=== PATIENT | female | born 1995 | race Caucasian/White ===

== ENCOUNTER 2017-04-08 12:44 | Emergency (ER) | payer MEDICAID, SELFPAY ==
[2017-04-08 12:45] VITALS: BP 135/71; PULSE 103; RESP 14; TEMP 37.6; O2SAT 97; BMI 29.9
--- NOTE | 2017-04-08 13:21 | ED.VISSUMM ---
- ER Visit Summary Date of Service: 04/08/17 Chief Complaint: [Vaginal lesion] History of Present Illness: The patient is a 21 F [who presents the emergency department with a vaginal lesion. She has a history of genital herpes. She started having tingling sensation and discomfort about 5 days ago. Yesterday she noticed a small vesicular lesion on her clitoral harding. Today it scabbed and painful. It is only one lesion but it is similar to her herpes breakout. No other vaginal discharge no pelvic pain no dysuria frequency or hematuria she denies the possibility of and states that she is on control.] Physical Examination: [] The rate 103 other vitals within acceptable limits Soft and nontender Exam reveals a small scabbed shallow based ulcer on the clitoral harding with no surrounding erythema or mass Test Results: [] Emergency Department Course and Treatment: [Patient's exam consistent with recurrent herpes. She was given infection precautions for which she should return. She was given a referral to OB and will be started on acyclovir] Treatment Plan: [] Disposition: [Discharge] Impression: [Genital herpes] This note was generated with [employer] dictation software. It may contain incorrect words, spelling, and punctuation that were not noted in review of the chart prior to signing ED Disposition - Plan for ED Patient: Chief Complaint: Female C/O Referrals: Care Physician,No Primary [Primary Care Provider] -
--- NOTE | 2017-04-08 13:24 | ED.DEP ---
ED Disposition - Plan for ED Patient: Chief Complaint: Female C/O Instructions: ED Herpes Simplex Virus Type 2 Prescriptions: Acyclovir [Zovirax] 400 mg PO TID #15 capsule Referrals: Amy Smallwood MD [STAFF PHYSICIAN] - 1 Week
== END 2017-04-08 13:32 | disposition home or self-care (01) ==
LOC: ED 13:15
PROVIDERS: Emergency Provider Emergency Medicine
DX: A60.04 Herpesviral vulvovaginitis (principal); Z72.0 Tobacco use
CPT/HCPCS: 99282

== ENCOUNTER 2017-06-14 18:12 | Emergency (ER) | payer MEDICAID, SELFPAY ==
[2017-06-14 18:13] VITALS: BP 143/89; PULSE 109; RESP 16; TEMP 36.4; O2SAT 98; BMI 26.8
--- NOTE | 2017-06-14 18:34 | CT_ITS ---
STUDY: CT ABDOMEN WITH CONTRAST REASON FOR EXAM: Female, 21 years old. Nausea vomiting and diarrhea for one day. RADIATION DOSAGE (If Supplied By Facility): CTDIvol = ( 8.55 ) mGy, DLP = ( 692.39 ) mGycm TECHNIQUE: Transaxial images were obtained post I.V. administration of 100 ml of Isovue 300 contrast, and without oral contrast. Sagittal and coronal images were reconstructed. Individualized dose optimization techniques were used for this CT. COMPARISON: Prior abdomen and pelvic CT exam of January 26, 2016 FINDINGS: Minimal linear atelectasis or scarring of the anterior right lung base. The visualized portions of the heart are within normal limits. Normal liver. Contracted gallbladder. Normal spleen. Normal pancreas. Normal bilateral adrenal glands. Normal right kidney. Normal left kidney. Food filled distended stomach. Food filled nondistended small bowel. Nondistended colon. The distal colon is collapsed with a mild prominence of the mucosa. Negative for pericolonic edema. The appendix is visualized and appears normal. Normal abdominal aorta. Normal inferior vena cava. Normal retroperitoneum. Nondistended urinary bladder. Normal uterus and ovaries. Negative for free fluid. Normal abdominal wall. Normal osseous structures. CT/Abdomen/Pelvis W IV Cont ONLY IMPRESSION: Negative for evidence of bowel obstruction or perforation. A normal appendix is identified. Although completely collapsed, there appears to be a mild prominence of the mucosa of the distal colon occurring without other evidence of pericolonic inflammatory changes, diverticulosis or diverticulitis. Mild colitis not excludable. Food distended stomach. Food filled but not distended small bowel. No additional acute solid organ abnormality. Electronically Signed: Jessica Gomez MD at 20:02 EDT , Service support ,
--- NOTE | 2017-06-14 18:35 | ED.RN ---
Pt requested opioids be placed on allergy list due to history of IV drug use
[2017-06-14] MEDS: 0.9% Normal Saline 1,000 ML 1000 ML IV (18:43)
[2017-06-14] MEDS: Ketorolac 30 MG/ML Syringe 15 MG IV (18:43)
[2017-06-14] MEDS: Ondansetron 4 MG/2 ML Vial IV (18:43)
--- NOTE | 2017-06-14 18:43 | ED.DCSUM_ITS ---
- ER Visit Summary Date of Service: 06/14/17 Chief Complaint: Nausea, vomiting, diarrhea and abdominal pain History of Present Illness: The patient is a 21 F with history of IV drug use, hepatitis C and goiter presents for 1 day of abdominal pain, nausea, vomiting and diarrhea. Patient has been having severe crampy abdominal pain since this morning. She had 3 episodes of vomiting and continues to be nauseated. She has had 4 episodes of loose watery stool but now is having no bowel movements or flatus, despite feeling like she needs to. She denies fever, chest pain, shortness of breath, cough or congestion. She states she has been belching burps that smell like sulfur. She denies urinary symptoms. No menstrual periods due to being on Depo-Provera. Physical Examination: Vital signs: afebrile, hemodynamically stable, no hypoxia on room air General: well nourished, well developed, in no distress appears uncomfortable and tearful Skin: warm, dry, no rash, no pallor no [place]ay lesions or Osler nodes or splinter hemorrhages appreciated through partially painted nails HEENT: normocephalic and atraumatic; PERRL, EOMI, moist mucous membranes Cardiovascular: Tachycardic rate and regular rhythm without murmurs, no peripheral edema, 2+ pulses all distal extremities Respiratory: No increased work of breathing, lungs are clear to auscultation bilaterally, no rales, rhonchi or wheezing Abdominal: Abdomen is soft, diffusely tender with normoactive bowel sounds, no guarding or rebound, no masses MSK: Moves all extremities, no deformities, normal strength Neuro: Awake and alert, oriented ?4. No facial droop, sensation and motor function intact and symmetric Test Results: Abnormal Lab Results 06/14/17 06/14/17 06/14/17 18:30 18:30 18:30 WBC 12.6 H RBC 5.12 Hgb 14.0 Hct 43.4 MCV 84.8 MCH 27.3 MCHC 32.3 RDW 13.1 RDW Differential 40.6 Plt Count 291 MPV 9.6 Immature Gran % (Auto) 0.100 Neut % (Auto) 58.0 Lymph % (Auto) 32.2 [place] % (Auto) 8.0 Eos % (Auto) 1.6 Baso % (Auto) 0.1 Absolute Neuts (auto) 7.3 Absolute Lymphs (auto) 4.05 Total Counted Not Reportable Sodium 147 H Potassium 3.4 L Chloride 111 H Carbon Dioxide 25.0 Anion Gap 11 BUN 9 Creatinine 0.78 Estim Creat Clear Calc 92.79 Est GFR (MDRD) Af Amer 117 Est GFR (MDRD) Non-Af 97 BUN/Creatinine Ratio 11.6 Glucose 75 Calcium 8.9 Total Bilirubin 0.20 AST 39 H ALT 168 H Alkaline Phosphatase 139 H Total Protein 7.8 Albumin 3.4 Globulin 4.4 H Albumin/Globulin Ratio 0.8 L Lipase 180 Serum , Qual NEGATIVE Urine Test 06/14/17 18:49 WBC RBC Hgb Hct MCV MCH MCHC RDW RDW Differential Plt Count MPV Immature Gran % (Auto) Neut % (Auto) Lymph % (Auto) [place] % (Auto) Eos % (Auto) Baso % (Auto) Absolute Neuts (auto) Absolute Lymphs (auto) Total Counted Sodium Potassium Chloride Carbon Dioxide Anion Gap BUN Creatinine Estim Creat Clear Calc Est GFR (MDRD) Af Amer Est GFR (MDRD) Non-Af BUN/Creatinine Ratio Glucose Calcium Total Bilirubin AST ALT Alkaline Phosphatase Total Protein Albumin Globulin Albumin/Globulin Ratio Lipase Serum , Qual Urine Test Negative Clinical Impression(s) from Imaging Studies Abdomen/Pelvis CT 06/14/17 18:34 IMPRESSION: Negative for evidence of bowel obstruction or perforation. A normal appendix is identified. Although completely collapsed, there appears to be a mild prominence of the mucosa of the distal colon occurring without other evidence of pericolonic inflammatory changes, diverticulosis or diverticulitis. Mild colitis not excludable. Food distended stomach. Food filled but not distended small bowel. No additional acute solid organ abnormality. Electronically Signed: Jessica Gomez MD at 20:02 EDT , Service support , Emergency Department Course and Treatment: Given patient's complaints and examination combined with her history of IV drug use, workup was performed to look for acute abdominal pathology. Patient had no findings on her exam concerning for endocarditis. Differential includes bowel obstruction, gastroenteritis, diverticulitis, among other pathology. negative. Labs showed mild leukocytosis of 12.6 which may be related to infection versus demargination from vomiting. Labs showed no electrolyte derangements. Hepatic function consistent with history of hepatitis C. CT of the abdomen and pelvis showed a large amount of food content in the stomach in the small bowel with collapse of the distal colon. No inflammatory changes. Results discussed with patient, and she did at that time admits that she has been binge eating and her symptoms started after an episode of binge eating, which explains the large amount of stomach contents. Patient was given a prescription for Zofran and a GI cocktail prior to discharge. No indication for admission at this time. Patient was discharged home with her mother. Treatment Plan: [] Disposition: [] Impression: Abdominal pain, gastroenteritis This note was generated with [employer] dictation software. It may contain incorrect words, spelling, and punctuation that were not noted in review of the chart prior to signing ED Disposition - Plan for ED Patient: Disposition: Home or Assisted Living Chief Complaint: Abd Pain Instructions: ED Diet Vomiting Diarrhea Prescriptions: Ondansetron [Zofran Odt] 4 mg PO Q8H PRN PRN #15 tab PRN Reason: Nausea Referrals: Cuca Shah MD [STAFF PHYSICIAN] - 3-5 Days if not improving Care Physician,No Primary [Primary Care Provider] - Additional Instructions: Your workup showed a large amount of food in your stomach and small intestine, consistent with your history of binge eating. There was no sign of bowel obstruction or any other issues that require admission or surgery. Please eat a bland liquid diet until your bowels start moving again and you stopped having abdominal pain, nausea, vomiting and diarrhea. Make sure you drink plenty of fluids to stay hydrated. If you have any worsening of your condition or any new concerning symptoms, return to the emergency department for another evaluation. Please follow-up with the doctor on this paperwork or with the primary care doctor of your choice to establish care with a primary care doctor.
[2017-06-14 18:46] LABS: Absolute Lymphocyte Count 4.05 X10^3/ul (0.83-4.51); Absolute Neutrophil Count 7.3 X10^3/uL (2.0-7.7); Basophil# 0.01 X10^3/uL; Basophil% 0.1 % (0-1); Eosinophils% 1.6 % (0-5); Hematocrit 43.4 % (37-47); Lymphocyte # 4.05 X10^3/ul (4.0); Lymphocyte % 32.2 % (19-41); Mean Corp Hgb Conc 32.3 g/gl (32-36); Mean Corpuscular Hgb 27.3 pg (27.0-32.0); Mean Corpuscular Volume 84.8 fL (81-99); Mean Platelet Vol. 9.6 fl (6.2-12.0); Monocyte# 1.01 X10^3/uL; Neutrophil # 7.28 X10^3/uL (2.7-7.7); Platelet Count 291 K/mm3 (150-450); RBC Distribution Width CV 13.1 % (11.6-14.6); RBC Distribution Width SD 40.6 fl (35.1-43.9); Red Blood Count 5.12 M/mm3 (4.2-5.4); White Blood Count 12.6 K/mm3 (4.4-11.0)
[2017-06-14 18:48] LABS: POSITIVE COUNT NO; POSITIVE DIFFERENTIAL NO; POSITIVE MORPHOLOGY NO
[2017-06-14 18:59] LABS: ALB/GLOB Ratio 0.8 RATIO (0.9-2.4); AST(SGOT) 39 U/L (15-37); Alanine Aminotransfer ALT/SGPT 168 U/L (13-56); Albumin, Serum 3.4 g/dL (3.2-5.0); Alkaline Phosphatase 139 U/L (45-117); Anion Gap 11 (5-15); BUN 9 mg/dL (7-18); BUN/Creat Ratio 11.6 RATIO (10-20); Calcium,Total 8.9 mg/dL (8.5-10.1); Chloride 111 mmol/L (98-107); Creatinine, Serum 0.78 mg/dL (0.55-1.02); EST Glomerular Filtration Rate 97 mL/min (>60); Est Glom Filt Rate - Afr Amer 117 mL/min (>60); Estimated Creatinine Clearance 92.79 ml/min; Globulin 4.4 g/dL (2.2-4.2); Glucose 75 mg/dL (74-106); Lipase 180 U/L (73-393); Potassium 3.4 mmol/L (3.5-5.1); Protein, Total 7.8 g/dL (6.4-8.2); Sodium Level 147 mmol/L (136-145)
[2017-06-14 19:01] LABS: Internal QC Validated? YES +Cl - CLEAR BKGD; Pregnancy, Urine Negative Negative
[2017-06-14 19:11] LABS: Pregnancy, Serum, hCG Quali. NEGATIVE Negative (0-9 Nonpreg)
[2017-06-14 20:13] VITALS: BP 135/88; PULSE 93; RESP 14; O2SAT 100
--- NOTE | 2017-06-14 20:17 | ED.DEP ---
ED Disposition - Plan for ED Patient: Disposition: Home or Assisted Living Chief Complaint: Abd Pain Instructions: ED Diet Vomiting Diarrhea Prescriptions: Ondansetron [Zofran Odt] 4 mg PO Q8H PRN PRN #15 tab PRN Reason: Nausea Referrals: Care Physician,No Primary [Primary Care Provider] - Cuca Shah MD [STAFF PHYSICIAN] - 3-5 Days if not improving Additional Instructions: Your workup showed a large amount of food in your stomach and small intestine, consistent with your history of binge eating. There was no sign of bowel obstruction or any other issues that require admission or surgery. Please eat a bland liquid diet until your bowels start moving again and you stopped having abdominal pain, nausea, vomiting and diarrhea. Make sure you drink plenty of fluids to stay hydrated. If you have any worsening of your condition or any new concerning symptoms, return to the emergency department for another evaluation. Please follow-up with the doctor on this paperwork or with the primary care doctor of your choice to establish care with a primary care doctor.
== END 2017-06-14 20:32 | disposition home or self-care (01) ==
PROVIDERS: Emergency Provider Emergency Medicine
DX: K52.9 Noninfective gastroenteritis and colitis, unspecified (principal); E04.9 Nontoxic goiter, unspecified; Z72.0 Tobacco use; Z86.19 Personal history of other infectious and parasitic diseases
CPT/HCPCS: 74177; 80053; 81025; 83690; 84703; 85025; 87086; 87088; 96361; 96374; 96375; 99285; J7030; Q9967; A4216; J2405

== ENCOUNTER 2017-08-11 19:32 | Emergency (ER) | payer MEDICAID, SELFPAY ==
[2017-08-11 19:33] VITALS: BP 153/87; PULSE 113; RESP 22; TEMP 37; O2SAT 98; BMI 24.7
[2017-08-11] MEDS: Ketorolac 60 MG/2 ML Vial IM (21:52)
--- NOTE | 2017-08-11 21:53 | NURSING ---
CALLED [facility] FOR A RIDE HOME.
[2017-08-11 22:54] LABS: Mucous, Urine 0 SEEN /hpf (<or=2+)
[2017-08-11 22:58] LABS: Color, Urine Yellow (Yellow); Glucose, Dipstick Normal (Normal); Ketone-Dipstick Negative (Negative); Leukocyte Esterase-Dipstick 500 /ul (Negative); Nitrite-Dipstick Positive (Negative); Occult Blood-Urine 25 /ul (Negative); Protein-Dipstick 100 mg/dl (Negative); Urine Bilirubin Dipstick Negative (Negative); Urine Clarity Sl. Cloudy (Clear); Urine Urobilinogen 4 mg/dl (Normal); Urine pH 6.5 (5.0 - 8.0)
[2017-08-11 23:00] LABS: Internal QC Validated? YES +Cl - CLEAR BKGD
[2017-08-11 23:01] LABS: Pregnancy, Urine Negative Negative
[2017-08-11 23:21] LABS: Red Blood Cells-Urine 0-5 SEEN /hpf (0-5); White Blood Cells >100 SEEN /hpf (0-5)
[2017-08-11 23:22] LABS: Bacteria 2+ /hpf (None Seen); Squamous Epithelial Cells - UA 10-25 SEEN /hpf (5-10)
--- NOTE | 2017-08-11 23:30 | ED.VISSUMM ---
- ER Visit Summary Date of Service: 08/11/17 Chief Complaint: Bilateral flank pain History of Present Illness: The patient is a 22 F presenting with bilateral flank pain. She states this started yesterday. She states this feels similar to her previous kidney infections. She has had one episode of vomiting. She denies abdominal pain. Denies fever. Denies other complaints. She does have a history of methamphetamine use. Physical Examination: Vitals are stable. Patient is afebrile. Alert no acute distress. HEENT exam is unremarkable. Neck is supple. Lungs are clear and equal bilaterally. Heart is regular rate and rhythm. Abdomen is soft nontender nondistended. No rebound or guarding. Back: Bilateral CVA tenderness Extremities are unremarkable. Skin is warm and dry. No focal neurologic deficit. Remainder of exam is unremarkable. Emergency Department Course and Treatment: Patient is given Toradol IM with improvement. She has no further nausea or pain. She is resting comfortably. Urinalysis shows over 100 white cells, 2+ bacteria. HCG negative. Patient is given Cipro. She is advised to follow-up with Dr. Collado steel division supervisor for no doc. Advised return ED if worsening complaints. Disposition: Discharge home Impression: Pyelonephritis This note was generated with [employer] dictation software. It may contain incorrect words, spelling, and punctuation that were not noted in review of the chart prior to signing ED Disposition - Plan for ED Patient: Chief Complaint: Flank Pain Referrals: Care Physician,No Primary [Primary Care Provider] -
--- NOTE | 2017-08-11 23:33 | ED.DCSUM_ITS ---
- ER Visit Summary Date of Service: 08/11/17 Chief Complaint: Bilateral flank pain History of Present Illness: The patient is a 22 F presenting with bilateral flank pain. She states this started yesterday. She states this feels similar to her previous kidney infections. She has had one episode of vomiting. She denies abdominal pain. Denies fever. Denies other complaints. She does have a history of methamphetamine use. Physical Examination: Vitals are stable. Patient is afebrile. Alert no acute distress. HEENT exam is unremarkable. Neck is supple. Lungs are clear and equal bilaterally. Heart is regular rate and rhythm. Abdomen is soft nontender nondistended. No rebound or guarding. Back: Bilateral CVA tenderness Extremities are unremarkable. Skin is warm and dry. No focal neurologic deficit. Remainder of exam is unremarkable. Emergency Department Course and Treatment: Patient is given Toradol IM with improvement. She has no further nausea or pain. She is resting comfortably. Urinalysis shows over 100 white cells, 2+ bacteria. HCG negative. Patient is given Cipro. She is advised to follow-up with Dr. Collado flight operations specialist for no doc. Advised return ED if worsening complaints. Disposition: Discharge home Impression: Pyelonephritis This note was generated with [employer] dictation software. It may contain incorrect words, spelling, and punctuation that were not noted in review of the chart prior to signing ED Disposition - Plan for ED Patient: Chief Complaint: Flank Pain Referrals: Care Physician,No Primary [Primary Care Provider] -
--- NOTE | 2017-08-11 23:34 | ED.DEP ---
ED Disposition - Plan for ED Patient: Chief Complaint: Flank Pain Instructions: ED Kidney Infec Female Prescriptions: Ciprofloxacin [Cipro] 500 mg PO BID #14 tablet Referrals: Care Physician,No Primary [Primary Care Provider] - Aramis Collado MD [STAFF PHYSICIAN] -
[2017-08-11] MEDS: Ciprofloxacin 500 MG Tablet PO (23:38)
[2017-08-11 23:39] VITALS: BP 112/66; PULSE 84; RESP 18; O2SAT 100
== END 2017-08-11 23:43 | disposition home or self-care (01) ==
PROVIDERS: Emergency Provider Emergency Medicine
DX: N12 Tubulo-interstitial nephritis, not specified as acute or chronic (principal); R11.10 Vomiting, unspecified; Z72.0 Tobacco use; Z87.440 Personal history of urinary (tract) infections
CPT/HCPCS: 81001; 81025; 96361; 96365; 96366; 96372; 96375; 99284

== ENCOUNTER 2018-09-08 03:07 | Emergency (ER) | payer MEDICAID, SELFPAY ==
[2018-09-08 03:09] VITALS: BP 121/52; PULSE 77; RESP 18; TEMP 36.1; O2SAT 100; BMI 24.0
[2018-09-08] MEDS: Ondansetron ODT 4 MG Tablet PO (03:58)
[2018-09-08] MEDS: Dicyclomine 20 MG/2 ML Vial IM (05:00)
[2018-09-08] MEDS: Loperamide 2 MG Capsule 4 MG PO (05:00)
--- NOTE | 2018-09-08 05:03 | ED.RN ---
PT REQUESTED MORE NAUSEA MEDICINE. DR. IPNTO MADE AWARE, NO FURTHER ORDERS AT THIS TIME, WILL CONTINUE TO MONITOR THE PT.
[2018-09-08 05:04] LABS: Internal QC Validated? YES +Cl - CLEAR BKGD; Pregnancy, Serum, hCG Quali. NEGATIVE Negative
[2018-09-08 05:07] VITALS: BP 122/76; PULSE 86; RESP 17; O2SAT 98
--- NOTE | 2018-09-08 05:50 | ED.DCSUM_ITS ---
- ER Visit Summary Date of Service: 09/08/18 Chief Complaint: Nausea vomiting and diarrhea History of Present Illness: The patient is a 23 F who presents with nausea vomiting diarrhea. This all began today before presentation. She actually was just nauseated until she got here her first episode of emesis was here in the emergency department. She also complains of diarrhea. She denies abdominal pain but does complain of diffuse abdominal cramping. No fevers. No recent illness. Physical Examination: Afebrile vitals unremarkable Resting comfortably Moist mucous membranes Heart regular rate and rhythm Lungs are clear Abdomen soft she does have some diffuse nonfocal tenderness without guarding without rebound she is nondistended Alert Test Results: negative Emergency Department Course and Treatment: Nursing tyron blood but the patient did not want an IV. She was given a Zofran ODT. I evaluated her after this and her nausea was improved but she was still concerned about abdominal cramping and diarrhea so she was given Bentyl and Imodium. Her presentation is most consistent with a gastroenteritis. She was advised this is likely a self- limiting illness. She was given prescriptions for Zofran and Bentyl. She understands to return for new or worsening symptoms and was instructed on specific signs and symptoms to monitor for. Patient discharged. Treatment Plan: [] Disposition: Discharge Impression: Gastroenteritis This note was generated with [employer] dictation software. It may contain incorrect words, spelling, and punctuation that were not noted in review of the chart prior to signing ED Disposition - Plan for ED Patient: Referrals: Care Physician,No Primary [Primary Care Provider] -
--- NOTE | 2018-09-08 05:54 | ED.DEP ---
ED Disposition - Plan for ED Patient: Instructions: GASTROENTERITIS, Viral (4y-Adult) Prescriptions: Dicyclomine HCl [Bentyl] 20 mg PO TIDAC #20 cap Prescription Printed Ondansetron [Zofran Odt] 4 mg PO Q8H PRN PRN #10 tab PRN Reason: Nausea Prescription Printed Referrals: Care Physician,No Primary [Primary Care Provider] -
[2018-09-08 06:12] VITALS: BP 129/85; PULSE 84; RESP 17; O2SAT 97
== END 2018-09-08 06:15 | disposition home or self-care (01) ==
LOC: ED 05:50
PROVIDERS: Emergency Provider Emergency Medicine
DX: K52.9 Noninfective gastroenteritis and colitis, unspecified (principal); Z72.0 Tobacco use
CPT/HCPCS: 84703; 99283; A4216

== ENCOUNTER 2018-12-03 16:33 | Emergency (ER) | payer MEDICAID, SELFPAY ==
[2018-12-03 16:34] VITALS: BP 131/74; PULSE 119; RESP 17; TEMP 36.6; O2SAT 97; BMI 24.2
--- NOTE | 2018-12-03 16:52 | CT_ITS ---
STUDY: CT BRAIN WITHOUT CONTRAST REASON FOR EXAM: Female, 23 years old. Syncope. Frontal views. Head injury. RADIATION DOSAGE (If Supplied By Facility): CTDIvol = ( 60.81 ) mGy, DLP = ( 998.67 ) mGycm TECHNIQUE: Transaxial CT imaging of the brain was performed without administration of intravenous contrast material. Individualized dose optimization techniques were used for this CT. COMPARISON: No relevant priors. FINDINGS: Normal soft tissue structures. Normal calvarium. Normal size ventricles and extra-axial spaces for the patient's age. Normal white matter tracts of the cerebral hemispheres. Normal basal ganglia and thalami. Normal brainstem. Normal cerebellum. There is no intracranial hemorrhage. There are no findings of an acute ischemic infarction. Normal visualized paranasal sinuses. CT/Brain/Head without Contrast IMPRESSION: Normal unenhanced CT scan of the brain. Electronically Signed: Sixto Kumar MD at 18:41 EDT , Service support ,
--- NOTE | 2018-12-03 16:52 | RAD_ITS ---
STUDY: X-RAY CHEST REASON FOR EXAM: Female, 23 years old. Cough. TECHNIQUE: Single AP portable view of the chest. COMPARISON: 09/13/2015. FINDINGS: The lungs are clear and expanded. There is no demonstrated pleural abnormality. Normal size heart. Normal mediastinum and puja. Normal visualized pulmonary arteries. Normal visualized aortic arch and descending thoracic aorta. There is mild levoscoliosis of the thoracic spine. Normal visualized ribs, clavicles, and shoulders. There is no demonstrated abnormality of the visualized soft tissue structures of the upper abdomen. RAD/Chest 1 View (Portable) IMPRESSION: Normal x-ray examination of the chest. Electronically Signed: Sixto Kumar MD at 17:14 EDT , Service support ,
--- NOTE | 2018-12-03 16:53 | EKG12_ITS ---
Test Reason : SYNCOPE Blood Pressure : / mmHG Vent. Rate : 096 BPM Atrial Rate : 096 BPM P-R Int : 118 ms QRS Dur : 082 ms QT Int : 340 ms P-R-T Axes : 013 059 029 degrees QTc Int : 429 ms Normal sinus rhythm Normal ECG Confirmed by LINDA WRIGHT, BETHANIE ([id number]), publication editor JAZMINE LEE ([id number]) on 12/09/2018 9:39:24 AM Referred By: JACK Confirmed By:ANA MCKEON MD
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
[2018-12-03 17:16] LABS: Absolute Lymphocyte Count 5.19 X10^3/uL (0.83-4.51); Basophil# 0.09 X10^3/uL; Basophil% 0.6 % (0-1); Eosinophil# 0.38 X10^3/uL; Eosinophils% 2.4 % (0-5); Hemoglobin 12.7 g/dL (12.0-15.0); Lymphocyte # 5.19 X10^3/ul (4.0); Lymphocyte % 33.1 % (19-41); Mean Corp Hgb Conc 32.6 g/dL (32-36); Mean Corpuscular Hgb 27.2 pg (27.0-32.0); Mean Corpuscular Volume 83.5 fL (81-99); Monocyte# 1.01 X10^3/uL; Monocyte% 6.4 % (0-10); NRBC Flagged by Analyzer 0 % (0-5); Neutrophil # 8.98 X10^3/uL (2.7-7.7); Neutrophil % 57.2 % (47-70); POSITIVE DIFFERENTIAL YES; Platelet Count 322 K/mm3 (150-450); RBC Distribution Width CV 13.2 % (11.6-14.6); RBC Distribution Width SD 40.2 fl (35.1-43.9); Red Blood Count 4.67 M/mm3 (4.2-5.4); White Blood Count 15.7 K/mm3 (4.4-11.0)
[2018-12-03 17:21] LABS: Differential Indicated SCAN CRITERIA MET
[2018-12-03 17:21] LABS: Bacteria 0 SEEN /hpf (None Seen); Red Blood Cells-Urine 0 SEEN /hpf (0-5); Squamous Epithelial Cells - UA 0 SEEN /hpf (5-10)
[2018-12-03 17:25] LABS: Color, Urine Yellow (Yellow); Glucose, Dipstick Normal (Normal); Ketone-Dipstick 5 mg/dl (Negative); Leukocyte Esterase-Dipstick 25 /ul (Negative); Nitrite-Dipstick Negative (Negative); Occult Blood-Urine Negative /ul (Negative); Protein-Dipstick 30 mg/dl (Negative); Specific Gravity, Urine 1.025 (1.002-1.030); Urine Bilirubin Dipstick Negative (Negative); Urine Clarity Sl. Cloudy (Clear); Urine Urobilinogen Normal (Normal)
[2018-12-03 17:36] LABS: Internal QC Validated? YES +Cl - CLEAR BKGD; Pregnancy, Serum, hCG Quali. NEGATIVE Negative
[2018-12-03 17:39] LABS: Amphetamine Urine VISTA POSITIVE (<1000 ng/mL); Barbiturate Urine VISTA NEGATIVE (< 200 ng/mL); Benzodiazepine Urine VISTA NEGATIVE (< 200 ng/mL); Cocaine Urine VISTA NEGATIVE (< 300 ng/mL); Ecstacy Urine VISTA POSITIVE (< 500 ng/mL); Methadone Urine VISTA NEGATIVE (< 300 ng/mL); PCP Urine VISTA NEGATIVE (< 25 ng/mL); THC Urine VISTA NEGATIVE (< 50 ng/mL); Vista UDS pH Range 7
[2018-12-03 17:40] LABS: ALB/GLOB Ratio 0.9 RATIO (0.9-2.4); AST(SGOT) 83 U/L (15-37); Alanine Aminotransfer ALT/SGPT 156 U/L (13-56); Alkaline Phosphatase 112 U/L (45-117); Anion Gap 8 (5-15); BUN 17 mg/dL (7-18); BUN/Creat Ratio 21.8 RATIO (10-20); Calcium,Total 9.2 mg/dL (8.5-10.1); Chloride 105 mmol/L (98-107); Creatinine, Serum 0.78 mg/dL (0.55-1.02); EST Glomerular Filtration Rate 96 mL/min (>60); Est Glom Filt Rate - Afr Amer 116 mL/min (>60); Estimated Creatinine Clearance 91.21 ml/min; Globulin 4.3 g/dL (2.2-4.2); Glucose 82 mg/dL (74-106); Potassium 3.5 mmol/L (3.5-5.1); Protein, Total 8.3 g/dL (6.4-8.2); Sodium Level 139 mmol/L (136-145); Thyroid Stim Hormone (TSH) 2.88 uIU/mL (0.358-3.74)
[2018-12-03 17:45] LABS: Mucous, Urine 3+ /hpf (<or=2+); White Blood Cells 0-5 SEEN /hpf (0-5)
[2018-12-03 17:54] LABS: Platelet Estimate ADEQUATE (ADEQ); Red Cell Morphology NORM C+C NORMAL (NORM C&C)
--- NOTE | 2018-12-03 19:57 | ED.RN ---
RN called into room, PTs ride is here and needs to leave now. Took IV out, gave emotional support and encouraged PT to get PCP to f/u with. PT left prior to discharge vital signs. She ambulated to lobby with a steady and independent gait without signs of dizziness or near syncope.
[2018-12-04 10:14] LABS: Pathologist Review Reviewed
== END 2018-12-03 19:58 | disposition home or self-care (01) ==
PROVIDERS: Emergency Provider Emergency Medicine
DX: R55 Syncope and collapse (principal); F11.10 Opioid abuse, uncomplicated; F17.210 Nicotine dependence, cigarettes, uncomplicated
CPT/HCPCS: 70450; 71045; 80053; 80307; 80320; 81001; 84443; 84703; 85025; 93005; 99284; A4216; G0480

== ENCOUNTER 2019-01-18 03:14 | Emergency (ER) | payer MEDICAID, SELFPAY ==
[2019-01-18 03:15] VITALS: BP 177/109; PULSE 128; RESP 20; TEMP 37.1; O2SAT 99; BMI 26.5
--- NOTE | 2019-01-18 03:26 | ED.VIS.GEN ---
History of Present Illness Chief Complaint: Abscess Informant: Patient Narrative: Stated that she picked her face and got an early abscess a few days ago. It has been draining. She is tried to squeeze it. It is gotten smaller in areas. She does have redness and induration and thinks it turned into a cellulitis. No fevers or chills. No other home treatment. She states she picks her face a lot. Current severity is mild to moderate. She says she is very anxious because she feels like she is can have to have facial surgery and is getting herself worked up. Past Medical History - Allergies and Home Meds Allergies/Adverse Reactions: Allergies adhesive Allergy (Verified 12/03/18 16:34) Rash Latex, Natural Rubber Allergy (Verified 12/03/18 16:34) Rash sulfamethoxazole [From Bactrim] Allergy (Verified 12/03/18 16:34) Itching trimethoprim [From Bactrim] Allergy (Verified 12/03/18 16:34) Itching Primary Care Physician: Care Physician,No Primary [Primary Care Provider] - Prior records reviewed: Yes Past Medical History: - - Skin abscess Surgical History: noncontributory Lives: With Family Smoking Status: Current every day smoker Alcohol: None Drugs: None Review of Systems General: Denies: Chills, Fever, Sweats Eyes: Denies: Visual changes - bilaterally, Diplopia ENT: Denies: Rhinorrhea, Sore throat Cardiovascular: Denies: Chest pain, Palpitations Respiratory: Denies: Dyspnea, Cough, Dyspnea on exertion Gastrointestinal: Denies: Abdominal pain, Nausea, Vomiting, Diarrhea, Melena, Hematochezia Genitourinary: Denies: Dysuria, Hematuria, Frequency Musculoskeletal: Denies: Back pain, Extremity Pain Skin: Reports: Abscess. Denies: Rash, Wounds Neurological: Denies: Headache, Weakness, Numbness Physical Exam Vital Signs/Narrative: Vital Signs Temp Pulse Resp BP Pulse Ox 01/18/19 03:15 98.7 F 128 H 20 H 177/109 H 99 General: Well nourished, Well developed, No Acute Distress Head: Normocephalic, Atraumatic Eyes: Perrl, EOMI ENT: Moist mucous membranes, No rhinorrhea Neck: Supple, Nontender Cardiovascular: Regular rate, Regular rhythm, No murmurs Respiratory: No distress, CTA bilaterally, Chest nontender Abdomen: Soft, Nontender, Nondistended, Normal bowel sounds Back: Nontender, Normal Inspection Extremities: Nontender, No edema Skin: - - Has an area of indurated cellulitis with no abscess to her left cheek. It measures 5 x 4 cm. There is dried drainage on her cheek. I feel this is likely from previous abscess that broke open and drained.. Negative for: Normal color, No rash Neurological: Alert, Oriented x3, Cranial nerves II-XII grossly intact, Normal Strength, Normal Sensation Psychological: Normal affect, Normal Mood Diagnostic/Tx/Re-eval - Medical Decision Making Patient has a left cheek remnant of abscess that is open and drained and as of my opinion progressed to cellulitis. I do not feel any lymph node involvement elsewhere. Her neck exam and shoulder exam are normal. There is no submental fullness. No evidence of Jc's angina. Patient nontoxic. At this time I feel this can be treated with oral antibiotics. Given clindamycin and Keflex. She is allergic to Bactrim. We will continue these at home. Will also be given clindamycin lotion to put on any new wounds to prevent spread ED Disposition - Plan for ED Patient: Disposition: Home or Assisted Living Diagnosis: Cellulitis Instructions: CELLULITIS, Facial Prescriptions: Clindamycin HCl [Cleocin] 300 mg PO Q6H #40 cap Prescription Printed Clindamycin Phosphate [Cleocin T] 60 ml TP TID #1 lotion Prescription Printed Cephalexin [Keflex] 500 mg PO Q6 #40 cap Prescription Printed Referrals: Sherman aGrcía DO [NON CLINICAL AFFILIATE] -
[2019-01-18] MEDS: Clindamycin HCl 150 MG Capsule 300 MG PO (03:40)
[2019-01-18] MEDS: Cephalexin 250 MG Capsule 500 MG PO (03:40)
[2019-01-18] MEDS: Ondansetron ODT 4 MG Tablet 8 MG PO (03:40)
== END 2019-01-18 03:51 | disposition home or self-care (01) ==
PROVIDERS: Emergency Provider Emergency Medicine
DX: L03.211 Cellulitis of face (principal); F17.200 Nicotine dependence, unspecified, uncomplicated; Z88.2 Allergy status to sulfonamides; Z88.1 Allergy status to other antibiotic agents; Z88.3 Allergy status to other anti-infective agents; Z91.040 Latex allergy status

== ENCOUNTER 2019-01-18 17:39 | Emergency (ER) | payer MEDICAID, SELFPAY ==
[2019-01-18 03:15] VITALS: BMI 26.5
[2019-01-18 17:40] VITALS: BP 147/85; PULSE 130; RESP 18; TEMP 37.2; O2SAT 96; BMI 25.4
--- NOTE | 2019-01-18 17:53 | CT_ITS ---
STUDY: CT CHEST WITH CONTRAST REASON FOR EXAM: Female, 23 years old. Trauma RADIATION DOSAGE (If Supplied By Facility): CTDIvol = ( 8.67 ) mGy, DLP = ( 951.43 ) mGycm TECHNIQUE: Transaxial imaging was performed following intravenous administration of IV 100mL Isovue-300 100. Individualized dose optimization techniques were used for this CT. COMPARISON: None. FINDINGS: Lungs are clear. Pleural surfaces are intact. Central airways are patent. Mediastinal contents are normal. Cardiac changes are normal in size and shape. Aorta and pulmonary artery are unremarkable. Osseous structures are unremarkable. CT/Chest WITH Contrast IMPRESSION: Normal enhanced CT Chest examination. Electronically Signed: Anupama Mireles, at 19:35 EST Tel , Service support ,
--- NOTE | 2019-01-18 17:53 | CT_ITS ---
STUDY: CT ABDOMEN AND PELVIS WITH CONTRAST REASON FOR EXAM: Female, 23 years old. Trauma RADIATION DOSAGE (If Supplied By Facility): CTDIvol = ( 8.67 ) mGy, DLP = ( 951.43 ) mGycm TECHNIQUE: CT images were obtained from the dome of the diaphragm to the symphysis pubis without oral contrast. IV Isovue 300 100 was administered. Sagittal and coronal images were reconstructed. Individualized dose optimization techniques were used for this CT. COMPARISON: None. FINDINGS: The visualized lung bases are unremarkable. The visualized portions of the heart are within normal limits. Normal liver. Normal gallbladder and extrahepatic biliary system. Normal spleen. Normal pancreas. Normal bilateral adrenal glands. Normal right kidney. Normal left kidney. Normal visualized stomach. Normal small intestine. Normal colon. The appendix is visualized and appears normal. Normal abdominal aorta. Normal inferior vena cava. Normal retroperitoneum. Normal urinary bladder. Normal abdominal wall. Normal osseous structures. There is minor scoliosis without acute osseous trauma. CT/Abdomen/Pelvis W IV Cont ONLY IMPRESSION: Normal enhanced CT of the abdomen and pelvis. Electronically Signed: Anupama Mireles, at 19:35 EST Tel , Service support ,
--- NOTE | 2019-01-18 17:53 | CT_ITS ---
STUDY: CT BRAIN WITHOUT CONTRAST REASON FOR EXAM: Female, 23 years old. Trauma RADIATION DOSAGE (If Supplied By Facility): CTDIvol = ( 44.99 ) mGy, DLP = ( 745.49 ) mGycm TECHNIQUE: Transaxial CT imaging of the brain was performed without administration of intravenous contrast material. Individualized dose optimization techniques were used for this CT. COMPARISON: No relevant priors. FINDINGS: Brain parenchyma is without focal lesions, mass effect, acute intracranial hemorrhage, extra parenchymal fluid collections, hydrocephalus or herniation. The skull is intact. CT/Brain/Head without Contrast IMPRESSION: 1. Normal CT brain. Electronically Signed: Anupama Mireles, at 19:32 EST Tel , Service support ,
[2019-01-18 18:28] LABS: Absolute Neutrophil Count 4.5 X10^3/uL (2.0-7.7); Basophil# 0.04 X10^3/uL; Basophil% 0.4 % (0-1); Eosinophil# 0.11 X10^3/uL; Eosinophils% 1.2 % (0-5); Hematocrit 35.5 % (37-47); Hemoglobin 11.7 g/dL (12.0-15.0); Lymphocyte % 36.7 % (19-41); Mean Corpuscular Hgb 28.1 pg (27.0-32.0); Mean Corpuscular Volume 85.1 fL (81-99); Monocyte# 1.15 X10^3/uL; Monocyte% 12.4 % (0-10); NRBC Flagged by Analyzer 0 % (0-5); Neutrophil # 4.54 X10^3/uL (2.7-7.7); Neutrophil % 49.1 % (47-70); Platelet Count 227 K/mm3 (150-450); RBC Distribution Width CV 14.2 % (11.6-14.6); RBC Distribution Width SD 44.7 fl (35.1-43.9); Red Blood Count 4.17 M/mm3 (4.2-5.4); White Blood Count 9.3 K/mm3 (4.4-11.0)
[2019-01-18 18:53] LABS: Internal QC Validated? YES +Cl - CLEAR BKGD; Pregnancy, Serum, hCG Quali. NEGATIVE Negative
[2019-01-18 18:54] LABS: AST(SGOT) 120 U/L (15-37); Alanine Aminotransfer ALT/SGPT 253 U/L (13-56); Alkaline Phosphatase 84 U/L (45-117); Anion Gap 7 (5-15); BUN 15 mg/dL (7-18); BUN/Creat Ratio 17.5 RATIO (10-20); Calcium,Total 9.2 mg/dL (8.5-10.1); Chloride 113 mmol/L (98-107); Creatinine, Serum 0.86 mg/dL (0.55-1.02); EST Glomerular Filtration Rate 86 mL/min (>60); Est Glom Filt Rate - Afr Amer 103 mL/min (>60); Estimated Creatinine Clearance 82.72 ml/min; Globulin 3.9 g/dL (2.2-4.2); Glucose 83 mg/dL (74-106); Potassium 4.3 mmol/L (3.5-5.1); Protein, Total 7.9 g/dL (6.4-8.2); Sodium Level 143 mmol/L (136-145)
[2019-01-18] MEDS: 0.9% Normal Saline 1,000 ML 150 ML IV (19:30)
[2019-01-18 20:55] LABS: Bacteria 0 SEEN /hpf (None Seen); Red Blood Cells-Urine 0 SEEN /hpf (0-5)
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
--- NOTE | 2019-01-18 21:04 | ED.DEP ---
ED Disposition - Plan for ED Patient: Instructions: HEAD INJURY, No Wake-Up (Adult), FALL, Mechanical, Chest Wall Contusion Prescriptions: Ondansetron [Zofran Odt] 4 mg PO Q8H PRN PRN #10 tab PRN Reason: Nausea Prescription Printed Referrals: Care Physician,No Primary [Primary Care Provider] - Joe Frederick MD [STAFF PHYSICIAN] - 5-7 Days
[2019-01-18 21:09] LABS: Color, Urine Yellow (Yellow); Glucose, Dipstick Normal (Normal); Ketone-Dipstick 50 mg/dl (Negative); Leukocyte Esterase-Dipstick Negative /ul (Negative); Nitrite-Dipstick Negative (Negative); Occult Blood-Urine 10 /ul (Negative); Protein-Dipstick 30 mg/dl (Negative); Specific Gravity, Urine 1.015 (1.002-1.030); Urine Bilirubin Dipstick Negative (Negative); Urine Clarity Clear (Clear); Urine Urobilinogen Normal (Normal)
[2019-01-18 21:24] LABS: Hyaline Cast 0-5 SEEN /lpf (0-5); Mucous, Urine 1+ /hpf (<or=2+); Squamous Epithelial Cells - UA 0-5 SEEN /hpf (5-10); White Blood Cells 0-5 SEEN /hpf (0-5)
[2019-01-18 21:26] VITALS: PULSE 101; RESP 16; O2SAT 98
== END 2019-01-18 21:27 | disposition home or self-care (01) ==
LOC: ED 18:15
PROVIDERS: Emergency Provider Emergency Medicine
DX: S06.0X0A Concussion without loss of consciousness, initial encounter (principal); S20.219A Contusion of unspecified front wall of thorax, initial encounter; S30.1XXA Contusion of abdominal wall, initial encounter; V19.3XXA Pedal cyclist (driver) (passenger) injured in unspecified nontraffic accident, initial encounter; Y93.55 Activity, bike riding; Y92.9 Unspecified place or not applicable; Y99.9 Unspecified external cause status; L03.211 Cellulitis of face; F17.200 Nicotine dependence, unspecified, uncomplicated; Z88.2 Allergy status to sulfonamides; Z88.1 Allergy status to other antibiotic agents; Z88.3 Allergy status to other anti-infective agents; Z91.040 Latex allergy status; Z72.0 Tobacco use
CPT/HCPCS: 70450; 71260; 74177; 80053; 81001; 84703; 85025; 96360; 96361; 99283; 99285; J7030; Q9967; A4216

== ENCOUNTER 2019-06-17 17:52 | Emergency (ER) | payer MEDICAID, SELFPAY ==
[2019-06-17 17:54] VITALS: BP 133/87; PULSE 110; PULSE 113; RESP 18; TEMP 36.7; O2SAT 97; O2SAT 98; BMI 26.3
--- NOTE | 2019-06-17 18:04 | ED.VIS.GEN ---
History of Present Illness Chief Complaint: Abscess Informant: Patient Onset: Days Context: Gradual Onset Timing: Continuous Current Severity: Moderate Maximum Severity: Moderate Narrative: The patient is a 23-year-old female with medical history significant for prior MRSA, along with IV drug abuse, the presents with an abscess to her right forearm. Patient states that she injected about 3 or 4 days ago. She noticed some redness and swelling of the area. Over the past 48 hours it increased in size. She denies any fevers or chills. She denies any pain up the arm. She denies any pain in the joint. She states she is otherwise been in her normal state of health. Prior similar symptoms: Yes Recent Illness/Hospitalization: No Past Medical History - Allergies and Home Meds Allergies/Adverse Reactions: Allergies adhesive Allergy (Verified 06/17/19 17:53) Rash Latex, Natural Rubber Allergy (Verified 06/17/19 17:53) Rash sulfamethoxazole [From Bactrim] Allergy (Verified 06/17/19 17:53) Itching trimethoprim [From Bactrim] Allergy (Verified 06/17/19 17:53) Itching Primary Care Physician: Care Physician,No Primary [Primary Care Provider] - Prior records reviewed: Yes Past Medical History: - - History of IV drug abuse Surgical History: noncontributory Smoking Status: Current every day smoker Review of Systems General: Denies: Chills, Fever, Sweats Eyes: Denies: Visual changes - bilaterally, Diplopia ENT: Denies: Rhinorrhea, Sore throat Cardiovascular: Denies: Chest pain, Palpitations Respiratory: Denies: Dyspnea, Cough, Dyspnea on exertion Gastrointestinal: Denies: Abdominal pain, Nausea, Vomiting, Diarrhea, Melena, Hematochezia Genitourinary: Denies: Dysuria, Hematuria, Frequency Musculoskeletal: Denies: Back pain, Extremity Pain Skin: Reports: Rash, Abscess. Denies: Wounds Neurological: Denies: Headache, Weakness, Numbness Physical Exam Vital Signs/Narrative: Vital Signs Temp Pulse Resp BP Pulse Ox 06/17/19 17:54 98.1 F 110 H 18 133/87 H 98 Inital Vital Signs reviewed: Yes General: Well nourished, Well developed, No Acute Distress Head: Normocephalic, Atraumatic Eyes: Perrl, EOMI ENT: Moist mucous membranes, No rhinorrhea Neck: Supple, Nontender Cardiovascular: Regular rate, Regular rhythm, No murmurs Respiratory: No distress, CTA bilaterally, Chest nontender Abdomen: Soft, Nontender, Nondistended, Normal bowel sounds Back: Nontender, Normal Inspection Extremities: Tenderness - Patient has a large abscess of the dorsal lateral right forearm with surrounding cellulitis. No lymphangitic streak. No pain in the elbow. Normal pulses. Compartments soft. Skin: Normal color, No rash Neurological: Alert, Oriented x3, Cranial nerves II-XII grossly intact, Normal Strength, Normal Sensation Psychological: Normal affect, Normal Mood Diagnostic/Tx/Re-eval - Medical Decision Making The patient presents with abscess of the forearm with some surrounding cellulitis. There is no lymphangitic streak. She has had no fever. The area was cleansed with chlorhexidine. 6 cc of 1% lidocaine with epinephrine was injected in a wheal type pattern around the abscess. It was incised with an 11 blade. Loculations were broken up with hemostats and purulence was expressed. There was a very shallow pocket that would not tolerate packing. The patient has tolerated clindamycin in the past. She will be started on this. She was counseled on wound care. I also want her to be reevaluated within the next 24 to 48 hours to make sure that the redness is improving. She will return here. She is comfortable with this plan of care. Impression 1. Right forearm abscess with incision and drainage ED Disposition - Plan for ED Patient: Instructions: ED Abscess Incision And Drainage Prescriptions: Clindamycin [Cleocin] 300 mg PO 4X/DAY #80 cap Prescription Printed Referrals: Care Physician,No Primary [Primary Care Provider] -
[2019-06-17] MEDS: Bupivacaine Mpf 0.5% 30 ML VIAL INFILT (18:30)
== END 2019-06-17 18:43 | disposition home or self-care (01) ==
PROVIDERS: Emergency Provider Emergency Medicine
DX: L02.413 Cutaneous abscess of right upper limb (principal); Z86.14 Personal history of Methicillin resistant Staphylococcus aureus infection; F17.200 Nicotine dependence, unspecified, uncomplicated
CPT/HCPCS: 10060; 99283

== ENCOUNTER 2019-06-29 16:14 | Emergency (ER) | payer MEDICAID, SELFPAY ==
[2019-06-29 16:15] VITALS: BP 138/90; PULSE 113; RESP 16; TEMP 35.9; BMI 25.7
--- NOTE | 2019-06-29 17:24 | ED.VIS.GEN ---
History of Present Illness Chief Complaint: Abscess Informant: Patient Onset: Days Context: Gradual Onset Timing: Continuous Narrative: Patient is a 23-year-old female with history of MRSA as well as IV drug use, heroin and methamphetamines, presenting with right hand swelling and abscess. Patient states for the past week she has had redness and swelling of her right hand. Today it seemed to develop head at the base of her thumb on the dorsal aspect. There was a small amount of white drainage. She came back to the emergency room. Patient had an abscess requiring incision and drainage as well as cellulitis on 06/18 of her right elbow. Patient states she has not injected into her hand in some time. She is right-hand dominant. She denies any systemic symptom such as fever or chills. She last used heroin earlier today. She states she is not interested in detox at this time. Patient later admits that she lost her prescription for her antibiotics last week and never took them. Past Medical History - Allergies and Home Meds Allergies/Adverse Reactions: Allergies adhesive Allergy (Verified 06/29/19 16:29) Rash Latex, Natural Rubber Allergy (Verified 06/29/19 16:29) Rash sulfamethoxazole [From Bactrim] Allergy (Verified 06/29/19 16:29) Itching trimethoprim [From Bactrim] Allergy (Verified 06/29/19 16:29) Itching Primary Care Physician: Sayra Meyer MD [STAFF PHYSICIAN] - Past Medical History: - - IV drug use, MRSA Surgical History: noncontributory Lives: Friends Smoking Status: Current every day smoker Drugs: Heroin, - - Methamphetamines Review of Systems General: Denies: Chills, Fever, Malaise, Sweats Eyes: Denies: Visual changes - bilaterally, Diplopia ENT: Denies: Rhinorrhea, Sore throat Cardiovascular: Denies: Chest pain, Palpitations Respiratory: Denies: Dyspnea, Cough, Dyspnea on exertion Gastrointestinal: Denies: Abdominal pain, Nausea, Vomiting, Diarrhea, Melena, Hematochezia Genitourinary: Denies: Dysuria, Hematuria, Frequency Musculoskeletal: Reports: Swelling - Right hand, Extremity Pain - Right hand. Denies: Back pain Skin: Reports: Rash - Right hand, Abscess - Right hand. Denies: Wounds Neurological: Denies: Headache, Weakness, Numbness Physical Exam Vital Signs/Narrative: Vital Signs Temp Pulse Resp BP 05/05/20 16:15 96.7 F L 113 H 16 138/90 H Inital Vital Signs reviewed: Yes General: Well nourished, Well developed, No Acute Distress, - - Anxious Head: Normocephalic, Atraumatic Eyes: Perrl, EOMI ENT: Moist mucous membranes, No rhinorrhea Neck: Supple, Nontender Cardiovascular: Regular rate, Regular rhythm, No murmurs Respiratory: No distress, CTA bilaterally, Chest nontender Abdomen: Soft, Nontender, Nondistended, Normal bowel sounds Back: Nontender, Normal Inspection Extremities: Tenderness, Edema, - - Diffuse edema of the right hand, negative Knievel signs Skin: No rash, Rash - Erythema and warmth of the dorsal aspect of the right hand diffusely, no lymphangitic streaking present, - - 2 cm x 2 cm area of fluctuance over the dorsal aspect of the right hand at the base of the thumb Neurological: Alert, Oriented x3, Cranial nerves II-XII grossly intact, Normal Strength, Normal Sensation Psychological: Normal affect, Normal Mood Diagnostic/Tx/Re-eval - Medical Decision Making Patient is evaluated for worsening pain and swelling of her right hand. She seems to have developed an abscess over the past few days. Her physical exam is consistent with cellulitis and abscess. She requires incision and drainage. See I&D procedure note. Given patient's involvement of the hand and this is her second visit for cellulitis with abscess in 1 week I did initially order blood work and a dose of IV antibiotics. Due to patient's IV drug use she is very difficult IV access. Despite multiple attempts we were not able to obtain an IV. Patient declined an EJ or femme stick. She is given first dose of oral antibiotics here. She is not having any systemic symptoms and is counseled that should her symptoms worsen at all in the next 24 to 48 hours she needs to return the emergency room for IV antibiotics at that time. Patient is offered inpatient detox multiple times but she declines it. She is given resources for addiction however. I did obtain a wound culture. She is given first dose of oral clindamycin in the emergency room. Patient is counseled on signs and symptoms requiring return to the emergency room. Patient verbalizes agreement and understand this plan. Patient discharged home in stable and improved condition. Procedures Procedure(s): And and. 1 cc of 1% lidocaine with epinephrine injected subcutaneously into a wheal over the point of maximal fluctuance. A #10 blade is used to make a 2 cm linear incision. An extensive amount of purulent drainage is expressed. Wound cultures are obtained. Loculations were opened up with hemostats and wound is irrigated with normal saline. Packing is placed to encourage further drainage and prevent premature closure of the wound. Patient tolerated procedure relatively well. No significant blood loss. No immediate complications. ED Disposition - Plan for ED Patient: Disposition: Home or Assisted Living Diagnosis: Abscess of right hand, Cellulitis of right hand, IV drug abuse Instructions: ED Abscess Incision And Drainage, ED Cellulitis Prescriptions: Clindamycin [Cleocin] 450 mg PO 4X/DAY #84 cap Prescription Printed Ibuprofen [Motrin] 600 mg PO Q6H PRN PRN #20 tab PRN Reason: Pain Score 1-10/10 Prescription Printed Referrals: Sayra Meyer MD [STAFF PHYSICIAN] - Additional Instructions: Remove packing after 3 days. If it falls out before that it is okay. Avoid IV drug use. The emergency room if you have worsening symptoms or you would like to be admitted for detox.
[2019-06-29 19:14] VITALS: BP 132/87; PULSE 101; RESP 18; TEMP 37.3; O2SAT 100
[2019-06-29] MEDS: Clindamycin HCl 150 MG Capsule 450 MG PO (20:02)
--- NOTE | 2019-07-01 12:25 | ED.RN ---
DR SOFIA REVIEWED WOUND CULTURE RESULTS. PER DR SOFIA NO FURTHER TREATMENT NEEDED
== END 2019-06-29 20:17 | disposition home or self-care (01) ==
PROVIDERS: Emergency Provider Emergency Medicine
DX: L02.511 Cutaneous abscess of right hand (principal); L03.113 Cellulitis of right upper limb; F11.10 Opioid abuse, uncomplicated; F15.10 Other stimulant abuse, uncomplicated; F17.200 Nicotine dependence, unspecified, uncomplicated; Z86.14 Personal history of Methicillin resistant Staphylococcus aureus infection
CPT/HCPCS: 10061; 87070; 87077; 87205; 99283; J0295

== ENCOUNTER → 2020-07-28 15:45 | Outpatient (CLI) | payer MEDICAID, SELFPAY ==
[2020-07-28 17:27] LABS: Absolute Lymphocyte Count 4.83 X10^3/uL (0.83-4.51); Absolute Neutrophil Count 6.4 X10^3/uL (2.0-7.7); Basophil# 0.05 X10^3/uL; Basophil% 0.4 % (0-1); Eosinophil# 0.14 X10^3/uL; Eosinophils% 1.2 % (0-5); Hematocrit 43.7 % (37-47); Hemoglobin 14.1 g/dL (12.0-15.0); Lymphocyte # 4.83 X10^3/ul (0.83-4.51); Mean Corp Hgb Conc 32.3 g/dL (32-36); Mean Corpuscular Hgb 27.3 pg (27.0-32.0); Mean Corpuscular Volume 84.7 fL (81-99); Mean Platelet Vol. 11.4 fl (6.2-12.0); Monocyte# 0.66 X10^3/uL; Monocyte% 5.5 % (0-10); NRBC Flagged by Analyzer 0 % (0-5); Neutrophil # 6.36 X10^3/uL (2.7-7.7); Neutrophil % 52.5 % (47-70); Platelet Count 263 K/mm3 (150-450); RBC Distribution Width CV 12.8 % (11.6-14.6); RBC Distribution Width SD 39.4 fl (35.1-43.9); Red Blood Count 5.16 M/mm3 (4.2-5.4); White Blood Count 12.1 K/mm3 (4.4-11.0)
[2020-07-28 17:56] LABS: ALB/GLOB Ratio 0.9 RATIO (0.9-2.4); AST(SGOT) 29 U/L (15-37); Alanine Aminotransfer ALT/SGPT 81 U/L (13-56); Albumin, Serum 4.3 g/dL (3.2-5.0); Alkaline Phosphatase 121 U/L (45-117); Anion Gap 7 (5-15); BUN 14 mg/dL (7-18); BUN/Creat Ratio 19.1 RATIO (10-20); Calcium,Total 9.8 mg/dL (8.5-10.1); Chloride 109 mmol/L (98-107); Cholesterol 212 mg/dL (200); Creatinine, Serum 0.73 mg/dL (0.55-1.02); EST Glomerular Filtration Rate 101 mL/min (>60); Est Glom Filt Rate - Afr Amer 122 mL/min (>60); Globulin 4.6 g/dL (2.2-4.2); Glucose 79 mg/dL (74-106); High Density Lipoprotein 57 mg/dL; Lipase 165 U/L (73-393); Protein, Total 8.9 g/dL (6.4-8.2); Sodium Level 137 mmol/L (136-145); T4 Free Direct 1.09 ng/dL (0.76-1.46); Thyroid Stim Hormone (TSH) 0.75 uIU/mL (0.358-3.74); Triglycerides 87 mg/dL; Very Low Density Lipoprotein 17 mg/dL (5-40)
[2020-07-30 08:41] LABS: H. Pylori Antibody (IgG) 0.67 (0.00-0.79); Thyroid Peroxidase AB 106 IU/mL (0-34)
[2020-07-31 14:48] LABS: Vitamin D 1,25-Dihydroxy 39.3 pg/mL (19.9-79.3)
== END ==
PROVIDERS: PCP Nurse Practitioner Adult Health; Referring Provider Nurse Practitioner Adult Health; Visit Provider Nurse Practitioner Adult Health
DX: R12 Heartburn (principal)
CPT/HCPCS: 36415; 80053; 80061; 82652; 83690; 84439; 84443; 84481; 85025; 86376; 86677

== ENCOUNTER → 2020-08-03 13:58 | Outpatient (CLI) | payer MEDICAID, SELFPAY ==
--- NOTE | 2020-08-03 14:01 | US_ITS ---
STUDY: THYROID ULTRASOUND REASON FOR EXAM: Female, 25 years old. HYPOTHYROIDISM TECHNIQUE: Ultrasound evaluation of the thyroid was performed with real-time and static cage-scale imaging. COMPARISON: None. FINDINGS: RIGHT LOBE: The right lobe of the thyroid gland is enlarged and measures 5.1 cm x 1.5 cm x 1.3 cm. There is a there is a 1.2 cm x 0.8 cm x 0.6 cm hypoechoic solid nodule in the upper pole.. There are no demonstrated solid, cystic or complex lesions. LEFT LOBE: The left lobe of the thyroid gland measures 4.7 cm x 1.6 cm x 1 cm. There is a homogeneous echotexture. There are no demonstrated solid, cystic or complex lesions. ISTHMUS: The isthmus measures 2 mm. The regional lymph nodes are normal. US/Thyroid IMPRESSION: Mild enlargement of the right lobe of the thyroid with a 1.2 cm x 0.8 cm x 0.6 cm hypoechoic solid nodule. Correlation with a nuclear medicine uptake and thyroid scan is recommended. Electronically Signed: Abel Stauffer MD at 15:39 EDT , Service support ,
== END ==
PROVIDERS: Referring Provider Nurse Practitioner Adult Health; Visit Provider Nurse Practitioner Adult Health
DX: E03.9 Hypothyroidism, unspecified (principal)
CPT/HCPCS: 76536

== ENCOUNTER → 2020-09-20 07:31 | Outpatient (CLI) | payer MEDICAID, SELFPAY ==
--- NOTE | 2020-09-20 07:34 | US_ITS ---
STUDY: ABDOMINAL ULTRASOUND - RIGHT UPPER QUADRANT REASON FOR VISIT: Female, 25 years old ABNORMAL LEVELS OF SERUM ENZYMES TECHNIQUE: Ultrasound evaluation of the right upper quadrant was performed with real-time and static cage-scale imaging. TECHNICAL QUALITY: Adequate. COMPARISON: None. FINDINGS: Liver: The liver measures 14.7 cm. There is increased echogenicity consistent with fatty infiltration. The bile ducts are within normal limits. There is hepatic color flow. The direction of portal flow is hepatopetal. There is no demonstrated mass lesion. Gallbladder: Normal distended gallbladder. The gallbladder wall measures 3.1 mm. There is a negative sonographic Engle''s sign. There is no pericholecystic fluid. There are no gallstones. Common Bile Duct (C.B.D.): The common bile duct measures 4.5 mm. Pancreas: Normal size of the head, body and tail of the pancreas. There is increased echogenicity of the pancreas. There is no demonstrated pancreatic mass or cyst. Right Kidney: Normal size of the right kidney. The right kidney measures 10.6 cm x 5.7 cm x 4.8 cm. Normal renal cortex. The right cortex measures 2 cm. There is no demonstrated renal mass or cyst. There is no right hydronephrosis. US/Abdomen Limited IMPRESSION: Fatty infiltration of the liver. Electronically Signed: Abel Stauffer MD at 9:41 EDT , Service support ,
--- NOTE | 2020-09-20 08:01 | NM_ITS ---
CLINICAL: 25-year-old female with reported history of thyroid nodularity. I-123 THYROID UPTAKE and SCAN COMPARISON: Thyroid ultrasound report 08/03/2020 FINDINGS: The patient was administered a 331 uCi I-123 capsule by mouth. The 4-hour I-123 radioactive iodine thyroidal uptake was calculated to be 15.5 % (normal 5 to 25 %). The 24-hour I-123 radioactive iodine thyroidal uptake was calculated to be 38.6 % (normal 5 to 40 %). The I-123 thyroid scan demonstrates homogeneous radiopharmaceutical concentration throughout both lobes of a U -shaped thyroid gland. There are no colloidal parenchymal hypofunctioning cold nodules noted in either lobe of the thyroid gland. NM/Thyroid Uptake Single or Mult IMPRESSION: 1. NORMAL 4- and upper limits of 24-hour I-123 radioactive iodine thyroidal uptakes. Correlation with in vitro thyroid function studies is recommended if not previously obtained. 2. 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 (Gissell et al, J Nucl Med 32: 1455, 1991). 3. No hypofunctioning-cold nodules are identified. Electronically Signed: Evan Grady DO at 23:44 EDT Tel , Service support ,
== END ==
PROVIDERS: PCP Nurse Practitioner Adult Health; Referring Provider Nurse Practitioner Adult Health; Visit Provider Nurse Practitioner Adult Health
DX: E04.1 Nontoxic single thyroid nodule (principal)
CPT/HCPCS: 76705; 78012; A9516

== ENCOUNTER 2020-10-21 15:47 | Emergency (ER) | payer MEDICAID, SELFPAY ==
[2020-10-21 15:48] VITALS: BP 127/78; PULSE 90; RESP 18; TEMP 36.3; O2SAT 97; BMI 35.4
--- NOTE | 2020-10-21 16:07 | RAD_ITS ---
STUDY: X-RAY - RIGHT FOOT CLINICAL: Female, 25 years old. Fall going up steps, right foot pain TECHNIQUE: 3 view(s) of the foot. COMPARISON: None. FINDINGS: Normal talus, calcaneus, and tarsal bones. Normal visualized subtalar, talonavicular, calcaneocuboid, tarsal and tarsometatarsal articulations. Normal metatarsi. Normal metatarsophalangeal joint of the great toe. Normal tibial and fibular sesamoid bones. Normal interphalangeal joint of the great toe. Sclerosis of the first distal phalanx just sequela of old fracture. Normal second through fifth metatarsophalangeal joints. Normal interphalangeal joints and phalanges of the lesser toes. The soft tissue structures are unremarkable. RAD/Foot min 3 Views IMPRESSION: No acute fracture or malalignment. Electronically Signed: Trell Willson MD ([place]) at 16:34 EDT , Service support ,
--- NOTE | 2020-10-21 16:55 | ED.VIS.LOWEX ---
HPI History of Present Illness Chief Complaint: Lower Extremity Injury Informant: patient Onset/Context/Timing Onset: Hours Context: Sudden Onset Timing: Continuous Quality of Pain: Dull, Aching and Throbbing Current Severity: Mild Maximum Severity: Moderate Worsened by: Movement and weightbearing Relieved by: Rest and elevation Associated Symptoms Associated Symptoms: Negative for Parasthesia, Weakness and Loss of Funtion Narrative Narrative: Patient is 25-year-old female who presents because of blunt injury to the dorsal side of her right foot. This occurred prior to arrival. She complains of pain with walking and movement. She denies prior injury. She denies ankle pain. She is not on an anticoagulant. She denies any allergies. Tetanus Immunization: 5-10 years Prior similar symptoms: No Recent Illness/Hospitalization: No PFSH PFSH Medical History Anxiety Depression Home Medications hydroxyzine HCl 10 mg tablet 10 mg PO TID tab 10/06/20 [History Last Taken Unknown] naltrexone microspheres 380 mg intramuscular suspension,extended release 380 mg IM QMONTH 10/06/20 [History Last Taken Unknown] mirtazapine [Remeron] 15 mg PO QHS 10/21/20 [History Last Taken Unknown] Allergy/AdvReac Type Severity Reaction Status Date / Time adhesive Allergy Rash Verified 10/06/20 17:05 Latex, Natural Rubber Allergy Rash Verified 10/06/20 17:05 sulfamethoxazole Allergy Itching Verified 10/06/20 17:05 [From Bactrim] trimethoprim [From Bactrim] Allergy Itching Verified 10/06/20 17:05 Social History Smoking Status: Current every day smoker tobacco type: cigarettes ROS ROS ED Constitutional Constitutional ED: Denies chills, fever(s) or subjective Musculoskeletal Musculoskeletal: Denies arthralgias, back pain, myalgias or neck pain Integumentary Denies Abrasions or rash Neurologic Neurologic: Denies headache(s), paresthesias or weakness Hematologic/Lymphatic Hematologic/Lymphatic: Denies easy bleeding or easy bruising EXAM Physical Exam Const Vital Signs: 10/21/20 15:48 Temperature 97.3 F L Temperature Source Temporal Pulse Rate 90 Respiratory Rate 18 Blood Pressure 127/78 H Blood Pressure Mean 94 Pulse Ox 97 Oxygen Delivery Method Room Air Positive well nourished, well developed and obese General Appearance ED: well developed Nutritional Appearance: obese HEENT normocephalic and atraumatic Eyes PERRL Neck full ROM Resp normal respiratory effort Cardio regular rate and regular rhythm Extremity normal to inspection and full ROM Extremity Narrative: There is slight discoloration dorsal surface of the mid right foot. There is pain palpation over the tarsal bones. There is no pain the patient over the lateral medial malleolus. There is no pain the patient over the metatarsal bones or phalanges. DP and PT pulse are palpable. General Extremety ED: Yes weight-bearing difficulty; Negative for cyanosis or edema General Extremity: weight-bearing difficulty; Negative for cyanosis or edema Psych mental status grossly normal Skin No no wounds Skin Narrative: Slight bruising dorsal surface of right foot Lesions: no lesions Rashes: no rashes MDM MDM MDM Narrative Medical decision making narrative: Nurse protocol for x-ray. Differential is contusion versus fracture. The x-rays were reviewed by me and there is no evidence of fracture. There is no foreign body. There is no malalignment of the joints. Radiography Diagnostic Testing: Radiology Impression Foot X-Ray 10/21/20 16:07 IMPRESSION: No acute fracture or malalignment. Electronically Signed: Trell Willson MD ([place]) at 16:34 EDT , Service support , Discharge Plan Triage Chief Complaint: Lower Extremity Injury ED Provider: Darrius Angulo Dx/Rx/DC Orders Clinical Impression: Contusion of right foot, initial encounter Instructions: ED Contusion, Lower Extremity Prescriptions: No Action hydroxyzine HCl 10 mg tablet 10 mg PO TID RF: 0 Vivitrol 380 mg suspension,extended rel recon 380 mg IM QMONTH RF: 0 mirtazapine [Remeron] 15 mg Tablet 15 mg PO QHS RF: 0 Primary Care Provider: Madeline Pappas Referrals: Madeline Pappas, BEATER OPERATOR-C [Primary Care Provider] - As Needed Activity Restrictions/Additional Instructions: 1. Apply ice 8 times a day 2. Avoid activity that causes discomfort 3. Elevate as much as possible 4. Walking on your foot will not cause any harm Disposition Disposition: Home, Self Care
[2020-10-21 17:22] VITALS: PULSE 74; RESP 16; O2SAT 99
--- NOTE | 2020-10-21 17:22 | ED.RN ---
THIS NURSE REVIEWED D/C INSTRUCTIONS WITH PT. PT VERBALIZED UNDERSTANDING OF INSTRUCTIONS. PT DENIES FURTHER NEEDS OR QUESTIONS AT THIS TIME.
== END 2020-10-21 17:23 | disposition home or self-care (01) ==
LOC: ED 17:13
PROVIDERS: Emergency Provider Emergency Medicine; PCP Nurse Practitioner Family
DX: S90.31XA Contusion of right foot, initial encounter (principal); W10.9XXA Fall (on) (from) unspecified stairs and steps, initial encounter; Y93.89 Activity, other specified; Y92.9 Unspecified place or not applicable; Y99.9 Unspecified external cause status; F17.210 Nicotine dependence, cigarettes, uncomplicated
CPT/HCPCS: 73630; 99282

== ENCOUNTER 2021-01-10 12:34 | Emergency (ER) | payer MEDICAID, SELFPAY ==
[2021-01-10 12:35] VITALS: BP 150/87; PULSE 86; RESP 18; TEMP 36.1; O2SAT 97; BMI 34.0
--- NOTE | 2021-01-10 12:38 | EKG12_ITS ---
Test Reason : CP Blood Pressure : / mmHG Vent. Rate : 076 BPM Atrial Rate : 076 BPM P-R Int : 130 ms QRS Dur : 070 ms QT Int : 330 ms P-R-T Axes : 066 058 007 degrees QTc Int : 371 ms Normal sinus rhythm with sinus arrhythmia Nonspecific T wave abnormality Abnormal ECG Confirmed by LINDA WRIGHT, BETHANIE ([id number]), crane chaser AINSLEY LINDA ([id number]) on 01/11/2021 2:28:49 P M Referred By: SONNY/MICHELLE Confirmed By:ANA MCKEON MD
[2021-01-10 13:12] LABS: Absolute Lymphocyte Count 4.43 X10^3/uL (0.83-4.51); Absolute Neutrophil Count 5.4 X10^3/uL (2.0-7.7); Basophil# 0.05 X10^3/uL; Basophil% 0.5 % (0-1); Eosinophil# 0.18 X10^3/uL; Eosinophils% 1.7 % (0-5); Hematocrit 42.1 % (37-47); Hemoglobin 13.9 g/dL (12.0-15.0); Lymphocyte # 4.43 X10^3/ul (0.83-4.51); Mean Corpuscular Volume 84.7 fL (81-99); Mean Platelet Vol. 10.3 fl (6.2-12.0); Monocyte# 0.69 X10^3/uL; Monocyte% 6.4 % (0-10); NRBC Flagged by Analyzer 0 % (0-5); Neutrophil # 5.43 X10^3/uL (2.7-7.7); Neutrophil % 50.1 % (47-70); Platelet Count 283 K/mm3 (150-450); RBC Distribution Width CV 12.8 % (11.6-14.6); RBC Distribution Width SD 39.3 fl (35.1-43.9); Red Blood Count 4.97 M/mm3 (4.2-5.4); White Blood Count 10.8 K/mm3 (4.4-11.0)
[2021-01-10 13:30] LABS: BUN 11 mg/dL (7-18); Creatinine, Serum 0.75 mg/dL (0.55-1.02); EST Glomerular Filtration Rate 98 mL/min (>60); Glucose 100 mg/dL (74-106)
[2021-01-10 13:31] LABS: Anion Gap 6 (5-15); BUN/Creat Ratio 14.6 RATIO (10-20); Calcium,Total 9.6 mg/dL (8.5-10.1); Chloride 115 mmol/L (98-107); Est Glom Filt Rate - Afr Amer 118 mL/min (>60); Potassium 3.9 mmol/L (3.5-5.1); Sodium Level 142 mmol/L (136-145); Troponin-I HS 4 pg/mL (3.0-54.0)
--- NOTE | 2021-01-10 13:36 | RAD_ITS ---
STUDY: X-RAY CHEST REASON FOR EXAM: Female, 25 years old. chest pain TECHNIQUE: Single AP portable view of the chest. COMPARISON: 12/03/2018 FINDINGS: The lungs are clear and expanded. There is no demonstrated pleural abnormality. Normal size heart. Normal mediastinum and puja. Normal visualized pulmonary arteries. Normal visualized aortic arch and descending thoracic aorta. Normal visualized thoracic spine. Normal visualized ribs, clavicles, and shoulders. There is no demonstrated abnormality of the visualized soft tissue structures of the upper abdomen. RAD/Chest 1 View (Portable) IMPRESSION: Normal x-ray examination of the chest. Electronically Signed: Evan Dickinson MD at 13:58 EST Tel , Service support ,
[2021-01-10 14:02] VITALS: BP 112/73; PULSE 62; RESP 15; O2SAT 99
--- NOTE | 2021-01-10 14:14 | EDS_ITS ---
HPI History of Present Illness Chief Complaint: Chest Pain Informant: patient Onset/Context/Timing Onset: Days Timing: Waxes and wanes Current Severity: Mild Maximum Severity: Moderate Narrative Narrative: Patient presents with intermittent pain in the left chest under the left breast. She thinks it is related to reflux. She has tried Tums and drinking baking soda with water. She states this will help her symptoms for short time, then they return. She denies shortness of breath but states when the pain gets bad she will tend to hold her breath. Symptoms are worse when lying down. She does note she recently had some dental work done and has been taking ibuprofen 800 mg 4 times a day. PFSH PFSH Medical History Anxiety Depression Smoker Home Medications naltrexone microspheres 380 mg intramuscular suspension,extended release 380 mg IM QMONTH 10/06/20 [History Last Taken Unknown] buspirone 10 mg PO TID 01/10/21 [History Last Taken Unknown] omeprazole magnesium [Prilosec] 10 mg PO DAILY #30 ea 01/10/21 [Rx Last Taken Unknown] Allergy/AdvReac Type Severity Reaction Status Date / Time adhesive Allergy Rash Verified 01/10/21 12:37 Latex, Natural Rubber Allergy Rash Verified 01/10/21 12:37 sulfamethoxazole Allergy Itching Verified 01/10/21 12:37 [From Bactrim] trimethoprim [From Bactrim] Allergy Itching Verified 01/10/21 12:37 Social History Smoking Status: Current every day smoker tobacco type: cigarettes ROS ROS ED Constitutional Constitutional ED: Denies chills or fever(s) Eyes Eyes: Denies change in vision ENT ENT ED: Denies sore throat Cardiovascular Cardiovascular: Reports chest pain Respiratory/Chest Respiratory/Chest: Denies cough or dyspnea Gastrointestinal Gastrointestinal: Reports abdominal pain; Denies diarrhea, nausea or vomiting Genitourinary Genitourinary ED: Denies dysuria Musculoskeletal Musculoskeletal: Denies back pain Integumentary Denies rash Neurologic Neurologic: Denies headache(s) Allergic/Immunologic Allergic/Immunologic ED: Denies urticaria EXAM Physical Exam Const Vital Signs: 01/10/21 12:35 01/10/21 14:02 Temperature 97.0 F L Temperature Source Temporal Pulse Rate 86 62 Respiratory Rate 18 15 Respiratory Effort Normal Blood Pressure 150/87 H 112/73 Blood Pressure Mean 108 86 Pulse Ox 97 99 Oxygen Delivery Method Room Air Room Air Positive well nourished and well developed General Appearance ED: well developed HEENT Reports normocephalic and head/scalp atraumatic Eyes PERRL and EOMs intact bilaterally Neck supple Chest Wall inspection of chest normal and palpation of chest normal Resp normal respiratory effort and clear to auscultation bilaterally Cardio regular rate and regular rhythm GI Palpation: soft and tender epigastric Extremity normal to inspection Neuro oriented x3 and no sensory deficits noted Sensorium / Orientation: alert Motor Exam: strength 5/5 throughout Psych mental status grossly normal Skin no rashes or lesions noted MDM MDM MDM Narrative Medical decision making narrative: Lab work, EKG, chest x-ray obtained. Lab Data Attestation: I reviewed the patient's lab results. Labs: Laboratory Results - last 24 hr 01/10/21 01/10/21 13:05 13:05 WBC 10.8 RBC 4.97 Hgb 13.9 Hct 42.1 MCV 84.7 MCH 28.0 MCHC 33.0 RDW Std Deviation 39.3 RDW Coeff of William 12.8 Plt Count 283 MPV 10.3 Immature Gran % (Auto) 0.300 Neut % (Auto) 50.1 Lymph % (Auto) 41.0 [place] % (Auto) 6.4 Eos % (Auto) 1.7 Baso % (Auto) 0.5 Absolute Neuts (auto) 5.4 Absolute Lymphs (auto) 4.43 Nucleated RBC % 0 Sodium 142 Potassium 3.9 Chloride 115 H Carbon Dioxide 21.0 Anion Gap 6 BUN 11 Creatinine 0.75 Estim Creat Clear Calc 93.20 Est GFR (MDRD) Af Amer 118 Est GFR (MDRD) Non-Af 98 BUN/Creatinine Ratio 14.6 Glucose 100 Calcium 9.6 Troponin I High Sens 4 Radiography Chest X-Ray - ED: 1 View, Read by ED Physician, Normal, Heart, Lungs and Mediastinum Diagnostic Testing: Clinical Impression(s) from Imaging Studies Chest X-Ray 01/10/21 13:36 IMPRESSION: Normal x-ray examination of the chest. Electronically Signed: Evan Dickinson MD at 13:58 EST Tel , Service support , EKG Initial EKG: Attestation: I personally reviewed and interpreted this EKG as follows: Interpretation: Sinus Rhythm (Sinus at [address] change. Nonspecific T wave changes noted in lead III and aVF.) Treatment and Re-Evaluation Comments:: Test results discussed with the patient. EKG with no ischemia and normal troponin with several days of pain. Symptoms consistent with reflux and patient be treated with a prescription for Prilosec. Discharge Plan Triage Chief Complaint: Chest Pain ED Provider: Lisa Lilly Dx/Rx/DC Orders Clinical Impression: Chest pain due to GERD Instructions: ED GERD (Adult) Prescriptions: New Prilosec 10 mg susp,delayed release for recon 10 mg PO DAILY Qty: 30 RF: 0 No Action Vivitrol 380 mg suspension,extended rel recon 380 mg IM QMONTH RF: 0 buspirone 5 mg tablet 10 mg PO TID RF: 0 Primary Care Provider: Zahira Beck Referrals: Zahira Beck, CHEMICAL DEPENDENCY NURSE-C [Primary Care Provider] - 10-14 Days if not better Disposition Disposition: Home, Self Care
[2021-01-10 14:34] VITALS: BP 119/80; PULSE 67; RESP 15; O2SAT 99
== END 2021-01-10 14:36 | disposition home or self-care (01) ==
PROVIDERS: Emergency Provider Emergency Medicine; PCP Nurse Practitioner Family
DX: K21.9 Gastro-esophageal reflux disease without esophagitis (principal); F32.A Depression, unspecified; F41.9 Anxiety disorder, unspecified; F17.210 Nicotine dependence, cigarettes, uncomplicated; Z79.899 Other long term (current) drug therapy
CPT/HCPCS: 36415; 71045; 80048; 84484; 85025; 93005; 99284; A4216

== ENCOUNTER 2021-06-20 07:41 | Emergency (ER) | payer MEDICAID, SELFPAY ==
[2021-06-20 07:42] VITALS: BP 130/89; PULSE 81; RESP 14; TEMP 36.4; O2SAT 99; BMI 34.6
--- NOTE | 2021-06-20 08:05 | EDS_ITS ---
HPI History of Present Illness Chief Complaint: Lower Extremity Injury Informant: patient Onset/Context/Timing Onset: Today Current Severity: Mild Maximum Severity: Moderate Narrative Narrative: Patient presents secondary to pain in the right great toe. She states she felt well when she went to bed last evening. She woke around 4 AM this morning with pain in her right great toe and difficulty moving it. She took ibuprofen at that time. She denies any recent injury. No history of gout. PFSH PFSH Medical History Anxiety Depression Smoker Home Medications naltrexone microspheres 380 mg intramuscular suspension,extended release 380 mg IM QMONTH 10/06/20 [History Last Taken Unknown] buspirone 10 mg PO TID 01/10/21 [History Last Taken Unknown] omeprazole magnesium [Prilosec] 10 mg PO DAILY #30 ea 01/10/21 [Rx Last Taken Unknown] omeprazole magnesium [Prilosec] 10 mg PO DAILY #30 ea 01/10/21 [Rx Last Taken Unknown] prednisone 40 mg PO DAILY #10 tab 06/20/21 [Rx Last Taken Unknown] Allergy/AdvReac Type Severity Reaction Status Date / Time adhesive Allergy Rash Verified 06/20/21 07:44 Latex, Natural Rubber Allergy Rash Verified 06/20/21 07:44 sulfamethoxazole Allergy Itching Verified 06/20/21 07:44 [From Bactrim] trimethoprim [From Bactrim] Allergy Itching Verified 06/20/21 07:44 Social History Smoking Status: Current every day smoker tobacco type: cigarettes ROS ROS ED Constitutional Constitutional ED: Denies chills or fever(s) Eyes Eyes: Denies change in vision ENT ENT ED: Denies sore throat Cardiovascular Cardiovascular: Denies chest pain Respiratory/Chest Respiratory/Chest: Denies cough or dyspnea Gastrointestinal Gastrointestinal: Denies abdominal pain, nausea or vomiting Musculoskeletal Musculoskeletal: Reports arthralgias; Denies back pain or neck pain Integumentary Denies rash Neurologic Neurologic: Denies headache(s) or paresthesias Allergic/Immunologic Allergic/Immunologic ED: Denies urticaria EXAM Physical Exam Const Vital Signs: 06/20/21 07:42 Temperature 97.5 F L Temperature Source Temporal Pulse Rate 81 Respiratory Rate 14 Blood Pressure 130/89 H Blood Pressure Mean 102 Pulse Ox 99 Oxygen Delivery Method Room Air Positive well nourished and well developed General Appearance ED: well developed HEENT normocephalic and atraumatic Eyes PERRL Neck full ROM Chest Wall inspection of chest normal and palpation of chest normal Resp normal respiratory effort and clear to auscultation bilaterally Cardio regular rate and regular rhythm GI non-tender Palpation: soft Extremity Extremity Narrative: Tenderness location right great toe at the MTP joint. Very minimal erythema and edema. Good cap refill distally. No tenderness over the midfoot or calcaneus. Neuro oriented x3 Sensorium / Orientation: alert Psych mental status grossly normal Discharge Plan Triage Chief Complaint: Lower Extremity Injury ED Provider: Lisa Lilly Dx/Rx/DC Orders Clinical Impression: Gout Instructions: ED Gout Prescriptions: New prednisone 20 mg tablet 40 mg PO DAILY Qty: 10 RF: 0 No Action Vivitrol 380 mg suspension,extended rel recon 380 mg IM QMONTH RF: 0 buspirone 5 mg tablet 10 mg PO TID RF: 0 Prilosec 10 mg susp,delayed release for recon 10 mg PO DAILY Qty: 30 RF: 0 Prilosec 10 mg susp,delayed release for recon 10 mg PO DAILY Qty: 30 RF: 0 Stand Alone Forms: ED Work / School Excuse Primary Care Provider: Zahira Beck Referrals: Zahira Beck, QUALITY CONTROL OPERATOR-C [Primary Care Provider] - 3-5 Days if not improving Disposition Disposition: Home, Self Care
--- NOTE | 2021-06-20 08:05 | RAD_ITS ---
STUDY: X-RAY - RIGHT FOOT CLINICAL: Female, 25 years old. Swelling of the big toe. No history of trauma. TECHNIQUE: 3 view(s) of the foot. COMPARISON: Comparison is made with prior examination dated 10/21/2020. FINDINGS: Normal talus, calcaneus, and tarsal bones. Normal visualized subtalar, talonavicular, calcaneocuboid, tarsal and tarsometatarsal articulations. Normal metatarsi. Normal metatarsophalangeal joint of the great toe. Normal tibial and fibular sesamoid bones. Normal interphalangeal joint of the great toe. There is a 5.5 mm x 5.1 mm cyst at the base of the distal phalanx of the great toe. Correlation with a CT scan is recommended for further evaluation. Normal second through fifth metatarsophalangeal joints. Normal interphalangeal joints and phalanges of the lesser toes. Soft tissue swelling. RAD/Foot min 3 Views IMPRESSION: 5.1 mm x 5.5 mm cyst at the base of the distal phalanx of the great toe with overlying soft tissue swelling. Correlation with a CT scan is recommended for further evaluation. Electronically Signed: Abel Stauffer MD at 8:47 EDT ,
== END 2021-06-20 08:44 | disposition home or self-care (01) ==
PROVIDERS: Emergency Provider Emergency Medicine; PCP Nurse Practitioner Family; Visit Provider Emergency Medicine
DX: M10.9 Gout, unspecified (principal); F17.210 Nicotine dependence, cigarettes, uncomplicated
CPT/HCPCS: 73630; 99282

== ENCOUNTER 2021-07-06 22:09 | Emergency (ER) | payer MEDICAID, SELFPAY ==
[2021-07-06 22:10] VITALS: BP 137/75; PULSE 77; RESP 16; TEMP 37; O2SAT 97; BMI 34.3
--- NOTE | 2021-07-06 22:37 | EX.ED.DYSGE1 ---
HPI History of Present Illness Chief Complaint: Head Injury Narrative Narrative: 25-year-old female presenting after head injury. Patient states she was pushing a car and it started to come back slightly and she fell over hitting her head. She denies LOC. She does not have any laceration or abrasion. She describes a 4 out of 10 headache. This feels pressure-like. No dizziness, lightheadedness, nausea, vomiting. She denies other injury. She is not on anticoagulation. PFSH PFSH Medical History Anxiety Depression Smoker Home Medications naltrexone microspheres 380 mg intramuscular suspension,extended release 380 mg IM QMONTH 10/06/20 [History Last Taken Unknown] buspirone 10 mg PO TID 01/10/21 [History Last Taken Unknown] omeprazole magnesium [Prilosec] 10 mg PO DAILY #30 ea 01/10/21 [Rx Last Taken Unknown] omeprazole magnesium [Prilosec] 10 mg PO DAILY #30 ea 01/10/21 [Rx Last Taken Unknown] Allergy/AdvReac Type Severity Reaction Status Date / Time adhesive Allergy Rash Verified 07/06/21 22:12 Latex, Natural Rubber Allergy Rash Verified 07/06/21 22:12 sulfamethoxazole Allergy Itching Verified 07/06/21 22:12 [From Bactrim] trimethoprim [From Bactrim] Allergy Itching Verified 07/06/21 22:12 Social History Smoking Status: Current every day smoker tobacco type: cigarettes ROS ROS ED Constitutional Constitutional ED: Denies chills, fever(s) or sweats Eyes Eyes: Denies blurry vision or change in vision ENT ENT ED: Denies ear pain or sore throat Cardiovascular Cardiovascular: Denies chest pain, palpitations or racing heartbeat Respiratory/Chest Respiratory/Chest: Denies cough, dyspnea or sputum Gastrointestinal Gastrointestinal: Denies abdominal pain, constipation, diarrhea, nausea or vomiting Genitourinary Genitourinary ED: Denies dysuria, hematuria or urinary frequency Musculoskeletal Musculoskeletal: Denies arthralgias, myalgias or neck pain Integumentary Denies abscess, Abrasions or rash Neurologic Neurologic: Reports headache(s); Denies paresthesias or weakness Psychiatric Psychiatric: Denies anxiety, depression, suicidal ideation or suicidal thoughts Endocrine Endocrinology: Denies polydipsia or polyuria EXAM Physical Exam Const Vital Signs: 07/06/21 22:10 Temperature 98.6 F Temperature Source Temporal Pulse Rate 77 Respiratory Rate 16 Blood Pressure 137/75 H Blood Pressure Mean 95 Pulse Ox 97 Oxygen Delivery Method Room Air Positive well nourished General Appearance ED: NAD HEENT Reports moist mucous membranes and other normocephalic; Negative for trauma Nose: external nose normal, nares normal and nasal mucous membranes and turbinates normal External Ear: external ears normal Tympanic Membrane ED: Yes TM's normal bilaterally Mouth ED: Yes oral and palatal mucosa normal, Yes lips normal, Yes tongue normal and Yes moist mucous membranes normal Mouth: oral and palatal mucosa normal, lips normal and tongue normal Throat: posterior oropharynx normal and tonsils normal Eyes PERRL and EOMs intact bilaterally Neck no lymphadenopathy and supple Cardio regular rate and regular rhythm Neuro oriented x3 and CN's II-XII intact bilaterally Sensorium / Orientation: alert Psych mental status grossly normal Skin no rashes or lesions noted and no wounds MDM MDM MDM Narrative Medical decision making narrative: Patient presenting with mild head injury. She has no signs of concussion. She describes her headache as 4 of 10 in the back of her head. There is no external signs of trauma. Neurologically intact. I do not believe patient needs CT scan. She not have any pain elsewhere. Patient will given a dose of Tylenol. I did discuss with her return precautions. Patient acknowledged understanding. Impression: 1. Closed head injury 2. Mechanical fall Lab Data Attestation: I reviewed the patient's lab results. Discharge Plan Triage Chief Complaint: Head Injury ED Provider: Jose Piper Dx/Rx/DC Orders Instructions: ED Head Injury (Adult) Prescriptions: No Action Vivitrol 380 mg suspension,extended rel recon 380 mg IM QMONTH RF: 0 buspirone 5 mg tablet 10 mg PO TID RF: 0 Prilosec 10 mg susp,delayed release for recon 10 mg PO DAILY Qty: 30 RF: 0 Prilosec 10 mg susp,delayed release for recon 10 mg PO DAILY Qty: 30 RF: 0 Primary Care Provider: Zahira Beck Referrals: Zahira Beck, SQUIRT MACHINE OPERATOR-C [Primary Care Provider] - Disposition Disposition: Home, Self Care
[2021-07-06 22:50] VITALS: BP 118/77; PULSE 79; RESP 16; O2SAT 99
[2021-07-06] MEDS: Acetaminophen 500 MG Tablet 1000 MG PO (22:51)
== END 2021-07-06 22:52 | disposition home or self-care (01) ==
PROVIDERS: Emergency Provider Student in an Organized Health Care Education/Training Program; PCP Nurse Practitioner Family; Visit Provider Student in an Organized Health Care Education/Training Program
DX: S09.90XA Unspecified injury of head, initial encounter (principal); F17.210 Nicotine dependence, cigarettes, uncomplicated; Y93.89 Activity, other specified; Y99.9 Unspecified external cause status; W19.XXXA Unspecified fall, initial encounter; Y92.9 Unspecified place or not applicable; F41.9 Anxiety disorder, unspecified; F32.A Depression, unspecified; Z79.899 Other long term (current) drug therapy
CPT/HCPCS: 99283

== ENCOUNTER → 2021-07-19 | Outpatient (CLI) | payer MEDICAID, SELFPAY ==
[2021-07-19] MEDS: Methacholine Chloride 18 ml neb kit INHALATION (07:12)
--- NOTE | 2021-07-19 10:39 | BRONCHALL ---
Bronchoprovocation Challenge Bronchoprovocation Challenge Bronchoprovocation Challenge: BRONCHOPROVOCATION STUDY INTERPRETATION Brief HPI: Patient is a 26 year old female, currently under the care of Lisa Costello, who presents to [facility] for a bronchoprovocation study secondary to diagnosis of chronic cough. Respiratory therapist reports good effort and reproducible results. Interpretation: Initial spirometry showed no large airways obstructive ventilatory defect. The patient was then given increasingly concentrated doses of methacholine in a stepwise/standardized fashion, using a modified ATS protocol. The patient had a significant reduction in FEV1 by 25% and a calculated PD20 of 0.118. Impression: Positive bronchial reactivity in a range consistent with a diagnosis of asthma
== END | disposition home or self-care (01) ==
LOC: PSN 07:00
PROVIDERS: PCP Nurse Practitioner Family; Referring Provider Physician Assistant; Visit Provider Physician Assistant
DX: R06.00 Dyspnea, unspecified (principal); R05.9 Cough, unspecified
CPT/HCPCS: 94070; 95070

== ENCOUNTER 2021-11-27 19:06 | Emergency (ER) | payer MEDICAID, SELFPAY ==
[2021-11-27 19:08] VITALS: BP 149/99; PULSE 107; RESP 15; TEMP 36.1; O2SAT 98; BMI 35.7
--- NOTE | 2021-11-27 19:41 | EDS_ITS ---
HPI History of Present Illness Chief Complaint: Shortness of Breath Informant: patient Onset/Context/Timing Onset: Days (2 to 3 days) Context: Gradual Onset Current Severity: Mild Maximum Severity: Moderate Narrative Narrative: Patient presents secondary to increased shortness of breath and cough. No fevers been noted. She went to urgent care. They sent a COVID test but she does not have the result yet. Due to continued shortness of breath she presented to emergency room. Advised by nursing staff that she was wheezing on arrival. ED physician had approved DuoNeb treatment and she received that prior to my initial evaluation. PFSH PFSH Medical History Anxiety Asthma Depression Hx of gastroesophageal reflux (GERD) Hypothyroidism Smoker Home Medications naltrexone microspheres 380 mg intramuscular suspension,extended release (Vivitrol) 380 mg IM QMONTH 10/06/20 [History Last Taken Unknown] buspirone 5 mg tablet 10 mg PO TID 01/10/21 [History Last Taken Unknown] omeprazole magnesium 10 mg oral suspension,delayed release (Prilosec) 10 mg PO DAILY #30 ea 01/10/21 [Rx Last Taken Unknown] omeprazole magnesium 10 mg oral suspension,delayed release (Prilosec) 10 mg PO DAILY #30 ea 01/10/21 [Rx Last Taken Unknown] albuterol sulfate 2.5 mg/3 mL (0.083 %) solution for nebulization 2.5 mg (3 mL) inhalation Q4H PRN #25 vials 11/27/21 [Rx Last Taken Unknown] albuterol sulfate 90 mcg/actuation aerosol inhaler (Ventolin HFA) 2 puff inhalation Q4H PRN PRN Wheezing ##1 11/27/21 [Rx Last Taken Unknown] nebulizer and compressor #1 ea 11/27/21 [Rx Last Taken Unknown] Allergy/AdvReac Type Severity Reaction Status Date / Time adhesive Allergy Rash Verified 11/27/21 19:12 Latex, Natural Rubber Allergy Rash Verified 11/27/21 19:12 sulfamethoxazole Allergy Itching Verified 11/27/21 19:12 [From Bactrim] trimethoprim [From Bactrim] Allergy Itching Verified 11/27/21 19:12 Social History Smoking Status: Current every day smoker tobacco type: cigarettes ROS ROS ED Constitutional Constitutional ED: Denies chills or fever(s) Eyes Eyes: Denies change in vision or discharge from eye(s) ENT ENT ED: Denies discharge from eye(s), rhinorrhea or sore throat Cardiovascular Cardiovascular: Reports chest pain; Denies palpitations Respiratory/Chest Respiratory/Chest: Reports cough and dyspnea Gastrointestinal Gastrointestinal: Denies abdominal pain, diarrhea, nausea or vomiting Genitourinary Genitourinary ED: Denies difficulty urinating or dysuria Musculoskeletal Musculoskeletal: Denies back pain or extremity pain Integumentary Denies Abrasions or rash Neurologic Neurologic: Denies headache(s) or weakness Allergic/Immunologic Allergic/Immunologic ED: Denies lip swelling or urticaria EXAM Physical Exam Const Vital Signs: 11/27/21 19:08 11/27/21 19:30 11/27/21 19:45 Temperature 96.9 F L Temperature Source Temporal Pulse Rate 107 H 127 H Respiratory Rate 15 18 Respiratory Effort Normal Non-Labored Respiratory Depth Normal Respiratory Pattern Normal Normal Blood Pressure 149/99 H Blood Pressure Mean 115 Pulse Ox 98 Oxygen Delivery Method Room Air Room Air 11/27/21 19:45 Temperature Temperature Source Pulse Rate Respiratory Rate 20 H Respiratory Effort Normal Short of Breath Respiratory Depth Normal Respiratory Pattern Normal Blood Pressure Blood Pressure Mean Pulse Ox 97 Oxygen Delivery Method Room Air Positive well nourished and well developed General Appearance ED: well developed HEENT Reports normocephalic and head/scalp atraumatic Eyes PERRL and EOMs intact bilaterally Neck supple Chest Wall inspection of chest normal Chest Narrative: Reproducible chest wall tenderness along the anterior lower chest wall. No crepitus. Resp normal respiratory effort and clear to auscultation bilaterally Cardio regular rate and regular rhythm GI normal to inspection, nondistended, normoactive bowel sounds Palpation: soft Extremity normal to inspection Neuro oriented x3 and no sensory deficits noted Sensorium / Orientation: alert Motor Exam: strength 5/5 throughout Psych mental status grossly normal Skin no rashes or lesions noted MDM MDM MDM Narrative Medical decision making narrative: Patient given DuoNeb treatment here along with EKG. Chest x-ray ordered along with rapid COVID test. Lab Data Attestation: I reviewed the patient's lab results. Radiography Chest X-Ray - ED: 1 View, Read by ED Physician, Normal, Heart, Lungs, Mediastinum and No Infiltrates Diagnostic Testing: Clinical Impression(s) from Imaging Studies Chest X-Ray 11/27/21 19:52 IMPRESSION: No acute cardiopulmonary disease or major interval change. Electronically Signed: Dane Lee DO at 20:43 EDT Reading Location ID and State: [address] [place] [address] Tel [phone], Service support , EKG Initial EKG: Attestation: I personally reviewed and interpreted this EKG as follows: Interpretation: Sinus Rhythm (Sinus at 94 with PVC. No acute ischemia.) Treatment and Re-Evaluation Narrative: Repeat evaluation patient resting comfortably. Lung sounds are clear. Chest x- ray per my interpretation reveals no focal infiltrate. Radiology interpretation is reviewed and agrees. COVID test is negative. Patient has prednisone at home, 40 mg a day for 5 days. She has an albuterol inhaler but is not sure how much medicine she has left. She will begin a prescription for new inhaler. She will be given a work note for tomorrow. Discharge Plan Triage Chief Complaint: Shortness of Breath ED Provider: Lisa Lilly Dx/Rx/DC Orders Clinical Impression: Viral URI, Asthma exacerbation Instructions: ED Asthma, Acute (Adult), ED URI, Viral W/ Wheezing (Adult) Prescriptions: New albuterol sulfate [Ventolin HFA] 90 mcg/actuation HFA aerosol inhaler 2 puff inhalation Q4H PRN PRN (Reason: Wheezing) Qty: 1 0RF (DME) nebulizer and compressor Device See Rx Instructions .Route Qty: 1 0RF Rx Instructions: As directed albuterol sulfate 2.5 mg /3 mL (0.083 %) solution for nebulization 2.5 mg inhalation Q4H PRN Qty: 25 0RF Rx Instructions: Use q4 hours and PRN for wheezing No Action Vivitrol 380 mg suspension,extended rel recon 380 mg IM QMONTH buspirone 5 mg tablet 10 mg PO TID Prilosec 10 mg susp,delayed release for recon 10 mg PO DAILY Qty: 30 0RF Prilosec 10 mg susp,delayed release for recon 10 mg PO DAILY Qty: 30 0RF Stand Alone Forms: ED Work / School Excuse Primary Care Provider: Yadira Nielson Referrals: Yadira Nielson [Primary Care Provider] - 1 Week Disposition Disposition: Home, Self Care
[2021-11-27 19:45] VITALS: PULSE 127; RESP 18; RESP 20; O2SAT 97
[2021-11-27] MEDS: Ipratropium/Albuterol Sulfate 3 ML AMPUL.NEB INHALATION (19:45)
--- NOTE | 2021-11-27 19:52 | RAD_ITS ---
STUDY: X-RAY CHEST REASON FOR EXAM: Female, 26 years old. Cough. Shortness of breath and chest pain with breathing beginning yesterday. Upper abdominal bloating. TECHNIQUE: Single AP portable view of the chest. COMPARISON: 01/10/2021. FINDINGS: The lungs are clear and expanded. There is no demonstrated pleural abnormality. Normal size heart. Normal mediastinum and puja. Normal visualized pulmonary arteries. Normal visualized aortic arch and descending thoracic aorta. Normal visualized thoracic spine. Normal visualized ribs, clavicles, and shoulders. There is no demonstrated abnormality of the visualized soft tissue structures of the upper abdomen. RAD/Chest 1 View (Portable) IMPRESSION: No acute cardiopulmonary disease or major interval change. Electronically Signed: Dane Lee DO at 20:43 EDT ,
--- NOTE | 2021-11-27 19:57 | EKG12_ITS ---
Test Reason : DYSRHYTHMIA Blood Pressure : / mmHG Vent. Rate : 094 BPM Atrial Rate : 094 BPM P-R Int : 132 ms QRS Dur : 078 ms QT Int : 348 ms P-R-T Axes : 031 049 021 degrees QTc Int : 435 ms Sinus rhythm with occasional Premature ventricular complexes Nonspecific T wave abnormality Abnormal ECG Confirmed by DONY WRIGHT, BAYRON ([id number]), editor index AINSLEY LINDA ([id number]) on 11/29/2021 8:02:10 AM Referred By: ZOILA Confirmed By:BAYRON NAPOLES MD
[2021-11-27 22:31] VITALS: PULSE 86; RESP 16; O2SAT 99
== END 2021-11-27 22:32 | disposition home or self-care (01) ==
PROVIDERS: Emergency Provider Emergency Medicine; Visit Provider Emergency Medicine
DX: J06.9 Acute upper respiratory infection, unspecified (principal); J45.901 Unspecified asthma with (acute) exacerbation; F17.210 Nicotine dependence, cigarettes, uncomplicated
CPT/HCPCS: G0463; 71045; 87811; 93005; 94640; 99251; 99282

== ENCOUNTER 2022-01-15 17:30 | Emergency (ER) | payer MEDICAID, SELFPAY ==
[2022-01-15 17:33] VITALS: BP 133/80; PULSE 97; RESP 16; TEMP 36.6; O2SAT 97; BMI 38.2
--- NOTE | 2022-01-15 17:47 | ED.RN ---
my dr just called me and said she doesnt think it is neurological and she called something in for me, so im just going to leave.
== END 2022-01-15 17:46 | disposition left against medical advice (07) ==
LOC: ED 17:57
DX: Z53.21 Procedure and treatment not carried out due to patient leaving prior to being seen by health care provider (principal)

== ENCOUNTER 2022-01-22 15:06 | Emergency (ER) | payer MEDICAID, SELFPAY ==
[2022-01-22 15:07] VITALS: BP 144/93; PULSE 99; RESP 16; TEMP 35.7; O2SAT 99; BMI 37.5
--- NOTE | 2022-01-22 16:20 | VDLE_ITS ---
Reason For Study: Pain RIGHT GSV is normal. CFV is compressible, spontaneous, phasic, competent and demonstrates normal augmentation. FV is compressible, spontaneous, phasic, competent and demonstrates normal augmentation. POP V is compressible, spontaneous, phasic, competent and demonstrates normal augmentation. T/P Trunk is compressible. PTV is compressible. RT PerV is compressible. Procedure This is a venous duplex using B-mode, color flow and spectral Doppler. Exam performed portable in ED. A preliminary report was called and/or faxed to ED. VL/Venous Duplex US, Unilateral Interpretation Summary There is no evidence of right lower extremity deep vein thrombosis. Right great saphenous vein appears patent and compressible segmentally. Ordering Physician: Kianna Alexander Referring Physician: [facility] Performed By: Ally Dillard RVT
--- NOTE | 2022-01-22 16:23 | EDS_ITS ---
HPI History of Present Illness Chief Complaint: Lower Extremity Injury Informant: patient Narrative Narrative: Patient is a 26-year-old female with history of asthma presenting with 1 month of right thigh pain. She states is a burning sensation. It used to be in termittent but now she feels like she is constantly being dragged on a carpet. She was previously seen in the [facility] clinic and diagnosed with meralgia paresthetica. She was placed on carbamazepine. She was told she should come to the ER if her symptoms worsen. She does not feel like anything is helping including ibuprofen, Tylenol and carbamazepine. She is not tried any Lidoderm. She notes some bruising at the site over the past few days. She denies any falls or injury. Her grandmother thought maybe she could have a blood clot. Does have a family history of blood clots but no personal history. Patient is on Depo-Provera for control. Denies any swelling of her legs. Denies any chest pain, shortness of breath or other symptoms. No report of any fever or night sweats. No other complaints at this time. PFSH PFSH Medical History Anxiety Asthma Depression Hx of gastroesophageal reflux (GERD) Hypothyroidism Smoker Home Medications naltrexone microspheres 380 mg intramuscular suspension,extended release (Vivitrol) 380 mg IM QMONTH 10/06/20 [History Last Taken Unknown] buspirone 5 mg tablet 10 mg PO TID 01/10/21 [History Last Taken Unknown] carbamazepine 1 cap BID 01/22/22 [History Last Taken Unknown] naproxen 500 mg tablet 500 mg PO BID PRN pain #20 tabs 01/22/22 [Rx Last Taken Unknown] Allergy/AdvReac Type Severity Reaction Status Date / Time adhesive Allergy Rash Verified 01/15/22 17:32 Latex, Natural Rubber Allergy Rash Verified 01/15/22 17:32 sulfamethoxazole Allergy Itching Verified 01/15/22 17:32 [From Bactrim] trimethoprim [From Bactrim] Allergy Itching Verified 01/15/22 17:32 albuterol AdvReac Other Verified 01/22/22 15:09 Social History Smoking Status: Current every day smoker tobacco type: cigarettes ROS ROS ED Constitutional Constitutional ED: Denies chills, fever(s) or sweats Eyes Eyes: Denies change in vision ENT ENT ED: Denies rhinorrhea or sore throat Cardiovascular Cardiovascular: Denies chest pain or palpitations Respiratory/Chest Respiratory/Chest: Denies cough or dyspnea Gastrointestinal Gastrointestinal: Denies abdominal pain, nausea or vomiting Genitourinary Genitourinary ED: Denies dysuria or hematuria Musculoskeletal Musculoskeletal: Reports other Details: right leg pain, burning ; Denies arthralgias or back pain Integumentary Denies Abrasions or rash Neurologic Neurologic: Reports paresthesias; Denies headache(s) or weakness Psychiatric Psychiatric: Denies anxiety or depression Hematologic/Lymphatic Hematologic/Lymphatic: Denies easy bleeding or easy bruising EXAM Physical Exam Const Vital Signs: 01/22/22 15:07 Temperature 96.3 F L Temperature Source Temporal Pulse Rate 99 Respiratory Rate 16 Blood Pressure 144/93 H Blood Pressure Mean 110 Pulse Ox 99 Oxygen Delivery Method Room Air Positive well nourished and well developed General Appearance ED: well developed HEENT Reports moist mucous membranes Eyes PERRL Neck full ROM and supple Chest Wall inspection of chest normal Resp normal respiratory effort Cardio regular rate and regular rhythm Back/Spine no CVA tenderness Back/Spine Narrative: Tenderness to palpation of the right left back around the level of L4. No associated midline tenderness. Lumbar Spine / Lower Back: Negative for lumbar spinal tenderness Neuro oriented x3, CN's II-XII intact bilaterally, moves all extremities and no sensory deficits noted Neuro Narrative: Sensation is intact to light touch however patient has paresthesias of the right distal thigh most pronounced on the lateral aspect but also extending to the anterior and posterior thigh. 5/5 strength with plantar dorsiflexion. 5/5 strength with hip flexion. No mild clonus appreciated. Deep Tendon Reflexes: Rt Patellar (L4): 1+ and Lt Patellar (L4): 1+ Deep Tendon Reflexes Back: Rt Patellar (L4): 1+ and Lt Patellar (L4): 1+ Psych mental status grossly normal Skin no wounds Skin Narrative: Scattered subtle ecchymosis of the right lateral thigh that are circumferential. No petechia. MDM MDM MDM Narrative Medical decision making narrative: Patient is evaluated for 1 month of worsening pain in her right lateral thigh. It seems like neuropathic pain. She otherwise has a normal neurologic exam. No focal neurologic deficits. Intact strength. Was previously diagnosed with meralgia paresthetica. Is on carbamazepine. Patient is given naproxen and a Lidoderm patch. She does seem to have improvement with this. Will be discharged home with referral to spine surgery. Given a prescription for naproxen. Counseled on return precautions. Venous duplex is negative for DVT. No midline tenderness. I do not think back imaging is indicated at this time. She not have any red flag symptoms. Patient discharged home in stable condition. Discharge Plan Triage Chief Complaint: Lower Extremity Injury ED Provider: Kianna Alexander Dx/Rx/DC Orders Clinical Impression: Paresthesia of right leg, Leg pain, right Instructions: ED Paraesthesias Prescriptions: New naproxen 500 mg tablet 500 mg PO BID PRN (Reason: pain) Qty: 20 0RF No Action Vivitrol 380 mg suspension,extended rel recon 380 mg IM QMONTH buspirone 5 mg tablet 10 mg PO TID carbamazepine 1 cap BID Primary Care Provider: Yadira Abarca Referrals: Dong Daily DO [Med Staff - Active Staff] - As soon as possible Yadira Nielson [Non-Staff] - Activity Restrictions/Additional Instructions: Use [id number] 4% Lidoderm patches to help with pain. You been given a referral for spine orthopedics.
[2022-01-22] MEDS: Lidocaine 5% Patch 1 PATCH TOPICAL (16:41)
[2022-01-22 17:22] VITALS: BP 127/85; PULSE 74; RESP 16; TEMP 36.9; O2SAT 99
== END 2022-01-22 17:39 | disposition home or self-care (01) ==
PROVIDERS: Emergency Provider Emergency Medicine; Visit Provider Emergency Medicine
DX: R20.2 Paresthesia of skin (principal); M79.651 Pain in right thigh; G57.10 Meralgia paresthetica, unspecified lower limb; J45.909 Unspecified asthma, uncomplicated; E03.9 Hypothyroidism, unspecified; F17.210 Nicotine dependence, cigarettes, uncomplicated; Z79.899 Other long term (current) drug therapy
CPT/HCPCS: 93971; 99283

== ENCOUNTER 2022-02-13 00:39 | Emergency (ER) | payer MEDICAID, SELFPAY ==
[2022-02-13 00:41] VITALS: BP 147/88; PULSE 94; RESP 18; TEMP 36.5; O2SAT 98; BMI 39.0
[2022-02-13] MEDS: DiphenhydrAMINE 25 MG Capsule 50 MG PO (01:07)
--- NOTE | 2022-02-13 01:32 | EX.ED.DYSGE1 ---
HPI History of Present Illness Chief Complaint: Itching Informant: patient Onset/Context/Timing Onset: Yesterday Context: Gradual Onset Timing: Continuous Quality: Pruritic Location: Abdomen and neck Worsened by: Nothing Relieved by: Nothing Narrative Narrative: Patient presents with itching that began yesterday. Patient states it is getting progressively worse. Patient states it is worse at nighttime. Patient states the itching does not wake her up but it just keeps her from getting to sleep. Patient states it is mainly across her abdomen but also in her shoulders. Patient admits to a rash across her abdomen. Patient states that she got a new laundry detergent recently. Patient states that she washed all of her clothes in her old laundry detergent. Patient states that she went to the urgent care yesterday and was told she had scabies. Patient states she used the permethrin cream and washed it off after 12 hours. Patient states her rash and itching has not improved with this. Patient stated she wanted a second opinion on whether this was scabies. PFSH PFSH Medical History Anxiety Asthma Depression Hx of gastroesophageal reflux (GERD) Hypothyroidism Scabies Smoker Home Medications naltrexone microspheres 380 mg intramuscular suspension,extended release (Vivitrol) 380 mg IM QMONTH 10/06/20 [History Last Taken Unknown] buspirone 5 mg tablet 10 mg PO TID 01/10/21 [History Last Taken Unknown] carbamazepine 1 cap BID 01/22/22 [History Last Taken Unknown] naproxen 500 mg tablet 500 mg PO BID PRN pain #20 tabs 01/22/22 [Rx Last Taken Unknown] permethrin 5 % topical cream (Elimite) 1 applic topical Q14D 2 doses #60 grams 02/11/22 [Rx Last Taken Unknown] prednisone 20 mg tablet 60 mg PO DAILY #15 TABLETS 02/13/22 [Rx Last Taken Unknown] Allergy/AdvReac Type Severity Reaction Status Date / Time adhesive Allergy Rash Verified 02/13/22 00:41 Latex, Natural Rubber Allergy Rash Verified 02/13/22 00:41 sulfamethoxazole Allergy Itching Verified 02/13/22 00:41 [From Bactrim] trimethoprim [From Bactrim] Allergy Itching Verified 02/13/22 00:41 albuterol AdvReac Other Verified 02/13/22 00:41 Surgical History no surgical history no surgical history Social History Smoking Status: Current every day smoker tobacco type: cigarettes ROS ROS ED Constitutional Constitutional ED: Denies chills or fever(s) Eyes Eyes: Denies blurry vision or change in vision ENT ENT ED: Denies rhinorrhea or sore throat Cardiovascular Cardiovascular: Denies chest pain or palpitations Respiratory/Chest Respiratory/Chest: Reports cough; Denies dyspnea Gastrointestinal Gastrointestinal: Denies nausea or vomiting Genitourinary Genitourinary ED: Denies dysuria or hematuria Musculoskeletal Musculoskeletal: Denies back pain or neck pain Integumentary Reports rash; Denies abscess Neurologic Neurologic: Denies headache(s) or weakness Allergic/Immunologic Allergic/Immunologic ED: Denies mouth swelling or urticaria EXAM Physical Exam Const Vital Signs: 02/13/22 00:41 Temperature 97.7 F L Temperature Source Oral Pulse Rate 94 Respiratory Rate 18 Blood Pressure 147/88 H Blood Pressure Mean 107 Pulse Ox 98 Oxygen Delivery Method Room Air Positive well nourished, well developed and obese General Appearance ED: well developed and NAD Nutritional Appearance: obese HEENT Reports moist mucous membranes Neck supple and no JVD GI non-tender and non-distended Palpation: soft Neuro oriented x3, CN's II-XII intact bilaterally and no sensory deficits noted Sensorium / Orientation: alert Motor Exam: strength 5/5 throughout Psych mental status grossly normal Skin Skin Narrative: There is an erythematous papular rash across the abdomen. There are no vesicles or pustules noted. There is no discharge or drainage. There are no petechia noted. There is no involvement of the mucous membranes. MDM MDM MDM Narrative Medical decision making narrative: I do not feel that this is scabies. There is no involvement of the webspaces. Patient was treated for scabies however. Patient was given a dose of Benadryl here. Patient was instructed to use Benadryl as needed for itching at home. Patient was given a prescription for prednisone. Patient was instructed to follow-up with her primary care physician in 5 to 7 days for reevaluation. Patient understood and was agreeable with the plan. All questions were answered. Discharge Plan Triage Chief Complaint: Itching ED Provider: Joe Mir Dx/Rx/DC Orders Clinical Impression: Contact dermatitis Instructions: ED Contact Dermatitis Prescriptions: New prednisone 20 mg tablet 60 mg PO DAILY Qty: 15 0RF No Action Vivitrol 380 mg suspension,extended rel recon 380 mg IM QMONTH permethrin [Elimite] 5 % cream 1 applic topical Q14D Qty: 60 0RF Rx Instructions: apply second treatment 10-14 days after first treatment should symptoms persist buspirone 5 mg tablet 10 mg PO TID carbamazepine 1 cap BID naproxen 500 mg tablet 500 mg PO BID PRN (Reason: pain) Qty: 20 0RF Primary Care Provider: Madeline Pappas Referrals: Madeline Pappas, BUSINESS ACCOUNT SPECIALIST-C [Primary Care Provider] - 5-7 Days Disposition Disposition: Home, Self Care
[2022-02-13] MEDS: predniSONE 20 MG Tablet 60 MG PO (01:44)
== END 2022-02-13 01:46 | disposition home or self-care (01) ==
PROVIDERS: Emergency Provider Emergency Medicine; PCP Nurse Practitioner Adult Health; Visit Provider Emergency Medicine
DX: L25.9 Unspecified contact dermatitis, unspecified cause (principal); F17.210 Nicotine dependence, cigarettes, uncomplicated; F32.A Depression, unspecified; E66.9 Obesity, unspecified; Z79.899 Other long term (current) drug therapy
CPT/HCPCS: 99283

== ENCOUNTER 2022-03-11 13:11 | Emergency (ER) | payer MEDICAID, SELFPAY ==
[2022-03-11 13:12] VITALS: BP 130/92; PULSE 89; RESP 16; TEMP 36.6; O2SAT 99; BMI 38.0
--- NOTE | 2022-03-11 15:06 | EDS_ITS ---
HPI History of Present Illness Chief Complaint: Lower Extremity Injury Detail of Chief Complaint: Numbness right ankle region Informant: patient Occured/Mechanism Comment: History of fracture. Based on description concern patient may have a pull off fracture of the navicular bone. She is in a short leg fiberglass cast. She states she elevated her foot for 30 minutes and the numbness did not improve. She was instructed by her doctor to come to the emergency department. [facility] care is through the [facility]. Records are not available for review. Onset/Context/Timing Timing: Intermittent Quality of Pain: - (Feels like my ankle is asleep) Location: Right ankle region Current Severity: Mild Maximum Severity: Mild Worsened by: Patient presumes cast Relieved by: None thing Associated Symptoms Associated Symptoms: Positive for Parasthesia; Negative for Weakness or Loss of Funtion Narrative Narrative: Patient is a 26-year-old female who has been seen several times in the emergency room for skin complaints and pain. She now presents because of her right ankle feeling asleep. She states she elevate her ankle/foot for 30 minutes with no improvement. She denies paresthesia of her toes. Denies swelling of her toes. She denies discoloration of her toes. Tetanus Immunization: <5 years Prior similar symptoms: No Recent Illness/Hospitalization: No PFSH PFSH Medical History Anxiety Asthma Depression Hx of gastroesophageal reflux (GERD) Hypothyroidism Scabies Smoker Home Medications naltrexone microspheres 380 mg intramuscular suspension,extended release (Vivitrol) 380 mg IM QMONTH 10/06/20 [History Last Taken Unknown] naproxen 500 mg tablet 500 mg PO BID PRN pain #20 tabs 01/22/22 [Rx Last Taken Unknown] permethrin 5 % topical cream (Elimite) 1 applic topical Q14D 2 doses #60 grams 02/11/22 [Rx Last Taken Unknown] buspirone 15 mg tablet 15 mg PO 02/28/22 [History Last Taken Unknown] escitalopram oxalate 5 mg tablet (Lexapro) 5 mg PO DAILY 02/28/22 [History Last Taken Unknown] Allergy/AdvReac Type Severity Reaction Status Date / Time adhesive Allergy Rash Verified 02/28/22 13:09 Latex, Natural Rubber Allergy Rash Verified 02/28/22 13:09 sulfamethoxazole Allergy Itching Verified 02/28/22 13:09 [From Bactrim] trimethoprim [From Bactrim] Allergy Itching Verified 02/28/22 13:09 albuterol AdvReac Other Verified 02/28/22 13:09 Family History Other Hypertension Social History (Updated 03/11/22 @ 15:[address] Darrius Angulo MD) Smoking Status: Current every day smoker tobacco type: cigarettes substance use type: does not use ROS ROS ED Constitutional Constitutional ED: Denies chills, fever(s), subjective, sweats or weight loss Musculoskeletal Musculoskeletal: Denies arthralgias, back pain, myalgias or neck pain Integumentary Denies rash Neurologic Neurologic: Reports paresthesias; Denies headache(s) or weakness Psychiatric Psychiatric: Reports anxiety and other Details: She states if I do not remove her cast she will. ; Denies depression Hematologic/Lymphatic Hematologic/Lymphatic: Denies easy bleeding or easy bruising EXAM Physical Exam Const Vital Signs: 03/11/22 13:12 Temperature 97.8 F Temperature Source Temporal Pulse Rate 89 Respiratory Rate 16 Blood Pressure 130/92 H Blood Pressure Mean 104 Pulse Ox 99 Oxygen Delivery Method Room Air Positive well nourished, well developed and obese General Appearance ED: well developed and NAD Nutritional Appearance: obese HEENT Reports moist mucous membranes normocephalic and atraumatic Eyes Eyes Narrative: Physical round reactive. Extract muscle intact. Neck full ROM Resp normal respiratory effort Cardio regular rate and regular rhythm Extremity normal to inspection Extremity Narrative: There is significant room in the cast. I am able to stick my index finger and touch the anterior portion of the ankle. The cast is well symmetrically padded. Cap refill is normal. Sensation of the toes is normal. Neuro oriented x3, CN's II-XII intact bilaterally and no sensory deficits noted Psych Psych Narrative: Anxious Skin no wounds Lesions: no lesions Rashes: no rashes MDM MDM MDM Narrative Medical decision making narrative: There was no call from physician presumed sent in to rule out tight cast and concerns for neurovascular compromise. Records from outside facility not available for review. Patient was in instructed that I would not remove her cast. Based on her description it is not in her best interest to remove the cast. She made the comment that she remove the cast. She was instructed not to do this this would cause more problems. Recommended elevation for longer durations and apply ice. Patient was told as long as her toes have normal color there is no swelling and sensation is normal there is nothing that needs to be done. Recommended using foreign languages department chair on cool setting if and that may give her some increased relief if she has itching etc. Review of prior records available at [facility] from outside source indicates the patient has history of anxiety. Suspect this is con tributing to her symptoms and wanting to remove her cast. Discharge Plan Triage Chief Complaint: Lower Extremity Injury ED Provider: Darrius Angulo Dx/Rx/DC Orders Clinical Impression: Paresthesia of right lower extremity, History of anxiety disorder Instructions: ED Paraesthesias Prescriptions: No Action Vivitrol 380 mg suspension,extended rel recon 380 mg IM QMONTH permethrin [Elimite] 5 % cream 1 applic topical Q14D Qty: 60 0RF Rx Instructions: apply second treatment 10-14 days after first treatment should symptoms persist escitalopram oxalate [Lexapro] 5 mg tablet 5 mg PO DAILY buspirone 15 mg tablet 15 mg PO naproxen 500 mg tablet 500 mg PO BID PRN (Reason: pain) Qty: 20 0RF Primary Care Provider: Madeline Pappas Referrals: Madeline Pappas, CRUDE OIL DRIVER-C [Primary Care Provider] - 3-5 Days if not improving Activity Restrictions/Additional Instructions: Return if you have swelling, discoloration or pallor to your toes. Disposition Disposition: Home, Self Care
[2022-03-11 15:14] VITALS: BP 134/78; PULSE 88; RESP 16; TEMP 36.6; O2SAT 99
== END 2022-03-11 15:22 | disposition home or self-care (01) ==
PROVIDERS: Emergency Provider Emergency Medicine; PCP Nurse Practitioner Adult Health; Visit Provider Emergency Medicine
DX: R20.2 Paresthesia of skin (principal); F17.210 Nicotine dependence, cigarettes, uncomplicated; E66.9 Obesity, unspecified
CPT/HCPCS: 99282

== ENCOUNTER 2022-06-06 15:52 | Emergency (ER) | payer MEDICAID, SELFPAY ==
[2022-06-06 15:53] VITALS: BP 121/89; PULSE 99; RESP 18; TEMP 36; O2SAT 99; BMI 40.4
--- NOTE | 2022-06-06 16:11 | EKG12_ITS ---
Test Reason : DIZZINESS Blood Pressure : / mmHG Vent. Rate : 088 BPM Atrial Rate : 088 BPM P-R Int : 146 ms QRS Dur : 076 ms QT Int : 350 ms P-R-T Axes : 039 027 021 degrees QTc Int : 423 ms Normal sinus rhythm Nonspecific T wave abnormality Abnormal ECG Confirmed by CHRIS LARSEN ([id number]), proposal editor AINSLEY LINDA ([id number]) on 06/11/2022 7:43:27 AM Referred By: MERRICK Confirmed By:CHRIS LARSEN
--- NOTE | 2022-06-06 16:21 | EDS_ITS ---
HPI History of Present Illness Chief Complaint: Chest Pain Informant: patient Narrative Narrative: Patient presents with palpitations intermittent throughout the day. Had anxiety attack this morning. History of anxiety. No specific triggers. Lightheaded symptoms. Denies any chest pains. No history of dysrhythmias. Denies recent vomiting or diarrhea. She does drink coffee in the mornings however none today. No urinary symptoms, no current menstrual periods due to tubal removals. Denies bloody stools. She is on buspirone for her anxiety. Denies suicidal homicidal ideations. PFSH PFSH Medical History Anxiety Asthma Depression Hx of gastroesophageal reflux (GERD) Hypothyroidism Scabies Smoker Home Medications naltrexone microspheres 380 mg intramuscular suspension,extended release (Vivitrol) 380 mg IM QMONTH 10/06/20 [History Last Taken Unknown] naproxen 500 mg tablet 500 mg PO BID PRN pain #20 tabs 01/22/22 [Rx Last Taken Unknown] permethrin 5 % topical cream (Elimite) 1 applic topical Q14D 2 doses #60 grams 02/11/22 [Rx Last Taken Unknown] buspirone 15 mg tablet 15 mg PO 02/28/22 [History Last Taken Unknown] escitalopram oxalate 5 mg tablet (Lexapro) 5 mg PO DAILY 02/28/22 [History Last Taken Unknown] Allergy/AdvReac Type Severity Reaction Status Date / Time adhesive Allergy Rash Verified 06/06/22 15:53 Latex, Natural Rubber Allergy Rash Verified 06/06/22 15:53 sulfamethoxazole Allergy Itching Verified 06/06/22 15:53 [From Bactrim] trimethoprim [From Bactrim] Allergy Itching Verified 06/06/22 15:53 albuterol AdvReac Other Verified 06/06/22 15:53 Family History Other Hypertension Social History Smoking Status: Current every day smoker tobacco type: cigarettes substance use type: does not use ROS ROS ED Constitutional Constitutional ED: Denies chills, fever(s) or sweats Eyes Eyes: Denies change in vision ENT ENT ED: Denies dysphagia or sore throat Cardiovascular Cardiovascular: Reports palpitations; Denies chest pain, leg edema or racing heartbeat Respiratory/Chest Respiratory/Chest: Denies cough, dyspnea or dyspnea on exertion Gastrointestinal Gastrointestinal: Denies abdominal pain, diarrhea, nausea or vomiting Genitourinary Genitourinary ED: Denies dysuria, hematuria or urinary frequency Musculoskeletal Musculoskeletal: Denies back pain, extremity pain or neck pain Integumentary Denies rash or wounds Neurologic Neurologic: Denies headache(s), paresthesias or weakness EXAM Physical Exam Const Vital Signs: 06/06/22 15:53 Temperature 96.8 F L Temperature Source Temporal Pulse Rate 99 Respiratory Rate 18 Blood Pressure 121/89 H Blood Pressure Mean 99 Pulse Ox 99 Oxygen Delivery Method Room Air Positive well nourished and well developed General Appearance ED: well developed and NAD HEENT Reports moist mucous membranes normocephalic and atraumatic Eyes PERRL, EOMs intact bilaterally and conjunctivae normal General Eye ED: Yes normal appearance of both eyes Neck no lymphadenopathy and supple General: Negative for tenderness Chest Wall Chest: Negative for tenderness Resp normal respiratory effort and normal air movement Effort and Inspection: symmetric chest movement; Negative for respiratory distress Cardio regular rate, regular rhythm and no murmurs Peripheral Pulses: pulses 2+ throughout GI normal to inspection, nondistended, normoactive bowel sounds and non-tender Palpation: Negative for guarding or rebound tenderness present Back/Spine no CVA tenderness and no thoracic nor lumbar tenderness Extremity normal to inspection General Extremety ED: Negative for edema or tenderness General Extremity: Negative for edema Neuro oriented x3 and no sensory deficits noted Sensorium / Orientation: awake and alert Skin no rashes or lesions noted and no wounds MDM MDM MDM Narrative Medical decision making narrative: Interventions / MDM: Differential diagnosis: Palpitations, dysrhythmia Diagnosis considered but do not suspect: ACS however no ischemia with EKG no clinical symptoms My EKG interpretation: Sinus rate of 88, no ST or T wave changes QTc 423. Imaging independently reviewed and interpreted by myself: N/A External documents reviewed: N/A Test considered but not ordered:N/A ED course: Patient palpitations no other complaints. Anxiety history with panic attack. EKG sinus rhythm. Denies any recent vomiting diarrhea denies any rectal bleeding or menstrual periods. Do not feel laboratory studies are necessary. Discussed patient monitoring symptoms avoiding caffeine products at this time. Return precautions. All questions were answered. Re-evaluation: stable Disposition discussed with patient/family/significant other: Patient Case discussed with consulting clinician: N/A Discharge Plan Triage Chief Complaint: Chest Pain Other Complaint: Anxiety Palpitations ED Provider: David Ritter Dx/Rx/DC Orders Clinical Impression: Palpitations, Anxiety Instructions: ED Palpitations, ED Panic Attack Prescriptions: No Action Vivitrol 380 mg suspension,extended rel recon 380 mg IM QMONTH permethrin [Elimite] 5 % cream 1 applic topical Q14D Qty: 60 0RF Rx Instructions: apply second treatment 10-14 days after first treatment should symptoms persist escitalopram oxalate [Lexapro] 5 mg tablet 5 mg PO DAILY buspirone 15 mg tablet 15 mg PO naproxen 500 mg tablet 500 mg PO BID PRN (Reason: pain) Qty: 20 0RF Stand Alone Forms: ED Work / School Excuse Primary Care Provider: Madeline Pappas Referrals: Madeline Pappas, BILLET BED OPERATOR-C [Primary Care Provider] - 3-5 Days Activity Restrictions/Additional Instructions: EKG normal sinus rhythm. Try to avoid caffeine products as it can make palpitations worse. Follow-up with doctor. Return if worsening symptoms. Disposition Disposition: Home, Self Care Discharge Date/Time: 06/06/22 16:37
== END 2022-06-06 16:37 | disposition home or self-care (01) ==
PROVIDERS: Emergency Provider Emergency Medicine; PCP Nurse Practitioner Adult Health; Visit Provider Emergency Medicine
DX: F41.9 Anxiety disorder, unspecified (principal); F17.210 Nicotine dependence, cigarettes, uncomplicated; Z79.899 Other long term (current) drug therapy
CPT/HCPCS: 93005; 99282

== ENCOUNTER 2022-07-19 15:57 | Emergency (ER) | payer MEDICAID, SELFPAY ==
[2022-07-19 15:58] VITALS: BP 126/90; PULSE 92; RESP 16; TEMP 35.5; O2SAT 98
--- NOTE | 2022-07-19 18:40 | EDS_ITS ---
HPI <DAVIAN Stevens - Last Filed: 07/19/22 20:54> History of Present Illness Chief Complaint: Abd Pain Narrative Narrative: Patient presenting today due to nausea and vomiting that she has had since yesterday. She reports that she feels full but she does not have any abdominal pain. She has had green stools since yesterday but she has not had any diarrhea. She went to urgent care this afternoon and they encouraged her to come to the emergency department for laboratory work. She denies any urinary symptoms, blood in the stool, hematemesis, prior abdominal surgery. PFSH <DAVIAN Stevens - Last Filed: 07/19/22 20:54> PFSH Medical History Anxiety Asthma Depression Hx of gastroesophageal reflux (GERD) Hypothyroidism Scabies Smoker Home Medications naltrexone microspheres 380 mg intramuscular suspension,extended release (Vivitrol) 380 mg IM QMONTH 10/06/20 [History Last Taken Unknown] naproxen 500 mg tablet 500 mg PO BID PRN pain #20 tabs 01/22/22 [Rx Last Taken Unknown] permethrin 5 % topical cream (Elimite) 1 applic topical Q14D 2 doses #60 grams 02/11/22 [Rx Last Taken Unknown] buspirone 15 mg tablet 15 mg PO 02/28/22 [History Last Taken Unknown] escitalopram oxalate 5 mg tablet (Lexapro) 5 mg PO DAILY 02/28/22 [History Last Taken Unknown] promethazine 12.5 mg tablet 12.5 mg PO TID PRN nausea and vomiting 3 days #10 tabs 07/19/22 [Rx Last Taken Unknown] Allergy/AdvReac Type Severity Reaction Status Date / Time adhesive Allergy Rash Verified 07/19/22 19:17 Latex, Natural Rubber Allergy Rash Verified 07/19/22 19:17 sulfamethoxazole Allergy Itching Verified 07/19/22 19:17 [From Bactrim] trimethoprim [From Bactrim] Allergy Itching Verified 07/19/22 19:17 albuterol AdvReac Other Verified 07/19/22 19:17 Family History Other Hypertension Social History Smoking Status: Current every day smoker tobacco type: cigarettes substance use type: does not use ROS <DAVIAN Stevens - Last Filed: 07/19/22 20:54> ROS ED Constitutional Constitutional ED: Denies chills, fever(s) or sweats Cardiovascular Cardiovascular: Denies chest pain Respiratory/Chest Respiratory/Chest: Denies cough or dyspnea Gastrointestinal Gastrointestinal: Reports nausea and vomiting; Denies abdominal pain, constipation or diarrhea Genitourinary Genitourinary ED: Denies dysuria, hematuria or urinary urgency Musculoskeletal Musculoskeletal: Denies arthralgias or myalgias Integumentary Denies abscess, Abrasions or rash Neurologic Neurologic: Denies weakness EXAM <DAVIAN Stevens - Last Filed: 07/19/22 20:54> Physical Exam Const Vital Signs: 07/19/22 15:58 Temperature 96 F L Temperature Source Temporal Pulse Rate 92 Respiratory Rate 16 Blood Pressure 126/90 H Blood Pressure Mean 102 Pulse Ox 98 Oxygen Delivery Method Room Air Positive well nourished, well developed and no apparent distress General Appearance ED: well developed HEENT Reports normocephalic and head/scalp atraumatic Mouth ED: Yes moist mucous membranes normal Eyes PERRL and EOMs intact bilaterally Neck full ROM and supple Chest Wall inspection of chest normal Resp normal respiratory effort and clear to auscultation bilaterally Cardio regular rate and regular rhythm GI soft to palpation, non-distended and no masses GI Narrative: Left lower quadrant abdominal pain to palpation, right lower quadrant abdominal pain to palpation, no rigidity or guarding, no peritoneal signs, no rebound tenderness. Back/Spine normal ROM and normal to inspection Extremity normal to inspection and full ROM Neuro oriented x3, CN's II-XII intact bilaterally, moves all extremities, no focal motor deficits and no sensory deficits noted Sensorium / Orientation: awake and alert Psych mental status grossly normal and thought process normal Skin no rashes or lesions noted and no wounds <Dr. Marvin Costello MD - Last Filed: 07/20/22 01:36> Physical Exam Const Vital Signs: 07/19/22 15:58 Temperature 96 F L Temperature Source Temporal Pulse Rate 92 Respiratory Rate 16 Blood Pressure 126/90 H Blood Pressure Mean 102 Pulse Ox 98 Oxygen Delivery Method Room Air MDM <DAVIAN Stevens - Last Filed: 07/19/22 20:54> MDM MDM Narrative Medical decision making narrative: Patient presenting today due to nausea and vomiting that she has had since yesterday, she reports having green stools as well that are soft. She is not complaining of any abdominal pain but she does have left lower quadrant abdominal tenderness to palpation and mild right lower quadrant tenderness. She will be given IV fluids and Zofran. Because of her tenderness on exam, CT scan of the abdomen pelvis with contrast will be obtained to rule out diverticulitis, appendicitis, SBO, and other abdominal etiology. Labs to be obtained to rule out leukocytosis, anemia, electrolyte abnormality, assess liver enzymes. Patient does have a WBC of 14.8, AST 57, ALT 138, alk phos 141. She does have a history of elevated liver enzymes, this is a chronic issue. Lipase WNL, UA does show 25 leuks and 2+ bacteria, however it is a contaminated specimen. She is not having any urinary symptoms to suggest a UTI. Patient's symptoms are likely viral in nature. On reexamination she reports she feels much better. She has been given a prescription for nausea control will be discharged home in stable condition. She is to follow-up with her PCP and is comfortable with plan. She has been given return instructions. Lab Data Attestation: I reviewed the patient's lab results. Labs: Laboratory Results - last 24 hr 07/19/22 07/19/22 07/19/22 18:55 19:04 19:04 WBC 14.8 H RBC 5.19 Hgb 14.5 Hct 43.4 MCV 83.6 MCH 27.9 MCHC 33.4 RDW Std Deviation 38.0 RDW Coeff of William 12.6 Plt Count 295 MPV 9.7 Immature Gran % (Auto) 0.400 Neut % (Auto) 52.5 Lymph % (Auto) 36.0 [place] % (Auto) 8.2 Eos % (Auto) 2.4 Baso % (Auto) 0.5 Absolute Neuts (auto) 7.8 H Absolute Lymphs (auto) 5.31 H Nucleated RBC % 0 Differential Comment SCANNED Reactive Lymphocytes 2+ Sodium 139 Potassium 4.2 Chloride 108 H Carbon Dioxide 20.0 L Anion Gap 11 BUN 10 Creatinine 0.67 Estim Creat Clear Calc 102.49 Est GFR (MDRD) Af Amer 135 Est GFR (MDRD) Non-Af 111 BUN/Creatinine Ratio 15.0 Glucose 90 Calcium 9.9 Total Bilirubin 0.30 AST 57 H ALT 138 H Alkaline Phosphatase 141 H Total Protein 8.1 Albumin 3.8 Globulin 4.3 H Albumin/Globulin Ratio 0.9 Lipase Serum , Qual Urine Color Yellow Urine Clarity Sl. Cloudy Urine pH 6.5 Ur Specific [place] 1.010 Urine Protein Negative Urine Glucose (UA) Normal Urine Ketones Negative Urine Occult Blood Negative Urine Nitrite Negative Urine Bilirubin Negative Urine Urobilinogen Normal Ur Leukocyte Esterase 25 H Urine RBC 0 SEEN Urine WBC 0-5 SEEN Ur Squamous Epith Cells 10-25 SEEN Urine Bacteria 2+ Urine Mucus 0 SEEN 07/19/22 07/19/22 19:04 19:04 WBC RBC Hgb Hct MCV MCH MCHC RDW Std Deviation RDW Coeff of William Plt Count MPV Immature Gran % (Auto) Neut % (Auto) Lymph % (Auto) [place] % (Auto) Eos % (Auto) Baso % (Auto) Absolute Neuts (auto) Absolute Lymphs (auto) Nucleated RBC % Differential Comment Reactive Lymphocytes Sodium Potassium Chloride Carbon Dioxide Anion Gap BUN Creatinine Estim Creat Clear Calc Est GFR (MDRD) Af Amer Est GFR (MDRD) Non-Af BUN/Creatinine Ratio Glucose Calcium Total Bilirubin AST ALT Alkaline Phosphatase Total Protein Albumin Globulin Albumin/Globulin Ratio Lipase 46 Serum , Qual NEGATIVE Urine Color Urine Clarity Urine pH Ur Specific [place] Urine Protein Urine Glucose (UA) Urine Ketones Urine Occult Blood Urine Nitrite Urine Bilirubin Urine Urobilinogen Ur Leukocyte Esterase Urine RBC Urine WBC Ur Squamous Epith Cells Urine Bacteria Urine Mucus Radiography Diagnostic Testing: Clinical Impression(s) from Imaging Studies Abdomen/Pelvis CT 07/19/22 19:29 IMPRESSION: Normal enhanced CT of the abdomen and pelvis. Electronically Signed: Dg Darden DO at 20:19 EDT Reading Location ID and State: [facility] / [place] Tel [phone], Service support , <Dr. Marvin Costello MD - Last Filed: 07/20/22 01:36> [facility] Lab Data Labs: Laboratory Results - last 24 hr 07/19/22 07/19/22 07/19/22 18:55 19:04 19:04 WBC 14.8 H RBC 5.19 Hgb 14.5 Hct 43.4 MCV 83.6 MCH 27.9 MCHC 33.4 RDW Std Deviation 38.0 RDW Coeff of William 12.6 Plt Count 295 MPV 9.7 Immature Gran % (Auto) 0.400 Neut % (Auto) 52.5 Lymph % (Auto) 36.0 [place] % (Auto) 8.2 Eos % (Auto) 2.4 Baso % (Auto) 0.5 Absolute Neuts (auto) 7.8 H Absolute Lymphs (auto) 5.31 H Nucleated RBC % 0 Differential Comment SCANNED Reactive Lymphocytes 2+ Sodium 139 Potassium 4.2 Chloride 108 H Carbon Dioxide 20.0 L Anion Gap 11 BUN 10 Creatinine 0.67 Estim Creat Clear Calc 102.49 Est GFR (MDRD) Af Amer 135 Est GFR (MDRD) Non-Af 111 BUN/Creatinine Ratio 15.0 Glucose 90 Calcium 9.9 Total Bilirubin 0.30 AST 57 H ALT 138 H Alkaline Phosphatase 141 H Total Protein 8.1 Albumin 3.8 Globulin 4.3 H Albumin/Globulin Ratio 0.9 Lipase Serum , Qual Urine Color Yellow Urine Clarity Sl. Cloudy Urine pH 6.5 Ur Specific [place] 1.010 Urine Protein Negative Urine Glucose (UA) Normal Urine Ketones Negative Urine Occult Blood Negative Urine Nitrite Negative Urine Bilirubin Negative Urine Urobilinogen Normal Ur Leukocyte Esterase 25 H Urine RBC 0 SEEN Urine WBC 0-5 SEEN Ur Squamous Epith Cells 10-25 SEEN Urine Bacteria 2+ Urine Mucus 0 SEEN 07/19/22 07/19/22 19:04 19:04 WBC RBC Hgb Hct MCV MCH MCHC RDW Std Deviation RDW Coeff of William Plt Count MPV Immature Gran % (Auto) Neut % (Auto) Lymph % (Auto) [place] % (Auto) Eos % (Auto) Baso % (Auto) Absolute Neuts (auto) Absolute Lymphs (auto) Nucleated RBC % Differential Comment Reactive Lymphocytes Sodium Potassium Chloride Carbon Dioxide Anion Gap BUN Creatinine Estim Creat Clear Calc Est GFR (MDRD) Af Amer Est GFR (MDRD) Non-Af BUN/Creatinine Ratio Glucose Calcium Total Bilirubin AST ALT Alkaline Phosphatase Total Protein Albumin Globulin Albumin/Globulin Ratio Lipase 46 Serum , Qual NEGATIVE Urine Color Urine Clarity Urine pH Ur Specific [place] Urine Protein Urine Glucose (UA) Urine Ketones Urine Occult Blood Urine Nitrite Urine Bilirubin Urine Urobilinogen Ur Leukocyte Esterase Urine RBC Urine WBC Ur Squamous Epith Cells Urine Bacteria Urine Mucus Radiography Diagnostic Testing: Clinical Impression(s) from Imaging Studies Abdomen/Pelvis CT 07/19/22 19:29 IMPRESSION: Normal enhanced CT of the abdomen and pelvis. Electronically Signed: Dg Darden DO at 20:19 EDT Reading Location ID and State: [facility] / [place] Tel [phone], Service support , Treatment and Re-Evaluation Comments:: Seen and evaluated independently and in conjunction with physician medical clerical assistant. Agree with notes above unless documented otherwise. Patient with some mild lower abdominal discomfort and change in stool coloration. No history of abdominal surgeries. Exam: Soft, minimal tenderness distal right lower quadrant, moderate tenderness in the left lower quadrant. No guarding or rebound. Well-appearing no distress. Given the patient has a leukocytosis, CT of the abdomen and pelvis indicated and appropriate given her left lower quadrant pain and possible diverticulitis which is high on the differential. CT is negative for that, patient reassured, likely functional abdominal discomfort will be offered medications to use as needed and follow-up advised. Discharge Plan Triage Chief Complaint: Abd Pain ED Midlevel Provider: Miguelina Marcum ED Provider: Marvin Costello Dx/Rx/DC Orders Clinical Impression: Nausea & vomiting, Abdominal pain, left lower quadrant Instructions: ED Vomiting (Adult) Prescriptions: New promethazine 12.5 mg tablet 12.5 mg PO TID PRN (Reason: nausea and vomiting) 3 Days Qty: 10 0RF Rx Instructions: 3 doses during day; last dose no later than 4 hr before bedtime No Action Vivitrol 380 mg suspension,extended rel recon 380 mg IM QMONTH permethrin [Elimite] 5 % cream 1 applic topical Q14D Qty: 60 0RF Rx Instructions: apply second treatment 10-14 days after first treatment should symptoms persist escitalopram oxalate [Lexapro] 5 mg tablet 5 mg PO DAILY buspirone 15 mg tablet 15 mg PO naproxen 500 mg tablet 500 mg PO BID PRN (Reason: pain) Qty: 20 0RF Primary Care Provider: Madeline Pappas Referrals: Madeline Pappas, [employer] [Primary Care Provider] - 3-5 Days Activity Restrictions/Additional Instructions: Follow-up with your PCP and return for any worsening of symptoms. Disposition Disposition: Home, Self Care Discharge Date/Time: 07/19/22 20:49
[2022-07-19 18:56] LABS: Mucous, Urine 0 SEEN /hpf (<or=2+); Red Blood Cells-Urine 0 SEEN /hpf (0-5)
[2022-07-19 18:57] LABS: Color, Urine Yellow (Yellow); Glucose, Dipstick Normal (Normal); Ketone-Dipstick Negative (Negative); Leukocyte Esterase-Dipstick 25 /ul (Negative); Nitrite-Dipstick Negative (Negative); Occult Blood-Urine Negative /ul (Negative); Protein-Dipstick Negative (Negative); Urine Bilirubin Dipstick Negative (Negative); Urine Clarity Sl. Cloudy (Clear); Urine Urobilinogen Normal (Normal); Urine pH 6.5 (5.0 - 8.0)
[2022-07-19 19:04] LABS: White Blood Cells 0-5 SEEN /hpf (0-5)
[2022-07-19 19:05] LABS: Bacteria 2+ /hpf (None Seen); Squamous Epithelial Cells - UA 10-25 SEEN /hpf (5-10)
[2022-07-19 19:11] LABS: Absolute Lymphocyte Count 5.31 X10^3/uL (0.83-4.51); Absolute Neutrophil Count 7.8 X10^3/uL (2.0-7.7); Basophil# 0.08 X10^3/uL; Basophil% 0.5 % (0-1); Eosinophil# 0.36 X10^3/uL; Eosinophils% 2.4 % (0-5); Hematocrit 43.4 % (37-47); Hemoglobin 14.5 g/dL (12.0-15.0); Lymphocyte # 5.31 X10^3/ul (0.83-4.51); Mean Corp Hgb Conc 33.4 g/dL (32-36); Mean Corpuscular Hgb 27.9 pg (27.0-32.0); Mean Corpuscular Volume 83.6 fL (81-99); Mean Platelet Vol. 9.7 fl (6.2-12.0); Monocyte# 1.21 X10^3/uL; Monocyte% 8.2 % (0-10); NRBC Flagged by Analyzer 0 % (0-5); Neutrophil # 7.75 X10^3/uL (2.7-7.7); Neutrophil % 52.5 % (47-70); POSITIVE DIFFERENTIAL YES; Platelet Count 295 K/mm3 (150-450); RBC Distribution Width CV 12.6 % (11.6-14.6); Red Blood Count 5.19 M/mm3 (4.2-5.4); White Blood Count 14.8 K/mm3 (4.4-11.0)
[2022-07-19 19:13] LABS: Differential Indicated SCAN CRITERIA MET
[2022-07-19 19:16] VITALS: BMI 41.5
[2022-07-19] MEDS: 0.9% Normal Saline 1,000 ML 999 ML IV (19:19)
[2022-07-19] MEDS: Ondansetron 4 MG/2 ML Vial IV (19:20)
[2022-07-19 19:26] LABS: Internal QC Validated? YES +Cl - CLEAR BKGD; Pregnancy, Serum, hCG Quali. NEGATIVE Negative
[2022-07-19 19:29] LABS: Differential Comment SCANNED; Reactive Lymphocyte 2+
--- NOTE | 2022-07-19 19:29 | CT_ITS ---
STUDY: CT ABDOMEN AND PELVIS WITH CONTRAST REASON FOR EXAM: Female, 27 years old. abdominal tenderness, LLQ RADIATION DOSAGE (If Supplied By Facility): CTDIvol = ( 19.88 ) mGy, DLP = ( 1236.96 ) mGycm TECHNIQUE: Transaxial images were obtained from the dome of the diaphragm to the symphysis pubis without oral contrast. IV 100mL Isovue-370 was administered. Sagittal and coronal images were reconstructed. The Individualized dose optimization techniques were used for this CT. COMPARISON: None. FINDINGS: The visualized lung bases are unremarkable. The visualized portions of the heart are within normal limits. Normal liver. Normal gallbladder and extrahepatic biliary system. Normal spleen. Normal pancreas. Normal bilateral adrenal glands. Normal right kidney. Normal left kidney. Normal visualized stomach. Normal small intestine. Normal colon. The appendix is visualized and appears normal. Normal abdominal aorta. Normal inferior vena cava. Normal retroperitoneum. Normal urinary bladder. Normal abdominal wall. Normal osseous structures. CT/Abdomen/Pelvis W IV Cont ONLY IMPRESSION: Normal enhanced CT of the abdomen and pelvis. Electronically Signed: Dg Darden DO at 20:19 EDT Reading Location ID and State: [facility] / [place] Tel [phone], Service support ,
[2022-07-19 19:34] LABS: Lipase 46 U/L (13-75)
[2022-07-19 19:42] LABS: ALB/GLOB Ratio 0.9 RATIO (0.9-2.4); AST(SGOT) 57 U/L (15-37); Alanine Aminotransfer ALT/SGPT 138 U/L (13-56); Albumin, Serum 3.8 g/dL (3.2-5.0); Alkaline Phosphatase 141 U/L (45-117); Anion Gap 11 (5-15); BUN 10 mg/dL (7-18); Calcium,Total 9.9 mg/dL (8.5-10.1); Chloride 108 mmol/L (98-107); Creatinine, Serum 0.67 mg/dL (0.55-1.02); EST Glomerular Filtration Rate 111 mL/min (>60); Est Glom Filt Rate - Afr Amer 135 mL/min (>60); Estimated Creatinine Clearance 102.49 ml/min; Globulin 4.3 g/dL (2.2-4.2); Glucose 90 mg/dL (74-106); Potassium 4.2 mmol/L (3.5-5.1); Protein, Total 8.1 g/dL (6.4-8.2); Sodium Level 139 mmol/L (136-145)
== END 2022-07-19 20:49 | disposition home or self-care (01) ==
PROVIDERS: Physician Assistant; Emergency Provider Emergency Medicine; PCP Nurse Practitioner Adult Health; Visit Provider Emergency Medicine
DX: R11.2 Nausea with vomiting, unspecified (principal); R10.32 Left lower quadrant pain; F17.210 Nicotine dependence, cigarettes, uncomplicated
CPT/HCPCS: 74177; 80053; 81001; 83690; 84703; 85025; 96361; 96374; 99282; J7030; Q9967; A4216; J2405

== ENCOUNTER → 2022-08-13 | Outpatient (CLI) | payer MEDICAID, SELFPAY ==
--- NOTE | 2022-08-13 09:33 | US_ITS ---
EXAM: Diagnostic bilateral breast mammogram and diagnostic bilateral breast ultrasound REASON FOR EXAM: Female, 27 years old. Bilateral breast pain of 3 weeks'' duration PERTINENT HISTORY: Non-contributory. TECHNIQUE: Digital bilateral breast kurt (3D mammographic acquisition) in the CC and MLO projections. 2-D mediolateral oblique (MLO) and craniocaudad (CC) views of both breasts were obtained. CAD: Full Field Digital Mammography with Computer Added Detection was performed. Real-time cage scale and color sonographic images were obtained of the right upper outer breast from the 9:00 to 12:00 position. Real-time grayscale and color sonographic images were also obtained of the left breast from the 12:00 to 6:00 position. COMPARISON: None. FINDINGS: Mammogram findings: Breast Composition: There are scattered areas of fibroglandular density. Finding 1: There is a 0.7 cm nodular density in the right upper outer breast, middle depth, approximately 5 cm posterior to the nipple. Finding 2: There is an asymmetry in the left lower breast near the axillary tail that is incompletely visualized and seen only on MLO views. No suspicious calcifications. Ultrasound was obtained for further assessment of both findings. Ultrasound findings: Right breast: The right upper outer breast was assessed from the 9:00 to 12:00 position. There is a 0.7 x 0.8 x 0.5 cm lobular hypoechoic mass at the 9:00 position, 6 cm posterior to the nipple, and which appears to correspond to the findings seen on mammogram. This lesion may have a echogenic hilum but is difficult to completely characterize. Left breast: The left outer breast was assessed from the 12:00 to 6:00 position. There is normal fibroglandular tissue with no suspicious masses or abnormal fluid collections to correlate with the findings seen on mammogram. IMPRESSION: Lobular hypoechoic mass in the right upper outer breast seen on ultrasound and mammogram may have an echogenic hilum but is difficult to completely characterize. Findings favor appearance of lymph node or small cluster of cysts. Follow-up examination is recommended in 6 months to assess stability. No findings to suggest malignancy in the left breast. ASSESSMENT CATEGORY: BIRADS Category 3: Probably Benign - Short-Interval Follow-up Suggested. A letter regarding these results will be sent to the patient by the facility within 30 days. RECOMMENDATION: Follow-up of the right breast findings are recommended in 6 months with ultrasound. No further follow up with the left breast findings are recommended. If clinical concerns for enlarging mass or nipple discharge, repeat diagnostic ultrasound and mammogram is recommended. Approximately 10% of breast cancers are not detected by mammography. A normal mammogram should not delay biopsy of a clinically suspicious abnormality. Electronically Signed: Nam Benson DO at 13:44 EDT Reading Location ID and State: [id number] [facility] Tel , Service support , EXAM: Diagnostic bilateral breast mammogram and diagnostic bilateral breast ultrasound REASON FOR EXAM: Female, 27 years old. Bilateral breast pain of 3 weeks'' duration PERTINENT HISTORY: Non-contributory. TECHNIQUE: Digital bilateral breast kurt (3D mammographic acquisition) in the CC and MLO projections. 2-D mediolateral oblique (MLO) and craniocaudad (CC) views of both breasts were obtained. CAD: Full Field Digital Mammography with Computer Added Detection was performed. Real-time cage scale and color sonographic images were obtained of the right upper outer breast from the 9:00 to 12:00 position. Real-time grayscale and color sonographic images were also obtained of the left breast from the 12:00 to 6:00 position. COMPARISON: None. FINDINGS: Mammogram findings: Breast Composition: There are scattered areas of fibroglandular density. Finding 1: There is a 0.7 cm nodular density in the right upper outer breast, middle depth, approximately 5 cm posterior to the nipple. Finding 2: There is an asymmetry in the left lower breast near the axillary tail that is incompletely visualized and seen only on MLO views. No suspicious calcifications. Ultrasound was obtained for further assessment of both findings. Ultrasound findings: Right breast: The right upper outer breast was assessed from the 9:00 to 12:00 position. There is a 0.7 x 0.8 x 0.5 cm lobular hypoechoic mass at the 9:00 position, 6 cm posterior to the nipple, and which appears to correspond to the findings seen on mammogram. This lesion may have a echogenic hilum but is difficult to completely characterize. Left breast: The left outer breast was assessed from the 12:00 to 6:00 position. There is normal fibroglandular tissue with no suspicious masses or abnormal fluid collections to correlate with the findings seen on mammogram. US/Breast Limited Unilateral IMPRESSION: Lobular hypoechoic mass in the right upper outer breast seen on ultrasound and mammogram may have an echogenic hilum but is difficult to completely characterize. Findings favor appearance of lymph node or small cluster of cysts. Follow-up examination is recommended in 6 months to assess stability. No findings to suggest malignancy in the left breast. ASSESSMENT CATEGORY: BIRADS Category 3: Probably Benign - Short-Interval Follow-up Suggested. A letter regarding these results will be sent to the patient by the facility within 30 days. RECOMMENDATION: Follow-up of the right breast findings are recommended in 6 months with ultrasound. No further follow up with the left breast findings are recommended. If clinical concerns for enlarging mass or nipple discharge, repeat diagnostic ultrasound and mammogram is recommended. Approximately 10% of breast cancers are not detected by mammography. A normal mammogram should not delay biopsy of a clinically suspicious abnormality. Electronically Signed: Nam Benson DO at 13:45 EDT ,
== END | disposition home or self-care (01) ==
LOC: OPBI 09:30
PROVIDERS: Referring Provider Nurse Practitioner Women's Health; Visit Provider Nurse Practitioner Women's Health
DX: N64.4 Mastodynia (principal)
CPT/HCPCS: 77062; 76642; 77066; G0279

== ENCOUNTER → 2022-08-28 | Outpatient (CLI) | payer MEDICAID, SELFPAY ==
[2022-08-28 15:52] LABS: Absolute Lymphocyte Count 3.38 X10^3/uL (0.83-4.51); Absolute Neutrophil Count 7.2 X10^3/uL (2.0-7.7); Basophil# 0.08 X10^3/uL; Basophil% 0.7 % (0-1); Eosinophil# 0.33 X10^3/uL; Eosinophils% 2.8 % (0-5); Hematocrit 45.5 % (37-47); Hemoglobin 14.8 g/dL (12.0-15.0); Lymphocyte # 3.38 X10^3/ul (0.83-4.51); Lymphocyte % 28.3 % (19-41); Mean Corp Hgb Conc 32.5 g/dL (32-36); Mean Corpuscular Hgb 27.5 pg (27.0-32.0); Mean Corpuscular Volume 84.6 fL (81-99); Mean Platelet Vol. 10.1 fl (6.2-12.0); Monocyte# 0.96 X10^3/uL; NRBC Flagged by Analyzer 0 % (0-5); Neutrophil # 7.15 X10^3/uL (2.7-7.7); Neutrophil % 59.8 % (47-70); Platelet Count 315 K/mm3 (150-450); RBC Distribution Width CV 12.8 % (11.6-14.6); RBC Distribution Width SD 39.4 fl (35.1-43.9); Red Blood Count 5.38 M/mm3 (4.2-5.4)
[2022-08-28 16:01] LABS: Prothrombin Time (Protime)PT. 13.6 SECONDS (11.7-14.9)
[2022-08-28 16:19] LABS: ALB/GLOB Ratio 0.8 RATIO (0.9-2.4); AST(SGOT) 55 U/L (15-37); Alanine Aminotransfer ALT/SGPT 116 U/L (13-56); Albumin, Serum 3.6 g/dL (3.2-5.0); Alkaline Phosphatase 159 U/L (45-117); Anion Gap 6 (5-15); BUN 8 mg/dL (7-18); BUN/Creat Ratio 11.8 RATIO (10-20); Calcium,Total 9.5 mg/dL (8.5-10.1); Chloride 110 mmol/L (98-107); Creatinine, Serum 0.68 mg/dL (0.55-1.02); EST Glomerular Filtration Rate 109 mL/min (>60); Est Glom Filt Rate - Afr Amer 132 mL/min (>60); Globulin 4.3 g/dL (2.2-4.2); Glucose 88 mg/dL (74-106); Potassium 3.7 mmol/L (3.5-5.1); Protein, Total 7.9 g/dL (6.4-8.2); Sodium Level 138 mmol/L (136-145)
[2022-08-28 16:48] LABS: HIV - WCH Non-Reactive (Nonreactive); Hepatitis B Surface Antibody Non-Reactive; Hepatitis B Surface Antigen Non-Reactive (Nonreactive)
[2022-08-30 05:07] LABS: Hepatitis A AB, Total Positive (Negative)
== END | disposition home or self-care (01) ==
PROVIDERS: Referring Provider Family Medicine; Visit Provider Family Medicine
DX: B18.2 Chronic viral hepatitis C (principal)
CPT/HCPCS: 36415; 80053; 85025; 85610; 86703; 86706; 86708; 87340

== ENCOUNTER → 2022-09-23 | Outpatient (CLI) | payer MEDICAID, SELFPAY | END | disposition home or self-care (01) | DX: B18.2 Chronic viral hepatitis C (principal) ==

== ENCOUNTER 2022-11-01 18:22 | Emergency (ER) | payer MEDICAID, SELFPAY ==
[2022-11-01 18:23] VITALS: BP 131/85; PULSE 90; RESP 18; TEMP 35.9; O2SAT 96; BMI 40.5
--- NOTE | 2022-11-01 18:40 | RAD_ITS ---
INDICATION: fall out of bed EXAMINATION/TECHNIQUE: X-RAY - LEFT XR Shoulder Min 2 Views 4 VIEWS COMPARISON: FINDINGS: No acute fracture or dislocation. No destructive bone changes. Joint spaces are well-maintained. Normal alignment. Soft tissues are unremarkable. No radiopaque foreign body or soft tissue gas. RAD/Shoulder min 2 Views IMPRESSION: Negative. Electronically Signed: Karla Canseco MD at 19:20 EDT Reading Location ID and State: [id number] / Tel , Service support ,
--- NOTE | 2022-11-01 22:10 | EDS_ITS ---
HPI History of Present Illness Chief Complaint: Upper Extremity Injury Narrative Narrative: 27-year-old female presenting with left shoulder pain. She states she fell out of her bed onto her left shoulder is having pain and now. She points to the AC joint. She states it hurts when she tries to AB duct her left shoulder. She can flex and extend the shoulder without much difficulty. No numbness or tingling. PFSH PFSH Medical History Anxiety Asthma Depression Hx of gastroesophageal reflux (GERD) Hypothyroidism Scabies Smoker Home Medications naltrexone microspheres 380 mg intramuscular suspension,extended release (Vivitrol) 380 mg IM QMONTH 10/06/20 [History Last Taken Unknown] naproxen 500 mg tablet 500 mg PO BID PRN pain #20 tabs 01/22/22 [Rx Last Taken U nknown] permethrin 5 % topical cream (Elimite) 1 applic topical Q14D 2 doses #60 grams 02/11/22 [Rx Last Taken Unknown] buspirone 15 mg tablet 15 mg PO 02/28/22 [History Last Taken Unknown] escitalopram oxalate 5 mg tablet (Lexapro) 5 mg PO DAILY 02/28/22 [History Last Taken Unknown] promethazine 12.5 mg tablet 12.5 mg PO TID PRN nausea and vomiting 3 days #10 tabs 07/19/22 [Rx Last Taken Unknown] Allergy/AdvReac Type Severity Reaction Status Date / Time adhesive Allergy Rash Verified 11/01/22 18:23 Latex, Natural Rubber Allergy Rash Verified 11/01/22 18:23 sulfamethoxazole Allergy Itching Verified 11/01/22 18:23 [From Bactrim] trimethoprim [From Bactrim] Allergy Itching Verified 11/01/22 18:23 albuterol AdvReac Other Verified 11/01/22 18:23 Family History Other Hypertension Social History Smoking Status: Current every day smoker tobacco type: cigarettes substance use type: does not use ROS ROS ED Constitutional Constitutional ED: Denies chills, fever(s) or sweats Eyes Eyes: Denies blurry vision or change in vision ENT ENT ED: Denies ear pain or sore throat Cardiovascular Cardiovascular: Denies chest pain, palpitations or racing heartbeat Respiratory/Chest Respiratory/Chest: Denies cough, dyspnea or sputum Gastrointestinal Gastrointestinal: Denies abdominal pain, constipation, diarrhea, nausea or vomiting Genitourinary Genitourinary ED: Denies dysuria, hematuria or urinary frequency Musculoskeletal Musculoskeletal: Reports other Details: Left shoulder pain ; Denies arthralgias, myalgias or neck pain Integumentary Denies abscess, Abrasions or rash Neurologic Neurologic: Denies headache(s), paresthesias or weakness Psychiatric Psychiatric: Denies anxiety, depression, suicidal ideation or suicidal thoughts Endocrine Endocrinology: Denies polydipsia or polyuria EXAM Physical Exam Const Vital Signs: 11/01/22 18:23 Temperature 96.6 F L Temperature Source Temporal Pulse Rate 90 Respiratory Rate 18 Blood Pressure 131/85 H Blood Pressure Mean 100 Pulse Ox 96 Oxygen Delivery Method Room Air Positive well nourished HEENT Reports moist mucous membranes normocephalic and atraumatic Eyes PERRL Chest Wall inspection of chest normal Resp normal respiratory effort Cardio regular rate and regular rhythm GI non-tender Extremity Extremity Narrative: Tenderness to palpation of the left AC joint. Does not appear bruised or elevated. Patient able to range shoulder in flexion extension on the left but is unable to AB duct past shoulder height. There is tenderness in the left trapezius. Neuro oriented x3 Sensorium / Orientation: alert Motor Exam: strength 5/5 throughout Psych mental status grossly normal MDM MDM MDM Narrative Medical decision making narrative: Patient presenting after falling out of bed. She is a left shoulder contusion. I do not believe she has a torn rotator cuff. X-ray of the left shoulder my interpretation shows no acute fracture. Patient counseled on ice, rest, NSAIDs. Return precautions were discussed. Impression: 1. Left shoulder contusion Radiography Diagnostic Testing: Clinical Impression(s) from Imaging Studies Shoulder X-Ray 11/01/22 18:40 IMPRESSION: Negative. Electronically Signed: Karla Canseco MD at 19:20 EDT Reading Location ID and State: [id number] / Tel , Service support , Discharge Plan Triage Chief Complaint: Upper Extremity Injury ED Provider: Jose Piper Dx/Rx/DC Orders Instructions: ED Sprain AC Joint Prescriptions: No Action Vivitrol 380 mg suspension,extended rel recon 380 mg IM QMONTH permethrin [Elimite] 5 % cream 1 applic topical Q14D Qty: 60 0RF Rx Instructions: apply second treatment 10-14 days after first treatment should symptoms persist escitalopram oxalate [Lexapro] 5 mg tablet 5 mg PO DAILY buspirone 15 mg tablet 15 mg PO naproxen 500 mg tablet 500 mg PO BID PRN (Reason: pain) Qty: 20 0RF promethazine 12.5 mg tablet 12.5 mg PO TID PRN (Reason: nausea and vomiting) 3 Days Qty: 10 0RF Rx Instructions: 3 doses during day; last dose no later than 4 hr before bedtime Primary Care Provider: Cooper Paula Referrals: Sae Byrd MD [Med Staff - Active Staff] - 3-5 Days Cooper Paula, [employer] [Primary Care Provider] - Disposition Disposition: Home, Self Care Discharge Date/Time: 11/01/22 20:37
== END 2022-11-01 20:37 | disposition home or self-care (01) ==
PROVIDERS: Emergency Provider Student in an Organized Health Care Education/Training Program; PCP Nurse Practitioner Family; Visit Provider Student in an Organized Health Care Education/Training Program
DX: S40.012A Contusion of left shoulder, initial encounter (principal); F17.210 Nicotine dependence, cigarettes, uncomplicated; W06.XXXA Fall from bed, initial encounter
CPT/HCPCS: 73030; 99282

== ENCOUNTER 2022-11-02 19:29 | Emergency (ER) | payer MEDICAID, SELFPAY ==
[2022-11-02 19:31] VITALS: BP 143/100; PULSE 100; RESP 16; TEMP 36.6; O2SAT 99; BMI 40.6
--- NOTE | 2022-11-02 20:03 | EX.ED.DYSGE1 ---
HPI History of Present Illness Chief Complaint: Rash Informant: patient Narrative Narrative: 27-year-old female presenting to the emergency room with pelvic pain and rash. Patient states that she thought she had a UTI several days ago she is she took some [id number] Azo. She states that she developed a rash in the labial clitoral region and now is experiencing some swelling pain and some discharge. Her grandmother placing potato peels which seemed to help but still having symptoms. Patient states she was treated for bacterial vaginosis last month PFSH PFSH Medical History Anxiety Asthma Depression Hx of gastroesophageal reflux (GERD) Hypothyroidism Scabies Smoker Home Medications naltrexone microspheres 380 mg intramuscular suspension,extended release (Vivitrol) 380 mg IM QMONTH 10/06/20 [History Last Taken Unknown] naproxen 500 mg tablet 500 mg PO BID PRN pain #20 tabs 01/22/22 [Rx Last Taken Unknown] permethrin 5 % topical cream (Elimite) 1 applic topical Q14D 2 doses #60 grams 02/11/22 [Rx Last Taken Unknown] buspirone 15 mg tablet 15 mg PO 02/28/22 [History Last Taken Unknown] escitalopram oxalate 5 mg tablet (Lexapro) 5 mg PO DAILY 02/28/22 [History Last Taken Unknown] promethazine 12.5 mg tablet 12.5 mg PO TID PRN nausea and vomiting 3 days #10 tabs 07/19/22 [Rx Last Taken Unknown] Allergy/AdvReac Type Severity Reaction Status Date / Time adhesive Allergy Rash Verified 11/02/22 19:33 Latex, Natural Rubber Allergy Rash Verified 11/02/22 19:33 sulfamethoxazole Allergy Itching Verified 11/02/22 19:33 [From Bactrim] trimethoprim [From Bactrim] Allergy Itching Verified 11/02/22 19:33 albuterol AdvReac Other Verified 11/02/22 19:33 Family History Other Hypertension Social History Smoking Status: Current every day smoker tobacco type: cigarettes substance use type: does not use ROS ROS ED Constitutional Constitutional ED: Denies chills or weight loss Eyes Eyes: Denies change in vision or diplopia ENT ENT ED: Denies ear pain, rhinorrhea or sore throat Cardiovascular Cardiovascular: Denies chest pain, orthopnea, palpitations or racing heartbeat Respiratory/Chest Respiratory/Chest: Denies cough, dyspnea or orthopnea Gastrointestinal Gastrointestinal: Denies abdominal pain, diarrhea, nausea or vomiting Genitourinary Genitourinary ED: Reports dysuria and other Details: General irritation and swelling ; Denies hematuria or urinary frequency Musculoskeletal Musculoskeletal: Denies arthralgias or myalgias Integumentary Denies abscess or rash Neurologic Neurologic: Denies headache(s) or weakness Psychiatric Psychiatric: Denies anxiety, depression, suicidal ideation or suicidal thoughts Endocrine Endocrinology: Denies polydipsia, polyphagia or polyuria Allergic/Immunologic Allergic/Immunologic ED: Denies mouth swelling, tongue swelling or urticaria EXAM Physical Exam Const Vital Signs: 11/02/22 19:31 Temperature 97.8 F Temperature Source Temporal Pulse Rate 100 Respiratory Rate 16 Blood Pressure 143/100 H Blood Pressure Mean 114 Pulse Ox 99 Oxygen Delivery Method Room Air Positive well nourished and well developed General Appearance ED: well developed HEENT Reports normocephalic, head/scalp atraumatic and moist mucous membranes Eyes PERRL and EOMs intact bilaterally Neck no lymphadenopathy, supple and no JVD Resp normal respiratory effort and clear to auscultation bilaterally Cardio regular rate, regular rhythm and no murmurs GI normal to inspection, nondistended, normoactive bowel sounds and non-tender Palpation: soft Narrative: There is some erythema of the skin of the labia clitoral harding and perineum/medial thigh. There is a yeastlike odor from the perineum. There is a small amount of discharge located at the vaginal introitus. Back/Spine no CVA tenderness and normal ROM Extremity normal to inspection General Extremety ED: Negative for edema General Extremity: Negative for edema Neuro oriented x3 and CN's II-XII intact bilaterally Sensorium / Orientation: alert Motor Exam: strength 5/5 throughout Psych mental status grossly normal Mood & Affect: Negative for depressed or tearful Skin no rashes or lesions noted and no wounds MDM MDM MDM Narrative Medical decision making narrative: I will treat the patient for yeast candidiasis. I will write for some Diflucan and would also recommend a topical antifungal. Would recommend follow-up with gynecology. Discharge Plan Triage Chief Complaint: Rash ED Provider: Barron Garcia Dx/Rx/DC Orders Prescriptions: No Action Vivitrol 380 mg suspension,extended rel recon 380 mg IM QMONTH permethrin [Elimite] 5 % cream 1 applic topical Q14D Qty: 60 0RF Rx Instructions: apply second treatment 10-14 days after first treatment should symptoms persist escitalopram oxalate [Lexapro] 5 mg tablet 5 mg PO DAILY buspirone 15 mg tablet 15 mg PO naproxen 500 mg tablet 500 mg PO BID PRN (Reason: pain) Qty: 20 0RF promethazine 12.5 mg tablet 12.5 mg PO TID PRN (Reason: nausea and vomiting) 3 Days Qty: 10 0RF Rx Instructions: 3 doses during day; last dose no later than 4 hr before bedtime Primary Care Provider: Cooper Paula Referrals: Cooper Paula, E[employer]OMETRICIAN[employer] [Primary Care Provider] -
[2022-11-02] MEDS: Fluconazole 100 MG Tablet 200 MG PO (21:50)
== END 2022-11-02 21:52 | disposition home or self-care (01) ==
PROVIDERS: Emergency Provider Emergency Medicine; PCP Nurse Practitioner Family; Visit Provider Emergency Medicine
DX: B37.31 Acute candidiasis of vulva and vagina (principal); F17.210 Nicotine dependence, cigarettes, uncomplicated
CPT/HCPCS: 99283

== ENCOUNTER → 2022-11-14 | Outpatient (CLI) | payer MEDICAID, SELFPAY ==
[2022-11-14 11:38] LABS: Absolute Lymphocyte Count 4.59 X10^3/uL (0.83-4.51); Absolute Neutrophil Count 7.7 X10^3/uL (2.0-7.7); Basophil# 0.08 X10^3/uL; Basophil% 0.6 % (0-1); Eosinophil# 0.38 X10^3/uL; Eosinophils% 2.8 % (0-5); Hematocrit 43.5 % (37-47); Hemoglobin 14.1 g/dL (12.0-15.0); Lymphocyte # 4.59 X10^3/ul (0.83-4.51); Lymphocyte % 33.3 % (19-41); Mean Corp Hgb Conc 32.4 g/dL (32-36); Mean Corpuscular Hgb 27.7 pg (27.0-32.0); Mean Corpuscular Volume 85.5 fL (81-99); Mean Platelet Vol. 10.5 fl (6.2-12.0); Monocyte# 0.98 X10^3/uL; Monocyte% 7.1 % (0-10); NRBC Flagged by Analyzer 0 % (0-5); Neutrophil # 7.69 X10^3/uL (2.7-7.7); Neutrophil % 55.8 % (47-70); Platelet Count 361 K/mm3 (150-450); RBC Distribution Width CV 12.5 % (11.6-14.6); RBC Distribution Width SD 38.8 fl (35.1-43.9); Red Blood Count 5.09 M/mm3 (4.2-5.4); White Blood Count 13.8 K/mm3 (4.4-11.0)
[2022-11-14 12:05] LABS: ALB/GLOB Ratio 0.7 RATIO (0.9-2.4); AST(SGOT) 18 U/L (15-37); Alanine Aminotransfer ALT/SGPT 38 U/L (13-56); Albumin, Serum 3.2 g/dL (3.2-5.0); Alkaline Phosphatase 142 U/L (45-117); Anion Gap 5 (5-15); BUN 12 mg/dL (7-18); BUN/Creat Ratio 15.7 RATIO (10-20); Calcium,Total 9.1 mg/dL (8.5-10.1); Chloride 112 mmol/L (98-107); Creatinine, Serum 0.77 mg/dL (0.55-1.02); EST Glomerular Filtration Rate 95 mL/min (>60); Est Glom Filt Rate - Afr Amer 114 mL/min (>60); Globulin 4.6 g/dL (2.2-4.2); Glucose 108 mg/dL (74-106); Potassium 3.9 mmol/L (3.5-5.1); Protein, Total 7.8 g/dL (6.4-8.2); Sodium Level 138 mmol/L (136-145)
[2022-11-15 20:07] LABS: HCV Quant. RNA PCR HCV Not Detected IU/mL (.)
== END | disposition home or self-care (01) ==
LOC: LAB 11:06
PROVIDERS: PCP Nurse Practitioner Family; Referring Provider Family Medicine; Visit Provider Family Medicine
DX: B18.2 Chronic viral hepatitis C (principal)
CPT/HCPCS: 36415; 80053; 85025; 87522

== ENCOUNTER 2023-01-09 11:52 | Emergency (ER) | payer MEDICAID, SELFPAY ==
[2023-01-09 11:53] VITALS: BP 154/90; PULSE 86; RESP 15; TEMP 36.4; O2SAT 97; BMI 40.7
--- NOTE | 2023-01-09 14:41 | EX.ED.DYSGE1 ---
HPI History of Present Illness Chief Complaint: Abscess Informant: patient Narrative Narrative: Worsening bump under right axilla for past week. No drainage. No fevers. History of similar however last time 2 years ago requiring drainage. Denies history of diabetes. Prior similar symptoms: Yes PFSH PFSH Medical History Anxiety Asthma Depression Hx of gastroesophageal reflux (GERD) Hypothyroidism Scabies Smoker Home Medications naltrexone microspheres 380 mg intramuscular suspension,extended release (Vivitrol) 380 mg IM QMONTH 10/06/20 [History Last Taken Unknown] naproxen 500 mg tablet 500 mg PO BID PRN pain #20 tabs 01/22/22 [Rx Last Taken Unknown] permethrin 5 % topical cream (Elimite) 1 applic topical Q14D 2 doses #60 grams 02/11/22 [Rx Last Taken Unknown] buspirone 15 mg tablet 15 mg PO 02/28/22 [History Last Taken Unknown] escitalopram oxalate 5 mg tablet (Lexapro) 5 mg PO DAILY 02/28/22 [History Last Taken Unknown] promethazine 12.5 mg tablet 12.5 mg PO TID PRN nausea and vomiting 3 days #10 tabs 07/19/22 [Rx Last Taken Unknown] fluconazole 150 mg tablet (Diflucan) 150 mg PO DAILY #1 TAB 11/02/22 [Rx Last Taken Unknown] nystatin 100,000 unit/gram topical cream 1 applic topical BID 7 days #30 grams 11/02/22 [Rx Last Taken Unknown] Allergy/AdvReac Type Severity Reaction Status Date / Time adhesive Allergy Rash Verified 11/02/22 19:33 Latex, Natural Rubber Allergy Rash Verified 11/02/22 19:33 sulfamethoxazole Allergy Itching Verified 11/02/22 19:33 [From Bactrim] trimethoprim [From Bactrim] Allergy Itching Verified 11/02/22 19:33 albuterol AdvReac Other Verified 11/02/22 19:33 Family History Other Hypertension Social History Smoking Status: Current every day smoker tobacco type: cigarettes substance use type: does not use ROS ROS ED Constitutional Constitutional ED: Denies chills, fever(s) or sweats Eyes Eyes: Denies change in vision ENT ENT ED: Denies dysphagia or sore throat Cardiovascular Cardiovascular: Denies chest pain, leg edema, palpitations or racing heartbeat Respiratory/Chest Respiratory/Chest: Denies cough, dyspnea or dyspnea on exertion Gastrointestinal Gastrointestinal: Denies abdominal pain, diarrhea, nausea or vomiting Genitourinary Genitourinary ED: Denies dysuria, hematuria or urinary frequency Musculoskeletal Musculoskeletal: Denies back pain, extremity pain or neck pain Integumentary Reports abscess; Denies rash or wounds Neurologic Neurologic: Denies headache(s), paresthesias or weakness EXAM Physical Exam Const Vital Signs: 01/09/23 11:53 Temperature 97.5 F L Temperature Source Temporal Pulse Rate 86 Respiratory Rate 15 Blood Pressure 154/90 H Blood Pressure Mean 111 Pulse Ox 97 Oxygen Delivery Method Room Air Positive well nourished and well developed General Appearance ED: well developed and NAD HEENT Reports moist mucous membranes normocephalic and atraumatic Eyes PERRL, EOMs intact bilaterally and conjunctivae normal General Eye ED: Yes normal appearance of both eyes Neck no lymphadenopathy and supple General: Negative for tenderness Chest Wall Chest: Negative for tenderness Resp normal respiratory effort and normal air movement Effort and Inspection: symmetric chest movement; Negative for respiratory distress Cardio regular rate, regular rhythm and no murmurs Peripheral Pulses: pulses 2+ throughout GI normal to inspection, nondistended, normoactive bowel sounds and non-tender Palpation: Negative for guarding or rebound tenderness present Back/Spine no CVA tenderness and no thoracic nor lumbar tenderness Extremity normal to inspection General Extremety ED: Negative for edema or tenderness General Extremity: Negative for edema Neuro oriented x3 and no sensory deficits noted Sensorium / Orientation: awake and alert Skin Skin Narrative: Right axilla: 1.5 cm x 1 cm raised lesion mild fluctuance, tender to palpation. No surrounding erythema. MDM MDM MDM Narrative Medical decision making narrative: Interventions / MDM: Differential diagnosis: Boil, abscess Diagnosis considered but do not suspect: N/A My EKG interpretation: N/A Imaging independently reviewed and interpreted by myself: N/A External documents reviewed: N/A Test considered but not ordered:N/A ED course: Patient developing boils tender to palpation. This was incised and drained with minimal output. Wound care discussed. No surrounding erythema or warrants any antibiotics. Definitive treatment with I&D. Outpatient follow-up with her doctors. Return precautions. All questions were answered. Procedure note: Normal sterile conditions. Verbal consent. Area prepped and draped in normal sterile fashion. 4 cc 1% lidocaine used for local analgesia. Skin was prepped with Shur-Clens, 11 blade with crease incision, very minimal exudate output, hemostats used to break loculations. Wound was flushed with 20 cc of normal saline. Dressing placed by myself. Patient tolerated procedure well. Re-evaluation: stable Disposition discussed with patient/family/significant other: Case discussed with consulting clinician: N/A This note was generated with [employer] dictation software. It may contain incorrect words, spelling, and punctuation that were not noted in checking the note before signing. Discharge Plan Triage Chief Complaint: Abscess ED Provider: David Ritter Dx/Rx/DC Orders Clinical Impression: Boil, Abscess of axilla, right Instructions: ED Abscess Incision And Drainage Prescriptions: No Action Vivitrol 380 mg suspension,extended rel recon 380 mg IM QMONTH permethrin [Elimite] 5 % cream 1 applic topical Q14D Qty: 60 0RF Rx Instructions: apply second treatment 10-14 days after first treatment should symptoms persist escitalopram oxalate [Lexapro] 5 mg tablet 5 mg PO DAILY buspirone 15 mg tablet 15 mg PO naproxen 500 mg tablet 500 mg PO BID PRN (Reason: pain) Qty: 20 0RF promethazine 12.5 mg tablet 12.5 mg PO TID PRN (Reason: nausea and vomiting) 3 Days Qty: 10 0RF Rx Instructions: 3 doses during day; last dose no later than 4 hr before bedtime nystatin 100,000 unit/gram cream 1 applic topical BID 7 Days Qty: 30 0RF fluconazole [Diflucan] 150 mg tablet 150 mg PO DAILY Qty: 1 0RF Rx Instructions: take on 11/05/2022 Primary Care Provider: Yadira Nielson Referrals: Yadira Nielson [Primary Care Provider] - 1 Week if not improving Activity Restrictions/Additional Instructions: Small boil under axilla status post incision and drainage. Wound care as discussed. Follow-up with your doctor as needed. Return if any worsening symptoms. Disposition Disposition: Home, Self Care Discharge Date/Time: 01/09/23 15:16
[2023-01-09] MEDS: Lidocaine 1% (20 ml mdv) 20 ML Vial INFILT (14:50)
== END 2023-01-09 15:16 | disposition home or self-care (01) ==
PROVIDERS: Emergency Provider Emergency Medicine; Visit Provider Emergency Medicine
DX: L02.411 Cutaneous abscess of right axilla (principal); L02.421 Furuncle of right axilla; F17.210 Nicotine dependence, cigarettes, uncomplicated
CPT/HCPCS: 99283

== ENCOUNTER 2023-01-18 21:47 | Emergency (ER) | payer MEDICAID, SELFPAY ==
[2023-01-18 21:48] VITALS: BP 164/99; PULSE 89; RESP 17; TEMP 36.2; O2SAT 98; BMI 41.2
--- NOTE | 2023-01-18 22:25 | EX.ED.DYSGE1 ---
HPI History of Present Illness Chief Complaint: Abscess Informant: patient Narrative Narrative: 3 days gradual onset tender swollen area on right armpit, right next to an abscess that she just recently had incised and drained last week, and feels similar. No systemic symptoms. No spontaneous discharge. She is asking for incision and drainage. PFSH PFSH Medical History Anxiety Asthma Depression Hx of gastroesophageal reflux (GERD) Hypothyroidism Scabies Smoker Home Medications naltrexone microspheres 380 mg intramuscular suspension,extended release (Vivitrol) 380 mg IM QMONTH 10/06/20 [History Last Taken Unknown] naproxen 500 mg tablet 500 mg PO BID PRN pain #20 tabs 01/22/22 [Rx Last Taken Unknown] permethrin 5 % topical cream (Elimite) 1 applic topical Q14D 2 doses #60 grams 02/11/22 [Rx Last Taken Unknown] buspirone 15 mg tablet 15 mg PO 02/28/22 [History Last Taken Unknown] escitalopram oxalate 5 mg tablet (Lexapro) 5 mg PO DAILY 02/28/22 [History Last Taken Unknown] promethazine 12.5 mg tablet 12.5 mg PO TID PRN nausea and vomiting 3 days #10 tabs 07/19/22 [Rx Last Taken Unknown] fluconazole 150 mg tablet (Diflucan) 150 mg PO DAILY #1 TAB 11/02/22 [Rx Last Taken Unknown] nystatin 100,000 unit/gram topical cream 1 applic topical BID 7 days #30 grams 11/02/22 [Rx Last Taken Unknown] clindamycin HCl 150 mg capsule 300 mg (2 x 150 mg) PO 4X/DAY #80 CAPSULES 01/18/23 [Rx Last Taken Unknown] Allergy/AdvReac Type Severity Reaction Status Date / Time adhesive Allergy Rash Verified 01/18/23 21:48 Latex, Natural Rubber Allergy Rash Verified 01/18/23 21:48 sulfamethoxazole Allergy Itching Verified 01/18/23 21:48 [From Bactrim] trimethoprim [From Bactrim] Allergy Itching Verified 01/18/23 21:48 albuterol AdvReac Other Verified 01/18/23 21:48 Family History Other Hypertension Social History Smoking Status: Current every day smoker tobacco type: cigarettes substance use type: does not use ROS ROS ED Cardiovascular Cardiovascular: Denies chest pain Respiratory/Chest Respiratory/Chest: Denies dyspnea Gastrointestinal Gastrointestinal: Denies abdominal pain, nausea or vomiting Integumentary Reports abscess EXAM Physical Exam Const Vital Signs: 01/18/23 21:48 Temperature 97.1 F L Temperature Source Temporal Pulse Rate 89 Respiratory Rate 17 Blood Pressure 164/99 H Blood Pressure Mean 120 Pulse Ox 98 Oxygen Delivery Method Room Air Positive well nourished, well developed and obese General Appearance ED: well developed and NAD Nutritional Appearance: obese Extremity Extremity Narrative: Small palpable subcutaneous tender nodule in right axilla. Not deep enough to be lymph node. Neuro oriented x3, CN's II-XII intact bilaterally and no sensory deficits noted Motor Exam: strength 5/5 throughout Psych mental status grossly normal Skin Skin Narrative: 1 cm diameter abscess right axilla, minimal overlying erythema, not pointing, but just subcutaneous. There is a well-healing area that without tenderness just next to this where her prior I&D was. MDM MDM MDM Narrative Medical decision making narrative: I&D performed see the procedure note. Will place the patient on clindamycin to cover MRSA since she has an allergy to sulfa medications. Given appropriate care instructions. Patient also advised to eat yogurt or take probiotic with clindamycin given its propensity for cause and antibiotic associated diarrhea. Procedures Other Procedures Procedure(s): Simple incision and drainage right axilla abscess: 1 cm abscess incised and drained after obtaining written consent, prepping with isopropanol, locally anesthetizing with 1.5 cc plain 1% lidocaine, incising with a #10 blade, and deloculated and expressing a small-moderate amount of pus. Cleansed and dressed with bacitracin, tolerated well no complications. Discharge Plan Triage Chief Complaint: Abscess ED Provider: Marvin Costello Dx/Rx/DC Orders Clinical Impression: Cutaneous abscess of right axilla Instructions: ED Abscess Incision And Drainage Prescriptions: New clindamycin HCl 150 mg capsule 300 mg PO 4X/DAY Qty: 80 0RF No Action Vivitrol 380 mg suspension,extended rel recon 380 mg IM QMONTH permethrin [Elimite] 5 % cream 1 applic topical Q14D Qty: 60 0RF Rx Instructions: apply second treatment 10-14 days after first treatment should symptoms persist escitalopram oxalate [Lexapro] 5 mg tablet 5 mg PO DAILY buspirone 15 mg tablet 15 mg PO naproxen 500 mg tablet 500 mg PO BID PRN (Reason: pain) Qty: 20 0RF promethazine 12.5 mg tablet 12.5 mg PO TID PRN (Reason: nausea and vomiting) 3 Days Qty: 10 0RF Rx Instructions: 3 doses during day; last dose no later than 4 hr before bedtime nystatin 100,000 unit/gram cream 1 applic topical BID 7 Days Qty: 30 0RF fluconazole [Diflucan] 150 mg tablet 150 mg PO DAILY Qty: 1 0RF Rx Instructions: take on 11/05/2022 Primary Care Provider: Yadira Nielson Referrals: Yadira Nielson [Primary Care Provider] - 3-5 Days if not improving Disposition Disposition: Home, Self Care
[2023-01-18] MEDS: Lidocaine 1% (20 ml mdv) 20 ML Vial INFILT (22:37)
[2023-01-18] MEDS: Clindamycin HCl 150 MG Capsule 300 MG PO (23:37)
== END 2023-01-18 23:48 | disposition home or self-care (01) ==
PROVIDERS: Emergency Provider Emergency Medicine; Visit Provider Emergency Medicine
DX: L02.411 Cutaneous abscess of right axilla (principal); F17.210 Nicotine dependence, cigarettes, uncomplicated; E66.9 Obesity, unspecified
CPT/HCPCS: 10060; 99282

== ENCOUNTER → 2023-02-04 | Outpatient (CLI) | payer MEDICAID, SELFPAY ==
--- NOTE | 2023-02-04 09:18 | US_ITS ---
STUDY: ULTRASOUND BREAST - RIGHT REASON FOR EXAM: Female, 27 years old. Six-month follow-up examination. TECHNIQUE: Axial and longitudinal images of the RIGHT breast were performed with a high resolution ultrasound transducer. # OF IMAGES: 8 COMPARISON: Comparison is made with prior sonogram dated August 13, 2022. FINDINGS: RIGHT Breast: Stable 7 mm x 6 mm x 9 mm hypoechoic nodule with a central fatty hilum at the 9:00 position of the breast at 6 cm from nipple. This most likely represents a lymph node. US/Breast Limited Unilateral IMPRESSION: Stable examination. ASSESSMENT CATEGORY: BIRADS Category 2: Benign. A letter regarding these results will be sent to the patient by the facility within 30 days. Electronically Signed: Abel Stauffer MD at 11:00 EST ,
--- NOTE | 2023-02-04 09:18 | BI_ITS ---
MAMMOGRAPHY - BILATERAL DIAGNOSTIC REASON FOR EXAM: Female, 27 years old. 6 month follow-up examination. PERTINENT HISTORY: Non-contributory. TECHNIQUE: Digital bilateral breast kurt (3D mammographic acquisition) in the CC and MLO projections. 2-D mediolateral oblique (MLO) and craniocaudad (CC) views of both breasts were obtained. CAD: Full Field Digital Mammography with Computer Added Detection was performed. COMPARISON: Comparison is made with prior mammogram dated August 13, 2022. FINDINGS: Breast Composition: The breasts are heterogeneously dense, which may obscure small masses. Stable 8.1 mm x 5.4 mm well-defined nodule in the upper slightly outer aspect of the right breast. No other significant abnormalities are identified. There has been no significant change since the prior study. BI/DIAG MAMM W/CAD, BILAT IMPRESSION: Stable bilateral diagnostic mammogram. One year follow-up recommended. (A) ASSESSMENT CATEGORY: BIRADS Category 2: Benign. A letter regarding these results will be sent to the patient by the facility within 30 days. Approximately 10% of breast cancers are not detected by mammography. A normal mammogram should not delay biopsy of a clinically suspicious abnormality. Electronically Signed: Abel Stauffer MD at 10:58 EST ,
== END | disposition home or self-care (01) ==
LOC: OPBI 09:16
PROVIDERS: Referring Provider Nurse Practitioner Family; Visit Provider Nurse Practitioner Family
DX: R92.8 Other abnormal and inconclusive findings on diagnostic imaging of breast (principal)
CPT/HCPCS: 77062; 76642; 77066; G0279

== ENCOUNTER 2023-02-07 14:21 | Emergency (ER) | payer MEDICAID, SELFPAY ==
[2023-02-07 14:23] VITALS: BP 144/96; PULSE 94; RESP 14; TEMP 36.8; O2SAT 99; BMI 41.0
--- NOTE | 2023-02-07 14:30 | EKG12_ITS ---
Test Reason : GENERAL Blood Pressure : / mmHG Vent. Rate : 077 BPM Atrial Rate : 077 BPM P-R Int : 146 ms QRS Dur : 078 ms QT Int : 366 ms P-R-T Axes : 038 036 022 degrees QTc Int : 414 ms Normal sinus rhythm Normal ECG Confirmed by LINDA WRIGHT, BETHANIE ([id number]), city editor AINSLEY LINDA ([id number]) on 02/10/2023 1:34:17 P M Referred By: Confirmed By:ANA MCKEON MD
--- NOTE | 2023-02-07 14:31 | EDS_ITS ---
HPI <LISA Linares - Last Filed: 02/07/23 21:02> History of Present Illness Chief Complaint: Hypertension Narrative Narrative: Patient is a 27-year-old female with history of asthma who presents to the emergency department with concerns of elevated blood pressure, and feeling off, shaky. Patient states that she has been checking her blood pressure every morning to talk with her PCP regarding this. Patient states today was 149/100. She states that she felt shaky, significant headache, and she is concerned. She talk to her mother, and per her mother, they have family history of stroke, heart attack and she would like to be evaluated PFSH <LISA Linares - Last Filed: 02/07/23 21:02> [facility] Medical History Anxiety Asthma Depression Hx of gastroesophageal reflux (GERD) Hypothyroidism Scabies Smoker Home Medications naltrexone microspheres 380 mg intramuscular suspension,extended release (Vivitrol) 380 mg IM QMONTH 10/06/20 [History Last Taken Unknown] naproxen 500 mg tablet 500 mg PO BID PRN pain #20 tabs 01/22/22 [Rx Last Taken Unknown] buspirone 15 mg tablet 15 mg PO 02/28/22 [History Last Taken Unknown] escitalopram oxalate 5 mg tablet (Lexapro) 5 mg PO DAILY 02/28/22 [History Last Taken Unknown] promethazine 12.5 mg tablet 12.5 mg PO TID PRN nausea and vomiting 3 days #10 tabs 07/19/22 [Rx Last Taken Unknown] clindamycin HCl 150 mg capsule 300 mg (2 x 150 mg) PO 4X/DAY #80 CAPSULES 01/18/23 [Rx Last Taken Unknown] Allergy/AdvReac Type Severity Reaction Status Date / Time adhesive Allergy Rash Verified 02/07/23 14:23 Latex, Natural Rubber Allergy Rash Verified 02/07/23 14:23 sulfamethoxazole Allergy Itching Verified 02/07/23 14:23 [From Bactrim] trimethoprim [From Bactrim] Allergy Itching Verified 02/07/23 14:23 albuterol AdvReac Other Verified 02/07/23 14:23 Family History Other Hypertension Social History Smoking Status: Current every day smoker tobacco type: cigarettes substance use type: does not use ROS <LISA Linares - Last Filed: 02/07/23 21:02> ROS ED ROS Narrative Constitutional: Negative for fever, chills, weight loss, weakness Eyes: Negative for vision loss, vision change, double vision ENT: Negative for any sore throat, ear pain, congestion Cardiovascular: Negative for any chest pain, tightness, palpitations. Positive for elevated blood pressure Respiratory: Negative for any cough, sputum production, hemoptysis, dyspnea, dyspnea on exertion, orthopnea Gastrointestinal: Negative for any abdominal pain, nausea, vomiting, diarrhea, constipation, blood in stool, blood in vomit : Negative for any urinary frequency, dysuria, retention, blood in urine Muscle skeletal: Negative for any myalgias, arthralgias, neck pain, back pain Neurological: Negative for any syncope, numbness or tingling, dizziness. Positive for headache, feeling shaky Skin: Negative for any rashes, lumps, itching, abrasions, lacerations Psychiatric: Negative for any depression, anxiety, stress, suicidal ideation, homicidal ideation Hematologic: Negative for any easy bruising, excessive bruising, easy bleeding Allergies: Negative for any eczema, hives, rash EXAM <LISA Linares - Last Filed: 02/07/23 21:02> Physical Exam Narrative Exam Narrative: Vital signs reviewed. Patient appears generally well. HEET: Head normocephalic atraumatic, TMs clear bilaterally. Posterior pharynx is clear, moist mucous membranes. Nares clear bilaterally. Neck: Supple with no lymphadenopathy or tenderness. No signs of meningismus. Cardiac: Regular rate and rhythm no murmurs gallops or rubs, equal peripheral pulses bilaterally. Respiratory: Lungs clear to auscultation bilaterally. No chest tenderness. Abdomen: Soft, nontender, nondistended. No abdominal bruit or pulsatile masses. No hepatosplenomegaly Extremities: No peripheral edema, no signs of gross trauma or deformity. Active full range of motion of all extremities. Neuro: Cranial nerves II through XII intact, no focal neurological deficits. Skin: Clean dry and intact with no rash, purpura, petechiae, vesicles or pustules. Backs/flank: No CVA tenderness, no midline spinal tenderness, no deformity. Psych: Normal mood and affect. No SI, HI or acute psychosis. Const Vital Signs: 02/07/23 14:23 02/07/23 14:22 02/07/23 15:47 Temperature 98.2 F Temperature Source Temporal Pulse Rate 94 Respiratory Rate 14 Respiratory Effort Normal Non-Labored Respiratory Pattern Normal Blood Pressure 144/96 H 113/77 Blood Pressure Mean 112 89 Pulse Ox 99 Oxygen Delivery Method Room Air <Dr. Jose Piper DO - Last Filed: 02/07/23 22:28> Physical Exam Const Vital Signs: 02/07/23 14:23 02/07/23 14:22 02/07/23 15:47 Temperature 98.2 F Temperature Source Temporal Pulse Rate 94 Respiratory Rate 14 Respiratory Effort Normal Non-Labored Respiratory Pattern Normal Blood Pressure 144/96 H 113/77 Blood Pressure Mean 112 89 Pulse Ox 99 Oxygen Delivery Method Room Air MDM <LISA Linares - Last Filed: 02/07/23 21:02> [facility] Lab Data Labs: Laboratory Results - last 24 hr 02/07/23 14:39 WBC 14.5 H RBC 5.04 Hgb 13.7 Hct 44.1 MCV 87.5 MCH 27.2 MCHC 31.1 L RDW Std Deviation 40.9 RDW Coeff of William 13.0 Plt Count 266 MPV 10.3 Immature Gran % (Auto) 0.400 Neut % (Auto) 65.8 Lymph % (Auto) 25.6 Chase % (Auto) 6.2 Eos % (Auto) 1.5 Baso % (Auto) 0.5 Absolute Neuts (auto) 9.5 H Absolute Lymphs (auto) 3.71 Nucleated RBC % 0 Sodium 137 Potassium 3.7 Chloride 110 H Carbon Dioxide 20.0 L Anion Gap 7 BUN 11 Creatinine 0.71 Estim Creat Clear Calc 96.71 Est GFR (MDRD) Af Amer 125 Est GFR (MDRD) Non-Af 104 BUN/Creatinine Ratio 15.6 Glucose 90 Calcium 9.4 Troponin I High Sens 4 EKG Normal sinus rhythm: Attestation: I personally reviewed and interpreted this EKG as follows: Comments: Normal sinus rhythm, rate 77 bpm, OK 146 ms, QRS duration 78 ms, no acute ST elevation, no acute infarct noted Treatment and Re-Evaluation :: Patient appears generally well, patient appears nontoxic, vital signs are stable. Presenting to the emergency department with complaints of elevated blood pressure, feeling shaky. Differential diagnosis includes hypertension, dehydration, migraine headache. Patient will receive basic laboratory values including troponin. EKG will be ordered to ensure there is no ACS, OR. Patient received IV fluids, Zofran, Toradol. Patient did have her tubes tied. <Dr. Jose Piper, DO - Last Filed: 02/07/23 22:28> [facility] MDM Narrative Medical decision making narrative: Patient appears generally well, patient appears nontoxic, vital signs are stable. Presenting to the emergency department with complaints of elevated blood pressure, feeling shaky. Differential diagnosis includes hypertension, dehydration, migraine headache. Patient will receive basic laboratory values including troponin. EKG will be ordered to ensure there is no ACS, OR. Patient received IV fluids, Zofran, Toradol. Patient did have her tubes tied. This patient was seen with a PA/TECHNICAL SUPPORT INTERN Individually assessed they patient including history and physical. I have reviewed everything on the chart that is available and agree with the documentation provided by the PA/TECHNICAL SUPPORT INTERN including discussion about the assessment, treatment plan, discussion, and return precautions. Patient presenting with feeling shaky and having a headache. Differential as above. CBC shows mild leukocytosis at 14.5. Hemoglobin stable 13.7. Platelets are normal. Renal function and electrolytes within normal limits. High- sensitivity troponin is 4. EKG on my interpretation is normal sinus rhythm with ventricular to 77 bpm without significant change or ectopy. Patient was medicated with Toradol, Zofran, IV fluids and on reevaluation she is feeling much better. She states she is feeling hungry and wants to go home. Patient will be discharged home in stable condition. Impression: 1. headache 2. Dizziness Lab Data Labs: Laboratory Results - last 24 hr 02/07/23 14:39 WBC 14.5 H RBC 5.04 Hgb 13.7 Hct 44.1 MCV 87.5 MCH 27.2 MCHC 31.1 L RDW Std Deviation 40.9 RDW Coeff of William 13.0 Plt Count 266 MPV 10.3 Immature Gran % (Auto) 0.400 Neut % (Auto) 65.8 Lymph % (Auto) 25.6 Chase % (Auto) 6.2 Eos % (Auto) 1.5 Baso % (Auto) 0.5 Absolute Neuts (auto) 9.5 H Absolute Lymphs (auto) 3.71 Nucleated RBC % 0 Sodium 137 Potassium 3.7 Chloride 110 H Carbon Dioxide 20.0 L Anion Gap 7 BUN 11 Creatinine 0.71 Estim Creat Clear Calc 96.71 Est GFR (MDRD) Af Amer 125 Est GFR (MDRD) Non-Af 104 BUN/Creatinine Ratio 15.6 Glucose 90 Calcium 9.4 Troponin I High Sens 4 Discharge Plan Triage Chief Complaint: Hypertension ED Midlevel Provider: Aramis Madrigal ED Provider: Jose Piper Dx/Rx/DC Orders Instructions: Self-Care for Headaches, ED Hypertension, Established Prescriptions: No Action Vivitrol 380 mg suspension,extended rel recon 380 mg IM QMONTH escitalopram oxalate [Lexapro] 5 mg tablet 5 mg PO DAILY buspirone 15 mg tablet 15 mg PO naproxen 500 mg tablet 500 mg PO BID PRN (Reason: pain) Qty: 20 0RF promethazine 12.5 mg tablet 12.5 mg PO TID PRN (Reason: nausea and vomiting) 3 Days Qty: 10 0RF Rx Instructions: 3 doses during day; last dose no later than 4 hr before bedtime clindamycin HCl 150 mg capsule 300 mg PO 4X/DAY Qty: 80 0RF Primary Care Provider: Yadira Nielson Referrals: Yadira Nielson [Primary Care Provider] - Disposition Disposition: Home, Self Care Discharge Date/Time: 02/07/23 15:47
[2023-02-07] MEDS: 0.9% Normal Saline (1000mL) 1,000 ML 1000 ML IV (14:45)
[2023-02-07] MEDS: Ondansetron 4 MG/2 ML Vial IV (14:45)
[2023-02-07] MEDS: Ketorolac 15 MG/ML Vial IV (14:47)
[2023-02-07 14:48] LABS: Absolute Lymphocyte Count 3.71 X10^3/uL (0.83-4.51); Absolute Neutrophil Count 9.5 X10^3/uL (2.0-7.7); Basophil# 0.07 X10^3/uL; Basophil% 0.5 % (0-1); Eosinophil# 0.22 X10^3/uL; Eosinophils% 1.5 % (0-5); Hematocrit 44.1 % (37-47); Hemoglobin 13.7 g/dL (12.0-15.0); Lymphocyte # 3.71 X10^3/ul (0.83-4.51); Lymphocyte % 25.6 % (19-41); Mean Corp Hgb Conc 31.1 g/dL (32-36); Mean Corpuscular Hgb 27.2 pg (27.0-32.0); Mean Corpuscular Volume 87.5 fL (81-99); Mean Platelet Vol. 10.3 fl (6.2-12.0); Monocyte# 0.89 X10^3/uL; Monocyte% 6.2 % (0-10); NRBC Flagged by Analyzer 0 % (0-5); Neutrophil # 9.52 X10^3/uL (2.7-7.7); Neutrophil % 65.8 % (47-70); Platelet Count 266 K/mm3 (150-450); RBC Distribution Width SD 40.9 fl (35.1-43.9); Red Blood Count 5.04 M/mm3 (4.2-5.4); White Blood Count 14.5 K/mm3 (4.4-11.0)
[2023-02-07 15:21] LABS: Anion Gap 7 (5-15); BUN 11 mg/dL (7-18); BUN/Creat Ratio 15.6 RATIO (10-20); Calcium,Total 9.4 mg/dL (8.5-10.1); Chloride 110 mmol/L (98-107); Creatinine, Serum 0.71 mg/dL (0.55-1.02); EST Glomerular Filtration Rate 104 mL/min (>60); Est Glom Filt Rate - Afr Amer 125 mL/min (>60); Estimated Creatinine Clearance 96.71 ml/min; Glucose 90 mg/dL (74-106); Potassium 3.7 mmol/L (3.5-5.1); Sodium Level 137 mmol/L (136-145); Troponin-I HS 4 pg/mL (3.0-54.0)
[2023-02-07 15:47] VITALS: BP 113/77
== END 2023-02-07 15:47 | disposition home or self-care (01) ==
PROVIDERS: Nurse Practitioner; Emergency Provider Student in an Organized Health Care Education/Training Program; Visit Provider Student in an Organized Health Care Education/Training Program
DX: R51.9 Headache, unspecified (principal); R42 Dizziness and giddiness; F17.210 Nicotine dependence, cigarettes, uncomplicated; J45.909 Unspecified asthma, uncomplicated
CPT/HCPCS: 80048; 84484; 85025; 93005; 96361; 96374; 96375; 99284; J2405

== ENCOUNTER 2023-02-22 15:28 | Emergency (ER) | payer MEDICAID, SELFPAY ==
[2023-02-22 15:30] VITALS: BP 160/96; PULSE 110; RESP 18; TEMP 36.6; O2SAT 97; BMI 41.5
--- NOTE | 2023-02-22 15:39 | ED.VIS.FEGU ---
HPI <DAVIAN Harp - Last Filed: 02/22/23 15:41> HPI - Female History of Present Illness Chief Complaint: Female C/O Narrative Narrative: Patient has a history of oral and genital herpes simplex virus. She woke up with a sore on her lip this morning and feels tingling and discomfort in the vaginal area which sometimes precedes her outbreak. She is here requesting medication. She previously was on Valtrex with last outbreak over 6 months ago. PFSH <DAVIAN Harp - Last Filed: 02/22/23 15:41> PFSH Medical History Anxiety Asthma Depression Hx of gastroesophageal reflux (GERD) Hypothyroidism Scabies Smoker Home Medications naltrexone microspheres 380 mg intramuscular suspension,extended release (Vivitrol) 380 mg IM QMONTH 10/06/20 [History Last Taken Unknown] naproxen 500 mg tablet 500 mg PO BID PRN pain #20 tabs 01/22/22 [Rx Last Taken Unknown] buspirone 15 mg tablet 15 mg PO 02/28/22 [History Last Taken Unknown] escitalopram oxalate 5 mg tablet (Lexapro) 5 mg PO DAILY 02/28/22 [History Last Taken Unknown] promethazine 12.5 mg tablet 12.5 mg PO TID PRN nausea and vomiting 3 days #10 tabs 07/19/22 [Rx Last Taken Unknown] clindamycin HCl 150 mg capsule 300 mg (2 x 150 mg) PO 4X/DAY #80 CAPSULES 01/18/23 [Rx Last Taken Unknown] valacyclovir 500 mg tablet (Valtrex) 500 mg PO BID 5 days #10 tabs 02/22/23 [Rx Last Taken Unknown] Allergy/AdvReac Type Severity Reaction Status Date / Time adhesive Allergy Rash Verified 02/22/23 15:30 Latex, Natural Rubber Allergy Rash Verified 02/22/23 15:30 sulfamethoxazole Allergy Itching Verified 02/22/23 15:30 [From Bactrim] trimethoprim [From Bactrim] Allergy Itching Verified 02/22/23 15:30 albuterol AdvReac Other Verified 02/22/23 15:30 Family History Other Hypertension Social History Smoking Status: Current every day smoker tobacco type: cigarettes substance use type: does not use ROS <DAVIAN Harp - Last Filed: 02/22/23 15:41> ROS ED ROS Narrative Constitutional: Negative for fever, chills, malaise. GI: Negative for abdominal pain, nausea, vomiting. : Negative for dysuria. Skin: Positive for rash. EXAM <DAVIAN Harp - Last Filed: 02/22/23 15:41> Physical Exam Narrative Exam Narrative: CONST: Patient sitting in no acute distress. EYES: Normal inspection. ENT: Vesicle on right lower lip. NECK: Normal inspection. RESP: No respiratory distress, CTAB. CVS: Regular rate and rhythm, no murmur, no gallop. SKIN: Color normal, no rash, warm, dry, intact. EXTREMITIES: Normal appearance, no pedal edema. NEURO: Oriented x4. PSYCH: Normal affect. Const Vital Signs: 02/22/23 15:30 02/22/23 15:48 Temperature 98 F 98 F Temperature Source Temporal Pulse Rate 110 H 110 H Respiratory Rate 18 18 Blood Pressure 160/96 H 160/96 H Blood Pressure Mean 117 117 Pulse Ox 97 97 Oxygen Delivery Method Room Air <Dr. Barron Garcia, DO - Last Filed: 02/22/23 16:04> Physical Exam Const Vital Signs: 02/22/23 15:30 02/22/23 15:48 Temperature 98 F 98 F Temperature Source Temporal Pulse Rate 110 H 110 H Respiratory Rate 18 18 Blood Pressure 160/96 H 160/96 H Blood Pressure Mean 117 117 Pulse Ox 97 97 Oxygen Delivery Method Room Air [facility] <DAVIAN Harp - Last Filed: 02/22/23 15:41> [facility] Narrative Medical decision making narrative: Patient has history of HSV and developed a lesion on the left this morning. It does look consistent with HSV. No signs of secondary skin infection. She tolerated Valtrex in the past so I prescribed this x 5 days. 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 <Dr. Barron Garcia DO - Last Filed: 02/22/23 16:04> [facility] Narrative Medical decision making narrative: Patient has history of HSV and developed a lesion on the left this morning. It does look consistent with HSV. No signs of secondary skin infection. She tolerated Valtrex in the past so I prescribed this x 5 days. 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 I have personally performed a face to face assessment of the patient and have reviewed the COOPER Note. I performed a substantive portion of the visit including all aspects of the following. My luna findings include: History is 27-year-old female presenting to the emergency department requesting Valtrex for herpes outbreak. Patient states she has a cluster on her lower lip and has paresthesias in the vaginal region. Patient states she has been on Valtrex in the past and is worked well for her without any significant side effects. Exam is small cluster of herpetic lesions in the mid lower lip. Medical Decison Making patient received a prescription for Valtrex. She has follow-up upcoming with primary care/[facility] TI[facility]. Patient return if worsening or concerns Discharge Plan Triage Chief Complaint: Female C/O ED Midlevel Provider: Rosa Isela Arreola ED Provider: Barron Garcia Dx/Rx/DC Orders Clinical Impression: Recurrent oral herpes simplex Instructions: Herpes: Treatment with Medication Prescriptions: New valacyclovir [Valtrex] 500 mg tablet 500 mg PO BID 5 Days Qty: 10 1RF No Action Vivitrol 380 mg suspension,extended rel recon 380 mg IM QMONTH escitalopram oxalate [Lexapro] 5 mg tablet 5 mg PO DAILY buspirone 15 mg tablet 15 mg PO naproxen 500 mg tablet 500 mg PO BID PRN (Reason: pain) Qty: 20 0RF promethazine 12.5 mg tablet 12.5 mg PO TID PRN (Reason: nausea and vomiting) 3 Days Qty: 10 0RF Rx Instructions: 3 doses during day; last dose no later than 4 hr before bedtime clindamycin HCl 150 mg capsule 300 mg PO 4X/DAY Qty: 80 0RF Primary Care Provider: Yadira Nielson Referrals: Yadira Nielson [Primary Care Provider] - Activity Restrictions/Additional Instructions: Follow up with PCP or OBGYN Disposition Disposition: Home, Self Care Discharge Date/Time: 02/22/23 15:51
[2023-02-22 15:48] VITALS: BP 160/96; PULSE 110; RESP 18; TEMP 36.6; O2SAT 97
== END 2023-02-22 15:51 | disposition home or self-care (01) ==
LOC: ED 15:41
PROVIDERS: Emergency Provider Emergency Medicine; Visit Provider Emergency Medicine
DX: B00.9 Herpesviral infection, unspecified (principal); F17.210 Nicotine dependence, cigarettes, uncomplicated
CPT/HCPCS: 99282

== ENCOUNTER → 2023-03-24 | Outpatient (CLI) | payer MEDICAID, SELFPAY ==
[2023-03-24 12:46] LABS: Absolute Lymphocyte Count 4.71 X10^3/uL (0.83-4.51); Absolute Neutrophil Count 7.6 X10^3/uL (2.0-7.7); Basophil# 0.06 X10^3/uL; Basophil% 0.4 % (0-1); Eosinophil# 0.36 X10^3/uL; Eosinophils% 2.6 % (0-5); Hematocrit 41.9 % (37-47); Hemoglobin 13.9 g/dL (12.0-15.0); Lymphocyte # 4.71 X10^3/ul (0.83-4.51); Lymphocyte % 34.6 % (19-41); Mean Corp Hgb Conc 33.2 g/dL (32-36); Mean Corpuscular Hgb 27.9 pg (27.0-32.0); Mean Platelet Vol. 10.2 fl (6.2-12.0); Monocyte# 0.87 X10^3/uL; Monocyte% 6.4 % (0-10); NRBC Flagged by Analyzer 0 % (0-5); Neutrophil # 7.55 X10^3/uL (2.7-7.7); Neutrophil % 55.6 % (47-70); Platelet Count 385 K/mm3 (150-450); RBC Distribution Width CV 12.6 % (11.6-14.6); RBC Distribution Width SD 38.6 fl (35.1-43.9); Red Blood Count 4.99 M/mm3 (4.2-5.4); White Blood Count 13.6 K/mm3 (4.4-11.0)
[2023-03-24 13:22] LABS: ALB/GLOB Ratio 0.8 RATIO (0.9-2.4); AST(SGOT) 17 U/L (15-37); Alanine Aminotransfer ALT/SGPT 34 U/L (13-56); Albumin, Serum 3.5 g/dL (3.2-5.0); Alkaline Phosphatase 126 U/L (45-117); Anion Gap 5 (5-15); BUN 9 mg/dL (7-18); BUN/Creat Ratio 11.5 RATIO (10-20); Calcium,Total 9.6 mg/dL (8.5-10.1); Chloride 112 mmol/L (98-107); Creatinine, Serum 0.78 mg/dL (0.55-1.02); EST Glomerular Filtration Rate 92 mL/min (>60); Est Glom Filt Rate - Afr Amer 112 mL/min (>60); Globulin 4.4 g/dL (2.2-4.2); Glucose 93 mg/dL (74-106); Potassium 3.7 mmol/L (3.5-5.1); Protein, Total 7.9 g/dL (6.4-8.2); Sodium Level 139 mmol/L (136-145)
[2023-03-26 20:09] LABS: HCV Quant. RNA PCR HCV Not Detected IU/mL (.)
== END | disposition home or self-care (01) ==
LOC: LAB 12:12
PROVIDERS: Referring Provider Family Medicine; Visit Provider Family Medicine
DX: B18.2 Chronic viral hepatitis C (principal)
CPT/HCPCS: 36415; 80053; 85025; 87522

== ENCOUNTER 2023-05-15 | Emergency (ER) | payer MEDICAID, SELFPAY ==
[2023-05-15 00:01] VITALS: BP 121/67; PULSE 87; RESP 15; TEMP 36.4; O2SAT 100; BMI 40.4
--- NOTE | 2023-05-15 00:25 | EDS_ITS ---
HPI History of Present Illness Chief Complaint: General Illness Informant: patient Narrative Narrative: Patient is 27-year-old female presenting with sudden onset of nausea and vomiting. Patient states her symptoms started while at work prior to arrival. She is multiple episodes of vomiting. She also she has had some hot flashes but denies any known fever. Vomiting is nonbilious nonbloody. She had a normal bowel minute 1 PM without any diarrhea or black or blood in her stool. Denies any abdominal pain just a general queasy sensation. She ate dinner around 6 PM ([place]aro[place] food). No sick contacts reported. Has a history of salpingectomy but denies any other abdominal surgeries. Did not take anything for symptoms prior to arrival. Denies any recent travel or antibiotics. Notes that her menstrual cycles are regular and she had 2 periods in March but does not think she is because of her surgical history. Notes that has had some mild nasal congestion and some discomfort in her throat but denies throat pain. Reports that last night she had a lot of urinary frequency but denies any dysuria or hematuria. No other complaints verbalized at this time [facility] Medical History Anxiety Asthma Depression Hx of gastroesophageal reflux (GERD) Hypothyroidism Scabies Smoker Home Medications cephalexin 500 mg capsule 500 mg PO Q6 #28 CAPSULES 05/15/23 [Rx Last Taken Unknown] ondansetron 4 mg disintegrating tablet 4 mg PO Q6H PRN nausea and vomiting #14 tabs 05/15/23 [Rx Last Taken Unknown] Allergy/AdvReac Type Severity Reaction Status Date / Time adhesive Allergy Rash Verified 05/15/23 00:03 Latex, Natural Rubber Allergy Rash Verified 05/15/23 00:03 sulfamethoxazole Allergy Itching Verified 05/15/23 00:03 [From Bactrim] trimethoprim [From Bactrim] Allergy Itching Verified 05/15/23 00:03 albuterol AdvReac Other Verified 05/15/23 00:03 Family History Other Hypertension Social History Smoking Status: Current every day smoker tobacco type: cigarettes substance use type: does not use ROS ROS ED Constitutional Constitutional ED: Reports sweats; Denies chills or fever(s) ENT ENT ED: Reports sore throat and other Details: Nasal congestion Cardiovascular Cardiovascular: Denies chest pain Respiratory/Chest Respiratory/Chest: Denies cough Gastrointestinal Gastrointestinal: Reports nausea and vomiting; Denies abdominal pain, constipation or diarrhea Genitourinary Genitourinary ED: Reports urinary frequency; Denies dysuria or hematuria Musculoskeletal Musculoskeletal: Denies arthralgias or myalgias Integumentary Denies rash Neurologic Neurologic: Denies headache(s) or weakness EXAM Physical Exam Const Vital Signs: 05/15/23 00:01 05/15/23 00:18 05/15/23 01:57 Temperature 97.6 F L 97.6 F L Temperature Source Oral Pulse Rate 87 87 Respiratory Rate 15 15 Respiratory Effort Normal Respiratory Pattern Normal Blood Pressure 121/67 H 121/67 H Blood Pressure Mean 85 85 Pulse Ox 100 100 Oxygen Delivery Method Room Air Positive well nourished and well developed General Appearance ED: well developed and NAD; Negative for pallor HEENT Reports moist mucous membranes HEENT Narrative: Normal oropharynx Eyes PERRL and EOMs intact bilaterally Neck supple Neck Narrative: No stridor appreciated Chest Wall inspection of chest normal and palpation of chest normal Resp normal respiratory effort and clear to auscultation bilaterally Cardio regular rate, regular rhythm and no murmurs GI normal to inspection, nondistended, normoactive bowel sounds and non-tender Auscultation: normoactive bowel sounds Palpation: Negative for tender or guarding Back/Spine no CVA tenderness Extremity normal to inspection Neuro oriented x3 Sensorium / Orientation: alert Motor Exam: Negative for general weakness Psych mental status grossly normal Skin no rashes or lesions noted and no wounds General Skin Exam: Negative for jaundice or pallor MDM MDM MDM Narrative Medical decision making narrative: Patient is evaluated for couple hours of nausea and vomiting. She was nontoxic in no acute distress. She had a regular bowel movement today is not having abdominal pain. Lower suspicion for small bowel obstruction. Differential includes is not limited to gastroenteritis, gastritis, peptic ulcer disease, viral illness and less likely small bowel obstruction or cholecystitis she does not have any associate abdominal pain and has good bowel sounds. I will obtain a urinalysis due to her urinary frequency, flu swab and trial p.o. Zofran. Patient clinically does not appear dehydrated I do not think requires lab work at this time especially given the sudden onset of her symptoms. She is agreeable with this. Patient symptomatically is improving. Will give p.o. challenge. Urinalysis does show signs of contamination but also is concerning for UTI with 3+ bacteria, 500 leukocyte esterase and 0-5 white blood cells. She is not having pain so low suspicion for renal colic/kidney stone as the cause of her symptoms. Patient denies any dysuria or hematuria but notes she has a history of UTIs leading to kidney infections. Will give first dose of Keflex (allergic to Bactrim) in emergency room and cover for pyelonephritis given that she is having systemic symptoms (vomiting). Urine cultures pending. Viral swab is negative. Patient given work note. Given return precautions. Discharged home. Agreeable with plan of care. Lab Data Attestation: I reviewed the patient's lab results. Labs: Laboratory Results - last 24 hr 05/15/23 00:32 Urine Color Yellow Urine Clarity Clear Urine pH 5.0 Ur Specific [place] 1.025 Urine Protein 30 H Urine Glucose (UA) Normal Urine Ketones 5 H Urine Occult Blood 150 H Urine Nitrite Negative Urine Bilirubin Negative Urine Urobilinogen 1 H Ur Leukocyte Esterase 500 H Urine RBC 0-5 SEEN Urine WBC 0-5 SEEN Ur Squamous Epith Cells 10-25 SEEN Ur Transition Epith Cell 0-5 SEEN Urine Bacteria 3+ Urine Mucus 2+ Urine Test Negative Discharge Plan Triage Chief Complaint: General Illness ED Provider: Kianna Alexander Dx/Rx/DC Orders Clinical Impression: Urinary tract infection, Nausea and vomiting Instructions: Urinary Tract Infections in Women, ED Vomiting (Adult) Prescriptions: New cephalexin 500 mg capsule 500 mg PO Q6 Qty: 28 0RF ondansetron 4 mg tablet,disintegrating 4 mg PO Q6H PRN (Reason: nausea and vomiting) Qty: 14 0RF Stand Alone Forms: ED Work / School Excuse Primary Care Provider: [facility] Yadira Costa Referrals: [facility] Yadira Costa [Primary Care Provider] - Activity Restrictions/Additional Instructions: Drink plenty of fluids. Return if your symptoms progress or worsen. You may ibuprofen and Tylenol as needed for any discomfort. Disposition Disposition: Home, Self Care Discharge Date/Time: 05/15/23 01:58
[2023-05-15] MEDS: Ondansetron ODT 4 MG Tablet PO (00:29)
[2023-05-15 00:43] LABS: Color, Urine Yellow (Yellow); Glucose, Dipstick Normal (Normal); Ketone-Dipstick 5 mg/dl (Negative); Leukocyte Esterase-Dipstick 500 /ul (Negative); Nitrite-Dipstick Negative (Negative); Occult Blood-Urine 150 /ul (Negative); Protein-Dipstick 30 mg/dl (Negative); Specific Gravity, Urine 1.025 (1.002-1.030); Urine Bilirubin Dipstick Negative (Negative); Urine Clarity Clear (Clear); Urine Urobilinogen 1 mg/dl (Normal)
[2023-05-15 00:44] LABS: Internal QC Validated? YES +Cl - CLEAR BKGD; Pregnancy, Urine Negative Negative
[2023-05-15 00:51] LABS: Bacteria 3+ /hpf (None Seen); Mucous, Urine 2+ /hpf (<or=2+); Red Blood Cells-Urine 0-5 SEEN /hpf (0-5); Squamous Epithelial Cells - UA 10-25 SEEN /hpf (5-10); Transitional Epithelial - Ur 0-5 SEEN /hpf (0-5); White Blood Cells 0-5 SEEN /hpf (0-5)
[2023-05-15] MEDS: Cephalexin 250 MG Capsule 500 MG PO (01:50)
[2023-05-15 01:57] VITALS: BP 121/67; PULSE 87; RESP 15; TEMP 36.4; O2SAT 100
== END 2023-05-15 01:58 | disposition home or self-care (01) ==
PROVIDERS: Emergency Provider Emergency Medicine; Visit Provider Emergency Medicine
DX: N12 Tubulo-interstitial nephritis, not specified as acute or chronic (principal); F17.210 Nicotine dependence, cigarettes, uncomplicated
CPT/HCPCS: 81001; 81025; 87086; 87088; 87631; 99282

== ENCOUNTER 2023-06-07 03:50 | Emergency (ER) | payer MEDICAID, SELFPAY ==
[2023-06-07 03:51] VITALS: BP 138/106; PULSE 96; RESP 18; TEMP 36.2; O2SAT 99; BMI 39.6
--- NOTE | 2023-06-07 04:00 | ED.VIS.BACK ---
HPI History of Present Illness Chief Complaint: Back Informant: patient Narrative Narrative: Patient presents for a.m. for gradual onset of low-mid back pain that has been present for a month. She denies any new symptoms right now. She states the pain radiates into both hip areas. It does not go into her thighs or to the knees. She denies any numbness or weakness in her legs. She denies any painful numbness around her abdomen or chest. She denies any bowel or bladder dysfunction. She states she has a history of scoliosis. She denies any injury or new repetitive movements, heavy lifting, other obvious explanation for this. Patient states while she is sitting up and forward for examination of her back, that if she leans all the way forward and stretches the area it seems to help relieve the pain. PFSH PFSH Medical History Anxiety Asthma Depression Hx of gastroesophageal reflux (GERD) Hypothyroidism Scabies Scoliosis Smoker Home Medications cephalexin 500 mg capsule 500 mg PO Q6 #28 CAPSULES 05/15/23 [Rx Last Taken Unknown] ondansetron 4 mg disintegrating tablet 4 mg PO Q6H PRN nausea and vomiting #14 tabs 05/15/23 [Rx Last Taken Unknown] cyclobenzaprine 10 mg tablet 10 mg PO TID PRN Muscle Spasm #10 TABLETS 06/07/23 [Rx Last Taken Unknown] naproxen 500 mg tablet (Naprosyn) 500 mg PO BID PRN pain #20 tabs 06/07/23 [Rx Last Taken Unknown] Allergy/AdvReac Type Severity Reaction Status Date / Time adhesive Allergy Rash Verified 05/15/23 00:03 Latex, Natural Rubber Allergy Rash Verified 05/15/23 00:03 sulfamethoxazole Allergy Itching Verified 05/15/23 00:03 [From Bactrim] trimethoprim [From Bactrim] Allergy Itching Verified 05/15/23 00:03 albuterol AdvReac Other Verified 05/15/23 00:03 Family History Other Hypertension Social History Smoking Status: Current every day smoker tobacco type: cigarettes substance use type: does not use ROS ROS ED Constitutional Constitutional ED: Denies chills or fever(s) Gastrointestinal Gastrointestinal: Denies abdominal pain, constipation, fecal incontinence, nausea or vomiting Genitourinary Genitourinary ED: Reports other Details: no urinary retention ; Denies abdominal discomfort or urinary incontinence Musculoskeletal Musculoskeletal: Reports as per HPI and back pain; Denies neck pain Integumentary Denies rash or wounds Neurologic Neurologic: Denies headache(s), paresthesias or weakness EXAM Physical Exam Const Vital Signs: 06/07/23 03:51 Temperature 97.1 F L Temperature Source Temporal Pulse Rate 96 Respiratory Rate 18 Blood Pressure 138/106 H Blood Pressure Mean 116 Pulse Ox 99 Oxygen Delivery Method Room Air Positive well nourished, well developed and obese General Appearance ED: well developed and NAD Nutritional Appearance: obese HEENT Negative for trauma or tenderness Eyes PERRL and EOMs intact bilaterally Neck full ROM and supple GI normal to inspection, nondistended, normoactive bowel sounds, soft to palpation and non-tender Back/Spine normal to inspection Thoracic Spine / Upper Back: paraspinal muscle tenderness left (Without any midline tenderness. Normal inspection no rashes.) T9 and T10 Lumbar Spine / Lower Back: straight leg raise negative bilaterally; Negative for ROM limited or lumbar spinal tenderness Extremity normal to inspection, full ROM and no pedal edema Extremity Narrative: No reproducible tenderness in the area of the hips or sciatic notches. Full range of motion and internal/external rotation both hips without any groin pain. Neuro oriented x3, no sensory deficits noted and gait normal Sensorium / Orientation: alert Motor Exam: strength 5/5 throughout and clonus absent Deep Tendon Reflexes: Rt Patellar (L4): 2+, Lt Patellar (L4): 2+, Rt Ankle (S1): 2+ and Lt Ankle (S1): 2+ Deep Tendon Reflexes Back: Rt Patellar (L4): 2+, Lt Patellar (L4): 2+, Rt Ankle (S1): 2+ and Lt Ankle (S1): 2+ Plantar Reflex: Downgoing: bilateral Psych mental status grossly normal and thought process normal Skin no rashes or lesions noted and no wounds MDM MDM MDM Narrative Medical decision making narrative: I reviewed prior films confirming that the patient has scoliosis. She has not had prior imaging of her thoracic spine but those are not needed emergently. I do suspect her scoliosis may be related to this pain. She does not have any radicular signs or symptoms. She is asking for something nonnarcotic which will be prescribed. She has follow-up scheduled. History & Record Review Additional record(s) reviewed:: Other (Old lumbar x-rays, 1 year ago, showing dextroscoliosis) Discharge Plan Triage Chief Complaint: Back Other Complaint: Lower Extremity Injury ED Provider: Marvin Costello Dx/Rx/DC Orders Clinical Impression: Acute left-sided thoracic back pain Instructions: Treating Scoliosis, ED Back Care Tips Prescriptions: New cyclobenzaprine [cyclobenzaprine] 10 mg tablet 10 mg PO TID PRN (Reason: Muscle Spasm) Qty: 10 0RF naproxen [Naprosyn] 500 mg tablet 500 mg PO BID PRN (Reason: pain) Qty: 20 0RF No Action cephalexin 500 mg capsule 500 mg PO Q6 Qty: 28 0RF ondansetron 4 mg tablet,disintegrating 4 mg PO Q6H PRN (Reason: nausea and vomiting) Qty: 14 0RF Primary Care Provider: [facility] Yadira Costa Referrals: [facility] Igor,Yadira Nielson [Primary Care Provider] - Keep [facility] appointment Disposition Disposition: Home, Self Care
[2023-06-07] MEDS: Ketorolac 60 MG/2 ML Vial IM (04:07)
[2023-06-07 04:38] VITALS: BP 130/90; PULSE 85; RESP 18; TEMP 36.3; O2SAT 99
== END 2023-06-07 04:39 | disposition home or self-care (01) ==
LOC: ED 04:05
PROVIDERS: Emergency Provider Emergency Medicine; Visit Provider Emergency Medicine
DX: M54.6 Pain in thoracic spine (principal); M41.9 Scoliosis, unspecified; F17.210 Nicotine dependence, cigarettes, uncomplicated
CPT/HCPCS: 96372; 99283

== ENCOUNTER 2023-09-07 20:46 | Emergency (ER) | payer MEDICAID, SELFPAY ==
[2023-09-07 20:47] VITALS: BP 133/91; PULSE 91; RESP 16; TEMP 35.5; O2SAT 99; BMI 39.8
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
[2023-09-07] MEDS: Orphenadrine 60 MG/2 ML Ampul IM (21:18)
[2023-09-07] MEDS: Ketorolac 30 MG/ML Syringe IM (21:18)
[2023-09-07 21:35] VITALS: BP 130/90; PULSE 60; RESP 16; TEMP 37.1; O2SAT 99
== END 2023-09-07 21:39 | disposition home or self-care (01) ==
PROVIDERS: Emergency Provider Emergency Medicine; PCP Nurse Practitioner Family; Visit Provider Emergency Medicine
DX: S39.012A Strain of muscle, fascia and tendon of lower back, initial encounter (principal); V89.2XXA Person injured in unspecified motor-vehicle accident, traffic, initial encounter; M54.41 Lumbago with sciatica, right side; F17.210 Nicotine dependence, cigarettes, uncomplicated
CPT/HCPCS: 96372; 99282

== ENCOUNTER 2023-11-05 23:28 | Emergency (ER) | payer MEDICAID, SELFPAY ==
[2023-11-05 23:29] VITALS: BP 164/92; PULSE 97; RESP 18; TEMP 36.1; O2SAT 98; BMI 41.1
--- NOTE | 2023-11-05 23:49 | EDS_ITS ---
HPI HPI - GI History of Present Illness Chief Complaint: Abd Pain Informant: patient Abdominal Pain/Flank Pain Onset: Today and Yesterday Context: Gradual Onset Timing: Continuous Quality: Aching Location: Epigastric Current Severity: Mild Maximum Severity: Mild Worsened by: Nothing Relieved by: Nothing Nausea/Vomiting/Emesis GI Symptom: Positive for Nausea; Negative for Vomiting Onset: Today Severity: Mild Diarrhea/Melena/Hematochezia GI Symptom: Negative for Diarrhea, Melena or Hematochezia Associated Symptoms Associated Symptoms: Negative for Dysuria, Frequency, Hematuria or Urgency Narrative Narrative: 28-year-old female past medical history of hypothyroidism, hepatitis C, fatty liver and anxiety. States since yesterday midday on Friday she has had upper abdominal discomfort. Prior history of same cannot remember specific diagnosis. Denies any abdominal trauma. She has had mild nausea but no vomiting or diarrhea. No constipation or dysuria. No vaginal bleeding or discharge. Denies any fever or weight loss. No melena. No prior abdominal surgeries other than a tubal ligation. Prior similar symptoms: Yes Recent Illness/Hospitalization: No PFSH PFSH Medical History Hepatitis C Scoliosis Scabies Hypothyroidism Asthma Hx of gastroesophageal reflux (GERD) Smoker Anxiety Depression Home Medications ?Medication ?Instructions ?Recorded ?Last Taken ?Type pantoprazole 40 mg tablet,delayed 40 mg PO DAILY 20 days #20 tabs 11/06/23 Unknown Rx release (Protonix) Allergy/AdvReac Type Severity Reaction Status Date / Time adhesive Allergy Rash Verified 11/05/23 23:31 Latex, Natural Rubber Allergy Rash Verified 11/05/23 23:31 sulfamethoxazole (From Allergy Itching Verified 11/05/23 23:31 Bactrim) trimethoprim (From Bactrim) Allergy Itching Verified 11/05/23 23:31 albuterol AdvReac Other Verified 11/05/23 23:31 Family History Other Hypertension Social History Smoking Status: Current every day smoker tobacco type: cigarettes substance use type: does not use ROS ROS ED ROS Narrative Epigastric abdominal pain. Nausea. No vomiting diarrhea or fever. No weight loss. No dysuria. No vaginal bleeding. Constitutional Constitutional ED: Denies fever(s) ENT ENT ED: Denies ear pain Cardiovascular Cardiovascular: Denies chest pain Respiratory/Chest Respiratory/Chest: Denies cough Gastrointestinal Gastrointestinal: Reports abdominal pain and nausea; Denies constipation, diarrhea, melena or vomiting Genitourinary Genitourinary ED: Denies dysuria or hematuria Musculoskeletal Musculoskeletal: Denies arthralgias Integumentary Denies abscess Neurologic Neurologic: Denies headache(s) Psychiatric Psychiatric: Denies depression Endocrine Endocrinology: Denies polydipsia Hematologic/Lymphatic Hematologic/Lymphatic: Denies easy bleeding Allergic/Immunologic Allergic/Immunologic ED: Denies mouth swelling EXAM Physical Exam Narrative Exam Narrative: Well-appearing 28-year-old female. Vital signs are stable afebrile. No acute distress. No one else present in the room. H EENT exam unremarkable. Moist membranes. Lungs clear to auscultation bilaterally. Heart regular rhythm no murmur rate about 90. Chest wall ribs nontender. Abdomen soft, nondistended, normal bowel sounds without peritoneal signs. No hernia or mass. No pulsatile mass. Right upper and right lower quadrant completely nontender. She does have mild epigastric tenderness. There is no rebound guarding rigidity. Moving all 4 extremities. Nontender no edema. She is awake alert no focal motor deficits. Const Vital Signs: 11/05/23 23:29 Temperature 96.9 F L Temperature Source Temporal Pulse Rate 97 Respiratory Rate 18 Blood Pressure 164/92 H Blood Pressure Mean 116 Pulse Ox 98 Oxygen Delivery Method Room Air Positive well nourished and well developed; Negative for cachectic, contractures or unkempt General Appearance ED: well developed and NAD; Negative for unkempt, cachectic, contractures or pallor Nutritional Appearance: Negative for cachectic HEENT Reports moist mucous membranes normocephalic and atraumatic; Negative for trauma or tenderness Eyes PERRL and EOMs intact bilaterally General Eye ED: Negative for pale conjunctiva or scleral icterus Neck no lymphadenopathy, supple and no JVD General: Negative for tenderness Carotids: Negative for other Lymph Lymphatic: Negative for other Resp normal respiratory effort and clear to auscultation bilaterally Effort and Inspection: Negative for respiratory distress Auscultation: Negative for rales, rhonchi, wheezes or diminished lung sounds Cardio regular rate, regular rhythm, S1 normal heart sound, S2 normal heart sound and no murmurs Rate: Negative for bradycardia or tachycardic Rhythm: Negative for abnormal rhythm GI non-distended and no masses; Negative for non-tender GI Narrative: Mild epigastric tenderness. No other abdominal tenderness. No hernia or mass. No obstruction or distention. Inspection: Negative for abdominal distention Auscultation: normoactive bowel sounds Palpation: soft and tender; Negative for guarding, rigid, hepatomegaly, splenomegaly, hernia, mass, pulsatile mass or rebound tenderness present Back/Spine no CVA tenderness Extremity full ROM General Extremety ED: Negative for edema or tenderness General Extremity: Negative for edema Neuro CN's II-XII intact bilaterally and moves all extremities Sensorium / Orientation: alert, oriented to person, oriented to place and oriented to time; Negative for orientation impaired, confused or lethargic Motor Exam: strength 5/5 throughout Psych mental status grossly normal and thought process normal Appearance: Negative for unkempt Skin no wounds General Skin Exam: Negative for jaundice or pallor Lesions: no lesions Rashes: no rashes MDM MDM MDM Narrative Medical decision making narrative: 28-year-old female with epigastric abdominal pain. Clinically I would suspect gastritis or reflux. Rule out pancreatitis or gallbladder disease. She had a CAT scan in June of last year of her abdomen and pelvis that was unremarkable. She had ultrasound of her gallbladder 3 years ago that was all unremarkable with no signs of gallstones. She will be treated with Zofran for nausea. GI cocktail and Protonix for her discomfort. Screening labs to be obtained. At this time I do not think she needs imaging unless her labs are significantly abnormal or her exam significantly changes. Repeat exam patient is doing well. She still has mild epigastric pain. Exams unchanged. Very mild epigastric tenderness. No right upper or right lower quadrant. Rest the abdomen is benign. No distention. She is feeling mildly improved with a GI cocktail and Protonix but the pain has not completely resolved. She and I discussed CAT scan. She told me her white count is usually elevated when they check it. She did not feel that was necessary at this time. Clinically I do think this is gastritis and explained to her I doubt the CAT scan would show us much. She will be discharged home. Protonix 40 mg a day for the next 20 days. Return if she is feeling worse. Follow-up with primary care physician if not improving. History & Record Review Discussion w/independent historian: Patient Additional record(s) reviewed:: Prior inpatient record, Prior outpatient record, Prior ED visit and Prior labs Lab Data Attestation: I reviewed the patient's lab results. Lab results narrative: CBC shows a white count is 16. H&H 12.8 and 41.5. Platelet count 331. Electrolytes show sodium 140. Gap 8. Normal BUN and creatinine. Glucose 94. Liver enzymes normal. Lipase 46. Labs: Laboratory Results - last 24 hr 11/05/23 23:47 WBC 16.0 H RBC 4.81 Hgb 12.8 Hct 41.5 MCV 86.3 MCH 26.6 L MCHC 30.8 L RDW Std Deviation 41.0 RDW Coeff of William 13.2 Plt Count 331 MPV 10.4 Immature Gran % (Auto) 0.400 Neut % (Auto) 58.7 Lymph % (Auto) 30.8 [place] % (Auto) 7.4 Eos % (Auto) 2.1 Baso % (Auto) 0.6 Absolute Neuts (auto) 9.4 H Absolute Lymphs (auto) 4.94 H Nucleated RBC % 0 Sodium 140 Potassium 4.1 Chloride 112 H Carbon Dioxide 20.0 L Anion Gap 8 BUN 8 Creatinine 0.76 Estim Creat Clear Calc 125.74 Est GFR (MDRD) Af Amer 115 Est GFR (MDRD) Non-Af 95 BUN/Creatinine Ratio 10.5 Glucose 94 Calcium 9.4 Total Bilirubin 0.20 AST 24 ALT 49 Alkaline Phosphatase 113 Total Protein 7.1 Albumin 3.6 Globulin 3.5 Albumin/Globulin Ratio 1.0 Lipase 46 Discharge Plan Triage Chief Complaint: Abd Pain ED Provider: Simba Jamison Dx/Rx/DC Orders Clinical Impression: Abdominal pain, epigastric, Gastritis Instructions: ED Abdominal Pain Unkn Cause Fem, ED Gastritis (Adult) Prescriptions: New pantoprazole [Protonix] 40 mg tablet,delayed release (DR/EC) 40 mg PO DAILY 20 Days Qty: 20 0RF Primary Care Provider: Susana Drapre Referrals: Susana Draper, [employer] [Primary Care Provider] - 3-5 Days if not improving Activity Restrictions/Additional Instructions: Return if increasing pain, vomiting, fever or black or bloody stools. Or if you are feeling worse. Use medication Protonix 40 mg once a day for the next 10 days. If you are feeling worse return. If you are just not improving follow-up with your primary care provider. Most likely this is inflammation of your stomach lining called gastritis. The medication should improve that. Avoid spicy food. Avoid alcohol while you are having the pain. Avoid smoking. Those can all make it worse. Print Language: Armenian Disposition Disposition: Home, Self Care
[2023-11-05] MEDS: Ondansetron 4 MG/2 ML Vial IV (23:52)
[2023-11-06] LABS: Absolute Lymphocyte Count 4.94 X10^3/uL (0.83-4.51); Absolute Neutrophil Count 9.4 X10^3/uL (2.0-7.7); Basophil% 0.6 % (0-1); Eosinophil# 0.33 X10^3/uL; Eosinophils% 2.1 % (0-5); Hematocrit 41.5 % (37-47); Hemoglobin 12.8 g/dL (12.0-15.0); Lymphocyte # 4.94 X10^3/ul (0.83-4.51); Lymphocyte % 30.8 % (19-41); Mean Corp Hgb Conc 30.8 g/dL (32-36); Mean Corpuscular Hgb 26.6 pg (27.0-32.0); Mean Corpuscular Volume 86.3 fL (81-99); Mean Platelet Vol. 10.4 fl (6.2-12.0); Monocyte# 1.19 X10^3/uL; Monocyte% 7.4 % (0-10); NRBC Flagged by Analyzer 0 % (0-5); Neutrophil # 9.42 X10^3/uL (2.7-7.7); Neutrophil % 58.7 % (47-70); Platelet Count 331 K/mm3 (150-450); RBC Distribution Width CV 13.2 % (11.6-14.6); Red Blood Count 4.81 M/mm3 (4.2-5.4)
[2023-11-06] MEDS: Pantoprazole Sodium 40 MG Tablet PO (00:17)
[2023-11-06] MEDS: Lidocaine 2% Viscous15 ML UDC 15 ML PO (00:17)
[2023-11-06] MEDS: Mag /Aluminum/Simeth WCH UDC 30 ML ORAL.SUSP PO (00:17)
[2023-11-06 00:39] LABS: AST(SGOT) 24 U/L (15-37); Alanine Aminotransfer ALT/SGPT 49 U/L (13-56); Albumin, Serum 3.6 g/dL (3.2-5.0); Alkaline Phosphatase 113 U/L (45-117); Anion Gap 8 (5-15); BUN 8 mg/dL (7-18); BUN/Creat Ratio 10.5 RATIO (10-20); Calcium,Total 9.4 mg/dL (8.5-10.1); Chloride 112 mmol/L (98-107); Creatinine, Serum 0.76 mg/dL (0.55-1.02); EST Glomerular Filtration Rate 95 mL/min (>60); Est Glom Filt Rate - Afr Amer 115 mL/min (>60); Estimated Creatinine Clearance 125.74 ml/min; Globulin 3.5 g/dL (2.2-4.2); Glucose 94 mg/dL (74-106); Lipase 46 U/L (13-75); Potassium 4.1 mmol/L (3.5-5.1); Protein, Total 7.1 g/dL (6.4-8.2); Sodium Level 140 mmol/L (136-145)
[2023-11-06 01:07] VITALS: BP 134/97; PULSE 91; RESP 18; TEMP 36.4; O2SAT 97
== END 2023-11-06 01:08 | disposition home or self-care (01) ==
PROVIDERS: Emergency Provider Emergency Medicine; PCP Nurse Practitioner Family; Visit Provider Emergency Medicine
DX: K29.70 Gastritis, unspecified, without bleeding (principal); R10.13 Epigastric pain; F17.210 Nicotine dependence, cigarettes, uncomplicated
CPT/HCPCS: 80053; 83690; 85025; 96374; 99284; A4216; J2405

== ENCOUNTER 2024-01-29 17:56 | Inpatient (IN) | payer MEDICAID, SELFPAY ==
[2024-01-29] VITALS (11 sets, daily range): BP systolic 89–129; BP diastolic 59–83; PULSE 72–121; RESP 14–18; TEMP 36.6–37.2; O2SAT 91–98; BMI 39.8; BMI 39.3
--- NOTE | 2024-01-29 18:34 | CT_ITS ---
INDICATION: family hx of brain aneurysm EXAMINATION: CT BRAIN WITH AND WITHOUT CONTRAST - CT Head or Brain WO/W Contrast Injection TECHNIQUE: Multiple axial images were obtained of the brain with and without IV contrast. The protocol utilizes one or more of the following dose reduction techniques: automated exposure control, adjustment of mA and/or kV according to patient size,and/or use of iterative reconstruction technique. IV Contrast dosage and agent: RADIATION DOSAGE (If Supplied By Facility): CTDIvol = ( 84.13 ) mGy, DLP = ( 1189.40 ) mGycm COMPARISON: FINDINGS: BRAIN PARENCHYMA: No intra- or extra-axial hemorrhage. No evidence of acute infarct. No intracranial mass or mass effect. There is preservation of the cage/white matter interface. Posterior fossa structures are unremarkable. No abnormal contrast enhancement. CSF SPACES: Appropriate for age. No hydrocephalus. Basal cisterns are patent. CALVARIUM, SKULL BASE, PARANASAL SINUSES AND MASTOID AIR CELLS: Mucosal thickening of the paranasal sinuses. No discrete lytic or blastic abnormalities. ORBITS: Both globes, extraocular muscles, optic nerves and retrobulbar fat appear unremarkable. CT/CTA Head W/WO Contrast IMPRESSION: No acute intracranial pathology. No evidence of aneurysm. Paranasal sinus disease. Electronically Signed: Dg Darden DO at 19:50 EST Reading Location ID and State: [facility] [place] Tel [phone], Service support ,
--- NOTE | 2024-01-29 18:39 | EX.ED.DYSGE1 ---
HPI History of Present Illness Chief Complaint: Nausea/Vomiting Narrative Narrative: Patient is a 28-year-old female past medical history of migraine headaches, GERD, anxiety, depression, hepatitis C, opiate abuse who presents to the emergency department with a chief complaint of headache. Patient states that she was evaluated earlier today at [facility] had a CT of her head was given medication and states that after this she was feeling much improved she went home and took a nap. She states that when she woke up she had a severe headache and felt like I was drunk she states that she did not drink. Patient did ultimately admit to using IV fentanyl after the hospital. States that she this is a relapse for her and she would like detox. Patient denies any head trauma. [facility] Medical History (Updated 01/29/24 @ 20:[address] Howie Lindsey DO) Substance abuse Alcohol abuse Hepatitis C Scoliosis Scabies Hypothyroidism Asthma Hx of gastroesophageal reflux (GERD) Smoker Anxiety Depression Home Medications ?Medication ?Instructions ?Recorded ?Last Taken ?Type pantoprazole 40 mg tablet,delayed 40 mg PO DAILY 20 days #20 tabs 11/06/23 Unknown Rx release (Protonix) escitalopram oxalate 10 mg tablet 10 mg PO 01/29/24 Unknown History lamotrigine 25 mg tablet 25 mg PO BID 01/29/24 Unknown History Allergy/AdvReac Type Severity Reaction Status Date / Time adhesive Allergy Rash Verified 01/29/24 17:57 Latex, Natural Rubber Allergy Rash Verified 01/29/24 17:57 sulfamethoxazole (From Allergy Itching Verified 01/29/24 17:57 Bactrim) trimethoprim (From Bactrim) Allergy Itching Verified 01/29/24 17:57 albuterol AdvReac Other Verified 01/29/24 17:57 Family History Other Hypertension Social History Smoking Status: Current every day smoker tobacco type: cigarettes substance use type: does not use ROS ROS ED ROS Narrative Constitutional: Complains headache as noted above denies any fevers, chills Eyes, ears, nose, throat: Complains of a sinus infection that she is actively on antibiotics for denies change in vision double vision blurry vision Cardiovascular: Denies chest pain or palpitations Respiratory: Denies coughing wheezing shortness of breath Abdomen: Denies abdominal pain nausea vomit diarrhea : Denies any urinary symptoms Neurological: Denies any numbness, weakness, tingling Musculoskeletal: Denies back pain Skin: Denies any rashes or lesions EXAM Physical Exam Narrative Exam Narrative: General: Patient lying in bed did appear to be uncomfortable Head: Atraumatic, normocephalic Eyes, ears, nose, throat: PERRL body, EOMI bilateral no conjunctival injection noted Neck: Soft, supple, trachea midline Cardiovascular: Regular rate and rhythm no murmurs gallops rubs noted Respiratory: Clear to auscultation bilaterally no rales rhonchi or wheezes noted Abdomen: Soft, nondistended, nontender to palpation Extremities: +5/5 strength noted in the bilateral upper and lower extremities, radial pulses +2/4 in the bilateral extremities, no pedal edema on exam Neurological: Patient follow commands knew that she was at [facility] year is 2023. Patient completed finger-nose test bilaterally thigh difficulty Skin: Warm, dry, intact Const Vital Signs: 01/29/24 17:57 01/29/24 19:57 01/29/24 20:25 Temperature 98.9 F 98.2 F Temperature Source Oral Pulse Rate 121 H 86 78 Respiratory Rate 18 16 16 Blood Pressure 129/68 H 100/64 109/76 Blood Pressure Mean 88 76 87 Pulse Ox 92 91 91 Oxygen Delivery Method Room Air Room Air 01/29/24 20:28 Temperature 98.2 F Temperature Source Oral Pulse Rate 72 Respiratory Rate 16 Blood Pressure 109/76 Blood Pressure Mean 87 Pulse Ox 91 Oxygen Delivery Method Room Air MDM MDM MDM Narrative Medical decision making narrative: Patient is a 28-year-old female who presented to the emergency department with a chief complaint of headache and not feeling well. On the differential diagnose includes but not limited to intracranial hemorrhage, migraine headache, aneurysm mother has a history of this, opioid abuse. Once workup is obtained reviewed she will be reevaluated. Patient be given Tylenol and Reglan. Patient's CBC reviewed and showed a leukocytosis of 33,000, hemoglobin 12.7, platelet count was noted to be 360. Patient's sodium normal 136, potassium was 3.7, creatinine was noted to be 1.17. Patient's CRP was elevated to 12.5 and ESR normal at 19. Patient's test was negative, urinalysis reviewed and showed negative nitrites 100 leukocyte esterase with greater than 100 white cells with 3+ bacteria. There was noted to be 10-25 squamous epithelial cells this was sent for culture she was given a gram Rocephin at 2009. Patient's drug screen reviewed and was positive for barbiturates the rest was negative. Patient's alcohol level less than 3. Patient's CTA of the head and CT brain without contrast showed no acute intracranial pathology no evidence of aneurysm paranasal sinus disease noted. At this point time patient wants detox from fentanyl however she will need further medical clearance as she has a severely elevated leukocytosis. Will add on vancomycin. There is no identifiable source of infection at 2051. I did repeat exam and the patient once again has no pain to palpation in the midline of the cervical, thoracolumbar spine, no rashes or lesions noted, patient has full range of motion of her neck without any pain. Discussed case with hospitalist Dr. Watson who accept patient for admission. Patient will be admitted to the intensive care unit. Blood cultures and urine culture pending. Patient was notified is agreeable this plan all question concerns answered at bedside. Lab Data Labs: Laboratory Results - last 24 hr 01/29/24 01/29/24 01/29/24 18:45 18:55 19:22 WBC 33.5 H* RBC 4.64 Hgb 12.7 Hct 38.9 MCV 83.8 MCH 27.4 MCHC 32.6 RDW Std Deviation 40.4 RDW Coeff of William 13.4 Plt Count 360 MPV 10.3 Immature Gran % (Auto) 1.400 H Neut % (Auto) 74.7 H Lymph % (Auto) 6.5 L [place] % (Auto) 7.1 Eos % (Auto) 10.0 H Baso % (Auto) 0.3 Absolute Neuts (auto) 25.0 H Absolute Lymphs (auto) 2.17 Nucleated RBC % 0 Diff Path Review June foll ESR 19 Sodium 136 Potassium 3.7 Chloride 100 Carbon Dioxide 28.0 Anion Gap 8 BUN 14 Creatinine 1.17 H Est GFR (MDRD) Af Amer 70 Est GFR (MDRD) Non-Af 58 L BUN/Creatinine Ratio 12.0 Glucose 112 H Lactic Acid 2.0 Calcium 9.4 C-React Prot Ext Range 12.50 H Serum , Qual NEGATIVE Urine Color Yellow Urine Clarity Sl. Cloudy Urine pH 6.0 Ur Specific [place] 1.015 Urine Protein 30 H Urine Glucose (UA) Normal Urine Ketones Negative Urine Occult Blood 10 H Urine Nitrite Negative Urine Bilirubin Negative Urine Urobilinogen Normal Ur Leukocyte Esterase 100 H Urine RBC 0 SEEN Urine WBC >100 SEEN Ur Squamous Epith Cells 10-25 SEEN Urine Bacteria 3+ Urine Mucus 1+ Urine Opiates Screen NEGATIVE Urine Methadone Screen NEGATIVE Ur Barbiturates Screen POSITIVE H Ur Phencyclidine Scrn NEGATIVE Ur Amphetamines Screen NEGATIVE MDMA (Ecstasy) Screen NEGATIVE U Benzodiazepines Scrn NEGATIVE Urine Cocaine Screen NEGATIVE U Cannabinoids Screen NEGATIVE Ur Drug Screen Comment Ethyl Alcohol < 3.0 Radiography Diagnostic Testing: Clinical Impression(s) from Imaging Studies Head CTA 01/29/24 18:34 IMPRESSION: No acute intracranial pathology. No evidence of aneurysm. Paranasal sinus disease. Electronically Signed: Dg Darden DO at 19:50 EST Reading Location ID and State: [facility] / [place] Tel [phone], Service support , Discharge Plan Triage Chief Complaint: Nausea/Vomiting Other Complaint: Headache ED Provider: Howie Lindsey Dx/Rx/DC Orders Clinical Impression: Opiate abuse, continuous, Leukocytosis, Acidosis, lactic Prescriptions: No Action pantoprazole [Protonix] 40 mg tablet,delayed release (DR/EC) 40 mg PO DAILY 20 Days Qty: 20 0RF lamotrigine 25 mg tablet 25 mg PO BID escitalopram oxalate 10 mg tablet 10 mg PO Primary Care Provider: Susana rDaper Referrals: Susana Draper, [employer] [Primary Care Provider] - Print Language: [place] Islander Disposition Disposition: Home, Self Care
[2024-01-29] MEDS: Acetaminophen 325 MG Tablet 650 MG PO (18:51)
[2024-01-29] MEDS: Metoclopramide 10 MG/2 ML Vial IV (18:51)
[2024-01-29 19:07] LABS: Red Blood Cells-Urine 0 SEEN /hpf (0-5)
[2024-01-29 19:08] LABS: Absolute Lymphocyte Count 2.17 X10^3/uL (0.83-4.51); Basophil# 0.09 X10^3/uL; Basophil% 0.3 % (0-1); Eosinophil# 3.36 X10^3/uL; Hematocrit 38.9 % (37-47); Hemoglobin 12.7 g/dL (12.0-15.0); Lymphocyte # 2.17 X10^3/ul (0.83-4.51); Lymphocyte % 6.5 % (19-41); Mean Corp Hgb Conc 32.6 g/dL (32-36); Mean Corpuscular Hgb 27.4 pg (27.0-32.0); Mean Corpuscular Volume 83.8 fL (81-99); Mean Platelet Vol. 10.3 fl (6.2-12.0); Monocyte# 2.39 X10^3/uL; Monocyte% 7.1 % (0-10); NRBC Flagged by Analyzer 0 % (0-5); Neutrophil % 74.7 % (47-70); POSITIVE COUNT YES; POSITIVE DIFFERENTIAL YES; POSITIVE MORPHOLOGY YES; Platelet Count 360 K/mm3 (150-450); RBC Distribution Width CV 13.4 % (11.6-14.6); RBC Distribution Width SD 40.4 fl (35.1-43.9); Red Blood Count 4.64 M/mm3 (4.2-5.4)
[2024-01-29 19:10] LABS: Differential Indicated SCAN CRITERIA MET
[2024-01-29 19:12] LABS: White Blood Count 33.5 K/mm3 (4.4-11.0)
[2024-01-29 19:13] LABS: Internal QC Validated? YES +Cl - CLEAR BKGD; Pregnancy, Serum, hCG Quali. NEGATIVE Negative
[2024-01-29 19:19] LABS: Anion Gap 8 (5-15); BUN 14 mg/dL (7-18); Calcium,Total 9.4 mg/dL (8.5-10.1); Chloride 100 mmol/L (98-107); Creatinine, Serum 1.17 mg/dL (0.55-1.02); EST Glomerular Filtration Rate 58 mL/min (>60); Est Glom Filt Rate - Afr Amer 70 mL/min (>60); Glucose 112 mg/dL (74-106); Potassium 3.7 mmol/L (3.5-5.1); Sodium Level 136 mmol/L (136-145)
[2024-01-29 19:23] LABS: Color, Urine Yellow (Yellow); Glucose, Dipstick Normal (Normal); Ketone-Dipstick Negative (Negative); Leukocyte Esterase-Dipstick 100 /ul (Negative); Nitrite-Dipstick Negative (Negative); Occult Blood-Urine 10 /ul (Negative); Protein-Dipstick 30 mg/dl (Negative); Specific Gravity, Urine 1.015 (1.002-1.030); Urine Bilirubin Dipstick Negative (Negative); Urine Clarity Sl. Cloudy (Clear); Urine Urobilinogen Normal (Normal)
[2024-01-29 19:42] LABS: Bacteria 3+ /hpf (None Seen); Mucous, Urine 1+ /hpf (<or=2+); Squamous Epithelial Cells - UA 10-25 SEEN /hpf (5-10); White Blood Cells >100 SEEN /hpf (0-5)
[2024-01-29 19:43] LABS: Amphetamine Urine VISTA NEGATIVE (<1000 ng/mL); Barbiturate Urine VISTA POSITIVE (< 200 ng/mL); Benzodiazepine Urine VISTA NEGATIVE (< 200 ng/mL); Cocaine Urine VISTA NEGATIVE (< 300 ng/mL); Ecstacy Urine VISTA NEGATIVE (< 500 ng/mL); Methadone Urine VISTA NEGATIVE (< 300 ng/mL); PCP Urine VISTA NEGATIVE (< 25 ng/mL); THC Urine VISTA NEGATIVE (< 50 ng/mL); Vista UDS pH Range 5
[2024-01-29 19:54] LABS: Alcohol, Blood (Medical)-Serum < 3.0 mg/dL
[2024-01-29 19:56] LABS: Erythrocyte Sedimentation Rate 19 mm/hr (0-30)
[2024-01-29] MEDS: Ceftriaxone 1 GM/50 ML BAG IV (20:18)
[2024-01-29] MEDS: 0.9% Normal Saline (1000mL) 1,000 ML 999 ML IV ×3 (20:24→23:18)
--- NOTE | 2024-01-29 20:44 | PCM.HP.STD ---
HPI - General General Date of Admission: 01/29/24 Date of Service: 01/29/24 Chief Complaint: Headache with Nausea and Vomiting. HPI Narrative WILFRED ROBLERO, is a 28 F with a past medical history of tobacco abuse, previous history of EtOH abuse, current active IVDA; with fentanyl/polysubstance abuse, chronic hepatitis C, history of recurrent oral herpes simplex, hypothyroidism, obesity; with BMI of 39.8 this admission, history of asthma, history of scoliosis; with associated low back pain, migraine headaches on prn Fioricet BID, depression with anxiety, history of scabies, family history of brain aneurysm in her mother, GERD; on pantoprazole and recent ER visit earlier today at [facility] for complaints of headache with nausea and vomiting who underwent a head CT and conservative medical treatment and was then subsequently discharged home after feeling improved who then decided to use IV Fentanyl at home and then take a nap and when she woke up from her nap she once again had a severe headache and felt like she was drunk even though she denies using EtOH who now presents to [facility] ER complaining of headache with nausea and vomiting. Ms. Roblero denies recent head trauma, neck stiffness but she does admit to a recently diagnosed sinus infection which is actively being treated with antibiotics. She denies associated fever, chills, SOB, cough, abdominal pain, dysuria, hematuria, back/flank pain, urinary/bowel incontinence or skin rash/abscess. In the ER she was noted to have a UA grossly positive for Acute Cystitis; without hematuria with a corresponding Severe Leukocytosis of 33.5K with a + Left-shift of 1.4% and elevated C-RP of 12.5 mg/L present on admission consistent with suspected Sepsis in the setting of known Acute Sinusitis with Head CT this admission positive for paranasal sinus disease along with recent IVDA complicated by UDS positive only for Barbituates (with patient on prescribed prn Fioricet) with a KAI < 3 mg/dL compounded by suspected superimposed Migraine Headache with nausea and vomiting with bilious emesis and she was then admitted to the ICU for treatment under the Sepsis protocol for a stay that is expected to extend beyond 2 midnights. [facility] Medical History (Updated 01/29/24 @ 23:[address] Francisco Olsen DO) Obesity (BMI 30-39.9) Substance abuse Alcohol abuse Hepatitis C Scoliosis Scabies Hypothyroidism Asthma Hx of gastroesophageal reflux (GERD) Smoker Anxiety Depression Home Medications ?Medication ?Instructions ?Recorded ?Last Taken ?Type pantoprazole 40 mg tablet,delayed 40 mg PO DAILY 20 days #20 tabs 11/06/23 Unknown Rx release (Protonix) [id number] 2 tab PO BID migraines 01/29/24 Unknown History 50 mg-325 mg-40 mg tablet escitalopram oxalate 10 mg tablet 10 mg PO DAILY depression 01/29/24 01/29/24 History lamotrigine 25 mg tablet 25 mg PO BID BPD 01/29/24 01/29/24 History Allergy/AdvReac Type Severity Reaction Status Date / Time adhesive Allergy Rash Verified 01/29/24 17:57 Latex, Natural Rubber Allergy Rash Verified 01/29/24 17:57 sulfamethoxazole (From Allergy Itching Verified 01/29/24 17:57 Bactrim) trimethoprim (From Bactrim) Allergy Itching Verified 01/29/24 17:57 albuterol AdvReac Other Verified 01/29/24 17:57 Family History Other Hypertension Social History Smoking Status: Current every day smoker tobacco type: e-cigarettes substance use type: does not use ROS ROS Narrative Review of Systems: Constitutional: Patient denies fever or chills. Eyes: Patient denies changes in vision or discharge from eyes. ENT: Patient admits to recently diagnosed sinus infection with runny nose but she denies sore throat or ear pain. Resp: Patient denies SOB or cough. CV: Patient denies chest pain, palpitations or heart racing. GI: Patient admits to nausea and vomiting with bilious emesis but she denies abdominal pain. : Patient denies dysuria or hematuria. MSK: Patient denies arthralgias or myalgias. Skin: Patient denies rash, abscess or jaundice. Psych: Patient denies symptoms of uncontrolled depression or anxiety. Neuro: Patient admits to headache but she denies paresthesias or focal neurologic deficits. Allergy: Patient denies lip swelling, tongue swelling or urticaria. Hematology: Patient denies easy bleeding or easy bruisability. Endocrinology: Patient denies polyuria, polydipsia or polyphagia. 14 point ROS otherwise negative except for positives noted above in HPI. Vital Signs Vital Signs Vital Signs: 01/29/24 17:57 01/29/24 19:57 01/29/24 20:25 Temperature 98.9 F 98.2 F Temperature Source Oral Pulse Rate 121 H 86 78 Respiratory Rate 18 16 16 Blood Pressure 129/68 H 100/64 109/76 Blood Pressure Mean 88 76 87 Pulse Ox 92 91 91 Oxygen Delivery Method Room Air Room Air 01/29/24 20:28 Temperature 98.2 F Temperature Source Oral Pulse Rate 72 Respiratory Rate 16 Blood Pressure 109/76 Blood Pressure Mean 87 Pulse Ox 91 Oxygen Delivery Method Room Air Weight Weight: 224 lb 10.417 oz Body Mass Index (BMI) 39.8 Physical Exam Const alert and oriented x3 Results Medical Records Data Attestation: I reviewed the patient's medical records Lab / Micro Data Attestation: I reviewed the patient's lab results. 01/29/24 18:45 01/29/24 18:45 Labs: Laboratory Results - last 24 hr 01/29/24 18:45: WBC 33.5 H*, RBC 4.64, Hgb 12.7, Hct 38.9, MCV 83.8, MCH 27.4, MCHC 32.6, RDW Std Deviation 40.4, RDW Coeff of William 13.4, Plt Count 360, MPV 10.3, Immature Gran % (Auto) 1.400 H, Neut % (Auto) 74.7 H, Lymph % (Auto) 6.5 L, [place] % (Auto) 7.1, Eos % (Auto) 10.0 H, Baso % (Auto) 0.3, Absolute Neuts (auto) 25.0 H, Absolute Lymphs (auto) 2.17, Nucleated RBC % 0, Diff Path Review June foll, ESR 19, Sodium 136, Potassium 3.7, Chloride 100, Carbon Dioxide 28.0, Anion Gap 8, BUN 14, Creatinine 1.17 H, Est GFR (MDRD) Af Amer 70, Est GFR (MDRD) Non-Af 58 L, BUN/Creatinine Ratio 12.0, Glucose 112 H, Calcium 9.4, C-React Prot Ext Range 12.50 H, Serum , Qual NEGATIVE, Ethyl Alcohol < 3.0 01/29/24 18:55: Urine Color Yellow, Urine Clarity Sl. Cloudy, Urine pH 6.0, Ur Specific [place] 1.015, Urine Protein 30 H, Urine Glucose (UA) Normal, Urine Ketones Negative, Urine Occult Blood 10 H, Urine Nitrite Negative, Urine Bilirubin Negative, Urine Urobilinogen Normal, Ur Leukocyte Esterase 100 H, Urine RBC 0 SEEN, Urine WBC >100 SEEN, Ur Squamous Epith Cells 10-25 SEEN, Urine Bacteria 3+, Urine Mucus 1+, Urine Opiates Screen NEGATIVE, Urine Methadone Screen NEGATIVE, Ur Barbiturates Screen POSITIVE H, Ur Phencyclidine Scrn NEGATIVE, Ur Amphetamines Screen NEGATIVE, MDMA (Ecstasy) Screen NEGATIVE, U Benzodiazepines Scrn NEGATIVE, Urine Cocaine Screen NEGATIVE, U Cannabinoids Screen NEGATIVE, Ur Drug Screen Comment 01/29/24 19:22: Lactic Acid 2.0 Imaging Radiology Impression Head CTA 01/29/24 18:34 IMPRESSION: No acute intracranial pathology. No evidence of aneurysm. Paranasal sinus disease. Electronically Signed: Dg Darden DO at 19:50 EST Reading Location ID and State: [facility] / [place] Tel [phone], Service support , [facility] Imaging Services [address] [place] [id number] Chest, Abd, Pel w/Contrast MR#: [id number] Acct: [id number] Name: WILFRED ROBLERO Rep #: [id number] : 1995 F 28 From: Dg Darden DO PCP: Susana Draper Usama, SA[employer] FILER-C Status: REG ER Study: CT Chest, Abd, Pel w/Contrast Date of Exam: 01/29/24 Exam# [id number] Ordering Dr: Howie Lindsey DO STUDY: CT CHEST, ABDOMEN T PELVIS WITH CONTRAST REASON FOR EXAM: Female, 28 years old. Elevated leukocytosis RADIATION DOSAGE (If Supplied By Facility): CTDIvol = ( 21.12 ) mGy, DLP = ( 2368.80 ) mGycm TECHNIQUE: Transaxial imaging was performed following intravenous administration of IV 100mL Isovue-370. The protocol utilizes one or more of the following dose reduction techniques: automated exposure control, adjustment of mA and/or kV according to patient size,and/or use of iterative reconstruction technique. COMPARISON: FINDINGS: CHEST The lungs are normal. There is no demonstrated pleural abnormality. Normal heart and pericardium. Normal mediastinum. Normal hilar regions. Normal unenhanced pulmonary arteries. Normal aorta arch and descending thoracic aorta. Normal osseous structures. ABDOMEN Fatty liver. Normal gallbladder and extrahepatic biliary system. Normal spleen. Normal pancreas. Normal bilateral adrenal glands. Normal right kidney. Normal left kidney. Normal visualized stomach. Normal small intestine. Normal colon. The appendix is visualized. Normal abdominal aorta. Normal inferior vena cava. Normal retroperitoneum. Normal abdominal wall. Normal osseous structures. PELVIS Normal urinary bladder. Normal visualized small intestine. Normal visualized colon. There is mild pelvic fluid. Left adnexal 3.1 cm cystic lesion. Normal visualized pelvic arteries. Normal abdominal wall. Normal osseous structures. CT/CT Chest, Abd, Pel w/Contrast IMPRESSION: There is mild pelvic fluid. Left adnexal cystic lesion. Fatty liver. Electronically Signed: Dg Darden DO at 21:56 EST , CC: [facility] LISA Draper; Dr. Howie Lindsey, DO ~ Trim Technician: Signed Assessment & Plan Assessment/Plan (1) Sepsis: QUALIFIERS: Sepsis acute organ dysfunction status: without acute organ dysfunction Sepsis type: sepsis due to unspecified organism Qualified Code(s): A41.9 - Sepsis, unspecified organism (2) Acute cystitis without hematuria: (3) Headache: QUALIFIERS: Headache chronicity pattern: acute headache Headache type: unspecified Intractability: not intractable Qualified Code(s): R51.9 - Headache, unspecified (4) Nausea and vomiting: QUALIFIERS: Vomiting type: unspecified Qualified Code(s): R11.2 - Nausea with vomiting, unspecified (5) IV drug abuse: (6) Opiate abuse, continuous: (7) Hepatitis C: QUALIFIERS: Hepatic coma status: without hepatic coma Viral hepatitis chronicity: chronic Qualified Code(s): B18.2 - Chronic viral hepatitis C (8) Tobacco abuse: (9) Obesity (BMI 30-39.9): (10) History of ETOH abuse: PLAN: Plan 1. UA grossly positive for Acute Cystitis; without hematuria with a corresponding Severe Leukocytosis of 33.5K with a + Left-shift of 1.4% and elevated C-RP of 12.5 mg/L present on admission consistent with suspected Sepsis in the setting of known Acute Sinusitis with Head CT this admission positive for paranasal sinus disease - Admit to ICU for treatment under the Sepsis protocol. Start intensive broad-spectrum antibiotic with IV Vancomycin and IV Zosyn and await culture and sensitivity data. Checked CT of the abdomen and pelvis with no signs of acute pathologic changes. Check echocardiogram to evaluate for possible vegetations due to her IVDA. Give Tylenol prn for pain or fever. 2. Recent ER visit earlier today at [facility] for complaints of headache with nausea and vomiting due to suspected severe Migraine Headache who underwent a head CT and conservative medical treatment and was then subsequently discharged home after feeling improved who then decided to use IV Fentanyl at home and then take a nap and when she woke up from her nap she once again had a severe headache and felt like she was drunk even though she denies using EtOH with UDS this admission positive for only Barbituates complicating #1 - Illicit drug cessation will be strongly encouraged. Start opiate withdrawal protocol with buprenorphine taper. Give Ativan IV prn for breakthrough agitation. 3. Current active IVDA; with fentanyl/polysubstance abuse, chronic hepatitis C and history of recurrent oral herpes simplex compounding #1 & #2 - IVDA will be strongly discouraged. 4. History of tobacco abuse adding to the medical complexity of #1 - #3 - Tobacco cessation will be strongly encouraged with Nicotine patch offered to control cravings. 5. Obesity; with BMI of 39.8 this admission and a history of scoliosis; with associated low back pain adding to the burden of disease outlined from #1 - #4 - Weight loss will be recommended. Check TSH. This complicates her case and may hamper recovery. 6. Previous history of EtOH abuse - Noted. Watch for signs and symptoms of withdrawal. 7. Hypothyroidism - With patient apparently not on thyroid hormone replacement. Check TSH. 8. History of asthma - Stable with no evidence of acute flare. 9. Depression with anxiety - Restart escitalopram. 10. History of scabies - Noted with active signs of current infestation. 11. Family history of brain aneurysm in her mother - Noted with no evidence of acute pathologic changes on head CT this admission. 12. GERD; on pantoprazole - Continue pantoprazole as before. 13. DVT prophylaxis - Lovenox 40 mg sq daily plus SCD's. Total time: Approximately (but not less than) 75 minutes. Sepsis Attestation Sepsis Alert: Yes Sepsis Attestation: Agree w/Sepsis Date exam was performed: 01/29/24 Time exam was performed: 23:00 Possible Source of Sepsis: Genitourinary Supportive Findings: UA grossly positive for Acute Cystitis; without hematuria with a corresponding Severe Leukocytosis of 33.5K with a + Left-shift of 1.4% and elevated C-RP of 12.5 mg/L present on admission consistent with suspected Sepsis Fluid Resuscitation Fluid resuscitation indicated?: Yes Fluid Resuscitation ordered: 30 ml/kg fluid bolus ordered Amount of fluid ordered: 3 Sepsis Note Date exam was performed: 01/30/24 Time exam was performed: 03:00 Sepsis Attestation: Sepsis re-evaluation was performed Response to fluids: Fluid responsive hypotension
--- NOTE | 2024-01-29 20:47 | CT_ITS ---
STUDY: CT CHEST, ABDOMEN T PELVIS WITH CONTRAST REASON FOR EXAM: Female, 28 years old. Elevated leukocytosis RADIATION DOSAGE (If Supplied By Facility): CTDIvol = ( 21.12 ) mGy, DLP = ( 2368.80 ) mGycm TECHNIQUE: Transaxial imaging was performed following intravenous administration of IV 100mL Isovue-370. The protocol utilizes one or more of the following dose reduction techniques: automated exposure control, adjustment of mA and/or kV according to patient size,and/or use of iterative reconstruction technique. COMPARISON: FINDINGS: CHEST The lungs are normal. There is no demonstrated pleural abnormality. Normal heart and pericardium. Normal mediastinum. Normal hilar regions. Normal unenhanced pulmonary arteries. Normal aorta arch and descending thoracic aorta. Normal osseous structures. ABDOMEN Fatty liver. Normal gallbladder and extrahepatic biliary system. Normal spleen. Normal pancreas. Normal bilateral adrenal glands. Normal right kidney. Normal left kidney. Normal visualized stomach. Normal small intestine. Normal colon. The appendix is visualized. Normal abdominal aorta. Normal inferior vena cava. Normal retroperitoneum. Normal abdominal wall. Normal osseous structures. PELVIS Normal urinary bladder. Normal visualized small intestine. Normal visualized colon. There is mild pelvic fluid. Left adnexal 3.1 cm cystic lesion. Normal visualized pelvic arteries. Normal abdominal wall. Normal osseous structures. CT/CT Chest, Abd, Pel w/Contrast IMPRESSION: There is mild pelvic fluid. Left adnexal cystic lesion. Fatty liver. Electronically Signed: Dg Darden DO at 21:56 EST Reading Location ID and State: [facility] / [place] Tel [phone], Service support ,
[2024-01-29] MEDS: Vancomycin HCl 1,500 MG in 0.9% Normal Saline (500mL Bag) 500 ML 250 MG IV (21:14)
[2024-01-29 22:23] LABS: Hemoglobin A1c 5.1 % (3.8-5.6)
[2024-01-29 22:25] LABS: Thyroid Stim Hormone (TSH) 0.804 uIU/mL (0.358-3.740)
[2024-01-29 23:28] LABS: Reflex Lactate? Y
--- NOTE | 2024-01-29 23:40 | ECHOD_ITS ---
Reason For Study: Sepsis/IVDA Procedure This was a 2D Doppler, Color Flow transthoracic echocardiogram. Exam performed portable in ICU/CCU. Left Ventricle Normal LV size. Left ventricular systolic function is normal. The left ventricular ejection fraction is 55 %. No regional wall motion abnormalities noted. Right Ventricle Normal RV size. Normal systolic function. Atria Normal left atrium. Normal right atrium. Mitral Valve Normal mitral valve. Tricuspid Valve Normal tricuspid valve. Mild (1+) tricuspid valve insufficiency. Pulmonary artery systolic pressure is 24 mmHg. Aortic Valve Trisinus/trileaflet aortic valve. Pulmonic Valve Normal pulmonic valve. Great Vessels Normal aortic root. The pulmonary artery is normal size. Normal inferior vena cava. Pericardium/Pleural No pericardial effusion. MMode/2D Measurements & Calculations LVIDd: 4.6 cm IVSd: 0.98 cm Ao root diam: 2.6 cm LVIDs: 3.2 cm LVPWd: 0.91 cm RVDd: 3.2 cm FS: 29.9 % LAV(MOD-bp): 43.1 ml LVAd ap4: 27.7 cm2 SV(MOD-sp4): 51.5 ml LAV(MOD-bp) Indexed: 21.3 ml/m2 LVLd ap4: 8.0 cm SI(MOD-sp4): 25.5 ml/m2 LAV(MOD-sp2): 49.8 ml EDV(MOD-sp4): 81.2 ml LAV(MOD-sp4): 32.6 ml EDV(sp4-el): 81.1 ml LVAs ap4: 15.1 cm2 LVLs ap4: 6.4 cm ESV(MOD-sp4): 29.7 ml ESV(sp4-el): 30.4 ml EF(MOD-sp4): 63.4 % EF(sp4-el): 62.6 % SV(sp4-el): 50.7 ml LA A4 area: 15.0 cm2 LA dimension(2D): 3.8 cm RA A4 area: 11.3 cm2 TAPSE: 1.7 cm Time Measurements MV dec time: 0.18 sec Doppler Measurements & Calculations MV E max faizan: 103.7 cm/sec Lat Peak E' Faizan: 20.4 cm/sec Med Peak E' Faizan: 18.8 cm/sec MV A max faizan: 52.9 cm/sec E/E' lat: 5.1 E/E' med: 5.5 MV E/A: 2.0 MV V2 max: 118.3 cm/sec MV P1/2t max faizan: 119.4 cm/sec Ao V2 max: 121.4 cm/sec MV max P.6 mmHg MV P1/2t: 66.9 msec Ao max P.9 mmHg MV V2 mean: 51.1 cm/sec MV mean P.4 mmHg MV dec slope: 522.3 cm/sec2 MV V2 VTI: 35.5 cm MVA(P1/2t): 3.3 cm2 LV V1 max: 99.6 cm/sec PA V2 max: 79.6 cm/sec TR max faizan: 232.8 cm/sec LV V1 max P.0 mmHg TR max P.7 mmHg ECHO/Echo Complete Interpretation Summary Normal LV size. Left ventricular systolic function is normal. The left ventricular ejection fraction is 55 %. Mild (1+) tricuspid valve insufficiency. Ordering Physician: Francisco Olsen Performed By: Edison Lozano RCS
[2024-01-29] MEDS: Piperacil/Tazobactam 3.375 GM in 0.9% Normal Saline (50mL MB+) 50 ML IV (23:41)
[2024-01-29] MEDS: lamoTRIgine 25 MG Tablet PO (23:42)
[2024-01-29] MEDS: Lactobacillis Acidophilus 1 CAP PO (23:42)
--- NOTE | 2024-01-29 23:47 | PCM.RX.CS ---
Consult Antibiotic Management Pharmacy has been consulted to manage selected antibiotic: Vancomycin Type of Intervention Type of Consult: New start Suspected Infection Suspected Infection: Sepsis Labs Labs: Sodium 136 mmol/L (136-145) 01/29/24 18:45 Potassium 3.7 mmol/L (3.5-5.1) 01/29/24 18:45 Chloride 100 mmol/L (98-107) 01/29/24 18:45 Carbon Dioxide 28.0 mmol/L (21.0-32.0) 01/29/24 18:45 Anion Gap 8 (5-15) 01/29/24 18:45 BUN 14 mg/dL (7-18) 01/29/24 18:45 Creatinine 1.17 mg/dL (0.55-1.02) H 01/29/24 18:45 Est GFR (MDRD) Af Amer 70 mL/min (>60) 01/29/24 18:45 Est GFR (MDRD) Non-Af 58 mL/min (>60) L 01/29/24 18:45 BUN/Creatinine Ratio 12.0 RATIO (10-20) 01/29/24 18:45 Glucose 112 mg/dL (74-106) H 01/29/24 18:45 Dosing Weight Weight used for dosin.8 kg Estimated Creatinine Clearance Estimated Creatinine Clearance: 80 Goal Trough Goal Trough: 15-20 mcg/mL Pharmacy Plan for Drug Dosing Pharmacy Plan for Drug Dosing: Pharmacy Service will continue to monitor and adjust dosing as required. Follow-Up Labs Follow-Up Labs: Trough: Vancomycin Date/Time Labs Ordered Labs to be done on [date and time ordered]: 01/31/24 @0830
[2024-01-30] VITALS (18 sets, daily range): BP systolic 101–136; BP diastolic 54–85; PULSE 61–83; RESP 11–20; TEMP 36.4–36.9; O2SAT 93–100; BMI 39.4
[2024-01-30] MEDS: 0.9% Normal Saline (1000mL) 1,000 ML 999 ML IV (00:20)
[2024-01-30] MEDS: 0.9% Normal Saline (1000mL) 1,000 ML 100 ML IV ×2 (00:22→16:39)
[2024-01-30 03:57] LABS: Absolute Lymphocyte Count 4.14 X10^3/uL (0.83-4.51); Basophil# 0.06 X10^3/uL; Basophil% 0.4 % (0-1); Eosinophil# 0.11 X10^3/uL; Eosinophils% 0.6 % (0-5); Hematocrit 32.7 % (37-47); Hemoglobin 10.5 g/dL (12.0-15.0); Lymphocyte # 4.14 X10^3/ul (0.83-4.51); Lymphocyte % 24.3 % (19-41); Mean Corp Hgb Conc 32.1 g/dL (32-36); Mean Corpuscular Hgb 27.7 pg (27.0-32.0); Mean Corpuscular Volume 86.3 fL (81-99); Mean Platelet Vol. 10.5 fl (6.2-12.0); Monocyte# 1.57 X10^3/uL; Monocyte% 9.2 % (0-10); NRBC Flagged by Analyzer 0 % (0-5); Neutrophil # 11.03 X10^3/uL (2.7-7.7); Neutrophil % 64.9 % (47-70); POSITIVE DIFFERENTIAL YES; Platelet Count 290 K/mm3 (150-450); RBC Distribution Width CV 13.4 % (11.6-14.6); RBC Distribution Width SD 41.5 fl (35.1-43.9); Red Blood Count 3.79 M/mm3 (4.2-5.4)
[2024-01-30 04:31] LABS: Anion Gap 7 (5-15); BUN 9 mg/dL (7-18); BUN/Creat Ratio 12.6 RATIO (10-20); Chloride 109 mmol/L (98-107); Creatinine, Serum 0.72 mg/dL (0.55-1.02); EST Glomerular Filtration Rate 101 mL/min (>60); Est Glom Filt Rate - Afr Amer 123 mL/min (>60); Estimated Creatinine Clearance 129.43 ml/min; Glucose 69 mg/dL (74-106); Potassium 3.5 mmol/L (3.5-5.1); Sodium Level 140 mmol/L (136-145)
[2024-01-30 05:08] LABS: Differential Indicated SCAN CRITERIA MET
[2024-01-30 05:10] LABS: Anisocytosis 1+; Differential Comment SCANNED; Macrocytosis 1+; Platelet Estimate ADEQUATE (ADEQ); Polychromasia 1+
[2024-01-30] MEDS: Piperacil/Tazobactam 3.375 GM in 0.9% Normal Saline (50mL MB+) 50 ML IV ×3 (05:42→21:55)
[2024-01-30] MEDS: Dicyclomine 10 MG Capsule 20 MG PO ×2 (08:56→21:47)
[2024-01-30] MEDS: Enoxaparin 40 MG/0.4 ML Syringe SC (08:57)
[2024-01-30] MEDS: Ascorbic Acid 500 MG Tablet 1000 MG PO ×2 (08:57→16:39)
[2024-01-30] MEDS: Zinc Sulfate 50 mg zinc (220 mg) ORAL capsule PO (08:57)
[2024-01-30] MEDS: Pantoprazole Sodium 40 MG Tablet PO (08:57)
[2024-01-30] MEDS: Cholecalciferol (Vit D3) 125 MCG CAPSULE (5,000 UNITS) PO (08:58)
[2024-01-30] MEDS: lamoTRIgine 25 MG Tablet PO ×2 (08:58→21:47)
[2024-01-30] MEDS: Escitalopram Oxalate 10 MG Tablet PO (08:58)
[2024-01-30] MEDS: Lactobacillis Acidophilus 1 CAP PO ×4 (08:58→21:47)
[2024-01-30] MEDS: Acetaminophen 325 MG Tablet 650 MG PO ×2 (09:14→16:43)
[2024-01-30] MEDS: Vancomycin HCl 1,750 MG in 0.9% Normal Saline (500mL Bag) 500 ML 250 MG IV (09:51)
--- NOTE | 2024-01-30 10:09 | CASEMGMT ---
JOHN PORTER Assessment ? Face to Face with patient for initial?transition planning/care coordination assessment. JOHN PORTER introduced self and role at [facility], pt voices understanding. Pt is A&Ox4 and is resting comfortably in bed and is calm. Care providers, pharmacy, and demographics verified. ? Admitting dx: ?UTI, sepsis with headache LACE Strata: ?2 PCP: ?Susana Draper Specialists: ?patient states that she sees a psychiatrist in [place] but is unsure of the name Preferred Pharmacy: [facility]? ? Insurance: ?Medicaid/CareSource Prescription Benefit: ?Yes LNOK: ?Yeni Rodríguez (GM), Macey Saucedo (Sister) Living Arrangements: ?patient lives alone in a triplex. Patient states that she rents one of the lots out. Patient states that she lives on a single floor with one step to enter the home. ADLs/IADLs:?Independent Transportation: ?self, sister DME: ?patient states that she has a blood pressure and a nebulizer. Patient is currently 99% on 2 L of oxygen. Case management will follow. HHC/SNF: ?denies history or needs ETOH/substance abuse: per heart review, the patient has a history of polysubstance abuse. At this time, patient states that she takes fentanyl only. Patient also states that she drinks 3 to 4 bottles of liquor per week. Patient states that she smokes one pack of cigarettes per week but vapes every day. human resources district manager inquired if the patient would like resources or to have social work see the patient about this. The patient adamantly declined these resources at this time. Social work made aware. Pt?s goal:?return home Plan: ?anticipate eventual discharge home once medically ready. 6 click score is 24. Patient denies the need for home healthcare, outpatient therapy, social work follow up. Patient states that she feels safe returning home at time of discharge and denies any further questions or concerns from this human resources district manager. Sarmad Ruggiero RN, CM
--- NOTE | 2024-01-30 10:57 | PCM.RX.CS ---
Consult Antibiotic Management Pharmacy has been consulted to manage selected antibiotic: Vancomycin Type of Intervention Type of Consult: Follow-up Suspected Infection Suspected Infection: Sepsis Prior Doses of Antibiotics Prior Doses of Antibiotics Received/Current Regimen: 01/29/24 @ 2114 1500mg 01/30/24 @ 0951 1750mg Labs Labs: Sodium 140 mmol/L (136-145) 01/30/24 03:27 Potassium 3.5 mmol/L (3.5-5.1) 01/30/24 03:27 Chloride 109 mmol/L (98-107) H 01/30/24 03:27 Carbon Dioxide 24.0 mmol/L (21.0-32.0) 01/30/24 03:27 Anion Gap 7 (5-15) 01/30/24 03:27 BUN 9 mg/dL (7-18) 01/30/24 03:27 Creatinine 0.72 mg/dL (0.55-1.02) 01/30/24 03:27 Est GFR (MDRD) Af Amer 123 mL/min (>60) 01/30/24 03:27 Est GFR (MDRD) Non-Af 101 mL/min (>60) 01/30/24 03:27 BUN/Creatinine Ratio 12.6 RATIO (10-20) 01/30/24 03:27 Glucose 69 mg/dL (74-106) L 01/30/24 03:27 Dosing Weight Weight used for dosin kg Estimated Creatinine Clearance Estimated Creatinine Clearance: 129 Goal Trough Goal Trough: 15-20 mcg/mL Pharmacy Plan for Drug Dosing Pharmacy Plan for Drug Dosing: Patient to recieve 1750mg every 12 hours Pharmacy Service will continue to monitor and adjust dosing as required. Follow-Up Labs Follow-Up Labs: Trough: Vancomycin Date/Time Labs Ordered Labs to be done on [date and time ordered]: 01/31/24 @ 4874
[2024-01-30] MEDS: Gabapentin 300 MG Capsule PO ×2 (11:43→21:47)
[2024-01-30] MEDS: BENZOCAINE/MENTHOL 1 LOZENGE MUCOUS MEM (11:52)
[2024-01-30] MEDS: Acetaminophen/Butalbital/Caffe 1 Tablet 2 TABLET PO (13:35)
[2024-01-30] MEDS: Ondansetron 8 MG Tablet PO ×2 (13:35→22:50)
[2024-01-30] MEDS: Buprenorphine HCl 2 MG TAB.SUBL SL ×2 (13:35→22:02)
[2024-01-30 14:19] LABS: Pathologist Review Reviewed
--- NOTE | 2024-01-30 14:30 | NURSING ---
clarified w/ patient she does desire to be a RAMP program, she had signed an agreement and was agreeable to having belongings including a phone in a tote.
[2024-01-30 15:06] LABS: Pathologist Review May foll
--- NOTE | 2024-01-30 18:37 | PN.HOSP_ITS ---
Reason for Visit Reason for Visit: Diagnoses Sepsis, unspecified organism (01/29/24) Chronic viral hepatitis C (01/29/24) Unspecified viral hepatitis C without hepatic coma (01/29/24) Obesity, unspecified (01/29/24) Alcohol abuse, in remission (01/29/24) Opioid abuse, uncomplicated (01/29/24) Other psychoactive substance abuse, uncomplicated (01/29/24) Acute cystitis without hematuria (01/29/24) Nausea with vomiting, unspecified (01/29/24) Headache, unspecified (01/29/24) Tobacco use (01/29/24) Subjective Subjective Patient was seen and examined today, her white blood cell count this morning was 17, she confirmed that she would like to be a ramp patient-patient uses IV fentanyl and also snorts fentanyl. Patient states she was hoping to be discharged by this Friday because she works Friday. She states that she is planning on doing a IOP. Objective Data Objective Data Vital Signs: Vital Signs Temp Pulse Resp BP Pulse Ox O2 Del Method O2 Flow Rate 97.8 F 64 18 136/79 H 93 Room Air 2 01/30/24 14:29 01/30/24 14:29 01/30/24 14:29 01/30/24 14:29 01/30/24 14:29 01/30/24 14:29 01/30/24 14:01 Oxygen Flow Rate (L/min) 2 Oxygen Delivery Method Room Air Weight: 100.8 kg Body Mass Index (BMI) 39.4 Intake & Output: Intake and Output for Last 24 Hours 01/28/24 01/29/24 01/30/24 23:59 23:59 23:59 Intake Total 2580 / 0 4076.17 / 4076.17 Output Total 2049 / 2049 Balance 25796.17 / 2025.17 Lab / Micro Data 01/31/24 05:15 01/30/24 03:27 Labs: Laboratory Results - last 24 hr 01/29/24 18:45: WBC 33.5 H*, RBC 4.64, Hgb 12.7, Hct 38.9, MCV 83.8, MCH 27.4, MCHC 32.6, RDW Std Deviation 40.4, RDW Coeff of William 13.4, Plt Count 360, MPV 10.3, Immature Gran % (Auto) 1.400 H, Neut % (Auto) 74.7 H, Lymph % (Auto) 6.5 L , Whitman % (Auto) 7.1, Eos % (Auto) 10.0 H, Baso % (Auto) 0.3, Absolute Neuts (auto) 25.0 H, Absolute Lymphs (auto) 2.17, Nucleated RBC % 0, Diff Path Review Reviewed, ESR 19, Sodium 136, Potassium 3.7, Chloride 100, Carbon Dioxide 28.0, Anion Gap 8, BUN 14, Creatinine 1.17 H, Est GFR (MDRD) Af Amer 70, Est GFR (MDRD) Non-Af 58 L, BUN/Creatinine Ratio 12.0, Glucose 112 H, Hemoglobin A1c 5.1, Calcium 9.4, C-React Prot Ext Range 12.50 H, TSH 0.804, Serum , Qual NEGATIVE, Ethyl Alcohol < 3.0 01/29/24 18:55: Urine Color Yellow, Urine Clarity Sl. Cloudy, Urine pH 6.0, Ur Specific Seymour 1.015, Urine Protein 30 H, Urine Glucose (UA) Normal, Urine Ketones Negative, Urine Occult Blood 10 H, Urine Nitrite Negative, Urine Bilirubin Negative, Urine Urobilinogen Normal, Ur Leukocyte Esterase 100 H, Urine RBC 0 SEEN, Urine WBC >100 SEEN, Ur Squamous Epith Cells 10-25 SEEN, Urine Bacteria 3+, Urine Mucus 1+, Urine Opiates Screen NEGATIVE, Urine Methadone Screen NEGATIVE, Ur Barbiturates Screen POSITIVE H, Ur Phencyclidine Scrn NEGATIVE, Ur Amphetamines Screen NEGATIVE, MDMA (Ecstasy) Screen NEGATIVE, U Benzodiazepines Scrn NEGATIVE, Urine Cocaine Screen NEGATIVE, U Cannabinoids Screen NEGATIVE, Ur Drug Screen Comment 01/29/24 19:22: Lactic Acid 2.0 01/30/24 00:09: Lactic Acid 1.0 01/30/24 03:27: WBC 17.0 H, RBC 3.79 L, Hgb 10.5 L, Hct 32.7 L, MCV 86.3, MCH 27.7, MCHC 32.1, RDW Std Deviation 41.5, RDW Coeff of William 13.4, Plt Count 290, MPV 10.5, Immature Gran % (Auto) 0.600, Neut % (Auto) 64.9, Lymph % (Auto) 24.3, Whitman % (Auto) 9.2, Eos % (Auto) 0.6, Baso % (Auto) 0.4, Absolute Neuts (auto) 11.0 H, Absolute Lymphs (auto) 4.14, Nucleated RBC % 0, Differential Comment SCANNED, Diff Path Review May foll, Platelet Estimate ADEQUATE, Polychromasia 1+, Anisocytosis 1+, Macrocytosis 1+, Sodium 140, Potassium 3.5, Chloride 109 H, Carbon Dioxide 24.0, Anion Gap 7, BUN 9, Creatinine 0.72, Estim Creat Clear Calc 129.43, Est GFR (MDRD) Af Amer 123, Est GFR (MDRD) Non-Af 101, BUN/Creatinine Ratio 12.6, Glucose 69 L, Calcium 8.0 L Micro: Microbiology 01/29/24 18:55 Urine, Clean Catch Urine Culture - Preliminary Culture exhibits no growth. Radiography Diagnostic Testing: Radiology Impression Head CTA 01/29/24 18:34 IMPRESSION: No acute intracranial pathology. No evidence of aneurysm. Paranasal sinus disease. Electronically Signed: Dg Darden DO at 19:50 EST , Chest/Abdomen/Pelvis CT 01/29/24 20:47 IMPRESSION: There is mild pelvic fluid. Left adnexal cystic lesion. Fatty liver. Electronically Signed: Dg Darden DO at 21:56 EST , Echocardiogram 01/29/24 23:40 Interpretation Summary Normal LV size. Left ventricular systolic function is normal. The left ventricular ejection fraction is 55 %. Mild (1+) tricuspid valve insufficiency. Ordering Physician: Francisco Olsen Performed By: Edison Lozano RCS Physical Exam Const alert, oriented x3, no apparent distress and healthy appearing General Appearance: cooperative, well kempt and well developed Orientation / Consciousness: awake, oriented to person, oriented to place and oriented to time HEENT normocephalic, head/scalp atraumatic and moist oral mucous membranes Eyes PERRL, EOMs intact bilaterally and conjunctivae normal Neck supple, no JVD, thyroid normal and no carotid bruits General: trachea midline Resp normal respiratory effort, no retractions, no use of accessory muscles and clear to auscultation bilaterally Auscultation: Negative for rales, rhonchi or wheezes Cardio regular rate, regular rhythm, S1 normal heart sound, S2 normal heart sound, no murmurs, no rub and no gallops GI normal to inspection, nondistended, normoactive bowel sounds, soft to palpation, non-tender and non-distended Extremity no clubbing, cyanosis or edema Skin no rashes or lesions noted General Skin Exam: no breakdown Neuro oriented x3, CN's II-XII intact bilaterally, moves all extremities, no focal motor deficits and no sensory deficits noted Sensorium / Orientation: awake and alert Speech: speech normal Psych affect normal Assessment & Plan Assessment/Plan (1) Acute cystitis without hematuria: PLAN: Plan 1. Acute cystitis-patient is currently on Zosyn, I stopped her vancomycin today I do not believe she needs this medication. #2 opiate substance use disorder-patient is consented to enter the ramp program will be seen by addiction social media executive tomorrow #3 chronic depression-patient is on Lexapro Total clinical time spent by myself addressing patient's medical issues, reviewing all of her data, and collaborating with patient's care team: 35 minutes Charges/Coding Visit Charges Inpatient E&M: 66259 Subs Hosp L2
[2024-01-30] MEDS: traZODone 100 MG Tablet PO (21:54)
[2024-01-31 02:06] VITALS: BP 105/73; PULSE 64; RESP 16; TEMP 36.6; O2SAT 95
[2024-01-31] MEDS: Acetaminophen 325 MG Tablet 650 MG PO ×4 (02:17→22:06)
[2024-01-31] MEDS: 0.9% Normal Saline (1000mL) 1,000 ML 100 ML IV ×3 (02:18→22:16)
[2024-01-31 05:40] LABS: Absolute Lymphocyte Count 3.81 X10^3/uL (0.83-4.51); Absolute Neutrophil Count 5.7 X10^3/uL (2.0-7.7); Basophil# 0.05 X10^3/uL; Basophil% 0.5 % (0-1); Eosinophil# 0.29 X10^3/uL; Eosinophils% 2.6 % (0-5); Hematocrit 32.3 % (37-47); Hemoglobin 9.9 g/dL (12.0-15.0); Lymphocyte # 3.81 X10^3/ul (0.83-4.51); Lymphocyte % 34.7 % (19-41); Mean Corp Hgb Conc 30.7 g/dL (32-36); Mean Corpuscular Volume 88.3 fL (81-99); Mean Platelet Vol. 10.3 fl (6.2-12.0); Monocyte# 0.97 X10^3/uL; Monocyte% 8.8 % (0-10); NRBC Flagged by Analyzer 0 % (0-5); Neutrophil # 5.73 X10^3/uL (2.7-7.7); Neutrophil % 52.2 % (47-70); Platelet Count 241 K/mm3 (150-450); RBC Distribution Width CV 13.6 % (11.6-14.6); RBC Distribution Width SD 44.3 fl (35.1-43.9); Red Blood Count 3.66 M/mm3 (4.2-5.4)
[2024-01-31] MEDS: Piperacil/Tazobactam 3.375 GM in 0.9% Normal Saline (50mL MB+) 50 ML IV ×3 (05:57→22:12)
[2024-01-31] MEDS: Gabapentin 300 MG Capsule PO (06:02)
[2024-01-31] MEDS: Buprenorphine HCl 2 MG TAB.SUBL SL ×3 (06:02→22:06)
[2024-01-31 06:06] VITALS: BP 118/77; PULSE 60; RESP 18; TEMP 36.4; O2SAT 96
[2024-01-31 08:05] VITALS: BP 138/92; PULSE 71; RESP 16; TEMP 36.2; O2SAT 99
[2024-01-31] MEDS: Escitalopram Oxalate 10 MG Tablet PO (09:12)
[2024-01-31] MEDS: Zinc Sulfate 50 mg zinc (220 mg) ORAL capsule PO (09:12)
[2024-01-31] MEDS: Lactobacillis Acidophilus 1 CAP PO ×4 (09:12→22:06)
[2024-01-31] MEDS: Ascorbic Acid 500 MG Tablet 1000 MG PO ×2 (09:12→17:30)
[2024-01-31] MEDS: Pantoprazole Sodium 40 MG Tablet PO (09:12)
[2024-01-31] MEDS: Enoxaparin 40 MG/0.4 ML Syringe SC (09:12)
[2024-01-31] MEDS: Cholecalciferol (Vit D3) 125 MCG CAPSULE (5,000 UNITS) PO (09:12)
[2024-01-31] MEDS: lamoTRIgine 25 MG Tablet PO ×2 (09:12→22:06)
[2024-01-31] MEDS: Ondansetron 8 MG Tablet PO (12:54)
--- NOTE | 2024-01-31 13:38 | PN.HOSP_ITS ---
Reason for Visit Reason for Visit: Diagnoses Sepsis, unspecified organism (01/29/24) Chronic viral hepatitis C (01/29/24) Unspecified viral hepatitis C without hepatic coma (01/29/24) Obesity, unspecified (01/29/24) Alcohol abuse, in remission (01/29/24) Opioid abuse, uncomplicated (01/29/24) Other psychoactive substance abuse, uncomplicated (01/29/24) Acute cystitis without hematuria (01/29/24) Nausea with vomiting, unspecified (01/29/24) Headache, unspecified (01/29/24) Tobacco use (01/29/24) Subjective Subjective Patient was seen and examined today, she was placed on oxygen due to a low pulse ox during the night. Patient has no complaints of any tremor or anxiety. I talked briefly with addiction social and political studies professor about her medical care. Objective Data Objective Data Vital Signs: Vital Signs Temp Pulse Resp BP Pulse Ox O2 Del Method O2 Flow Rate 97.1 F L 71 16 138/92 H 99 Room Air 2 01/31/24 08:05 01/31/24 08:05 01/31/24 08:05 01/31/24 08:05 01/31/24 08:05 01/31/24 12:00 01/31/24 02:06 Oxygen Flow Rate (L/min) 2 Oxygen Delivery Method Room Air Weight: 100.8 kg Body Mass Index (BMI) 39.4 Intake & Output: Intake and Output for Last 24 Hours 01/29/24 01/30/24 01/31/24 23:59 23:59 23:59 Intake Total 2580 / 2580 4126.17 / 4126.17 2465 / 2465 Output Total 2049 / 2049 Balance 2579 / 1979 2076.17 / 2076.17 2465 / 2465 Lab / Micro Data 01/31/24 05:15 01/30/24 03:27 Labs: Laboratory Results - last 24 hr 01/29/24 18:45: Diff Path Review Reviewed 01/30/24 03:27: Diff Path Review May 01/31/24 05:15: WBC 11.0, RBC 3.66 L, Hgb 9.9 L, Hct 32.3 L, MCV 88.3, MCH 27.0, MCHC 30.7 L, RDW Std Deviation 44.3 H, RDW Coeff of William 13.6, Plt Count 241, MPV 10.3, Immature Gran % (Auto) 1.200 H, Neut % (Auto) 52.2, Lymph % (Auto) 34.7, Coffey % (Auto) 8.8, Eos % (Auto) 2.6, Baso % (Auto) 0.5, Absolute Neuts (auto) 5.7, Absolute Lymphs (auto) 3.81, Nucleated RBC % 0 Micro: Microbiology 01/29/24 18:55 Urine, Clean Catch Urine Culture - Final Mixed Gram Positive Organisms Radiography Diagnostic Testing: Radiology Impression Echocardiogram 01/29/24 23:40 Interpretation Summary Normal LV size. Left ventricular systolic function is normal. The left ventricular ejection fraction is 55 %. Mild (1+) tricuspid valve insufficiency. Ordering Physician: Francisco Olsen Performed By: Edison Lozano RCS Physical Exam Narrative alert, oriented x3, no apparent distress and healthy appearing General Appearance: cooperative, well kempt and well developed Orientation / Consciousness: awake, oriented to person, oriented to place and oriented to time HEENT normocephalic, head/scalp atraumatic and moist oral mucous membranes Eyes PERRL, EOMs intact bilaterally and conjunctivae normal Neck supple, no JVD, thyroid normal and no carotid bruits General: trachea midline Resp normal respiratory effort, no retractions, no use of accessory muscles and clear to auscultation bilaterally Auscultation: Negative for rales, rhonchi or wheezes Cardio regular rate, regular rhythm, S1 normal heart sound, S2 normal heart sound, no murmurs, no rub and no gallops GI normal to inspection, nondistended, normoactive bowel sounds, soft to palpation, non-tender and non-distended Extremity no clubbing, cyanosis or edema Skin no rashes or lesions noted General Skin Exam: no breakdown Neuro oriented x3, CN's II-XII intact bilaterally, moves all extremities, no focal motor deficits and no sensory deficits noted Sensorium / Orientation: awake and alert Speech: speech normal Psych affect normal Assessment & Plan Assessment/Plan (1) Acute cystitis without hematuria: PLAN: Plan 1. Acute cystitis-patient remains on Zosyn, urine culture grew out mixed organisms, blood cultures pending #2 opiate substance use disorder-patient has consented to enter the ramp program and will be seen by addiction social and political studies professor today #3 chronic depression-patient is on Lexapro Total clinical time spent by myself addressing patient's medical issues, reviewing all of her data, and collaborating with patient's care team: 25 minutes Charges/Coding Visit Charges Inpatient E&M: 74058 [facility] Hosp L1
[2024-01-31 14:00] VITALS: BP 119/65; PULSE 56; RESP 18; TEMP 36.2; O2SAT 97
[2024-01-31] MEDS: Bisacodyl 10 MG Suppository RC (18:52)
[2024-01-31 19:37] VITALS: BP 164/101; PULSE 62; RESP 15; TEMP 36.4; O2SAT 96
--- NOTE | 2024-01-31 20:01 | NURSING ---
Pt's Grandma (Yeni) requesting update on Pt. Update given on Pt status.
[2024-01-31] MEDS: proMETHazine 25 MG/ML Syringe 12.5 MG IM (20:52)
[2024-01-31 22:00] VITALS: BP 143/83; PULSE 68; RESP 16; TEMP 36.6; O2SAT 95
[2024-01-31] MEDS: traZODone 100 MG Tablet PO (22:11)
[2024-02-01] MEDS: Acetaminophen 325 MG Tablet 650 MG PO ×2 (02:15→12:45)
[2024-02-01 04:06] VITALS: BP 128/80; PULSE 55; RESP 16; TEMP 36.6; O2SAT 98
[2024-02-01] MEDS: Piperacil/Tazobactam 3.375 GM in 0.9% Normal Saline (50mL MB+) 50 ML IV (05:13)
[2024-02-01 08:23] VITALS: BP 136/89; PULSE 55; RESP 18; TEMP 36.3; O2SAT 97
--- NOTE | 2024-02-01 08:53 | RAD_ITS ---
STUDY: X-RAY CHEST REASON FOR EXAM: Female, 28 years old. Atypical chest pain TECHNIQUE: PA and lateral views of the chest. COMPARISON: 11/27/2021 FINDINGS: Lungs are expanded with patchy opacifications noted in both lower lung bustillo suggesting a diffuse inflammatory process, Covid pneumonia can have this appearance. There is no demonstrated pleural abnormality. Normal size heart. Normal mediastinum and puja. Normal visualized pulmonary arteries. Normal visualized aortic arch and descending thoracic aorta. Normal visualized thoracic spine. Normal visualized ribs, clavicles, and shoulders. There is no demonstrated abnormality of the visualized soft tissue structures of the upper abdomen. RAD/Chest PA and Lateral IMPRESSION: Diffuse patchy airspace opacifications in both lower lung bustillo without pleural effusions. Findings can be seen with acute bronchitis but also with Covid pneumonia. Follow-up recommended to assure complete resolution Electronically Signed: Adal Howell MD at 10:10 EST ,
[2024-02-01] MEDS: Mag Hydrox/Al Hydrox/Simeth 30 ML UDC PO (09:18)
[2024-02-01] MEDS: proMETHazine 25 MG/ML Syringe 12.5 MG IM (10:23)
--- NOTE | 2024-02-01 12:33 | PCM.DC ---
Discharge Instructions Diet Discharge Diet: No restrictions DC O2, CPAP, BIPAP needs PSN CPAP & BiPAP: BiPAP & CPAP Settings per PSN Fraction of Inspired Oxygen ( 2 02/01/24 04:06 FIO2) Additional Home O2 Discharge instructions: No Dressing / Incision Discharge Activity: Return to Normal Activity Weight Bearing Status: Full weight bearing Follow Up Care Test Results: Test results from this visit will be discussed in further detail at your follow-up appointment, if applicable. Discharge Plan Admission Admit Date/Time: 01/29/24 21:21 Primary Reason for Your Visit: OPIATE SUBSTANCE USE DISORDER Attending Provider: Cooper Mcconnell Primary Care Provider: Susana Draper Consulting Providers: Francisco Olsen Instructions Additional Instructions / Restrictions: FOLLOW UP WITH 180 DIRECTED Discharge Orders/Prescriptions Prescriptions: New cephalexin 500 mg capsule 500 mg PO TID Qty: 18 0RF Rx Instructions: START THIS AFTERNOON Continued pantoprazole [Protonix] 40 mg tablet,delayed release (DR/EC) 40 mg PO DAILY 20 Days Qty: 20 0RF lamotrigine 25 mg tablet 25 mg PO BID escitalopram oxalate 10 mg tablet 10 mg PO DAILY [id number] 50-325-40 mg tablet 2 tab PO BID Referrals / Follow Up: Susana Draper, [employer] [Primary Care Provider] - Disposition Disposition (needs filled in before D/C Order can be placed): Home, Self Care
--- NOTE | 2024-02-01 12:37 | PCM.DC.SUM ---
Providers Date of Admission: 01/29/24 Date of Discharge: 02/01/24 Primary Care Physician: ZOILA Vincent, [facility]OWN CERAMIST-C Consultations 01/29/24 22:56 Consult: Phy Therapist / Pulmonary Medicine Routine Consulting Provider: Intensivists/Pulmonary Med Reason for Consult: UTI with Sepsis in the setting of IVDA. EMERGENT Consult: No MD Notified: No Date Notified: 01/29/24 Time Notified: 21:27 Reason For Visit: UTI, SEPSIS AND IVDA WITH HEADACHE Diagnosis Discharge Diagnosis (1) Acute cystitis without hematuria: Status: Acute Code(s): N30.00 - Acute cystitis without hematuria Plan 1. Acute cystitis-patient remains on Zosyn, urine culture grew out mixed organisms, blood cultures pending #2 opiate substance use disorder-patient has consented to enter the ramp program and will be seen by addiction executive secretary social welfare today #3 chronic depression-patient is on Lexapro Total clinical time spent by myself addressing patient's medical issues, reviewing all of her data, and collaborating with patient's care team: 25 minutes Medications at Discharge Home Medications pantoprazole 40 mg tablet,delayed release (Protonix) 40 mg PO DAILY 20 days #20 tabs 11/06/23 jovzableaf-pzmadxyxvmbnj-yrbukyug 50 mg-325 mg-40 mg tablet 2 tab PO BID migraines 01/29/24 escitalopram oxalate 10 mg tablet 10 mg PO DAILY depression 01/29/24 lamotrigine 25 mg tablet 25 mg PO BID BPD 01/29/24 cephalexin 500 mg capsule 500 mg PO TID #18 caps 02/01/24 Hospital Course Operations None Procedures None Summary of Care Provided Minutes Spent on Discharge: 30 Hospital Course: This 28-year-old white female was seen in the emergency room at [facility] with complaints of headache, she had been evaluated at [facility] earlier in the day, she had a CT of her head performed and was given medication and discharged home. She took a nap but then woke up with a severe headache and felt as if she was drunk, she did admit to using IV fentanyl which is a chronic habit for the patient. Patient stated that she was ready to go into the ramp program here at the hospital. Workup in the emergency room showed the patient to have an elevated white blood cell count and signs on her UA of cystitis. Patient was given IV antibiotics and admitted to ICU initially, the next day she was transferred out to [facility] and seen in consultation by the addiction social director field services. It was the patient's desire that she do an outpatient program for follow-up at [facility]. On 02/01/2024, patient was seen and examined: On examination she appeared in good health and spirits, she does not appear to be in any distress. Vital signs as documented. Skin warm and dry and without overt rashes. Neck without JVD, thyroid appears normal, trachea is midline, neck is supple. Lungs clear, normal air movement was noted. Heart exam notable for regular rhythm, normal sounds and absence of murmurs, rubs or gallops. Abdomen unremarkable and without evidence of organomegaly, masses, or abdominal aortic enlargement, bowel sounds are present in all 4 quadrants, no abdominal tenderness was noted. Extremities nonedematous, no cyanosis was noted, no clubbing was noted. Neuro: Cranial nerves II through XII are grossly intact, no focal motor deficits were noted, sensation to light touch and pinprick is intact, motor exam 5/5 throughout. Psych: Patient is alert and oriented x3, she does not appear anxious or depressed, she does not appear agitated. Patient was discharged home in stable condition on 02/01/2024 Weight / BMI Weight Weight: 100.8 kg Body Mass Index (BMI) 39.4 ABG / Lab / Microbiology Data 01/31/24 05:15 01/30/24 03:27 Microbiology: Microbiology 01/29/24 21:15 Blood Culture (Wb) - No Site/Description Given Blood Culture - Preliminary No growth in 48 hours. 01/29/24 19:22 Blood Culture (Wb) - Left Wrist Blood Culture - Preliminary No growth in 48 hours. 01/29/24 18:55 Urine, Clean Catch Urine Culture - Final Mixed Gram Positive Organisms Radiography Diagnostic Testing: Radiology Impression Chest X-Ray 02/01/24 08:53 IMPRESSION: Diffuse patchy airspace opacifications in both lower lung bustillo without pleural effusions. Findings can be seen with acute bronchitis but also with Covid pneumonia. Follow-up recommended to assure complete resolution Electronically Signed: Adal Howell MD at 10:10 EST , D/C Instructions Discharge Diet: No restrictions Weight Bearing Status: Full weight bearing DC O2, CPAP, BIPAP Needs PSN CPAP & BiPAP: BiPAP & CPAP Settings per PSN Fraction of Inspired Oxygen ( 2 02/01/24 04:06 FIO2) Additional Home O2 Discharge instructions: No DC home with Oxygen: No Meaningful Use Info Meaningful Use Meaningful Use Diagnoses (Choose all that apply): None applicable Ischemic Stroke Statin Dosing Therapy Reference: STATIN DOSE THERAPY REFERENCE: * Patients > 75 years receive moderate or high dose statin therapy. * Patients 75 years or YOUNGER should receive HIGH intensity statin dose unless contraindicated. You will be required to document reason for non-treatment if statin daily dose does not meet guidelines. HIGH DOSE STATIN THERAPY DAILY Atorvastatin > than or = to 40 mg Rosuvastatin > than or = to 20 mg Amlodipine + Atorvastatin > than or = to 2.5/40 mg Ezetimibe + Simvastatin 10/80 mg Simvastatin 80mg Discharge Plan Admission Admit Date/Time: 01/29/24 21:21 Primary Reason for Your Visit: OPIATE SUBSTANCE USE DISORDER Attending Provider: Cooper Mcconnell Primary Care Provider: Susana Draper Consulting Providers: Francisco Olsen Instructions Additional Instructions / Restrictions: FOLLOW UP WITH 180 DIRECTED Discharge Orders/Prescriptions Prescriptions: New cephalexin 500 mg capsule 500 mg PO TID Qty: 18 0RF Rx Instructions: START THIS AFTERNOON Continued pantoprazole [Protonix] 40 mg tablet,delayed release (DR/EC) 40 mg PO DAILY 20 Days Qty: 20 0RF lamotrigine 25 mg tablet 25 mg PO BID escitalopram oxalate 10 mg tablet 10 mg PO DAILY tdhixgwkan-kpdqpywzokuht-xlwb 50-325-40 mg tablet 2 tab PO BID Referrals / Follow Up: Susana Draper, CROWN CERAMIST-C [Primary Care Provider] - Disposition Disposition (needs filled in before D/C Order can be placed): Home, Self Care Charges/Coding Visit Charges Inpatient E&M: 50428 Disch Hosp
[2024-02-01] MEDS: Buprenorphine HCl 2 MG TAB.SUBL SL (12:39)
[2024-02-01] MEDS: Magnesium Hydroxide 30 ML UDC PO (12:42)
[2024-02-01] MEDS: Cholecalciferol (Vit D3) 125 MCG CAPSULE (5,000 UNITS) PO (12:42)
[2024-02-01] MEDS: Enoxaparin 40 MG/0.4 ML Syringe SC (12:42)
[2024-02-01] MEDS: Ascorbic Acid 500 MG Tablet 1000 MG PO (12:42)
[2024-02-01] MEDS: lamoTRIgine 25 MG Tablet PO (12:43)
[2024-02-01] MEDS: Lactobacillis Acidophilus 1 CAP PO (12:43)
[2024-02-01] MEDS: Escitalopram Oxalate 10 MG Tablet PO (12:43)
[2024-02-01] MEDS: Pantoprazole Sodium 40 MG Tablet PO (12:43)
[2024-02-01] MEDS: Zinc Sulfate 50 mg zinc (220 mg) ORAL capsule PO (12:43)
[2024-02-01 14:42] VITALS: BP 133/75; PULSE 57; RESP 16; TEMP 36.4; O2SAT 94
== END 2024-02-01 14:54 | disposition home or self-care (01) | DRG 463 ==
LOC: ED 20:54 → ICU 22:55 → MS3 01-30 14:15
PROVIDERS: Admitting Provider Internal Medicine; Emergency Provider Emergency Medicine; PCP Nurse Practitioner Family; Visit Provider Internal Medicine
DX: N30.00 Acute cystitis without hematuria (principal); E87.20 Acidosis, unspecified; B18.2 Chronic viral hepatitis C; F11.10 Opioid abuse, uncomplicated; E03.9 Hypothyroidism, unspecified; F32.A Depression, unspecified; Z68.39 Body mass index [BMI] 39.0-39.9, adult; F41.9 Anxiety disorder, unspecified; K21.9 Gastro-esophageal reflux disease without esophagitis; F17.210 Nicotine dependence, cigarettes, uncomplicated; R51.9 Headache, unspecified; E66.9 Obesity, unspecified; Z79.891 Long term (current) use of opiate analgesic; B96.89 Other specified bacterial agents as the cause of diseases classified elsewhere
CPT/HCPCS: 36415; 70496; 71046; 71260; 74177; 80048; 80307; 81001; 82077; 83036; 83605; 84443; 84703; 85025; 85652; 86140; 87040; 87086; 87088; 93306; 94668; 97802; 99285; J7030; J7040; Q9957; Q9967; A4216

== ENCOUNTER 2024-02-16 02:19 | Observation (INO) | payer MEDICAID, SELFPAY ==
[2024-02-16] VITALS (10 sets, daily range): BP systolic 111–147; BP diastolic 64–98; PULSE 60–89; RESP 15–18; TEMP 36.4–36.7; O2SAT 95–100; BMI 38.0; BMI 37.3
--- NOTE | 2024-02-16 02:37 | EX.ED.SAOD ---
HPI History of Present Illness Chief Complaint: Substance Abuse Informant: patient Narrative Narrative: Request detox from fentanyl IV use. Discharged from the hospital couple weeks ago when she was admitted for medical issues. She started the ramp program. However upon discharge she did not follow-up. She states she went to work the next day. She started injecting the next day. She injects 4-5 times a day. Last use was 2 AM. Also stated she started drinking alcohol since last discharge 3 tall boys every other day. Denies chronic use of this. She states fentanyl withdrawal symptoms are shakes and nausea. She had her menstrual period right when she was discharged 2 weeks ago. Denies any current nausea or vomiting. She has wounds to her face left breast she states from scratching. History of abscesses. Denies fever or chills. She denies any suicidal or homicidal ideations. Prior similar symptoms: Yes PFSH PFSH Medical History Marijuana smoker Obesity (BMI 30-39.9) History of ETOH abuse Tobacco abuse Nausea and vomiting Headache Acute cystitis without hematuria Sepsis Acidosis, lactic Leukocytosis Opiate abuse, continuous Substance abuse Alcohol abuse Hepatitis C Scoliosis Obesity (BMI 30-39.9) Scabies Hypothyroidism Asthma Hx of gastroesophageal reflux (GERD) Smoker Anxiety Depression Home Medications ?Medication ?Instructions ?Recorded ?Last Taken ?Type escitalopram oxalate 10 mg tablet 10 mg PO DAILY depression 01/29/24 01/29/24 History lamotrigine 25 mg tablet 25 mg PO BID BPD 01/29/24 01/29/24 History Allergy/AdvReac Type Severity Reaction Status Date / Time adhesive Allergy Rash Verified 02/16/24 02:20 Latex, Natural Rubber Allergy Rash Verified 02/16/24 02:20 sulfamethoxazole (From Allergy Itching Verified 02/16/24 02:20 Bactrim) trimethoprim (From Bactrim) Allergy Itching Verified 02/16/24 02:20 albuterol AdvReac Other Verified 02/16/24 02:20 Family History Other Hypertension Social History Smoking Status: Current every day smoker tobacco type: e-cigarettes substance use type: does not use ROS ROS ED Constitutional Constitutional ED: Denies chills, fever(s) or sweats ENT ENT ED: Denies sore throat Cardiovascular Cardiovascular: Denies chest pain, leg edema, palpitations or racing heartbeat Respiratory/Chest Respiratory/Chest: Denies cough, dyspnea or dyspnea on exertion Gastrointestinal Gastrointestinal: Denies abdominal pain, diarrhea, nausea or vomiting Genitourinary Genitourinary ED: Denies dysuria, hematuria or urinary frequency Musculoskeletal Musculoskeletal: Denies back pain, extremity pain or neck pain Integumentary Reports wounds; Denies rash Neurologic Neurologic: Denies headache(s), paresthesias or weakness EXAM Physical Exam Const Vital Signs: 02/16/24 02:21 02/16/24 03:30 02/16/24 03:58 Temperature 97.7 F L 97.8 F Temperature Source Oral Pulse Rate 89 66 60 Respiratory Rate 18 16 16 Blood Pressure 135/90 H 125/80 H 125/80 H Blood Pressure Mean 105 95 95 Pulse Ox 95 100 100 Oxygen Delivery Method Room Air Room Air 02/16/24 04:00 Temperature Temperature Source Pulse Rate 77 Respiratory Rate 16 Blood Pressure 122/84 H Blood Pressure Mean 96 Pulse Ox 100 Oxygen Delivery Method Room Air Positive well nourished and well developed General Appearance ED: well developed and NAD HEENT Reports moist mucous membranes HEENT Narrative: Scabbing noted right outer lip. No drainage. Scattered scabbing frontal scalp. 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 Chest: Negative for tenderness Resp normal respiratory effort and normal air movement Effort and Inspection: symmetric chest movement; Negative for respiratory distress Cardio regular rate, regular rhythm and no murmurs Peripheral Pulses: pulses 2+ throughout GI normal to inspection, nondistended, normoactive bowel sounds and non-tender Palpation: Negative for guarding or rebound tenderness present Extremity normal to inspection Extremity Narrative: Right wrist COVID track rodrick noted slight swelling no active drainage. Left hand: Dorsally track hollingsworth with slight swelling there is no active drainage. General Extremety ED: Negative for edema or tenderness General Extremity: Negative for edema Neuro oriented x3 and no sensory deficits noted Sensorium / Orientation: awake and alert Psych Psych Narrative: No suicidal homicidal ideations. Skin Skin Narrative: See above MDM MDM MDM Narrative Medical decision making narrative: Interventions / MDM: Differential diagnosis: Fentanyl dependence, IV drug abuse Diagnosis considered but do not suspect: No clinical abscess or cellulitis My EKG interpretation: N/A Imaging independently reviewed and interpreted by myself: N/A External documents reviewed: N/A Test considered but not ordered:N/A ED course: Patient here with fentanyl dependence with relapse. History of IV drug abuse. No fevers. Her oral examination more scabbing from picking. There is no abscess concerns at this time. She reports alcohol use every other day at 3 cans this is new for her. I do not feel there is alcohol withdrawal concerns. Her last use 30 minutes prior to arrival. Labs will be drawn, will plan to discuss with hospitalist for admission for ramp program. 0345: Labs only significant slight hypokalemia 3.1. Oral replacement ordered. White count 7.7. negative. Toxicology positive for barbiturates and amphetamine. Alcohol pending. Clinically not intoxicated. 0350: I spoke with hospitalist Dr. Nance for admission for detox. Alcohol level returned negative. Re-evaluation: stable Disposition discussed with patient/family/significant other: Patient Case discussed with consulting clinician: Hospitalist This note was generated with [employer] dictation software. It may contain incorrect words, spelling, and punctuation that were not noted in checking the note before signing. Lab Data Labs: Laboratory Results - last 24 hr 02/16/24 02/16/24 02/16/24 02:52 02:58 03:49 WBC 7.7 RBC 4.73 Hgb 12.6 Hct 39.8 MCV 84.1 MCH 26.6 L MCHC 31.7 L RDW Std Deviation 41.4 RDW Coeff of William 13.4 Plt Count 313 MPV 10.9 Immature Gran % (Auto) 0.300 Neut % (Auto) 43.9 L Lymph % (Auto) 41.2 H [place] % (Auto) 11.8 H Eos % (Auto) 2.2 Baso % (Auto) 0.6 Absolute Neuts (auto) 3.4 Absolute Lymphs (auto) 3.18 Nucleated RBC % 0 Sodium 138 Potassium 3.1 L Chloride 106 Carbon Dioxide 25.0 Anion Gap 7 BUN 6 L Creatinine 0.66 Estim Creat Clear Calc 138.44 Est GFR (MDRD) Af Amer 134 Est GFR (MDRD) Non-Af 111 BUN/Creatinine Ratio 9.1 L Glucose 92 Calcium 9.4 Total Bilirubin 0.30 AST 32 ALT 61 H Alkaline Phosphatase 106 Total Protein 7.5 Albumin 3.6 Globulin 3.9 Albumin/Globulin Ratio 0.9 Serum , Qual NEGATIVE Urine Opiates Screen NEGATIVE Urine Methadone Screen NEGATIVE Ur Barbiturates Screen POSITIVE H Ur Phencyclidine Scrn NEGATIVE Ur Amphetamines Screen POSITIVE H MDMA (Ecstasy) Screen NEGATIVE U Benzodiazepines Scrn NEGATIVE Urine Cocaine Screen NEGATIVE U Cannabinoids Screen NEGATIVE Ur Drug Screen Comment Ethyl Alcohol < 3.0 Discharge Plan Triage Chief Complaint: Substance Abuse ED Provider: David Ritter Dx/Rx/DC Orders Clinical Impression: Fentanyl dependence, Intravenous drug abuse, Hypokalemia, Polysubstance abuse Primary Care Provider: Susana Draper Disposition Disposition: Acute Care Hospital [facility] [place] [facility]
[2024-02-16 03:16] LABS: Absolute Lymphocyte Count 3.18 X10^3/uL (0.83-4.51); Absolute Neutrophil Count 3.4 X10^3/uL (2.0-7.7); Basophil# 0.05 X10^3/uL; Basophil% 0.6 % (0-1); Eosinophil# 0.17 X10^3/uL; Eosinophils% 2.2 % (0-5); Hematocrit 39.8 % (37-47); Hemoglobin 12.6 g/dL (12.0-15.0); Lymphocyte # 3.18 X10^3/ul (0.83-4.51); Lymphocyte % 41.2 % (19-41); Mean Corp Hgb Conc 31.7 g/dL (32-36); Mean Corpuscular Hgb 26.6 pg (27.0-32.0); Mean Corpuscular Volume 84.1 fL (81-99); Mean Platelet Vol. 10.9 fl (6.2-12.0); Monocyte# 0.91 X10^3/uL; Monocyte% 11.8 % (0-10); NRBC Flagged by Analyzer 0 % (0-5); Neutrophil # 3.39 X10^3/uL (2.7-7.7); Neutrophil % 43.9 % (47-70); Platelet Count 313 K/mm3 (150-450); RBC Distribution Width CV 13.4 % (11.6-14.6); RBC Distribution Width SD 41.4 fl (35.1-43.9); Red Blood Count 4.73 M/mm3 (4.2-5.4); White Blood Count 7.7 K/mm3 (4.4-11.0)
[2024-02-16 03:27] LABS: Internal QC Validated? YES +Cl - CLEAR BKGD; Pregnancy, Serum, hCG Quali. NEGATIVE Negative
[2024-02-16 03:33] LABS: ALB/GLOB Ratio 0.9 RATIO (0.9-2.4); AST(SGOT) 32 U/L (15-37); Alanine Aminotransfer ALT/SGPT 61 U/L (13-56); Albumin, Serum 3.6 g/dL (3.2-5.0); Alkaline Phosphatase 106 U/L (45-117); Anion Gap 7 (5-15); BUN 6 mg/dL (7-18); BUN/Creat Ratio 9.1 RATIO (10-20); Calcium,Total 9.4 mg/dL (8.5-10.1); Chloride 106 mmol/L (98-107); Creatinine, Serum 0.66 mg/dL (0.55-1.02); EST Glomerular Filtration Rate 111 mL/min (>60); Est Glom Filt Rate - Afr Amer 134 mL/min (>60); Estimated Creatinine Clearance 138.44 ml/min; Globulin 3.9 g/dL (2.2-4.2); Glucose 92 mg/dL (74-106); Potassium 3.1 mmol/L (3.5-5.1); Protein, Total 7.5 g/dL (6.4-8.2); Sodium Level 138 mmol/L (136-145)
[2024-02-16 03:55] LABS: Amphetamine Urine VISTA POSITIVE (<1000 ng/mL); Barbiturate Urine VISTA POSITIVE (< 200 ng/mL); Benzodiazepine Urine VISTA NEGATIVE (< 200 ng/mL); Cocaine Urine VISTA NEGATIVE (< 300 ng/mL); Ecstacy Urine VISTA NEGATIVE (< 500 ng/mL); Methadone Urine VISTA NEGATIVE (< 300 ng/mL); PCP Urine VISTA NEGATIVE (< 25 ng/mL); THC Urine VISTA NEGATIVE (< 50 ng/mL); Vista UDS pH Range 6
[2024-02-16] MEDS: Potassium Chloride Oral Tablet 20 MEQ 40 MEQ PO (03:59)
[2024-02-16] MEDS: Ondansetron ODT 4 MG Tablet PO (04:15)
[2024-02-16 04:23] LABS: Alcohol, Blood (Medical)-Serum < 3.0 mg/dL
--- NOTE | 2024-02-16 05:30 | HP.PCM.HOS_ITS ---
HPI - General General Date of Admission: 02/16/24 HPI Narrative WILFRED PRIEST, is a 28 F who presents to the hospital requesting detox from opiates. Last use was at 0230 this morning. She injects heroin and has been 2 sites on her right and left arm that potentially has injection reactions. She states that she used to have hepatitis C but was treated for it but that she started using over the last 2 months again so would like to be checked for HIV and hepatitis. She does endorse tobacco use with vaping so she would also like to have a nicotine patch as well. She also states that she started drinking since her last admission when she left on 02/01/2024 however blood alcohol level here is negative, given such short duration of alcohol use alcohol withdrawal is unlikely. [facility] Medical History Marijuana smoker Obesity (BMI 30-39.9) History of ETOH abuse Tobacco abuse Nausea and vomiting Headache Acute cystitis without hematuria Sepsis Acidosis, lactic Leukocytosis Opiate abuse, continuous Substance abuse Alcohol abuse Hepatitis C Scoliosis Obesity (BMI 30-39.9) Scabies Hypothyroidism Asthma Hx of gastroesophageal reflux (GERD) Smoker Anxiety Depression Home Medications ?Medication ?Instructions ?Recorded ?Last Taken ?Type escitalopram oxalate 10 mg tablet 10 mg PO DAILY depression 01/29/24 01/29/24 History lamotrigine 25 mg tablet 25 mg PO BID BPD 01/29/24 01/29/24 History Allergy/AdvReac Type Severity Reaction Status Date / Time adhesive Allergy Rash Verified 02/16/24 02:20 Latex, Natural Rubber Allergy Rash Verified 02/16/24 02:20 sulfamethoxazole (From Allergy Itching Verified 02/16/24 02:20 Bactrim) trimethoprim (From Bactrim) Allergy Itching Verified 02/16/24 02:20 albuterol AdvReac Other Verified 02/16/24 02:20 Family History Other Hypertension no surgical history Social History Smoking Status: Current every day smoker tobacco type: e-cigarettes substance use type: does not use ROS Constitutional Constitutional: Denies chills, fatigue, fever(s) or malaise Eyes Eyes: Denies blurry vision ENT HEENT: Denies headache(s) or nasal discharge Cardiovascular Cardiovascular: Denies chest pain, dyspnea on exertion or syncope Respiratory/Chest Respiratory/Chest: Denies cough, shortness of breath at rest or shortness of breath with exertion Gastrointestinal Gastrointestinal: Denies constipation, diarrhea, nausea or vomiting Genitourinary Genitourinary: Denies dysuria Neurologic Neurologic: Denies focal weakness, numbness or tremor(s) Psychiatric Psychiatric: Denies anxiety or depression Vital Signs Vital Signs Vital Signs: 02/16/24 02:21 02/16/24 03:30 02/16/24 03:58 Temperature 97.7 F L 97.8 F Temperature Source Oral Pulse Rate 89 66 60 Respiratory Rate 18 16 16 Blood Pressure 135/90 H 125/80 H 125/80 H Blood Pressure Mean 105 95 95 Blood Pressure Source Blood Pressure Position Pulse Ox 95 100 100 Oxygen Delivery Method Room Air Room Air 02/16/24 04:00 02/16/24 05:00 02/16/24 05:26 Temperature 97.6 F L Temperature Source Oral Pulse Rate 77 88 71 Respiratory Rate 16 16 16 Blood Pressure 122/84 H 135/98 H 132/91 H Blood Pressure Mean 96 110 104 Blood Pressure Source Monitor Blood Pressure Position Semi-Fowlers Pulse Ox 100 100 100 Oxygen Delivery Method Room Air Room Air Room Air Weight Weight: 214 lb 8.156 oz Body Mass Index (BMI) 38.0 Physical Exam Narrative General: Alert, Oriented x3, Cooperative, No apparent distress HEENT: Atraumatic, PERRLA, EOMI, Normocephalic Oral: Moist Mucosa Neck: Supple, No JVD Lungs: Clear to auscultation, Normal air movement, No rhonchi, No wheeze, No rales Cardiovascular: Regular rate, Regular Rhythm, Normal S1, Normal S2, No murmurs Abdomen: Soft, Non Tender, Non-Distended, No Hepato-splenomegaly Extremities: No edema, Capillary Refill Less than 3 Seconds Skin: Right hand and left hand injection site reaction possible early infection no cellulitis or redness Musculoskeletal: No Tenderness to Palpation of Joints or Extremities Neurological: No focal neurological deficits, Motor Exam 5/5 strength throughout, Sensory exam intact to light touch and pain Psych/Mental Status: Normal Affect, Appropriate Results Lab / Micro Data 02/16/24 02:58 02/16/24 02:58 Labs: Laboratory Results - last 24 hr 02/16/24 02:52: Urine Opiates Screen NEGATIVE, Urine Methadone Screen NEGATIVE, Ur Barbiturates Screen POSITIVE H, Ur Phencyclidine Scrn NEGATIVE, Ur Amphetamines Screen POSITIVE H, MDMA (Ecstasy) Screen NEGATIVE, U Benzodiazepines Scrn NEGATIVE, Urine Cocaine Screen NEGATIVE, U Cannabinoids Screen NEGATIVE, Ur Drug Screen Comment 02/16/24 02:58: WBC 7.7, RBC 4.73, Hgb 12.6, Hct 39.8, MCV 84.1, MCH 26.6 L, M CHC 31.7 L, RDW Std Deviation 41.4, RDW Coeff of William 13.4, Plt Count 313, MPV 10.9, Immature Gran % (Auto) 0.300, Neut % (Auto) 43.9 L, Lymph % (Auto) 41.2 H, [place] % (Auto) 11.8 H, Eos % (Auto) 2.2, Baso % (Auto) 0.6, Absolute Neuts (auto) 3.4, Absolute Lymphs (auto) 3.18, Nucleated RBC % 0, Sodium 138, Potassium 3.1 L , Chloride 106, Carbon Dioxide 25.0, Anion Gap 7, BUN 6 L, Creatinine 0.66, Estim Creat Clear Calc 138.44, Est GFR (MDRD) Af Amer 134, Est GFR (MDRD) Non-Af 111, BUN/Creatinine Ratio 9.1 L, Glucose 92, Calcium 9.4, Total Bilirubin 0.30, AST 32, ALT 61 H, Alkaline Phosphatase 106, Total Protein 7.5, Albumin 3.6, Globulin 3.9, Albumin/Globulin Ratio 0.9, Serum , Qual NEGATIVE 02/16/24 03:49: Ethyl Alcohol < 3.0 Assessment & Plan Assessment/Plan (1) Intravenous drug abuse: PLAN: Plan 1. IV drug use requesting opiate detox/tobacco abuse/alcohol use/bipolar disorder ? Continue with the opiate withdrawal protocol ? Continue with nicotine patch ? Discussed tobacco cessation ? Continue with her home escitalopram and Lamictal ? Will have her follow-up with 180, she has a appointment for at 4 PM for intake with 180 as an outpatient ? Will check HIV and hepatitis panels DVT: Ambulation 75 minutes was spent on direct patient care, including documentation as well as chart review and collaboration with colleagues Charges/Coding Visit Charges Inpatient E&M: 40760 Init Hosp L3
[2024-02-16] MEDS: Gabapentin 300 MG Capsule PO ×2 (06:29→22:22)
--- NOTE | 2024-02-16 08:41 | PCM.HOSP.N ---
Hospitalist Note 28-year-old female who was just recently discharged on 02/01/2020 for presented to the emergency department requesting detox from opiates. Opiate use is IVDU with last injection being at 2:30 in the morning of admission. Patient acknowledges a history of hepatitis C but was treated. HIV and hepatitis studies are pending. Subutex per COWS protocol with supportive medication for withdrawal symptoms. COWS thus far has been 0 and buprenorphine has not yet been initiated. 180 following.
[2024-02-16] MEDS: Escitalopram Oxalate 10 MG Tablet PO (09:05)
[2024-02-16] MEDS: lamoTRIgine 25 MG Tablet PO ×2 (09:05→22:17)
[2024-02-16] MEDS: Ensure Plus High Protein 120 ML LIQUID PO ×4 (09:07→22:16)
[2024-02-16] MEDS: hydrOXYzine PAM 25 MG Capsule 50 MG PO ×2 (09:10→17:58)
[2024-02-16 10:21] LABS: HIV - WCH Non-Reactive (Nonreactive)
[2024-02-16] MEDS: Ondansetron 8 MG Tablet PO (14:08)
[2024-02-16] MEDS: Acetaminophen 500 MG Tablet 1000 MG PO (14:30)
[2024-02-16] MEDS: traZODone 100 MG Tablet PO (22:35)
[2024-02-17] MEDS: cloNIDine HCl 0.1 MG Tablet PO ×3 (02:07→23:24)
[2024-02-17] MEDS: hydrOXYzine PAM 25 MG Capsule 50 MG PO ×3 (02:07→23:25)
[2024-02-17 04:15] VITALS: BP 114/53; PULSE 78; RESP 15; RESP 17; TEMP 36.8; O2SAT 94
[2024-02-17 07:09] LABS: Anion Gap 3 (5-15); BUN 9 mg/dL (7-18); BUN/Creat Ratio 12.2 RATIO (10-20); Calcium,Total 9.3 mg/dL (8.5-10.1); Chloride 111 mmol/L (98-107); Creatinine, Serum 0.74 mg/dL (0.55-1.02); EST Glomerular Filtration Rate 98 mL/min (>60); Est Glom Filt Rate - Afr Amer 119 mL/min (>60); Estimated Creatinine Clearance 122.36 ml/min; Glucose 103 mg/dL (74-106); Magnesium 2.3 mg/dL (1.6-2.6); Phosphorus 4.4 mg/dL (2.5-4.9); Sodium Level 140 mmol/L (136-145)
--- NOTE | 2024-02-17 08:23 | PN.HOSP_ITS ---
Reason for Visit Reason for Visit: Diagnoses Other psychoactive substance abuse, uncomplicated (02/16/24) Subjective Subjective Patient overnight with ongoing withdrawal symptoms including body aches, nausea without emesis, abdominal cramping mildly worsened since day prior. Discussed that likely she would based on taper timeline start to improve over next 24 hours. Discussed plan of care with patient which included eventual transition to 180 as she does have already a follow-up in place on 02/19/2024. Patient denies fevers, chills, chest pain or dyspnea. Objective Data Objective Data Vital Signs: Vital Signs Temp Pulse Resp BP Pulse Ox O2 Del Method 98.2 F 78 15 114/53 L 94 Room Air 02/17/24 04:15 02/17/24 04:15 02/17/24 04:15 02/17/24 04:15 02/17/24 04:15 02/17/24 04:15 Oxygen Delivery Method Room Air Weight: 211 lb Body Mass Index (BMI) 37.3 Medical Nutrition Assessment Dietitian: Malnutrition Criteria Met Start: 02/16/24 14:52 Freq: Status: Active Protocol: Document 02/16/24 14:52 SB (Rec: 02/16/24 14:52 SB [id number]) Nutrition Malnutrition Evidence of Malnutrition Exists Yes Malnutrition (severe): Acute Illness/Injury Evidenced By Suboptimal Energy Intake ( Severe),Weight Loss (Severe) Intake Problem Inadequate Oral Intake Etiology related to drug use Signs/Symptoms as evidenced by PO meeting <50 % of estimated nutrition needs x 2 months. Status Active Problem Clinical Problem Acute Disease or Injury Related Malnutrition Etiology severe related to inadequate oral intake d/t drug use Signs/Symptoms as evidenced by PO meeting <50 % of estimated nutrition needs and 8% unintentional weight loss x 2 months. Status Active Problem Recommendation Dietitian Recommendations/Changes Continue regular diet and 120ml ensure plus high protein 4x daily with medpass. Will monitor weight, as available. Reviewed and approved by Michaela Allred RD, LD. Lab / Micro Data 02/16/24 02:58 02/17/24 06:09 Labs: Laboratory Results - last 24 hr 02/16/24 09:18: HIV 1&2 Antibody Non-Reactive 02/17/24 06:09: Sodium 140, Potassium 4.0, Chloride 111 H, Carbon Dioxide 26.0, Anion Gap 3 L, BUN 9, Creatinine 0.74, Estim Creat Clear Calc 122.36, Est GFR (MDRD) Af Amer 119, Est GFR (MDRD) Non-Af 98, BUN/Creatinine Ratio 12.2, Glucose 103, Calcium 9.3, Phosphorus 4.4, Magnesium 2.3 Physical Exam Narrative Physical Examination: General: Awake, alert, oriented x 3 and cooperative, laying in the PCU bed, fatigued, notes ongoing withdrawal symptoms. Skin: Normal color, normal turgor, no icterus, no cyanosis except occasional stage ecchymoses, abrasion. HEENT: AT/NC, EOMI, PERRLA, MMM. Lungs: Mildly diminished, greater bases, poor effort, no rales, ronchi or wheezing. Heart: Regular rate and rhythm; no gallop, rub audible. Abdomen: Soft, mild generalized discomfort with no rebound or guarding, ND, mildly hyperactive BS. Extremities: No cyanosis, clubbing, or edema. Neurological: Patient awake, alert, oriented as noted, cognitive function intact; pupils equally reactive to light and accommodation, cranial nerves grossly normal, moving all 4 extremities, no focal deficits, strength mildly to moderately globally decreased secondary to acute presentation complaints Psychiatric: Affect appears fatigued, no acute evidence of depressive or anxiety feelings but does have underlying history. Assessment & Plan Assessment/Plan (1) Intravenous drug abuse: PLAN: Plan The patient is a 28 y/o F w/ PMHx: Obesity, Hypothyroidism, Hx EtOH abuse, Polysubstance abuse with Hepatitis C, Anxiety and Depression, GERD, Asthma who presents to the [facility] ED on 02/16/24 with history of acute opiate detoxification with IVDA. #1. Acute Opiate Withdrawal: Related to medical surgical floor, initiated and continued on protocol with tapering course of Subutex, as needed tylenol, ibuprofen, bowel regimen, gabapentin, Bentyl, Vistaril, methocarbamol, clonidine, PRN nightly trazodone for insomnia, IV fluids, IV antiemetics. HIV NR, pending hepatitis panel, NR syphilis assessment. Has upcoming outpatient appt with 180 on 02/19/24, clarifying timeline. #2. Anxiety and depression: We will continue patient home escitalopram and Lamictal regimen, encourage continued outpatient follow-up with counseling and medication adjustments as needed. Per record has upcoming appointment at 4 PM for intake as an outpatient. #3. Polysubstance Abuse, IVDA, History of Hepatitis C, Chronic: HIV NR, pending syphilis and hepatitis panel to assess for co-infection pending. #4. Tobacco Abuse: Encouraged cessation, inpatient consultation per RT, NR if desired. #5. Chart reported history of Hypothyroidism w/ abnormal TSH: Noted in the chart, does not appear to be on any medication, TSH mildly decreased and free T4 normal consistent with subclinical hyperthyroidism. #6. History alcohol abuse: Encourage continued sobriety status per #7. Obesity: Weight loss and lifestyle changes encouraged. #8. Asthma: Not on any chronic regimen, as needed albuterol if necessary, encourage tobacco cessation. #9. GERD: May have as needed Mylanta. #10. DVT prophylaxis: Low risk for type of presentation. Charges/Coding Visit Charges Inpatient E&M: 90179 Subs Hosp L2
[2024-02-17] MEDS: Acetaminophen 500 MG Tablet 1000 MG PO (08:39)
[2024-02-17] MEDS: Gabapentin 300 MG Capsule PO (08:39)
[2024-02-17] MEDS: Ondansetron 8 MG Tablet PO (08:43)
[2024-02-17 09:02] LABS: T4 Free Direct 1.07 ng/dL (0.76-1.46); Thyroid Stim Hormone (TSH) 0.349 uIU/mL (0.358-3.740)
[2024-02-17 09:37] LABS: Syphilis Antibodies Non-reactive
[2024-02-17 10:30] VITALS: BP 118/49; PULSE 69; RESP 18; TEMP 36.5; O2SAT 95
[2024-02-17] MEDS: Ensure Plus High Protein 120 ML LIQUID PO ×4 (10:37→23:24)
[2024-02-17] MEDS: Escitalopram Oxalate 10 MG Tablet PO (10:37)
[2024-02-17] MEDS: lamoTRIgine 25 MG Tablet PO ×2 (10:37→23:25)
[2024-02-17] MEDS: Buprenorphine HCl 2 MG TAB.SUBL SL ×2 (11:07→18:58)
[2024-02-17] MEDS: Dicyclomine 10 MG Capsule 20 MG PO (13:41)
[2024-02-17 15:07] VITALS: BP 92/55; PULSE 64; RESP 16; TEMP 36.6; O2SAT 97
[2024-02-17 23:15] VITALS: BP 106/57; PULSE 64; RESP 18; TEMP 36.4; O2SAT 96
[2024-02-18] MEDS: traZODone 100 MG Tablet PO ×2 (02:45→21:51)
[2024-02-18] MEDS: Buprenorphine HCl 2 MG TAB.SUBL SL ×3 (02:45→18:33)
[2024-02-18 03:05] VITALS: BP 106/60; PULSE 62; RESP 18; TEMP 35.8; O2SAT 97
--- NOTE | 2024-02-18 06:33 | PCM.PN.HOSP ---
Reason for Visit Reason for Visit: Diagnoses Other psychoactive substance abuse, uncomplicated (02/16/24) Subjective Subjective Patient notes feeling improved especially since day prior with currently no nausea and lessened abdominal cramping. She feels less fatigued and achy. She seated upright today and interacting without issue. Discussed current plan of care which included continued taper and from review appears that her taper will not end until 02/20/2020 fourth that she will need to have a 1 ED visit rearranged. Patient denies fevers, chills, nausea, emesis, abdominal pain, chest pain or dyspnea. Objective Data Objective Data Vital Signs: Vital Signs Temp Pulse Resp BP Pulse Ox O2 Del Method 96.4 F L 62 18 106/60 97 Room Air 02/18/24 03:05 02/18/24 03:05 02/18/24 03:05 02/18/24 03:05 02/18/24 03:05 02/18/24 03:05 Oxygen Delivery Method Room Air Weight: 211 lb Body Mass Index (BMI) 37.3 Medical Nutrition Assessment Dietitian: Malnutrition Criteria Met Start: 02/16/24 14:52 Freq: Status: Active Protocol: Document 02/16/24 14:52 SB (Rec: 02/16/24 14:52 SB [id number]) Nutrition Malnutrition Evidence of Malnutrition Exists Yes Malnutrition (severe): Acute Illness/Injury Evidenced By Suboptimal Energy Intake ( Severe),Weight Loss (Severe) Intake Problem Inadequate Oral Intake Etiology related to drug use Signs/Symptoms as evidenced by PO meeting <50 % of estimated nutrition needs x 2 months. Status Active Problem Clinical Problem Acute Disease or Injury Related Malnutrition Etiology severe related to inadequate oral intake d/t drug use Signs/Symptoms as evidenced by PO meeting <50 % of estimated nutrition needs and 8% unintentional weight loss x 2 months. Status Active Problem Recommendation Dietitian Recommendations/Changes Continue regular diet and 120ml ensure plus high protein 4x daily with medpass. Will monitor weight, as available. Reviewed and approved by Michaela Allred RD, LD. Lab / Micro Data 02/16/24 02:58 02/17/24 06:09 Labs: Laboratory Results - last 24 hr 02/17/24 06:09: Sodium 140, Potassium 4.0, Chloride 111 H, Carbon Dioxide 26.0, Anion Gap 3 L, BUN 9, Creatinine 0.74, Estim Creat Clear Calc 122.36, Est GFR (MDRD) Af Amer 119, Est GFR (MDRD) Non-Af 98, BUN/Creatinine Ratio 12.2, Glucose 103, Calcium 9.3, Phosphorus 4.4, Magnesium 2.3, TSH 0.349 L, Free T4 1.07, Syphilis Total Ab Non-reactive Physical Exam Narrative Physical Examination: General: Awake, alert, oriented x 3 and cooperative, seated upright in a PCU bed, fatigued, notes withdrawal symptoms improving, appears improved. Skin: Normal color, normal turgor, no icterus, no cyanosis except occasional stage ecchymoses, abrasion. HEENT: AT/NC, EOMI, PERRLA, MMM. Lungs: Mildly diminished, greater bases, poor effort, no rales, ronchi or wheezing. Heart: Regular rate and rhythm; no gallop, rub audible. Abdomen: Soft, improved, NTTP, ND, normalized BS. Extremities: No cyanosis, clubbing, or edema. Neurological: Patient awake, alert, oriented as noted, cognitive function intact; pupils equally reactive to light and accommodation, cranial nerves grossly normal, moving all 4 extremities, no focal deficits, strength improving, mildly globally decreased. Psychiatric: Affect appears more normal, less fatigued, no acute evidence of depressive or anxiety feelings but does have underlying history. Assessment & Plan Assessment/Plan (1) Intravenous drug abuse: PLAN: Plan The patient is a 28 y/o F w/ PMHx: Obesity, Hypothyroidism, Hx EtOH abuse, Polysubstance abuse with Hepatitis C, Anxiety and Depression, GERD, Asthma who presents to the [facility] ED on 02/16/24 with history of acute opiate detoxification with IVDA. #1. Acute Opiate Withdrawal: Related to medical surgical floor, initiated and continued on protocol with tapering course of Subutex, as needed tylenol, ibuprofen, bowel regimen, gabapentin, Bentyl, Vistaril, methocarbamol, clonidine, PRN nightly trazodone for insomnia, IV fluids, IV antiemetics. HIV NR, pending hepatitis panel, NR syphilis assessment. Has upcoming outpatient appt with 180 on 02/19/24 but currently appears last dosing for taper does not finish until 02/20/24, will need re-arranged. #2. Anxiety and depression: We will continue patient home escitalopram and Lamictal regimen, encourage continued outpatient follow-up with counseling and medication adjustments as needed. Per record has upcoming appointment at 4 PM for intake as an outpatient but currently appears last dosing for taper does not finish until 02/20/24, will need re-arranged. #3. Polysubstance Abuse, IVDA, History of Hepatitis C, Chronic: HIV NR, syphilis NR, pending hepatitis panel to assess for co-infection pending. #4. Tobacco Abuse: Encouraged cessation, inpatient consultation per RT, NR if desired. #5. Chart reported history of Hypothyroidism w/ abnormal TSH: Noted in the chart, does not appear to be on any medication, TSH mildly decreased and free T4 normal consistent with subclinical hyperthyroidism. #6. History alcohol abuse: Encourage continued sobriety status per #7. Obesity: Weight loss and lifestyle changes encouraged. #8. Asthma: Not on any chronic regimen, as needed albuterol if necessary, encourage tobacco cessation. #9. GERD: May have as needed Mylanta. #10. DVT prophylaxis: Low risk for type of presentation. Charges/Coding Visit Charges Inpatient E&M: 28229 Subs Hosp L2
[2024-02-18 09:00] VITALS: BP 110/57; PULSE 61; RESP 15; TEMP 36.6; O2SAT 100
[2024-02-18] MEDS: Escitalopram Oxalate 10 MG Tablet PO (09:06)
[2024-02-18] MEDS: lamoTRIgine 25 MG Tablet PO ×2 (09:06→21:50)
[2024-02-18] MEDS: Ensure Plus High Protein 120 ML LIQUID PO ×4 (09:07→21:51)
[2024-02-18] MEDS: cloNIDine HCl 0.1 MG Tablet PO ×2 (09:11→18:33)
[2024-02-18] MEDS: hydrOXYzine PAM 25 MG Capsule 50 MG PO ×3 (09:12→21:51)
[2024-02-18 15:42] VITALS: BP 99/56; PULSE 54; RESP 14; TEMP 36.6; O2SAT 98
[2024-02-18] MEDS: Gabapentin 300 MG Capsule PO (18:33)
[2024-02-18] MEDS: Dicyclomine 10 MG Capsule 20 MG PO (18:41)
[2024-02-18 21:45] VITALS: BP 115/58; PULSE 56; RESP 16; TEMP 36.8; O2SAT 97
[2024-02-19 03:00] VITALS: BP 118/67; PULSE 70; RESP 16; TEMP 36.7; O2SAT 97
[2024-02-19] MEDS: Gabapentin 300 MG Capsule PO (03:05)
[2024-02-19] MEDS: Buprenorphine HCl 2 MG TAB.SUBL SL ×2 (03:05→10:57)
--- NOTE | 2024-02-19 07:46 | PCM.PN.HOSP ---
Reason for Visit Reason for Visit: Diagnoses Other psychoactive substance abuse, uncomplicated (02/16/24) Subjective Subjective Patient with no acute events overnight per self and per nursing report. She notes she is continue to improve and is having minimal withdrawal symptoms at this time. She notes she does feel more fatigued and slept this morning otherwise no complaint. Discussed with patient and also with 180 and unfortunately this time if she does not discharge by 4 PM for visit today they do not have any other availability at 184 potentially the next 1 to 2 weeks therefore discussed discharge today to which patient is amenable as she would still need technically 2 more doses. Patient denies fevers, chills, nausea, emesis, abdominal pain, chest pain or dyspnea. Objective Data Objective Data Vital Signs: Vital Signs Temp Pulse Resp BP Pulse Ox O2 Del Method 98.0 F 70 16 118/67 97 Room Air 02/19/24 03:00 02/19/24 03:00 02/19/24 03:00 02/19/24 03:00 02/19/24 03:00 02/19/24 03:00 Oxygen Delivery Method Room Air Weight: 211 lb Body Mass Index (BMI) 37.3 Intake & Output: Intake and Output for Last 24 Hours 02/17/24 02/18/24 02/19/24 23:59 23:59 23:59 Intake Total 2019 280 / 280 Balance 2019 280 / 280 Medical Nutrition Assessment Dietitian: Malnutrition Criteria Met Start: 02/16/24 14:52 Freq: Status: Active Protocol: Document 02/16/24 14:52 SB (Rec: 02/16/24 14:52 SB [id number]) Nutrition Malnutrition Evidence of Malnutrition Exists Yes Malnutrition (severe): Acute Illness/Injury Evidenced By Suboptimal Energy Intake ( Severe),Weight Loss (Severe) Intake Problem Inadequate Oral Intake Etiology related to drug use Signs/Symptoms as evidenced by PO meeting <50 % of estimated nutrition needs x 2 months. Status Active Problem Clinical Problem Acute Disease or Injury Related Malnutrition Etiology severe related to inadequate oral intake d/t drug use Signs/Symptoms as evidenced by PO meeting <50 % of estimated nutrition needs and 8% unintentional weight loss x 2 months. Status Active Problem Recommendation Dietitian Recommendations/Changes Continue regular diet and 120ml ensure plus high protein 4x daily with medpass. Will monitor weight, as available. Reviewed and approved by Michaela Allred RD, LD. Lab / Micro Data 02/16/24 02:58 02/17/24 06:09 Physical Exam Narrative Physical Examination: General: Awake, alert, oriented x 3 and cooperative, seated upright in a PCU bed, fatigued but notes feeling improved. Skin: Normal color, normal turgor, no icterus, no cyanosis except occasional stage ecchymoses, abrasion. HEENT: AT/NC, EOMI, PERRLA, MMM. Lungs: Mildly diminished, greater bases, poor effort, no rales, ronchi or wheezing. Heart: Regular rate and rhythm; no gallop, rub audible. Abdomen: Soft, improved, NTTP, ND, normalized BS. Extremities: No cyanosis, clubbing, or edema. Neurological: Patient awake, alert, oriented as noted, cognitive function intact; pupils equally reactive to light and accommodation, cranial nerves grossly normal, moving all 4 extremities, no focal deficits, strength improving, mildly globally decreased. Psychiatric: Affect appears fatigued but does report feeling improved, no acute evidence of depressive or anxiety feelings but does have underlying history. Assessment & Plan Assessment/Plan (1) Intravenous drug abuse: PLAN: Plan The patient is a 28 y/o F w/ PMHx: Obesity, Hypothyroidism, Hx EtOH abuse, Polysubstance abuse with Hepatitis C, Anxiety and Depression, GERD, Asthma who presents to the [facility] ED on 02/16/24 with history of acute opiate detoxification with IVDA. #1. Acute Opiate Withdrawal: Related to medical surgical floor, initiated and continued on protocol with tapering course of Subutex, as needed tylenol, ibuprofen, bowel regimen, gabapentin, Bentyl, Vistaril, methocarbamol, clonidine, PRN nightly trazodone for insomnia, IV fluids, IV antiemetics. HIV NR, pending hepatitis panel, NR syphilis assessment. As noted previously patient with upcoming appointments with 180 02/19/2024 at 4 PM unfortunately taper completion is 02/20/2020 4 AM but per lengthy discussion unfortunately if patient is not discharged for this visit she would potentially miss the opportunity for a 1 ED visit for nearly 1 to 2 weeks thus discussed at length and patient is amenable to discharge today. Discussed with nursing staff and she will be dosed today therefore only missing max 1-2 doses. Also discussed with patient need to follow-up for hepatitis panel completion results with primary care at follow-up given still pending upon discharge #2. Anxiety and depression: We will continue patient home escitalopram and Lamictal regimen, encourage continued outpatient follow-up with counseling and medication adjustments as needed. Encouraged continued follow-up as noted with 180. #3. Polysubstance Abuse, IVDA, History of Hepatitis C, Chronic: HIV NR, syphilis NR, pending hepatitis panel to assess for co-infection pending which was discussed with patient and noted this would need to be followed up outpatient with her primary care. #4. Tobacco Abuse: Encouraged cessation, inpatient consultation per RT, NR if desired. #5. Chart reported history of Hypothyroidism w/ abnormal TSH: Noted in the chart, does not appear to be on any medication, TSH mildly decreased and free T4 normal consistent with subclinical hyperthyroidism. #6. History alcohol abuse: Encourage continued sobriety status per #7. Obesity: Weight loss and lifestyle changes encouraged. #8. Asthma: Not on any chronic regimen, as needed albuterol if necessary, encourage tobacco cessation. #9. GERD: May have as needed Mylanta. #10. Severe malnutrition: Secondary to inadequate oral intake likely secondary to ongoing drug use evidenced by <50% oral intake decrease of estimated nutrition needs and 8% unintentional weight loss x 2 months, nutriton consulted, ongoing supplementatoin 120ml ensure plus high protein 4x daily per nutrition discretion/recommendation. #11. DVT prophylaxis: Low risk for type of presentation. Charges/Coding Visit Charges Inpatient E&M: 06543 Subs Hosp L2
[2024-02-19] MEDS: Dicyclomine 10 MG Capsule 20 MG PO (08:51)
[2024-02-19] MEDS: hydrOXYzine PAM 25 MG Capsule 50 MG PO (08:51)
[2024-02-19] MEDS: Escitalopram Oxalate 10 MG Tablet PO (08:52)
[2024-02-19] MEDS: lamoTRIgine 25 MG Tablet PO (08:52)
[2024-02-19 10:56] VITALS: BP 98/49; PULSE 57; RESP 12; TEMP 36.4; O2SAT 96
--- NOTE | 2024-02-19 11:35 | DCINST_ITS ---
Discharge Instructions Diet Discharge Diet: No restrictions DC O2, CPAP, BIPAP needs Home O2 Discharge instructions: No Dressing / Incision Discharge Activity: Return to Normal Activity Weight Bearing Status: Weight bearing as tolerated Dressing / Incision Call your doctor if you observe: Fever of 101 or Higher, Shortness of breath, Dizziness, Swelling in the ankles, Chest pain, Increased palpitations (irregular heartbeat), Calf discomfort and Uncontrolled pain Follow Up Care Test Results: Test results from this visit will be discussed in further detail at your follow- up appointment, if applicable. Discharge Plan Admission Admit Date/Time: 02/16/24 05:04 Primary Reason for Your Visit: Acute Opiate Withdrawal, Anxiety and Depression, Polysubstance abuse Attending Provider: Renay Green Primary Care Provider: Susana Draper Consulting Providers: Fabian Nance; Shayy Borrego Instructions Patient Instructions: Opioids Risks, ED Opiate Abuse Additional Instructions / Restrictions: ADDITIONAL INSTRUCTIONS/INFORMATION: --Upon discharge your HIV was nonreactive and syphilis was nonreactive however hepatitis panel for COVID infection was still pending at discharge and this will need to be followed up with your primary care physician at follow-up. --We strongly encourage continued outpatient follow-up with 180 to achieve clean status continuation. Discharge Orders/Prescriptions Prescriptions: Continued lamotrigine 25 mg tablet 25 mg PO BID escitalopram oxalate 10 mg tablet 10 mg PO DAILY Referrals / Follow Up: Susana Draper, [employer] SPECIALIST-C [Primary Care Provider] - (Follow-up in 3-5 days to review admission, follow-up on hepatitis panel co-infection labs.) Disposition Disposition (needs filled in before D/C Order can be placed): Home, Self Care
--- NOTE | 2024-02-19 11:36 | DS.PCM_ITS ---
Providers Date of Admission: 02/16/24 Date of Discharge: 02/19/24 Primary Care Physician: ZOILA Vincent, BIOMEDICAL EQUIPMENT SPECIALIST-C Reason For Visit: OPIATE Diagnosis
--- NOTE | 2024-02-19 11:36 | PCM.DC.SUM ---
Providers Date of Admission: 02/16/24 Date of Discharge: 02/19/24 Primary Care Physician: Susana Draper Usama, GEOLOGY PROFESSOR-C Reason For Visit: OPIATE Diagnosis Discharge Diagnosis (1) Intravenous drug abuse: Status: Acute Code(s): F19.10 - Other psychoactive substance abuse, uncomplicated Plan DISCHARGE DIAGNOSES: #1. Acute Opiate Withdrawal #2. Anxiety and depression #3. Polysubstance Abuse, IVDA, History of Hepatitis C, Chronic #4. Tobacco Abuse #5. Chart reported history of Hypothyroidism w/ abnormal TSH/Normal FT4 consistent with subclinical hyperthyroidism #6. History alcohol abuse #7. Obesity #8. Asthma #9. GERD #10. Severe malnutrition Medications at Discharge Home Medications escitalopram oxalate 10 mg tablet 10 mg PO DAILY depression 01/29/24 lamotrigine 25 mg tablet 25 mg PO BID BPD 01/29/24 Hospital Course Operations None Summary of Care Provided Minutes Spent on Discharge: 35 Hospital Course: The patient is a 28 y/o F w/ PMHx: Obesity, Hypothyroidism, Hx EtOH abuse, Polysubstance abuse with Hepatitis C, Anxiety and Depression, GERD, Asthma who presented to the [facility] ED on 02/16/24 with history of acute opiate detoxification with IVDA. Patient admitted to the medical surgical floor, initiated and continued on protocol with tapering course of Subutex, as needed tylenol, ibuprofen, bowel regimen, gabapentin, Bentyl, Vistaril, methocarbamol, clonidine, PRN nightly trazodone for insomnia, IV fluids, IV antiemetics. HIV NR, pending hepatitis panel, NR syphilis assessment. As noted previously patient with upcoming appointments with 180 02/19/2024 at 4 PM unfortunately taper completion is 02/20/2020 4 AM but per lengthy discussion unfortunately if patient is not discharged for this visit she would potentially miss the opportunity for a 1 ED visit for nearly 1 to 2 weeks thus discussed at length and patient is amenable to discharge today. Discussed with nursing staff and she will be dosed today therefore only missing max 1-2 doses. Also discussed with patient need to follow-up for hepatitis panel completion results with primary care at follow-up given still pending upon discharge. Also noted during admission chart reported history of Hypothyroidism w/ abnormal TSH not on any medications. TSH mildly decreased and free T4 normal consistent with subclinical hyperthyroidism with recommended continued follow-up outpatient with PCP for repeat TFS in potentially 6-8 weeks. Medical Records Data Medical Nutrition Assessment Dietitian: Malnutrition Criteria Met Start: 02/16/24 14:52 Freq: Status: Active Protocol: Document 02/16/24 14:52 SB (Rec: 02/16/24 14:52 SB [id number]) Nutrition Malnutrition Evidence of Malnutrition Exists Yes Malnutrition (severe): Acute Illness/Injury Evidenced By Suboptimal Energy Intake ( Severe),Weight Loss (Severe) Intake Problem Inadequate Oral Intake Etiology related to drug use Signs/Symptoms as evidenced by PO meeting <50 % of estimated nutrition needs x 2 months. Status Active Problem Clinical Problem Acute Disease or Injury Related Malnutrition Etiology severe related to inadequate oral intake d/t drug use Signs/Symptoms as evidenced by PO meeting <50 % of estimated nutrition needs and 8% unintentional weight loss x 2 months. Status Active Problem Recommendation Dietitian Recommendations/Changes Continue regular diet and 120ml ensure plus high protein 4x daily with medpass. Will monitor weight, as available. Reviewed and approved by Michaela Allred RD, LD. Weight / BMI Weight Weight: 211 lb Body Mass Index (BMI) 37.3 ABG / Lab / Microbiology Data 02/16/24 02:58 02/17/24 06:09 D/C Instructions Discharge Diet: No restrictions Weight Bearing Status: Weight bearing as tolerated Call your doctor if you observe: Fever of 101 or Higher, Shortness of breath, Dizziness, Swelling in the ankles, Chest pain, Increased palpitations (irregular heartbeat), Calf discomfort and Uncontrolled pain DC O2, CPAP, BIPAP Needs Home O2 Discharge instructions: No Meaningful Use Info Meaningful Use Meaningful Use Diagnoses (Choose all that apply): None applicable Ischemic Stroke Statin Dosing Therapy Reference: STATIN DOSE THERAPY REFERENCE: * Patients > 75 years receive moderate or high dose statin therapy. * Patients 75 years or YOUNGER should receive HIGH intensity statin dose unless contraindicated. You will be required to document reason for non-treatment if statin daily dose does not meet guidelines. HIGH DOSE STATIN THERAPY DAILY Atorvastatin > than or = to 40 mg Rosuvastatin > than or = to 20 mg Amlodipine + Atorvastatin > than or = to 2.5/40 mg Ezetimibe + Simvastatin 10/80 mg Simvastatin 80mg Discharge Plan Admission Admit Date/Time: 02/16/24 05:04 Primary Reason for Your Visit: Acute Opiate Withdrawal, Anxiety and Depression, Polysubstance abuse Attending Provider: Renay Green Primary Care Provider: Susana Draper Consulting Providers: Fabian Nance; Shayy Borrego Instructions Patient Instructions: Opioids Risks, ED Opiate Abuse Additional Instructions / Restrictions: ADDITIONAL INSTRUCTIONS/INFORMATION: --Upon discharge your HIV was nonreactive and syphilis was nonreactive however hepatitis panel for COVID infection was still pending at discharge and this will need to be followed up with your primary care physician at follow-up. --We strongly encourage continued outpatient follow-up with 180 to achieve clean status continuation. Discharge Orders/Prescriptions Prescriptions: Continued lamotrigine 25 mg tablet 25 mg PO BID escitalopram oxalate 10 mg tablet 10 mg PO DAILY Referrals / Follow Up: Susana Draper, GEOLOGY PROFESSOR-C [Primary Care Provider] - (Follow-up in 3-5 days to review admission, follow-up on hepatitis panel co-infection labs.) Disposition Disposition (needs filled in before D/C Order can be placed): Home, Self Care Charges/Coding Visit Charges Inpatient E&M: 84154 Disch Hosp >30min
[2024-02-19] MEDS: Ensure Plus High Protein 120 ML LIQUID PO (11:37)
[2024-02-19 14:27] VITALS: BP 127/83; PULSE 69; RESP 12; TEMP 36.3; O2SAT 98
[2024-02-19 20:07] LABS: HEPATITIS B SURFACE AG Negative (Negative); Hep C Antibodies Reactive (Non Reactive); Hepatitis A IgM Antibody Negative (Negative); Hepatitis B Core AB IgM Negative (Negative); Hepatitis C Quant HCV Not Detected IU/mL (.)
== END 2024-02-19 15:21 | disposition home or self-care (01) ==
LOC: ED 03:54 → PCU 04:44
PROVIDERS: Internal Medicine; Admitting Provider Family Medicine; Emergency Provider Emergency Medicine; PCP Nurse Practitioner Family; Visit Provider Family Medicine
DX: F11.23 Opioid dependence with withdrawal (principal); F31.9 Bipolar disorder, unspecified; E43 Unspecified severe protein-calorie malnutrition; Z86.19 Personal history of other infectious and parasitic diseases; J45.909 Unspecified asthma, uncomplicated; E66.9 Obesity, unspecified; F17.290 Nicotine dependence, other tobacco product, uncomplicated; S21.002A Unspecified open wound of left breast, initial encounter; E87.6 Hypokalemia; K21.9 Gastro-esophageal reflux disease without esophagitis; F41.9 Anxiety disorder, unspecified; Z68.37 Body mass index [BMI] 37.0-37.9, adult; Z79.899 Other long term (current) drug therapy; F10.10 Alcohol abuse, uncomplicated
CPT/HCPCS: G0378 ×2; 36415; 80048; 80053; 80074; 80307; 82077; 83735; 84100; 84439; 84443; 84703; 85025; 86703; 86780; 97802; 99221; 99284; H0012

== ENCOUNTER 2024-03-08 00:33 | Emergency (ER) | payer MEDICAID, SELFPAY ==
[2024-03-08 00:33] VITALS: BP 140/96; PULSE 89; RESP 16; TEMP 36.7; O2SAT 100; BMI 35.3
--- NOTE | 2024-03-08 00:48 | EDS_ITS ---
HPI History of Present Illness Chief Complaint: General Illness [facility] Medical History Marijuana smoker Obesity (BMI 30-39.9) History of ETOH abuse Tobacco abuse Nausea and vomiting Headache Acute cystitis without hematuria Sepsis Acidosis, lactic Leukocytosis Opiate abuse, continuous Substance abuse Alcohol abuse Hepatitis C Scoliosis Obesity (BMI 30-39.9) Scabies Hypothyroidism Asthma Hx of gastroesophageal reflux (GERD) Smoker Anxiety Depression Home Medications ?Medication ?Instructions ?Recorded ?Last Taken ?Type escitalopram oxalate 10 mg tablet 10 mg PO DAILY depression 01/29/24 01/29/24 History lamotrigine 25 mg tablet 25 mg PO BID BPD 01/29/24 01/29/24 History Allergy/AdvReac Type Severity Reaction Status Date / Time adhesive Allergy Rash Verified 03/08/24 00:38 Latex, Natural Rubber Allergy Rash Verified 03/08/24 00:38 sulfamethoxazole (From Allergy Itching Verified 03/08/24 00:38 Bactrim) trimethoprim (From Bactrim) Allergy Itching Verified 03/08/24 00:38 albuterol AdvReac Other Verified 03/08/24 00:38 Family History Other Hypertension Social History Smoking Status: Current every day smoker tobacco type: e-cigarettes substance use type: does not use EXAM Physical Exam Const Vital Signs: 03/08/24 00:33 03/08/24 00:38 03/08/24 03:01 Temperature 98.0 F Temperature Source Oral Pulse Rate 89 69 Respiratory Rate 16 16 Respiratory Effort Normal Non-Labored Respiratory Pattern Normal Blood Pressure 140/96 H 140/86 H Blood Pressure Mean 110 104 Pulse Ox 100 97 Oxygen Delivery Method Room Air Room Air MDM MDM MDM Narrative Medical decision making narrative: HISTORY OF PRESENT ILLNESS: 28 F female with past medical history of migraine headaches, GERD, anxiety, depression, hepatitis C, opiate abuse presents with chills, nausea vomiting, decreased urination and foul-smelling urine. No she is IV drugs. Her last use was yesterday. Denies chest pain or back pain. REVIEW OF SYSTEMS: Pertinent positives: Nausea, vomiting, chills, possible urine Pertinent negatives: Vomiting PHYSICAL EXAM: Nursing triage notes reviewed, Vital signs reviewed Constitutional: please see mdm HENT: MMM Eyes: Pupils equal round and reactive to light, Extraocular muscles intact Neck: No stridor, no JVD, full neck ROM Lungs: Clear to auscultation, No wheezing or rales. No increased work of breathing, no conversational dyspnea, no accessory muscle use, no nasal flaring. No respiratory distress noted Heart: Regular rate and rhythm, No murmurs, No rubs and No gallops, 2+ distal pulses (radial, femoral, posterior tibial) in all extremities Abdomen: Soft, there is no tenderness, rigidity, rebound or guarding, no obvious peritoneal signs, no palpable pulsatile abdominal masses, no auscultated abdominal bruit : No CVAT Extremities: No edema Neuro: No new focal neurological deficits, cranial nerves II through XII intact, 5/5 strength in all present extremities. Intact sensation to light touch in all present extremities, 2+ reflexes bilateral patella tendons. Skin: No rash or lesions noted MEDICAL DECISION MAKING: Chief Complaint: Urinary complaints External records reviewed: Reviewed prior imaging studies Factors affecting care: as per HPI Social determinants of health: History of opiate abuse History obtained from others: none Consults: none [facility] Narrative: The patient was initially hemodynamically stable, afebrile and nontoxic- appearing. No SIRS criteria. Exam unremarkable. I considered the following differential diagnosis: UTI ALL IMAGES (IF OBTAINED) HAVE BEEN PERSONALLY REVIEWED AND INTERPRETED BY MYSELF. I intended initially to obtain a broad lab workup including lactate, CBC, CMP however the patient was difficult stick. Patient noted she did not want to continue to be poked. Given this limitation I just obtained a urine showed some inflammation and bacteria. Given her symptoms I will treat empirically for UTI and send urine for culture. The patient displayed no SIRS criteria or other signs of sepsis. I Do not suspect she is septic. UA with inflammation and bacteria. Will treat empirically for UTI. Will send for urine culture. Will start her on Macrobid. Implored the patient to stop using IV drugs. The patient and/or family, caregivers express understanding. The patient and/or family, caregivers agrees with the plan. Shared decision making: I will have a discussion with the patient and or visitors regarding risk/benefits of further testing or admission. They will be made aware of of the risk/benefits inherent in this decision they will be given the opportunity to voice understanding. Total critical care time today provided was at least 0 minutes. This excludes separately billable procedures. Critical care time (if documented) is secondary to the patient having high probability of clinically significant/life threatening deterioration in the patient's condition which required my urgent intervention. Impression: 1. UTI 2. Chills Dispo: Discharge home This note was generated with iDubba dictation software. It may contain incorrect words, spelling, and punctuation that were not noted in review of the chart prior to signing. Lab Data Labs: Laboratory Results - last 24 hr 03/08/24 01:39 Urine Color Yellow Urine Clarity Sl. Cloudy Urine pH 8.0 Ur Specific [place] 1.015 Urine Protein 100 H Urine Glucose (UA) Normal Urine Ketones 15 H Urine Occult Blood Negative Urine Nitrite Negative Urine Bilirubin Negative Urine Urobilinogen 1 H Ur Leukocyte Esterase 25 H Urine RBC 0 SEEN Urine WBC 25-50 SEEN Ur Squamous Epith Cells 10-25 SEEN Urine Bacteria 2+ Hyaline Casts 0-5 SEEN Urine Mucus 3+ Discharge Plan Triage Chief Complaint: General Illness ED Provider: Harshal Marquez Dx/Rx/DC Orders Prescriptions: No Action lamotrigine 25 mg tablet 25 mg PO BID escitalopram oxalate 10 mg tablet 10 mg PO DAILY Primary Care Provider: Susana Draper Referrals: Susana Draper, BULK INTAKE WORKER-C [Primary Care Provider] - Print Language: Lithuanian
[2024-03-08 01:46] LABS: Red Blood Cells-Urine 0 SEEN /hpf (0-5)
[2024-03-08 01:47] LABS: Color, Urine Yellow (Yellow); Glucose, Dipstick Normal (Normal); Ketone-Dipstick 15 mg/dl (Negative); Leukocyte Esterase-Dipstick 25 /ul (Negative); Nitrite-Dipstick Negative (Negative); Occult Blood-Urine Negative /ul (Negative); Protein-Dipstick 100 mg/dl (Negative); Specific Gravity, Urine 1.015 (1.002-1.030); Urine Bilirubin Dipstick Negative (Negative); Urine Clarity Sl. Cloudy (Clear); Urine Urobilinogen 1 mg/dl (Normal)
[2024-03-08 02:07] LABS: Bacteria 2+ /hpf (None Seen); Hyaline Cast 0-5 SEEN /lpf (0-5); Mucous, Urine 3+ /hpf (<or=2+); Squamous Epithelial Cells - UA 10-25 SEEN /hpf (5-10); White Blood Cells 25-50 SEEN /hpf (0-5)
--- NOTE | 2024-03-08 02:13 | ED.RN ---
Attempted IV multiple times unsuccessfully. Dr Marquez aware. Pt states she does not want to be poked anymore. Dr Marquez agreeable to doing oral meds and fluids.
[2024-03-08] MEDS: Nitrofurantoin Macrocrystals 100 MG Capsule PO (02:33)
[2024-03-08] MEDS: Metoclopramide 5 MG TABLET PO (02:33)
[2024-03-08] MEDS: Acetaminophen 325 MG Tablet 650 MG PO (02:33)
[2024-03-08 03:01] VITALS: BP 140/86; PULSE 69; RESP 16; O2SAT 97
== END 2024-03-08 03:13 | disposition home or self-care (01) ==
PROVIDERS: Emergency Provider Emergency Medicine; PCP Nurse Practitioner Family; Visit Provider Emergency Medicine
DX: N39.0 Urinary tract infection, site not specified (principal); R68.83 Chills (without fever); F17.290 Nicotine dependence, other tobacco product, uncomplicated
CPT/HCPCS: J2405; 81001; 99283; A4216

== ENCOUNTER 2024-10-11 11:19 | Emergency (ER) | payer MEDICAID, SELFPAY ==
[2024-10-11 11:21] VITALS: BP 121/66; PULSE 64; RESP 16; TEMP 36.8; O2SAT 97
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
--- NOTE | 2024-10-11 11:58 | CT_ITS ---
PROCEDURE: SINUS/FACIAL BONE 10/11/2024 REASON FOR EXAM: FACIAL TRAUMA TECHNIQUE: SINUS/FACIAL BONE Coronal and Sagittal reconstruction series were provided. One or more dose reduction techniques were used (e.g., Automated exposure control, adjustment of the mA and/or kV according to patient size, use of iterative reconstruction technique). RADIATION DOSE SUMMARY: DLP: 1363 mGycm COMPARISON: None FINDINGS: Frontal: Clear Ethmoid: Clear Sphenoid: Clear Maxillary: There is minimal mucosal thickening in the floor of the right maxillary sinus. The left maxillary sinus is clear. Turbinates: Clear Nasal Septum: FLAIR Mastoids/Middle Ears: Clear A right nose ring is noted. Dental hardware is noted. CT/Sinus/Facial Bone IMPRESSION: There is minimal mucosal thickening in the floor of the right maxillary sinus. There is no visible acute traumatic injury. Reading Location: [facility]
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
[2024-10-11 12:27] LABS: Mucous, Urine 0 SEEN /hpf (<or=2+); Red Blood Cells-Urine 0 SEEN /hpf (0-5)
[2024-10-11 12:31] LABS: Color, Urine Yellow (Yellow); Glucose, Dipstick Normal (Normal); Ketone-Dipstick Negative (Negative); Leukocyte Esterase-Dipstick Negative /ul (Negative); Nitrite-Dipstick Negative (Negative); Occult Blood-Urine 150 /ul (Negative); Protein-Dipstick 15 mg/dl (Negative); Specific Gravity, Urine 1.010 (1.002-1.030); Urine Bilirubin Dipstick Negative (Negative)
[2024-10-11 12:51] LABS: Squamous Epithelial Cells - UA 0-5 SEEN /hpf (5-10)
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
[2024-10-11 14:52] VITALS: BP 121/66; PULSE 64; RESP 16; TEMP 36.8; O2SAT 97
[2024-10-11 15:31] LABS: Internal QC Validated? YES +Cl - CLEAR BKGD; Pregnancy, Urine Negative Negative; Record Kit Lot#,Urine Preg 962302
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
== END 2024-10-11 14:54 | disposition home or self-care (01) ==
PROVIDERS: Emergency Provider Student in an Organized Health Care Education/Training Program; PCP Nurse Practitioner Family; Visit Provider Student in an Organized Health Care Education/Training Program
DX: S06.0X0A Concussion without loss of consciousness, initial encounter (principal); N93.9 Abnormal uterine and vaginal bleeding, unspecified; Y04.8XXA Assault by other bodily force, initial encounter; F17.290 Nicotine dependence, other tobacco product, uncomplicated
CPT/HCPCS: 70450; 70486; 81001; 81025; 87491; 87591; 87661; 99284

== ENCOUNTER 2024-10-13 19:41 | Emergency (ER) | payer MEDICAID, SELFPAY ==
[2024-10-13 19:43] VITALS: BP 138/80; PULSE 82; RESP 18; TEMP 35.5; O2SAT 98; BMI 36.7
--- NOTE | 2024-10-13 20:11 | EKG12_ITS ---
Test Reason : OVERDOSE Blood Pressure : */* mmHG Vent. Rate : 45 BPM Atrial Rate : 45 BPM P-R Int : 146 ms QRS Dur : 78 ms QT Int : 414 ms P-R-T Axes : 31 49 33 degrees QTcB Int : 358 ms Sinus bradycardia Otherwise normal ECG Confirmed by LINDA WRIGHT, BETHANIE ([id number]), design editor AINSLEY LINDA ([id number]) on 10/14/2024 1:37:13 PM Referred By: SRAVANTHI Confirmed By: BETHANIE MCKEON MD
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
--- NOTE | 2024-10-13 21:00 | RAD_ITS ---
PROCEDURE: CHEST PA AND LATERAL 10/13/2024 REASON FOR EXAM: COUGH TECHNIQUE: CHEST PA AND LATERAL COMPARISON: 02/01/2024. FINDINGS: The heart is normal in size the lungs are clear. No acute osseous abnormalities. RAD/Chest PA and Lateral IMPRESSION: No acute cardiopulmonary abnormalities. Reading Location: [id number]
[2024-10-13 21:27] LABS: Hematocrit 45.6 % (37-47); Hemoglobin 14.2 g/dL (12.0-15.0); Immature Granulocytes Count 0.030 X10^3/uL (0.0-0.0); Mean Corp Hgb Conc 31.1 g/dL (32-36); Mean Corpuscular Volume 87.7 fL (81-99); Mean Platelet Vol. 11.1 fl (6.2-12.0); NRBC Flagged by Analyzer 0 % (0-5); POSITIVE COUNT YES; Platelet Count 193 K/mm3 (150-450); RBC Distribution Width CV 13.6 % (11.6-14.6); RBC Distribution Width SD 43.4 fl (35.1-43.9); Red Blood Count 5.20 M/mm3 (4.2-5.4); White Blood Count 10.6 K/mm3 (4.4-11.0)
[2024-10-13 21:40] LABS: Anion Gap 15 (5-15); BUN 7 mg/dL (4-19); BUN/Creat Ratio 9.1 RATIO (10-20); Calcium,Total 9.7 mg/dL (7.6-11.0); Carbon Dioxide 19.5 mmol/L (21.0-32.0); Chloride 104 mmol/L (98-108); Estimated Creatinine Clearance 109.76 ml/min (50-250); Glucose 121 mg/dL (70-99); Potassium 3.8 mmol/L (3.3-5.1)
[2024-10-13 22:23] LABS: Internal QC Validated? YES +Cl - CLEAR BKGD; Pregnancy, Serum, hCG Quali. NEGATIVE Negative; Record Kit Lot#, Serum Preg. 962302
[2024-10-13 23:19] VITALS: BP 115/84; PULSE 58; RESP 16; TEMP 36.6; O2SAT 99
== END 2024-10-13 23:33 | disposition home or self-care (01) ==
PROVIDERS: Emergency Provider Emergency Medicine; PCP Nurse Practitioner Family; Visit Provider Emergency Medicine
DX: T40.2X1A Poisoning by other opioids, accidental (unintentional), initial encounter (principal); R00.1 Bradycardia, unspecified; R00.2 Palpitations; F41.0 Panic disorder [episodic paroxysmal anxiety]; F17.290 Nicotine dependence, other tobacco product, uncomplicated
CPT/HCPCS: 71046; 80048; 84443; 84703; 85025; 93005; 99283

== ENCOUNTER 2024-10-20 07:27 | Emergency (ER) | payer MEDICAID, SELFPAY ==
[2024-10-20 07:28] VITALS: BP 134/79; PULSE 58; RESP 16; TEMP 36.1; O2SAT 98
--- NOTE | 2024-10-20 08:27 | EDS_ITS ---
HPI History of Present Illness Chief Complaint: Anxiety Informant: patient Onset/Context/Timing Onset: Today Context: Sudden Onset Timing: Intermittent Quality: Cold, tingling Location: Generalized Worsened by: Sleep Relieved by: Warm shower Narrative Narrative: Patient presents with anxiety attack that began this morning. Patient states she was drinking alcohol and smoking fentanyl last night. Patient states she woke up with feeling anxious today. Patient states she took a warm shower. Patient states this normally helps. Patient states that it did not help this morning. Patient then drove to the emergency department. Patient states she fell asleep while she was in the parking lot. Patient states she woke up feeling cold. Patient states she felt tingly all over. Patient states her anxiety is worse when she goes to sleep. Patient admits to some subjective chills but denies any fevers. Patient admits to some pain in her chest. Patient denies any nausea or vomiting. [facility] Medical History (Updated 10/20/24 @ 08:[address] Joe Mir, DO) Polysubstance abuse Intravenous drug abuse Marijuana smoker Obesity (BMI 30-39.9) History of ETOH abuse Tobacco abuse Nausea and vomiting Headache Acute cystitis without hematuria Sepsis Acidosis, lactic Leukocytosis Opiate abuse, continuous Substance abuse Alcohol abuse Hepatitis C Scoliosis Obesity (BMI 30-39.9) Scabies Hypothyroidism Asthma Hx of gastroesophageal reflux (GERD) Smoker Anxiety Depression Home Medications ?Medication ?Instructions ?Recorded ?Last Taken ?Type acetaminophen 500 mg capsule 1,000 mg PO Q6H PRN fever or pain 10/11/24 10/09/24 History diphenhydramine 25 1 tab PO QHS PRN sleep 10/1110/09/24 History mg-acetaminophen 500 mg tablet (Acetaminophen PM) ibuprofen 200 mg tablet (Advil) 400 mg PO Q8H PRN feve r or pain 10/11/24 10/09/24 History Allergy/AdvReac Type Severity Reaction Status Date / Time adhesive Allergy Rash Verified 10/20/24 07:28 Latex, Natural Rubber Allergy Rash Verified 10/20/24 07:28 sulfamethoxazole (From Allergy Itching Verified 10/20/24 07:28 Bactrim) trimethoprim (From Bactrim) Allergy Itching Verified 10/20/24 07:28 albuterol AdvReac Other Verified 10/20/24 07:28 Family History Other Hypertension Surgical History (Updated 10/20/24 @ 08:[address] Joe Mir DO) Hx of tubal ligation Social History (Updated 10/20/24 @ 08:[address] Joe Mir DO) Smoking Status: Current every day smoker tobacco type: e-cigarettes substance use type: marijuana and opiates ROS ROS ED Constitutional Constitutional ED: Reports chills and subjective; Denies fever(s) Eyes Eyes: Denies blurry vision or change in vision ENT ENT ED: Denies rhinorrhea or sore throat Cardiovascular Cardiovascular: Reports chest pain; Denies palpitations Respiratory/Chest Respiratory/Chest: Denies cough or dyspnea Gastrointestinal Gastrointestinal: Denies nausea or vomiting Genitourinary Genitourinary ED: Denies dysuria or hematuria Musculoskeletal Musculoskeletal: Denies back pain or neck pain Integumentary Denies abscess or rash Neurologic Neurologic: Denies headache(s) or weakness Allergic/Immunologic Allergic/Immunologic ED: Denies mouth swelling or urticaria EXAM Physical Exam Const Vital Signs: 10/20/24 07:28 Temperature 97 F L Temperature Source Temporal Pulse Rate 58 L Respiratory Rate 16 Blood Pressure 134/79 H Blood Pressure Mean 97 Pulse Ox 98 Positive well nourished and well developed Constitutional Narrative: Patient was sleeping and resting comfortably on exam. General Appearance ED: well developed and NAD HEENT Reports moist mucous membranes Neck supple and no JVD Resp normal respiratory effort and clear to auscultation bilaterally Cardio regular rate and regular rhythm GI non-tender and non-distended Palpation: soft Neuro oriented x3, CN's II-XII intact bilaterally and no sensory deficits noted Sensorium / Orientation: alert Motor Exam: strength 5/5 throughout Psych mental status grossly normal MDM MDM MDM Narrative Medical decision making narrative: Differential diagnosis includes anxiety, substance abuse, electrolyte abnormality, and dehydration. CBC will be obtained to assess for leukocytosis and anemia. Basic metabolic profile will be obtained to assess for electrolyte abnormality and renal function. Urinalysis will be obtained to assess for urinary tract infection and hematuria. Serum hCG will be obtained to assess for . Treatment and Re-Evaluation :: Patient was ordered IV fluids. Patient walked to the bathroom and felt better. Patient did not want to wait for any lab results. Patient left AGAINST MEDICAL ADVICE. Patient is advised to return if worse in any way. Discharge Plan Triage Chief Complaint: Anxiety ED Provider: Joe Mir Dx/Rx/DC Orders Clinical Impression: Panic attack, Substance abuse, Nicotine vapor product user Instructions: ED Panic Attack Prescriptions: No Action diphenhydramine-acetaminophen [Acetaminophen PM] 25-500 mg tablet 1 tab PO QHS PRN (Reason: sleep) acetaminophen 500 mg capsule 1,000 mg PO Q6H PRN (Reason: fever or pain) ibuprofen [Advil] 200 mg tablet 400 mg PO Q8H PRN (Reason: fever or pain) Primary Care Provider: Susana Draper Referrals: Susana Draper, [employer] [Primary Care Provider] - Print Language: Korean Disposition Disposition: [facility]
--- NOTE | 2024-10-20 08:53 | ED.RN ---
Pt wanted to go to the bathroom to change into a gown. pt had obtained a urine sample. Pt came back and I was getting ready to start pts IV. She decided that she was feeling better and wanted to leave. PT signed AMA, got dressed and left.
== END 2024-10-20 08:55 | disposition left against medical advice (07) ==
PROVIDERS: Emergency Provider Emergency Medicine; PCP Nurse Practitioner Family; Visit Provider Emergency Medicine
DX: F41.0 Panic disorder [episodic paroxysmal anxiety] (principal); F11.10 Opioid abuse, uncomplicated; F17.290 Nicotine dependence, other tobacco product, uncomplicated; Z98.51 Tubal ligation status
CPT/HCPCS: 99282

== ENCOUNTER 2024-10-21 19:12 | Emergency (ER) | payer MEDICAID, SELFPAY ==
[2024-10-21 19:13] VITALS: BP 119/71; PULSE 59; RESP 18; TEMP 36.6; O2SAT 96; BMI 37.0
[2024-10-21 20:49] VITALS: BP 132/74; PULSE 81; RESP 18; TEMP 36.8; O2SAT 100
--- NOTE | 2024-10-21 21:44 | EX.ED.VIS.PS ---
HPI <DAVIAN Stevens - Last Filed: 10/21/24 21:48> HPI - Psych History of Present Illness Chief Complaint: Anxiety Narrative Narrative: Patient presenting today with anxiety that has been ongoing over the last few weeks. Reports that she has been seen here in the emergency department several times now due to this anxiety. She has been experiencing panic attacks randomly, especially while trying to go to bed. She has had panic attacks in the past as well as anxiety, she reports that she has had relief from Vistaril before. She does admit to recently relapsing and using fentanyl about twice weekly, she last used last night. She denies IV drug use. She does drink an energy drink and pop daily. She denies SI, HI, self-harm, hallucinations. She has a appointment with her PCP on Friday to discuss the anxiety. PFS <DAVIAN Stevens - Last Filed: 10/21/24 21:48> [facility] Medical History Polysubstance abuse Intravenous drug abuse Marijuana smoker Obesity (BMI 30-39.9) History of ETOH abuse Tobacco abuse Nausea and vomiting Headache Acute cystitis without hematuria Sepsis Acidosis, lactic Leukocytosis Opiate abuse, continuous Substance abuse Alcohol abuse Hepatitis C Scoliosis Obesity (BMI 30-39.9) Scabies Hypothyroidism Asthma Hx of gastroesophageal reflux (GERD) Smoker Anxiety Depression Home Medications ?Medication ?Instructions ?Recorded ?Last Taken ?Type acetaminophen 500 mg capsule 1,000 mg PO Q6H PRN fever or pain 10/11/24 10/09/24 History diphenhydramine 25 1 tab PO QHS PRN sleep 10/11/24 10/09/24 History mg-acetaminophen 500 mg tablet (Acetaminophen PM) ibuprofen 200 mg tablet (Advil) 400 mg PO Q8H PRN fever or pain 10/11/24 10/09/24 History hydroxyzine pamoate 25 mg capsule 50 mg (2 x 25 mg) PO TID PRN PRN 10/21/24 Unknown Rx Anxiety #30 CAPSULES Allergy/AdvReac Type Severity Reaction Status Date / Time adhesive Allergy Rash Verified 10/21/24 19:14 Latex, Natural Rubber Allergy Rash Verified 10/21/24 19:14 sulfamethoxazole (From Allergy Itching Verified 10/21/24 19:14 Bactrim) trimethoprim (From Bactrim) Allergy Itching Verified 10/21/24 19:14 albuterol AdvReac Other Verified 10/21/24 19:14 Family History Other Hypertension Surgical History Hx of tubal ligation Social History Smoking Status: Current every day smoker tobacco type: cigarettes and e-cigarettes substance use type: marijuana and opiates ROS <DAVIAN Stevens - Last Filed: 10/21/24 21:48> ROS ED Constitutional Constitutional ED: Denies chills or fever(s) Cardiovascular Cardiovascular: Denies chest pain Respiratory/Chest Respiratory/Chest: Denies dyspnea Gastrointestinal Gastrointestinal: Denies abdominal pain, nausea or vomiting Psychiatric Psychiatric: Reports anxiety and panic attacks; Denies hallucinations, homicidal ideation, suicidal ideation or suicidal thoughts EXAM <DAVIAN Stevens - Last Filed: 10/21/24 21:48> Physical Exam Const Vital Signs: 10/21/24 19:13 10/21/24 20:49 Temperature 97.9 F 98.3 F Temperature Source Temporal Pulse Rate 59 L 81 Respiratory Rate 18 18 Blood Pressure 119/71 132/74 H Blood Pressure Mean 87 93 Pulse Ox 96 100 Oxygen Delivery Method Room Air Positive well nourished, well developed and no apparent distress General Appearance ED: well developed HEENT Reports normocephalic and head/scalp atraumatic Mouth ED: Yes moist mucous membranes normal Eyes PERRL and EOMs intact bilaterally Neck full ROM and supple Chest Wall inspection of chest normal Resp normal respiratory effort and clear to auscultation bilaterally Cardio regular rate and regular rhythm Back/Spine normal ROM and normal to inspection Extremity normal to inspection and full ROM Neuro oriented x3, CN's II-XII intact bilaterally, moves all extremities, no focal motor deficits and no sensory deficits noted Sensorium / Orientation: awake and alert Psych mental status grossly normal and thought process normal Appearance: grossly normal Attitude: calm Activity / Motor Behavior: appropriate eye contact Insight: insight good Judgement: judgement good Skin no rashes or lesions noted and no wounds <Dr. Kianna Alexander DO - Last Filed: 10/25/24 05:08> Physical Exam Const Vital Signs: 10/21/24 19:13 10/21/24 20:49 Temperature 97.9 F 98.3 F Temperature Source Temporal Pulse Rate 59 L 81 Respiratory Rate 18 18 Blood Pressure 119/71 132/74 H Blood Pressure Mean 87 93 Pulse Ox 96 100 Oxygen Delivery Method Room Air [facility] <DAVIAN Stevens - Last Filed: 10/21/24 21:48> [facility] Narrative Medical decision making narrative: Patient presenting today due to anxiety. She has had panic attacks intermittently over the last few weeks. She denies SI, HI, hallucinations, and self-harm. She has had these in the past and has had relief from Vistaril which I will give her a prescription for. She was given 1 dose of Ativan here. She has a follow-up appointment with her PCP regarding her anxiety on Friday. She also has resources with counseling that she has seen in the past. She recently relapsed after being clean from fentanyl but reports that she does have resources that she can follow-up with to help her get sober again. She is currently staying with her grandmother. Given patient is stable and has close outpatient follow-up and support at home feels that she can be discharged with a prescription for Vistaril. Return instructions discussed and patient discharged home in stable condition. <Dr. Kianna Alexander DO - Last Filed: 10/25/24 05:08> [facility] Narrative Medical decision making narrative: Patient presenting today due to anxiety. She has had panic attacks intermittently over the last few weeks. She denies SI, HI, hallucinations, and self-harm. She has had these in the past and has had relief from Vistaril which I will give her a prescription for. She was given 1 dose of Ativan here. She has a follow-up appointment with her PCP regarding her anxiety on Friday. She also has resources with counseling that she has seen in the past. She recently relapsed after being clean from fentanyl but reports that she does have resources that she can follow-up with to help her get sober again. She is currently staying with her grandmother. Given patient is stable and has close outpatient follow-up and support at home feels that she can be discharged with a prescription for Vistaril. Return instructions discussed and patient discharged home in stable condition. I have personally performed a face to face assessment of the patient and have reviewed the COOPER Note. I performed a substantive portion of the visit including all aspects of the following. My luna findings include: History is patient is a 29-year-old female with history of panic attacks and anxiety presenting for panic attack. Is previously had Vistaril with improvement of her symptoms. Had a panic attack today and is also in the process of following up with counseling. Denies any HI or SI. Denies any physical complaints. Is treated symptomatically emergency room and we will give her prescription for Vistaril. Given return precautions. Patient agreeable plan of care. At this time I do not think patient requires emergent behavioral health evaluation. Other additions or changes: [None] Discharge Plan Triage Chief Complaint: Anxiety ED Midlevel Provider: Miguelina Marcum ED Provider: Kianna Alexander Dx/Rx/DC Orders Clinical Impression: Anxiety, Panic attacks Instructions: Anxiety Disorders Tx, ED Panic Attack Prescriptions: New hydroxyzine pamoate 25 mg capsule 50 mg PO TID PRN PRN (Reason: Anxiety) Qty: 30 0RF No Action diphenhydramine-acetaminophen [Acetaminophen PM] 25-500 mg tablet 1 tab PO QHS PRN (Reason: sleep) acetaminophen 500 mg capsule 1,000 mg PO Q6H PRN (Reason: fever or pain) ibuprofen [Advil] 200 mg tablet 400 mg PO Q8H PRN (Reason: fever or pain) Primary Care Provider: Susana Draper Referrals: Susana Draper, [employer] [Primary Care Provider] - 5-7 Days Activity Restrictions/Additional Instructions: Follow-up with your PCP and counseling. Return for any other concerns or worsening symptoms. Print Language: Cypriot Disposition Disposition: Home, Self Care Discharge Date/Time: 10/21/24 20:50
== END 2024-10-21 20:50 | disposition home or self-care (01) ==
PROVIDERS: Emergency Provider Emergency Medicine; PCP Nurse Practitioner Family; Visit Provider Emergency Medicine
DX: F41.9 Anxiety disorder, unspecified (principal); Z98.51 Tubal ligation status; F17.210 Nicotine dependence, cigarettes, uncomplicated; F17.290 Nicotine dependence, other tobacco product, uncomplicated
CPT/HCPCS: 99282